=== PATIENT | female | born 1950 | race Caucasian/White ===

== ENCOUNTER → 2019-05-16 15:59 | Outpatient (CLI) | payer MEDICARE, OTHER, SELFPAY ==
[2019-05-16 14:50] VITALS: BMI 39.0
== END ==
PROVIDERS: Family Provider Family Medicine; PCP Family Medicine; Referring Provider Surgery; Visit Provider Surgery
DX: S81.802A Unspecified open wound, left lower leg, initial encounter (principal)
CPT/HCPCS: 87070; 87075; 87077; 87186; 87205

== ENCOUNTER → 2020-05-05 | Outpatient (CLI) | payer MEDICARE, OTHER, SELFPAY ==
[2020-04-22 14:02] VITALS: BMI 37.7
[2020-04-26 14:10] VITALS: BMI 37.7
--- NOTE | 2020-05-05 13:00 | CDU_ITS ---
Reason For Study: Carotid Artery Stenosis Rt. Velocities/BP Lt. Velocities/BP Prox CCA 134/16 cm/sec. Prox CCA 95/13 cm/sec. Mid CCA 102/23 cm/sec. Mid CCA 159/26 cm/sec. Dist CCA 97/17 cm/sec. Dist CCA 164/23 cm/sec. Prox ICA 125/27 cm/sec. Prox ICA 159/23 cm/sec. Mid ICA 142/21 cm/sec. Mid ICA 125/27 cm/sec. Dist ICA 68/19 cm/sec. Dist ICA 109/32 cm/sec. Rt. ICA/CCA = 1.4. Lt. ICA/CCA = 1.0. Prox ECA 328/22 cm/sec. Prox ECA 177/15 cm/sec. Rt. Vert. 75/16 cm/sec. Lt. Vert. 29/14 cm/sec. Right Extracranial There is heterogeneous, irregular atherosclerotic plaque noted in the right common carotid artery. There is heterogeneous, irregular atherosclerotic plaque noted in the right internal carotid artery. There is heterogeneous, irregular atherosclerotic plaque noted in the right external carotid artery. Antegrade flow is noted in the right vertebral artery. Left Extracranial There is heterogeneous, irregular atherosclerotic plaque noted in the left common carotid artery. There is heterogeneous, irregular atherosclerotic plaque noted in the left internal carotid artery. There is heterogeneous, irregular atherosclerotic plaque noted in the left external carotid artery. Antegrade flow is noted in the left vertebral artery. Interpretation Summary Internal carotid arteryIrregular calcific plaque with shadowing with 50 to 69% stenosis. Extensive plaque at the proximal right external carotid artery with greater than 50% stenosis. Irregular calcific plaque at the proximal left internal carotid artery with 50 to 69% stenosis. <50% stenosis left external carotid Patent and antegrade vertebrals bilaterally Ordering Physician: Laz Kaur Referring Physician: Himanshu Evans Performed By: Jessica Harvey, ANÍBAL, RVT
--- NOTE | 2020-05-05 13:00 | ECHOD_ITS ---
Reason For Study: Murmur Procedure This was a 2D Doppler, Color Flow transthoracic echocardiogram. The study was technically difficult. Exam performed in department. Left Ventricle Normal LV size. Left ventricular systolic function is normal. The estimated ejection fraction is 55 %. Diastolic function is indeterminate. No regional wall motion abnormalities noted. Right Ventricle Normal RV size. Normal systolic function. Atria Normal left atrium. Normal right atrium. No doppler evidence for ASD. Mitral Valve There is mild mitral annular calcification. Extension of the mitral annular calcification onto the base of the posterior mitral valve leaflet. Mild (1+) mitral valve insufficiency. Tricuspid Valve Normal tricuspid valve. Trivial tricuspid valve insufficiency. Unable to estimate RV systolic pressure/pulmonary artery pressure due to technically difficult study. Aortic Valve Trisinus/trileaflet aortic valve. Mild diffuse aortic valve thickening. Moderate diffuse aortic valve calcification. Moderate - Severe Aortic Valve Stenosis. Trivial aortic valve insufficiency. Pulmonic Valve The pulmonic valve is not well visualized. Great Vessels Normal sized aortic root. Pericardium/Pleural No pericardial effusion. MMode/2D Measurements & Calculations LVIDd: 5.2 cm IVSd: 1.1 cm LVOT diam: 1.9 cm LVIDs: 3.9 cm LVPWd: 0.95 cm LVOT area: 2.7 cm2 FS: 25.7 % Ao root diam: 3.1 cm LAV(MOD-bp): 44.5 ml LVAd ap4: 28.2 cm2 LA dimension: 3.9 cm LAV(MOD-bp) Indexed: 24.2 ml/m2 EDV(MOD-sp4): 88.1 ml LAV(MOD-sp2): 45.6 ml EDV(sp4-el): 88.0 ml LAV(MOD-sp4): 44.2 ml LVAs ap4: 17.2 cm2 ESV(MOD-sp4): 41.7 ml ESV(sp4-el): 39.8 ml EF(MOD-sp4): 52.7 % EF(sp4-el): 54.8 % SV(MOD-sp4): 46.4 ml SV(sp4-el): 48.3 ml LA A4 area: 16.9 cm2 RA A4 area: 10.0 cm2 Time Measurements MV dec time: 0.18 sec Doppler Measurements & Calculations MV E max carter: 83.4 cm/sec Lat Peak E' Carter: 7.9 cm/sec Med Peak E' Carter: 7.4 cm/sec MV A max carter: 117.4 cm/sec E/E' lat: 10.5 E/E' med: 11.2 MV E/A: 0.71 MV V2 max: 144.3 cm/sec MV P1/2t max carter: 105.5 cm/sec Ao V2 max: 365.4 cm/sec MV max P.3 mmHg MV P1/2t: 95.3 msec Ao max P.4 mmHg MV V2 mean: 82.4 cm/sec Ao V2 mean: 251.4 cm/sec MV mean P.1 mmHg MV dec slope: 324.1 cm/sec2 Ao mean P.7 mmHg MV V2 VTI: 35.8 cm MVA(P1/2t): 2.3 cm2 Ao V2 VTI: 93.4 cm MVA(VTI): 2.3 cm2 TORO(I,D): 0.87 cm2 TORO(V,D): 0.86 cm2 AI max carter: 365.4 cm/sec LV V1 max: 113.8 cm/sec MR max carter: 654.7 cm/sec AI max P.4 mmHg LV V1 max P.2 mmHg MR max P.5 mmHg LV V1 mean P.4 mmHg MR mean carter: 504.4 cm/sec AI dec slope: 236.9 cm/sec2 LV V1 mean: 69.5 cm/sec MR mean P.9 mmHg AI P1/2t: 451.8 msec LV V1 VTI: 29.4 cm MR VTI: 243.5 cm SV(LVOT): 80.9 ml PA V2 max: 79.0 cm/sec Interpretation Summary The study was technically difficult. Left ventricular systolic function is normal. The estimated ejection fraction is 55 %. There is mild mitral annular calcification. Extension of the mitral annular calcification onto the base of the posterior mitral valve leaflet. Mild (1+) mitral valve insufficiency. Trivial tricuspid valve insufficiency. Moderate - Severe Aortic Valve Stenosis. Trivial aortic valve insufficiency. Unable to estimate RV systolic pressure/pulmonary artery pressure due to technically difficult study. Diastolic function is indeterminate. Ordering Physician: Laz Kaur Referring Physician: Himanshu Evans Performed By: Bruno Harper RCS
--- NOTE | 2020-05-05 14:05 | RAD_ITS ---
STUDY: X-RAY CHEST REASON FOR EXAM: Female, 69 years old. SHORT OF BREATH, WHEEZING, BAD HEART VALVE PER PT. TECHNIQUE: 2 views COMPARISON: None. FINDINGS: The lungs are clear and expanded. There is no demonstrated pleural abnormality. Normal size heart. Normal mediastinum and louie. Normal visualized pulmonary arteries. There is atherosclerotic calcification of the aortic arch with tortuosity. Mild degenerative changes of the thoracic spine with demineralized osseous structures. Normal visualized ribs, clavicles, and shoulders. Surgical clips in the deep upper abdomen. RAD/Chest PA and Lateral IMPRESSION: No acute cardiopulmonary findings. Negative for consolidation, other infiltrates, pleural effusion or cardiomegaly. Atherosclerotic changes of the aorta. There does not appear to be a visible cardiac valve. There is no evidence of prior midline sternotomy or thoracotomy Electronically Signed: Татьяна Perez MD at 17:54 EDT , Service support ,
[2020-05-05 15:01] LABS: Absolute Lymphocyte Count 2.29 X10^3/uL (0.83-4.51); Basophil# 0.06 X10^3/uL; Basophil% 0.7 % (0-1); Eosinophil# 0.35 X10^3/uL; Eosinophils% 4.2 % (0-5); Hematocrit 39.6 % (37-47); Hemoglobin 12.5 g/dL (12.0-15.0); Lymphocyte # 2.29 X10^3/ul (4.0); Lymphocyte % 27.7 % (19-41); Mean Corp Hgb Conc 31.6 g/dL (32-36); Mean Corpuscular Hgb 29.5 pg (27.0-32.0); Mean Corpuscular Volume 93.4 fL (81-99); Mean Platelet Vol. 10.6 fl (6.2-12.0); Monocyte# 0.59 X10^3/uL; Monocyte% 7.1 % (0-10); NRBC Flagged by Analyzer 0 % (0-5); Neutrophil # 4.95 X10^3/uL (2.7-7.7); Neutrophil % 60.1 % (47-70); Platelet Count 244 K/mm3 (150-450); RBC Distribution Width CV 13.1 % (11.6-14.6); RBC Distribution Width SD 44.9 fl (35.1-43.9); Red Blood Count 4.24 M/mm3 (4.2-5.4); White Blood Count 8.3 K/mm3 (4.4-11.0)
[2020-05-05 15:16] LABS: Anion Gap 3 (5-15); BUN 30 mg/dL (7-18); BUN/Creat Ratio 39.5 RATIO (10-20); Calcium,Total 9.9 mg/dL (8.5-10.1); Chloride 104 mmol/L (98-107); Creatinine, Serum 0.76 mg/dL (0.55-1.02); EST Glomerular Filtration Rate 80 mL/min (>60); Est Glom Filt Rate - Afr Amer 97 mL/min (>60); Glucose 97 mg/dL (74-106); Potassium 3.9 mmol/L (3.5-5.1); Sodium Level 138 mmol/L (136-145)
[2020-05-05 15:25] LABS: International Normalized Ratio 1.1; Prothrombin Time (Protime)PT. 13.2 SECONDS (11.7-14.9)
[2020-05-05 15:26] LABS: Partial Thromboplast Time 35.2 Seconds (24.1-36.2)
== END | disposition home or self-care (01) ==
PROVIDERS: PCP Family Medicine; Referring Provider Internal Medicine Cardiovascular Disease; Visit Provider Internal Medicine Cardiovascular Disease
DX: R06.02 Shortness of breath (principal); I35.0 Nonrheumatic aortic (valve) stenosis; I65.23 Occlusion and stenosis of bilateral carotid arteries; E78.2 Mixed hyperlipidemia; I10 Essential (primary) hypertension; Z95.828 Presence of other vascular implants and grafts
CPT/HCPCS: 36415; 71046; 80048; 85025; 85610; 85730; 93306; 93880

== ENCOUNTER → 2020-05-10 09:19 | Outpatient (CLI) | payer MEDICARE, OTHER, SELFPAY ==
[2020-04-22 14:02] VITALS: BMI 37.7
[2020-04-26 14:10] VITALS: BMI 37.7
--- NOTE | 2020-05-11 10:37 | PFT ---
INTRODUCTION: The patient is a 69-year-old female that presents for pulmonary function studies secondary to a diagnosis of shortness of breath. Respiratory therapy reports good patient effort. Bronchodilators were used during testing. INTERPRETATION: Forced expiration spirometry demonstrates the presence of a severe large airways obstructive ventilatory defect. There was a partial, albeit technically nonsignificant, response to aerosolized bronchodilators. Spirograms are of good quality and do not plateau indicating slow emptying of the lungs. Body plethysmography was performed and reveals an elevated RV to 150% of predicted, indicative of underlying air trapping. Diffusing capacity by single breath CO is reduced at 57% of predicted. IMPRESSION: Irreversible severe large airways obstructive ventilatory defect with associated air trapping and symmetric reduction in diffusing capacity.
== END ==
PROVIDERS: PCP Family Medicine; Referring Provider Internal Medicine Cardiovascular Disease; Visit Provider Internal Medicine Cardiovascular Disease
DX: I35.0 Nonrheumatic aortic (valve) stenosis (principal); Z95.828 Presence of other vascular implants and grafts; I65.23 Occlusion and stenosis of bilateral carotid arteries; E78.2 Mixed hyperlipidemia; I10 Essential (primary) hypertension; R06.02 Shortness of breath
CPT/HCPCS: 94060; 94726; 94729

== ENCOUNTER 2020-05-11 08:01 | Day surgery (SDC) | payer MEDICARE, OTHER, SELFPAY ==
[2020-04-22 14:02] VITALS: BMI 37.7
[2020-04-26 14:10] VITALS: BMI 37.7
[2020-05-10 10:29] VITALS: BMI 37.7
--- NOTE | 2020-05-11 09:30 | HP_ITS ---
HPI HPI History of Present Illness Surgical H&P: Yes Details: This is a 69-year-old white female who presents for outpatient cardiovascular consultation based upon concerns of aortic valve stenosis and shortness of breath/dyspnea. She knows she has an element of aortic valve stenosis based upon a transthoracic echocardiogram performed through the [facility] system in December 2018 at which time it was reported as severe with an aortic valve area of 0.6 cm?. She states she did not follow-up at that time with the recommendations to seek cardiovascular consultation. She does not believe she has had any further cardiovascular diagnostic studies. She states her main concern has been her shortness of breath and dyspnea and her back discomfort. She admits to being a longtime cigarette smoker and continues to smoke cigarettes. She admits to audible wheezing which is been going on for at least a year. She has not had any radiologic studies or pulmonary function studies to the best of her recollection. She states she is in need for some form of back surgery in the future but there is hesitancy based upon her underlying cardiopulmonary disease process. She is not complaining of chest discomfort. Her main concerns include shortness of breath/dyspnea with exertion. She has not had classic orthopnea or PND or peripheral pitting edema suspicious for acute CHF or pulmonary edema. There is been no near syncope or syncope. She has a history of peripheral vascular disease. She has bilateral carotid artery stenosis. She is also had aorto iliac bypass surgery performed many years ago at [facility]. She had an ECG in the office today. She was noted to be in sinus rhythm with an inferior SC pattern of indeterminate age cannot be excluded. Intake Vital Signs 04/22/20 Height 5 ft 04/22/20 Weight: 193 lb 4 oz 04/22/20 BMI 37.7 04/22/20 BP 170/78 H 04/22/20 Blood Pressure Location Lt brachial 04/22/20 Position Sitting 04/22/20 Respiration 18 04/22/20 Pulse 80 04/22/20 Pulse Source Auscultation Intake Visit Reasons: AORTIC STENOSIS/ SELF REF. Mangle Tender Required: No Accompanied by: Self Allergies ROSALINO Inhibitors Adverse Reaction (Severe, Verified 04/22/20 14:16) cough Medications losartan 100 mg tablet 100 mg PO DAILY 05/16/19 [History Confirmed 04/22/20] acetaminophen 500 mg tablet 500 mg PO Q6H PRN 04/22/20 [History Confirmed 04/22/20] amlodipine 5 mg tablet 5 mg PO DAILY #1 tab 04/22/20 [Rx Confirmed 04/22/20] aspirin 81 mg tablet,delayed release 81 mg PO DAILY 04/22/20 [History Confirmed 04/22/20] gabapentin 300 mg capsule 300 mg PO TID 04/22/20 [History Confirmed 04/22/20] hydrochlorothiazide 50 mg tablet 50 mg PO DAILY 04/22/20 [History Confirmed 04/22/20] meloxicam 15 mg tablet 15 mg PO DAILY 04/22/20 [History Confirmed 04/22/20] [facility] Medical History (Updated 04/20/20 @ 10:49 by Phoebe Ackerman) Bilateral carotid artery stenosis (Chronic) Nonrheumatic aortic (valve) stenosis (Chronic) Mixed hyperlipidemia (Chronic) PVD (peripheral vascular disease) (Chronic) Essential hypertension (Chronic) Venous stasis ulcer (Acute) Neuropathy (Chronic) Surgical History (Updated 04/20/20 @ 10:41 by Phoebe Ackerman) History of kagsl-blfrg-hgllpdv bypass (Chronic ~1997) S/P carpal tunnel release (Resolved) Family History (Updated 04/22/20 @ 14:20 by Phoebe Ackerman) Brother Diabetes Heart disease Cancer Father Heart disease Hypertension CAD (coronary artery disease) Mother Hypertension History of mitral valve disorder Social History (Updated 04/22/20 @ 15:[address] Laz Kaur MD) Smoking Status: Current every day smoker alcohol intake: current details: occasional substance use type: does not use caffeine: Yes Type: carbonated beverages Number of servings: 1, coffee Number of servings: 2 ROS Const Const: Positive for fatigue; negative for weakness, frequent falls, excessive sweating, weight gain or weight loss Eyes Eyes: Negative for transient loss of vision, blurry vision or change in vision ENT ENT: Negative for dizziness or balance problems Cardio Chest Pain: No Palpitations: No Edema: None Muscle aches with walking: None Resp Respiratory: Positive for SOB with activity (increased with minimal activity), Cough (occasional productive) and wheezing; negative for SOB at rest GI GI: Negative vomiting or vomiting blood/hematemesis : Negative for hematuria Musc Musc: Positive for muscle aches/ myalgia (back pain) and joint pain (bilat hip pain); negative for muscle weakness or balance problems Skin Skin: Negative non-healing lesions or rash Neuro Neuro: Negative for dizziness, lightheadedness, orthostatic symptoms, frequent falls, weakness or blurry vision Abelino Hematologic/Lymphatic: Negative for easy bleeding Endo Endo: Positive for fatigue; negative for excessive sweating Psych Psych: Negative for anxiety or depression Allergy Allergy/Immunology: Negative for hives, Negative for rash Cardiology Exam Const Appearance: cooperative, healthy appearing, comfortable, no acute distress, well developed and well groomed Nutritional Appearance: obese Orientation: alert, awake and oriented x3 Head Head: normal to inspection, normocephalic and atraumatic Ears: hearing grossly normal bilaterally Nose: external nose normal Face and Sinus: face symmetric Eyes Eyelids: eyelids normal Conjunctivae: conjunctivae normal Pupils: PERRL EOM: EOM intact bilaterally Neck Neck: normal visual inspection and full ROM Carotids: bruit Bilateral Chest Chest inspection: normal inspection of the chest, symmetric chest movement and normal respiratory effort Auscultation: Bilateral: Expiratory Wheezes Cardio Palpation: normal PMI Rate: regular rate Rhythm: regular rhythm Heart sounds: S1 normal and S2 normal Murmur: Grade 3/6, harsh, mid systolic, LLSB, LVOT and sternal notch GI GI: normal to inspection, soft, bowel sounds present and obese Neuro General: alert, awake, oriented x3 and moves all extremities Skin Skin: no rashes or lesions noted Extremities Pulses: Normal: Right Radial Pulse, Left Radial Pulse, Diminished: Right Dorsalis Pedis Pulse, Left Dorsalis Pedis Pulse, Right Posterior Tibial Pulse, Left Posterior Tibial Pulse Lower Extremity Edema: None: Bilateral Psych Psychological: normal affect Assessment & Plan 1. Nonrheumatic aortic (valve) stenosis I35.0 Plan At the present time she does have a history of aortic valve stenosis. Certainly this can be contributing to her shortness of breath and dyspnea with exertion superimposed upon underlying pulmonary related issues. At the moment she will seek further evaluation. This will include an echocardiogram to reassess her aortic valve anatomy and physiology as well as her left ventricular size, wall motion, and systolic function. She has been recommended for further evaluation with diagnostic cardiac catheterization. This would be to assess her cardiovascular hemodynamics if possible and her coronary anatomy. This will be in preparation for a future TAVR procedure versus traditional surgical based aortic valve replacement procedure. Orders Orders: 12 Lead EKG performed by BMS Today Left & Right Heart Cath w Grafts Today Basic Metabolic Profile (BMP) Today Partial Thromboplast Time Today Prothrombin Time w/INR Today Echo Complete Today CBC W/Diff, Automated Today Pulmonary Function Test (Comp) Today Chest PA and Lateral Today Carotid Duplex Ultrasound Today 2. History of cytue-cuuow-dqwdmcc bypass Z95.828 Plan She does have PAD. She states she has followed with Dr. Pepe Colon who performed her original surgery many years ago. Orders Orders: Left & Right Heart Cath w Grafts Today Basic Metabolic Profile (BMP) Today Partial Thromboplast Time Today Prothrombin Time w/INR Today Echo Complete Today CBC W/Diff, Automated Today Pulmonary Function Test (Comp) Today Chest PA and Lateral Today Carotid Duplex Ultrasound Today 3. Bilateral carotid artery stenosis I65.23 Mild Plan She will be asked to have carotid artery duplex study to reassess her carotid artery status. This will be important noting that she is going to be needing upcoming aortic valve replacement. Orders Orders: 12 Lead EKG performed by BMS Today Left & Right Heart Cath w Grafts Today Basic Metabolic Profile (BMP) Today Partial Thromboplast Time Today Prothrombin Time w/INR Today Echo Complete Today CBC W/Diff, Automated Today Pulmonary Function Test (Comp) Today Chest PA and Lateral Today Carotid Duplex Ultrasound Today 4. Mixed hyperlipidemia E78.2 Plan A copy of her lipid labs will be appreciated for continuity of care. Orders Orders: Left & Right Heart Cath w Grafts Today Basic Metabolic Profile (BMP) Today Partial Thromboplast Time Today Prothrombin Time w/INR Today Echo Complete Today CBC W/Diff, Automated Today Pulmonary Function Test (Comp) Today Chest PA and Lateral Today Carotid Duplex Ultrasound Today 5. Essential hypertension I10 Plan She will increase her amlodipine therapy to 5 mg p.o. daily and monitor her blood pressure response. Orders Orders: 12 Lead EKG performed by BMS Today Left & Right Heart Cath w Grafts Today Basic Metabolic Profile (BMP) Today Partial Thromboplast Time Today Prothrombin Time w/INR Today Echo Complete Today CBC W/Diff, Automated Today Pulmonary Function Test (Comp) Today Chest PA and Lateral Today Carotid Duplex Ultrasound Today 6. Shortness of breath R06.02 Plan She will have further evaluation of her pulmonary status with chest x-ray and PFTs. The PFTs would also be important noting that she is going to be in need of upcoming aortic valve replacement procedures Orders Orders: Left & Right Heart Cath w Grafts Today Basic Metabolic Profile (BMP) Today Partial Thromboplast Time Today Prothrombin Time w/INR Today Echo Complete Today CBC W/Diff, Automated Today Pulmonary Function Test (Comp) Today Chest PA and Lateral Today Carotid Duplex Ultrasound Today Plan Detail Other Medications New: amlodipine 5 mg PO DAILY 1 tab 0RF aspirin (Adult Low Dose Aspirin) 81 mg PO DAILY Additional Comments The above was discussed with her and she was agreeable to this approach. Thank you for allowing me to participate in the care of your patient. Please don't hesitate to call if any issues arise. This note was generated using a voice recognition system and there may be incorrect words, spelling or punctuation that were not noted when reviewing the office note prior to saving. Follow Up 6 Weeks (with PFM) Coding Level of Care Code Off vis,new,level 5 Diagnoses Nonrheumatic aortic (valve) stenosis I35.0 History of hxink-zporc-vyodcjd bypass Z95.828 Bilateral carotid artery stenosis I65.23 Mixed hyperlipidemia E78.2 Essential hypertension I10 Shortness of breath R06.02 Coding Level of Care Code Off vis,new,level 5 Diagnoses Nonrheumatic aortic (valve) stenosis I35.0 History of nzolc-drdtr-zjihfnq bypass Z95.828 Bilateral carotid artery stenosis I65.23 Mixed hyperlipidemia E78.2 Essential hypertension I10 Shortness of breath R06.02 Supplemental Info Supplemental Information Diagnostics Electrocardiogram 04/22/20 I have examined the patient the following changes are noted: The patient has undergone additional evaluation with a transthoracic echocardiogram. The results are noted below. Interpretation Summary The study was technically difficult. Left ventricular systolic function is normal. The estimated ejection fraction is 55 %. There is mild mitral annular calcification. Extension of the mitral annular calcification onto the base of the posterior mitral valve leaflet. Mild (1+) mitral valve insufficiency. Trivial tricuspid valve insufficiency. Moderate - Severe Aortic Valve Stenosis. Trivial aortic valve insufficiency. Unable to estimate RV systolic pressure/pulmonary artery pressure due to technically difficult study. Diastolic function is indeterminate. The plan is to proceed with further evaluation with diagnostic cardiac catheterization. The procedure and risks have been discussed with the patient. She was agreeable to this approach. The surgeon/proceduralist and patient have discussed in detail the risk of exposure to and/or potential harm posed by the COVID-19 virus with having a surgery/procedure at this time versus the risk of delaying the surgery/procedure. It is not possible to know either the risk of delaying the surgery or procedure or chance of getting an infection with perfect accuracy, but a joint decision was made between the patient and the surgeon/proceduralist to proceed at this time with the scheduled surgery/procedure as indicated on the consent form. This note was generated using a voice recognition system and there may be incorrect words, spelling or punctuation that were not noted when reviewing the office note prior to saving.
[2020-05-11 10:16] LABS: Blood Gas Specimen Type VEN; VBG BASE EXCESS 1 mmol/L (-1.0-3.5); VBG Bicarbonate 27 mmol/L (22-26); VBG Oxygen Content 28 mmol/L (23-33); VBG PO2 40 mmHg (25-40); VBG SO2 71 % (50-70); VBG pCO2 48.3 mmHg (41-51); VBG pH 7.35 (7.32-7.42)
[2020-05-11 10:20] LABS: Blood Gas Specimen Type VEN; VBG BASE EXCESS 0 mmol/L (-1.0-3.5); VBG Bicarbonate 26 mmol/L (22-26); VBG Oxygen Content 27 mmol/L (23-33); VBG PO2 38 mmHg (25-40); VBG SO2 69 % (50-70); VBG pCO2 46.8 mmHg (41-51); VBG pH 7.35 (7.32-7.42)
[2020-05-11 10:26] LABS: Base Excess 1 mmol/L (-2 to +2); Bicarbonate 26.3 mmol/L (22-26); Blood Gas Specimen Type ART; PO2 67 mmHG (75-100); SO2 92 % (95-99); Total Carbon Dioxide 28 mmol/L; pCO2 46.5 mmHg (35-45); pH 7.36 (7.35-7.45)
--- NOTE | 2020-05-11 11:26 | CL.D_ITS ---
Patient Name: LEONIDES BAKER Study Date: 05/11/2020 Performing: Laz Kaur MD Ht: 59.84 inches 152 cm : 1950 Wt: 194.01 lbs 88 kg Age: 69 Gender: female BSA: 1.84 PROCEDURE(S) PERFORMED [id number]-ENO/LHC/COR CLINICAL PROFILE AND INDICATIONS Indications: Valvular Disease Heart Failure: None Stress/Imaging Stress/Image Study Performed: No Angina Classification Anginal Classification w/in 2 Weeks: Anginal Equivalent Dyspnea CAD Presentations: Other: dyspnea on exertion CONCLUSIONS Right heart pressures - moderately elevated The patient has pulmonary hypertension which is moderate. Intracardiac shunting: None [place] Multivessel CAD RECOMMENDATIONS Medical therapy Risk factor modification Surgery consult for valvular disease (TAVR vs. SAVR) and coronary artery revascularization therapy DESCRIPTION OF PROCEDURE The patient arrived to the procedure lab. The risks and benefits of the procedure as well as a full d escription of our services here and current unavailability of surgical backup were fully explained to the patient and/or their significant other prior to the catheterization. The Timeout was completed, verifying the correct patient and procedure. The patient's procedural site was prepped and draped in the usual fashion. Local anesthetic was given subcutaneously to right brachial region with Lidocaine 2%. Local anesthetic was given subcutaneously to right radial region with Lidocaine 2%. Using a modif ied Seldinger technique, arterial access was obtained via the right radial artery, a 6Fr sheath was i nserted. Venous access was obtained via the right brachiocephalic vein, with Micropuncture set A 7Fr thermal dilution catheter was inserted and right heart pressures were recorded, it was then advanced to PA position for cardiac outputs. O2 saturations were then obtained. Thermal dilution cardiac outputs were then recorded. Simultaneous pressures were then recorded. The Thermal dilution c atheter was then removed. Left Coronary Artery selective angiography was performed in multiple views using a 5 Fr. 4.0 [place] catheter. Right Coronary Artery selective angiography was then performed in m ultiple views using a 5 Fr. 4.0 [place] catheter.The arterial sheath was pulled and a TR Band was appli ed for hemostasis 15cc air. The venous sheath was then pulled and manual compression applied until he mostasis achieved CORONARY ANGIOGRAPHY DOMINANCE: Co- Dominant LEFT HEART ASSESSMENT Left Ventricular Ejection Fraction: Not assessed RIGHT HEART ASSESSMENT Thermal CO: 5.3 Thermal CI: 2.88 Rebecca CO: 6.85 Rebecca CI: 3.72 PW: 24 26 PA: 36/22 28 RV: 39/15 16 RA: 14/ 13 PVR: 30 SVR: 1268 Right Heart pressures - elevated Pulmonary Hypertension Moderate Intracardiac shunting: None LEFT MAIN: Mild calcification, proximal: 10 - 25 % Stenosis LEFT ANTERIOR DESCENDING ARTERY: Mild luminal irregularities PROX LAD: Mild calcification, hazy: eccentric: 25 % Stenosis CIRCUMFLEX ARTERY: PROX CIRC: Mild calcification, Mild luminal irregularities DISTAL CIRC: small caliber vessel: 85 % Stenosis RIGHT CORONARY ARTERY: Mild luminal irregularities DISTAL RCA: small caliber vessel: long: smooth: 50 % Stenosis COMPLICATIONS No Complications PROCEDURE MEDICATIONS Versed 1 mg IV Fentanyl 50 mcg IV Heparin diluted in 23cc Heparinized saline. Patient given 10cc IA of this solution. 05/11/2020 09:56: 49 Verapamil 2.5mg, Ntg 100mcgs, 2000 units of Heparin diluted in 23cc Heparinized saline. Patient give n 10cc IA of this solution. 05/11/2020 09:56:49 SUMMARY OF HEMODYNAMIC DATA Time AIR REST ECG 08:25:06 RA 14/13 (13) SV 10:10:49 RV 39/15, 16 10:11:10 PA 36/22 (28) PA 10:11:31 PW (26) PV 10:12:19 AO 143/45 (97) SA 10:21:26 PA 43/23 (34) 10:21:26 AO 132/48 (80) 10:32:46 Type SV CO (l/m) CI (l/m/ HR Time AIR REST Thermal 60.20 5.30 2.88 88 08:25:06 Rebecca 77.80 6.85 3.72 88 08:25:06 Label % O2 Pres/Loc Time AIR REST RA 71 SV 10:19:55 AO 92 PV 10:20:00 PA 69 PA 10:20:03 SVC 67 10:20:12 Signed By Laz Kaur MD On 05/11/2020 11:25:37 AM Laz Kaur MD
== END 2020-05-11 12:35 | disposition home or self-care (01) ==
LOC: CLSP 08:02
PROVIDERS: PCP Family Medicine; Referring Provider Internal Medicine Cardiovascular Disease; Visit Provider Internal Medicine Cardiovascular Disease
DX: I27.20 Pulmonary hypertension, unspecified (principal); I25.10 Atherosclerotic heart disease of native coronary artery without angina pectoris; R06.09 Other forms of dyspnea; I65.23 Occlusion and stenosis of bilateral carotid arteries; I35.0 Nonrheumatic aortic (valve) stenosis; E78.2 Mixed hyperlipidemia; I10 Essential (primary) hypertension; I73.9 Peripheral vascular disease, unspecified; F17.210 Nicotine dependence, cigarettes, uncomplicated; Z79.1 Long term (current) use of non-steroidal anti-inflammatories (NSAID); Z79.82 Long term (current) use of aspirin; Z95.2 Presence of prosthetic heart valve
CPT/HCPCS: 82803; 93456; 99152; 99153; J7040; Q9967; C1751; C1769; C1894

== ENCOUNTER 2020-06-24 15:08 | Emergency (ER) | payer MEDICARE, OTHER, SELFPAY ==
[2020-05-10 10:29] VITALS: BMI 37.7
[2020-06-24 15:09] VITALS: BP 161/80; PULSE 86; RESP 16; TEMP 36.3; O2SAT 98; O2SAT 99; BMI 38.0
--- NOTE | 2020-06-24 16:57 | ED.DCSUM_ITS ---
History of Present Illness Chief Complaint: Lower Extremity Injury Informant: Patient Onset: Days Timing: Continuous Quality: Wound anterior left leg Location: Anterior left leg Current Severity: Mild Maximum Severity: Mild Worsened by: Unknown possibly dressing Relieved by: Patient states her symptoms improved when she removes rosalino dressing Associated Symptoms: No constitutional symptoms. No paresthesia or anesthesia. No pallor to to Narrative: Patient is 69-year-old woman who had aortic valve replacement on 06/07/2020. She was seen by wound care nurse affiliated with the [facility]. She was sent in because there was concern for blood clot, infection and limb ischemia. Nurse states very acute. Patient states this started several days ago. She does not believe it looks bad. She thought the fact that it was red and there was bleeding from the wounds this meant blood supply was good. She denies fever, chills night sweats. She denies paresthesia, anesthesia or motor weakness. She does have a remote history of vascular surgery [address] Pepe Colon. She denies numbness in her toes, loss of use of her foot or toes and denies pallor to her foot or toes. She denies chest pain, shortness of breath, pleurisy. She denies pain posteriorly. She states she had difficulty sleeping and when she removes the dressing she is able to sleep because the pain is better. Prior similar symptoms: Yes Recent Illness/Hospitalization: Yes - Past Medical History (1) Venous stasis ulcer Status: Acute (2) Atherosclerotic heart disease of [place] coronary artery without angina pectoris Status: Chronic (3) Bilateral carotid artery stenosis Status: Chronic Comment: Mild (4) Essential hypertension Status: Chronic (5) History of uemtz-yhukg-oarukml bypass Status: Chronic (6) Mixed hyperlipidemia Status: Chronic (7) Nonrheumatic aortic (valve) stenosis Status: Chronic (8) PVD (peripheral vascular disease) Status: Chronic Past Medical History - Allergies and Home Meds Allergies/Adverse Reactions: Allergies ROSALINO Inhibitors Adverse Reaction (Severe, Verified 04/22/20 14:16) cough Primary Care Physician: Ronnie Evans MD [Primary Care Provider] - Prior records reviewed: Yes Surgical History: - - Recent surgery at [facility] Smoking Status: Current every day smoker Alcohol: None Drugs: None Review of Systems General: Denies: Chills, Fever, Malaise, Subjective, Weight loss Eyes: Denies: Visual changes - bilaterally, Blurred Vision - bilaterally ENT: Denies: Rhinorrhea, Sore throat Cardiovascular: Denies: Chest pain, Palpitations Respiratory: Denies: Dyspnea, Cough, Sputum, Dyspnea on exertion, Orthopnea, Paroxysmal nocturnal dyspnea Gastrointestinal: Denies: Abdominal pain, Nausea, Vomiting, Diarrhea, Melena, Hematochezia Genitourinary: Denies: Dysuria, Hematuria, Frequency Musculoskeletal: Reports: Extremity Pain. Denies: Myalgias, Arthralgias, Neck pain, Back pain, Swelling Skin: Reports: Rash, Wounds Neurological: Denies: Headache, Weakness, Parasthesia Endocrine: Denies: Polyuria, Polydipsia Hematologic: Denies: Easy bruising, Easy bleeding Physical Exam Vital Signs/Narrative: Vital Signs Temp Pulse Resp BP Pulse Ox 06/24/20 15:09 97.3 F L 86 16 161/80 H 98 Inital Vital Signs reviewed: Yes General: Well nourished, Well developed, Obese Head: Normocephalic, Atraumatic Eyes: Perrl, EOMI Neck: Supple, Nontender Cardiovascular: Regular rate, Regular rhythm, No murmurs, Normal S1, Normal S2 Respiratory: No distress, CTA bilaterally Extremities: Nontender - Tenderness anteriorly over the wound. There is no erythema, warmth, induration, lymphangitis or popliteal/inguinal lymph adenopathy. There is no lymphangitis., - - There is no asymmetry, swelling, discoloration, leg vein distention, palpable cords or tenderness along the distribution of the deep venous system. Cap refill is normal. Toes are warm. There is no pallor. Both Dopplers of the department are not functioning. Negative for: No edema, Calf Tenderness Skin: Normal color, Rash, -. Negative for: Cyanosis, Diaphoresis, Jaundice, Trauma Neurological: Alert, Oriented x3, Cranial nerves II-XII grossly intact, Normal Strength, Normal Sensation Psychological: Normal affect Diagnostic/Tx/Re-eval Laboratory Results 06/24/20 06/24/20 17:15 17:15 WBC 11.4 H RBC 3.86 L Hgb 11.9 L Hct 34.9 L MCV 90.4 MCH 30.8 MCHC 34.1 RDW Std Deviation 41.3 RDW Coeff of Karla 12.6 Plt Count 223 MPV 10.3 Immature Gran % (Auto) 0.400 Neut % (Auto) 61.2 Lymph % (Auto) 18.8 L Hopkins % (Auto) 6.9 Eos % (Auto) 12.0 H Baso % (Auto) 0.7 Absolute Neuts (auto) 7.0 Absolute Lymphs (auto) 2.13 Nucleated RBC % 0 Sodium 139 Potassium 3.7 Chloride 108 H Carbon Dioxide 29.0 Anion Gap 2 L BUN 26 H Creatinine 0.81 Estim Creat Clear Calc 45.76 Est GFR (MDRD) Af Amer 89 Est GFR (MDRD) Non-Af 74 BUN/Creatinine Ratio 32.1 H Glucose 102 Calcium 9.8 White count is slightly elevated with no shift. This is nondiagnostic and nonspecific. BUN to creatinine ratio is elevated. GFR is normal. In my professional opinion patient does not have an ischemic leg. Since her pain is located anteriorly and is associated with the dressing this is consistent with a DVT. There is skin breakdown with granulation tissue. There is no evidence of infection. Therefore arterial and venous duplex ultrasound was not ordered. Clinically patient does not have a infection was not treated with antibiotics. ED Disposition - Plan for ED Patient: Disposition: Home or Assisted Living Diagnosis: Ulcer of left lower extremity, limited to breakdown of skin, Pain of left lower leg Instructions: ED Ulcer Skin Simple, ED Acute Pain [facility] Referrals: Ronnie Evans MD [Primary Care Provider] - As Needed
[2020-06-24 17:27] LABS: Absolute Lymphocyte Count 2.13 X10^3/uL (0.83-4.51); Basophil# 0.08 X10^3/uL; Basophil% 0.7 % (0-1); Eosinophil# 1.36 X10^3/uL; Hematocrit 34.9 % (37-47); Hemoglobin 11.9 g/dL (12.0-15.0); Lymphocyte # 2.13 X10^3/ul (4.0); Lymphocyte % 18.8 % (19-41); Mean Corp Hgb Conc 34.1 g/dL (32-36); Mean Corpuscular Hgb 30.8 pg (27.0-32.0); Mean Corpuscular Volume 90.4 fL (81-99); Mean Platelet Vol. 10.3 fl (6.2-12.0); Monocyte# 0.78 X10^3/uL; Monocyte% 6.9 % (0-10); NRBC Flagged by Analyzer 0 % (0-5); Neutrophil # 6.95 X10^3/uL (2.7-7.7); Neutrophil % 61.2 % (47-70); Platelet Count 223 K/mm3 (150-450); RBC Distribution Width CV 12.6 % (11.6-14.6); RBC Distribution Width SD 41.3 fl (35.1-43.9); Red Blood Count 3.86 M/mm3 (4.2-5.4); White Blood Count 11.4 K/mm3 (4.4-11.0)
[2020-06-24 17:44] LABS: Anion Gap 2 (5-15); BUN 26 mg/dL (7-18); BUN/Creat Ratio 32.1 RATIO (10-20); Calcium,Total 9.8 mg/dL (8.5-10.1); Chloride 108 mmol/L (98-107); Creatinine, Serum 0.81 mg/dL (0.55-1.02); EST Glomerular Filtration Rate 74 mL/min (>60); Est Glom Filt Rate - Afr Amer 89 mL/min (>60); Estimated Creatinine Clearance 45.76 ml/min; Glucose 102 mg/dL (74-106); Potassium 3.7 mmol/L (3.5-5.1); Sodium Level 139 mmol/L (136-145)
[2020-06-24 19:48] VITALS: BP 137/81; PULSE 88; RESP 16; O2SAT 96
== END 2020-06-24 19:48 | disposition home or self-care (01) ==
PROVIDERS: Emergency Provider Emergency Medicine; PCP Family Medicine
DX: L97.921 Non-pressure chronic ulcer of unspecified part of left lower leg limited to breakdown of skin (principal); I25.10 Atherosclerotic heart disease of native coronary artery without angina pectoris; I10 Essential (primary) hypertension; E78.2 Mixed hyperlipidemia; I73.9 Peripheral vascular disease, unspecified; I65.23 Occlusion and stenosis of bilateral carotid arteries; F17.200 Nicotine dependence, unspecified, uncomplicated; Z95.2 Presence of prosthetic heart valve
CPT/HCPCS: 80048; 85025; 99284

== ENCOUNTER → 2020-07-05 09:58 | Outpatient (CLI) | payer MEDICARE, OTHER, SELFPAY ==
[2020-06-24 15:09] VITALS: BMI 38.0
--- NOTE | 2020-07-05 09:59 | ECHOD_ITS ---
Reason For Study: Valve Replacement Evaluation Procedure This was a 2D Doppler, Color Flow transthoracic echocardiogram. The study was technically difficult. Exam performed in department. Left Ventricle Normal LV size. Left ventricular systolic function is normal. The estimated ejection fraction is 55 %. Septal bounce. There is evidence of diastolic dysfunction. No regional wall motion abnormalities noted. Right Ventricle Normal RV size. Normal systolic function. Atria The left atrium is mildly enlarged. Normal right atrium. No doppler evidence for ASD. Mitral Valve There is mild to moderate mitral annular calcification. Extension of the mitral annular calcification onto the base of the posterior mitral valve leaflet. The mitral valve chordae are thickened and/or calcified. Mild (1+) mitral valve insufficiency. Tricuspid Valve Normal tricuspid valve. Trivial tricuspid valve insufficiency. Unable to estimate RV systolic pressure/pulmonary artery pressure due to technically difficult study. Aortic Valve Stable appearing bioprosthetic aortic valve apparatus. Pulmonic Valve The pulmonic valve is not well visualized. Great Vessels The aortic root is not well visualized. Pericardium/Pleural No pericardial effusion. MMode/2D Measurements & Calculations LVIDd: 4.6 cm IVSd: 1.1 cm LVOT diam: 2.0 cm LVIDs: 3.8 cm LVPWd: 1.3 cm LVOT area: 3.1 cm2 RVDd: 3.4 cm FS: 18.0 % LA dimension: 4.3 cm LAV(MOD-bp): 62.7 ml LA A4 area: 20.2 cm2 LAV(MOD-bp) Indexed: 34.3 ml/m2 LAV(MOD-sp2): 61.8 ml LAV(MOD-sp4): 62.3 ml RA A4 area: 12.5 cm2 Time Measurements MV dec time: 0.17 sec Doppler Measurements & Calculations MV E max carter: 118.9 cm/sec Lat Peak E' Carter: 8.3 cm/sec Med Peak E' Carter: 7.0 cm/sec MV A max carter: 129.8 cm/sec E/E' lat: 14.4 E/E' med: 16.9 MV E/A: 0.92 MV V2 max: 153.1 cm/sec MV P1/2t max carter: 126.2 cm/sec Ao V2 max: 253.3 cm/sec MV max P.4 mmHg MV P1/2t: 95.5 msec Ao max P.7 mmHg MV V2 mean: 87.4 cm/sec MV dec slope: 387.1 cm/sec2 Ao V2 mean: 170.3 cm/sec MV mean P.6 mmHg Ao mean P.1 mmHg MV V2 VTI: 38.8 cm MVA(P1/2t): 2.3 cm2 Ao V2 VTI: 59.7 cm MVA(VTI): 3.0 cm2 TORO(I,D): 2.0 cm2 TORO(V,D): 1.9 cm2 LV V1 max: 154.2 cm/sec MR max carter: 549.4 cm/sec SV(LVOT): 116.9 ml LV V1 max P.5 mmHg MR max P.7 mmHg LV V1 mean P.6 mmHg LV V1 mean: 98.1 cm/sec LV V1 VTI: 37.1 cm PA V2 max: 67.4 cm/sec Interpretation Summary The study was technically difficult. Left ventricular systolic function is normal. The estimated ejection fraction is 55 %. Septal bounce. The left atrium is mildly enlarged. There is mild to moderate mitral annular calcification. Extension of the mitral annular calcification onto the base of the posterior mitral valve leaflet. The mitral valve chordae are thickened and/or calcified. Mild (1+) mitral valve insufficiency. Trivial tricuspid valve insufficiency. Stable appearing bioprosthetic aortic valve apparatus. Unable to estimate RV systolic pressure/pulmonary artery pressure due to technically difficult study. There is evidence of diastolic dysfunction. Ordering Physician: Laz Kaur Referring Physician: Himanshu Evans Performed By: Bruno Harper RCS
== END ==
PROVIDERS: PCP Family Medicine; Referring Provider Internal Medicine Cardiovascular Disease; Visit Provider Internal Medicine Cardiovascular Disease
DX: I35.0 Nonrheumatic aortic (valve) stenosis (principal); I10 Essential (primary) hypertension; I25.10 Atherosclerotic heart disease of native coronary artery without angina pectoris; Z95.2 Presence of prosthetic heart valve
CPT/HCPCS: 93306

== ENCOUNTER 2020-08-06 12:22 | Emergency (ER) | payer MEDICARE, OTHER, SELFPAY ==
[2020-07-28 13:57] VITALS: BMI 37.3
[2020-08-06 12:23] VITALS: BP 113/56; PULSE 90; RESP 24; TEMP 37.3; O2SAT 97; BMI 37.8
--- NOTE | 2020-08-06 12:56 | EKG12_ITS ---
Test Reason : Blood Pressure : / mmHG Vent. Rate : 083 BPM Atrial Rate : 083 BPM P-R Int : 172 ms QRS Dur : 098 ms QT Int : 392 ms P-R-T Axes : 066 054 059 degrees QTc Int : 460 ms Normal sinus rhythm Inferior infarct , age undetermined Abnormal ECG Confirmed by DANTE VELIZ, SANIYA ([id number]), state editor KWABENA MELO ([id number]) on 08/09/2020 8:53:30 AM Referred By: BB Confirmed By:SANIYA HOWELL MD
--- NOTE | 2020-08-06 12:56 | RAD_ITS ---
STUDY: X-RAY CHEST REASON FOR EXAM: Female, 69 years old. Weakness TECHNIQUE: Single AP portable view of the chest. COMPARISON: 05/05/2020 FINDINGS: The lungs are clear and expanded. There is no demonstrated pleural abnormality. Normal size heart. There is aortic valve replacement. Normal mediastinum and louie. Normal visualized pulmonary arteries. There is atherosclerotic calcification of the aortic arch . Normal visualized thoracic spine. Normal visualized ribs, clavicles, and shoulders. There is no demonstrated abnormality of the visualized soft tissue structures of the upper abdomen. RAD/Chest 1 View (Portable) IMPRESSION: Normal x-ray examination of the chest. Electronically Signed: Sridhar Deras, at 14:00 EST Tel , Service support ,
--- NOTE | 2020-08-06 12:58 | ED.DCSUM_ITS ---
History of Present Illness Chief Complaint: Weakness Informant: Patient Onset: Weeks - 2-3 Context: Gradual Onset Timing: Continuous Quality: weak and fatigued Location: all over Current Severity: Severe Maximum Severity: Severe Worsened by: nothing in particular Relieved by: nothing in particular Associated Symptoms: see below Narrative: Patient states for the last 2 to 3 weeks she has felt very weak and tired all over. She recently had a TAVR at [facility] in [place] at the beginning of June. Afterwards, she had severe swelling that was dependent, she was put on Lasix, just recently she had her Lasix doubled, and now she has gotten rid a lot of that excess fluid, she states that has just been in the past week. She has a chronic ulcerative wound on the left lower leg that became worse when she was retaining fluid. She states in the last several days, it has been hurting less, although it does hurt to touch and to lay on that area since there is some of it on the posterior aspect of her calf. She thinks that the granulation tissue looks different colored within the ulcerations, but agrees that it does not appear to be infected, she does not have any redness around it, no symptoms and the appearance of it that have otherwise worsened. She sees wound care, she does dressing changes at home and has not changed it today. She has chronic urinary symptoms that she states have been present since last November and unchanged, consisting of the feeling of incomplete emptying, and then incontinence. Yesterday she noticed a small amount of bright red blood present in her diaper, and states she noticed this 1 other time as well. She does not know where it came from. She states she has vomited on occasion off and on for the past 3 weeks. She really has not been nauseated, except right before she ends up vomiting she gets nauseated with very little warning, and after vomiting seems to be okay for a while. She denies vomiting any blood, she denies having any diarrhea, bright red blood per rectum that she knows of, melena. She denies fevers, chills, lightheadedness, confusion/disorientation, headaches, myalgias, cough, shortness of breath, abdominal pain. She states she had some procedure done on her abdominal aorta, she thinks it was a bypass but has no idea of the details and denies being diagnosed with an aneurysm and has had no other surgeries in her abdomen. In looking at her past records, it appears to be an zsmojj-zizuq-pakgmqh bypass. Since her TAVR, she has been on baby aspirin and clopidogrel, she is supposed to be on the latter for 90 days. She takes no anticoagulants. - Past Medical History (1) Venous stasis ulcer Status: Chronic (2) Atherosclerotic heart disease of [place] coronary artery without angina pectoris Status: Chronic (3) Bilateral carotid artery stenosis Status: Chronic Comment: Mild (4) COPD (chronic obstructive pulmonary disease) Status: Chronic (5) Essential hypertension Status: Chronic (6) History of fapuh-lieql-foxkyfv bypass Status: Chronic (7) Mixed hyperlipidemia Status: Chronic (8) Nonrheumatic aortic (valve) stenosis Status: Chronic (9) PVD (peripheral vascular disease) Status: Chronic (10) S/p TAVR (transcatheter aortic valve replacement), bioprosthetic Status: Chronic Comment: #23 Eda S3 Valve Past Medical History - Allergies and Home Meds Allergies/Adverse Reactions: Allergies ROSALINO Inhibitors Adverse Reaction (Severe, Verified 07/28/20 13:57) cough Primary Care Physician: Ronnie Evans MD [Primary Care Provider] - Doctors: Dr. Kaur - cardiology Surgical History: - - TAVR at [facility] 06/2020. bzxcif-rqihs-uix bypass. Smoking Status: Current every day smoker Alcohol: Occasional - socially; none in past several months Drugs: None Review of Systems General: Reports: Malaise. Denies: Chills, Fever, Sweats Eyes: Denies: Visual changes - bilaterally, Diplopia ENT: Denies: Bilateral ear pain, Rhinorrhea, Sore throat Cardiovascular: Denies: Chest pain, Palpitations Respiratory: Denies: Dyspnea, Cough, Dyspnea on exertion, Orthopnea Gastrointestinal: Reports: Nausea, Vomiting. Denies: Abdominal pain, Diarrhea, Melena, Hematochezia Genitourinary: Reports: Hematuria - unsure if urinary -- see HPI, - - incomplete emptying, incontinence. Denies: Dysuria, Frequency Musculoskeletal: Reports: Swelling - better x 1 week, see HPI, Extremity Pain - LLE. Denies: Myalgias, Back pain Skin: Reports: Wounds - LLE chronic venous stasis ulcer, - - denies prurutis, - - no skin color changes noted. Denies: Rash, Abscess Neurological: Denies: Headache, Weakness - nothing focal, Numbness Endocrine: Denies: Polyuria, Polydipsia, Heat intolerance, Cold intolerance Hematologic: Reports: Easy bruising - since on clopidogrel, Easy bleeding - since on clopidogrel. Denies: Lymphadenopathy Allergy: Denies: Uticaria, Swelling of the mouth, Swelling of the tongue Physical Exam Vital Signs/Narrative: Vital Signs Temp Pulse Resp BP Pulse Ox 08/06/20 12:23 99.2 F H 90 24 H 113/56 L 97 Inital Vital Signs reviewed: Yes General: Well nourished, Well developed, Obese - abdominal, No Acute Distress Head: Normocephalic, Atraumatic Eyes: Perrl, EOMI, Scleral icterus ENT: Moist mucous membranes, No rhinorrhea Neck: Supple, Nontender, No lymphadenopathy, No JVD Cardiovascular: Regular rate, Regular rhythm, No murmurs. Negative for: T achycardia Respiratory: No distress, CTA bilaterally, Chest nontender Abdomen: Soft, Nontender, Nondistended, Normal bowel sounds, No masses - no palp able mass or organomegaly. mild abd obesity limits exam somewhat. Back: Nontender, Normal Inspection. Negative for: CVA tenderness Extremities: No edema, Tenderness - at ulcerated wounds left lower leg. Negative for: Calf Tenderness Skin: Jaundice - throughout body. No lymphangitis left lower extremity. No pal pable cords., - - Multifocal ulcerative wounds left lower leg, there are foci circumferentially, with healed scar tissue in between them where the patient indicates the wounds used to be and have healed; ulcers have neon yellow-colored granulation tissue within. No active bleeding. No erythema at any of the edges. Neurological: Alert, Oriented x3, Cranial nerves II-XII grossly intact, Normal Strength, Normal Sensation Psychological: Normal affect, Normal Mood Diagnostic/Tx/Re-eval Impressions Chest X-Ray 08/06/20 12:56 IMPRESSION: Normal x-ray examination of the chest. Electronically Signed: Sridhar Deras, at 14:00 EST Tel , Service support , Abdomen/Pelvis CT 08/06/20 13:40 IMPRESSION: The common hepatic and central intrahepatic biliary ducts are distended. MRCP and MR abdomen with IV contrast can be obtained for further evaluation. Remaining chronic findings are described above. Electronically Signed: Sridhar Deras, at 14:56 EST Tel , Service support , 08/06/20 12:56 Chest 1 View (Portable) [RAD] Stat 08/06/20 13:40 CT Abd [Abdomen/Pelvis without Cont] [CT] Stat 08/06/20 13:06 Mucosa - Nose SARS-CoV-2 Antigen (Rapid) - Final Laboratory Results 08/06/20 08/06/20 08/06/20 12:30 12:30 12:30 WBC 30.6 H* RBC 3.47 L Hgb 10.5 L Hct 30.2 L MCV 87.0 MCH 30.3 MCHC 34.8 RDW Std Deviation 43.7 RDW Coeff of Karla 14.0 Plt Count 252 MPV 11.8 Immature Gran % (Auto) 1.600 H Neut % (Auto) 88.4 H Lymph % (Auto) 2.[address] [place] % (Auto) 6.9 Eos % (Auto) 0.6 Baso % (Auto) 0.4 Absolute Neuts (auto) 27.1 H Absolute Lymphs (auto) 0.64 L Nucleated RBC % 0 Differential Comment SCANNED Diff Path Review December foll PT 16.5 H INR 1.4 APTT 30.4 Sodium 130 L Potassium 2.9 L Chloride 89 L Carbon Dioxide 26.0 Anion Gap 15 BUN 112 H* Creatinine 3.16 H Estim Creat Clear Calc 11.73 Est GFR (MDRD) Af Amer 19 L Est GFR (MDRD) Non-Af 15 L BUN/Creatinine Ratio 35.4 H Glucose 176 H Lactic Acid Calcium 9.3 Total Bilirubin 9.30 H Direct Bilirubin 8.04 H AST 130 H ALT 191 H Alkaline Phosphatase 754 H Troponin I < 0.015 Total Protein 7.2 Albumin 2.4 L Globulin 4.8 H Lipase 1254 H Urine Color Urine Clarity Urine pH Ur Specific [place] Urine Protein Urine Glucose (UA) Urine Ketones Urine Occult Blood Urine Nitrite Urine Bilirubin Urine Urobilinogen Ur Leukocyte Esterase Urine RBC Urine WBC Ur Squamous Epith Cells Amorphous Sediment Urine Bacteria Hyaline Casts Urine Mucus 08/06/20 08/06/20 12:30 13:15 WBC RBC Hgb Hct MCV MCH MCHC RDW Std Deviation RDW Coeff of Karla Plt Count MPV Immature Gran % (Auto) Neut % (Auto) Lymph % (Auto) [place] % (Auto) Eos % (Auto) Baso % (Auto) Absolute Neuts (auto) Absolute Lymphs (auto) Nucleated RBC % Differential Comment Diff Path Review PT INR APTT Sodium Potassium Chloride Carbon Dioxide Anion Gap BUN Creatinine Estim Creat Clear Calc Est GFR (MDRD) Af Amer Est GFR (MDRD) Non-Af BUN/Creatinine Ratio Glucose Lactic Acid 1.3 Calcium Total Bilirubin Direct Bilirubin AST ALT Alkaline Phosphatase Troponin I Total Protein Albumin Globulin Lipase Urine Color Yellow Urine Clarity Sl. Cloudy Urine pH 5.0 Ur Specific [place] 1.020 Urine Protein 15 H Urine Glucose (UA) Normal Urine Ketones 5 H Urine Occult Blood 10 H Urine Nitrite Negative Urine Bilirubin 3 H Urine Urobilinogen 1 H Ur Leukocyte Esterase 25 H Urine RBC 0 SEEN Urine WBC 0-5 SEEN Ur Squamous Epith Cells 0-5 SEEN Amorphous Sediment 2+ Urine Bacteria 1+ Hyaline Casts 0-5 SEEN Urine Mucus 0 SEEN - Rhythm Strip Rhythm Strip: Sinus Rhythm Rate: 83 Ectopy: None - EKG Initial EKG Interpretation: Sinus Rhythm, No Acute Injury Pattern, - - inferior Q waves Prior: Unchanged - 04/22/2020 - Medical Decision Making Screening labs initially obtained, showing significant abnormalities and dy sfunction. Acute renal failure with uremia, significant leukocytosis with leftward shift but no bands, hypokalemia and hyponatremia, and significant hyperbilirubinemia and elevated liver enzymes along with lipase. The concern would be for a pancreatic mass or other mass obstructing the biliary system. Given her renal failure, IV contrast cannot be safely given so CT was obtained without contrast given her abdominal obesity and thought that we would be able to visualize adequately without oral contrast. There is no mass seen, only dilated biliary plumbing. Cholangitis is in the differential diagnosis, for which she was covered with IV Zosyn empirically after sending blood cultures, given her leukocytosis and jaundice, however one would expect her to have pain and she has had none. She will need further work-up. Radiology is suggesting an MRI of the abdomen and/or MRCP. Also performed cardiac work-up which is unremarkable, and nursing performed a wet-to-dry dressing change of her left lower leg venous ulcerative wounds. Covid rapid antigen test returned negative. I discussed with hospitalist here, and given her valve and CHF, as well as her complexity, she recommends transfer due to lack of specialty anesthesia and gastroenterology. Since the patient had her TAVR performed at [facility] recently, she agreed that being transferred there would be likely in her best interest. Accepted to telemetry there by Dr. Camarillo. I did order also 10 mEq of KCl. Patient remained clinically and hemodynamically stable in the emergency department stable for transfer. ED Disposition - Plan for ED Patient: Disposition: [facility] Diagnosis: Elevated liver enzymes, Hyperbilirubinemia, Acute renal failure, Hypokalemia, Venous ulcer of left leg, Leukocytosis Referrals: Ronnie Evans MD [Primary Care Provider] -
[2020-08-06 13:00] VITALS: BP 110/50; PULSE 83; RESP 23; TEMP 37.3; O2SAT 95
[2020-08-06 13:05] LABS: Absolute Lymphocyte Count 0.64 X10^3/uL (0.83-4.51); Absolute Neutrophil Count 27.1 X10^3/uL (2.0-7.7); Basophil# 0.13 X10^3/uL; Basophil% 0.4 % (0-1); Eosinophil# 0.17 X10^3/uL; Eosinophils% 0.6 % (0-5); Hematocrit 30.2 % (37-47); Hemoglobin 10.5 g/dL (12.0-15.0); Lymphocyte # 0.64 X10^3/ul (4.0); Lymphocyte % 2.1 % (19-41); Mean Corp Hgb Conc 34.8 g/dL (32-36); Mean Corpuscular Hgb 30.3 pg (27.0-32.0); Mean Platelet Vol. 11.8 fl (6.2-12.0); Monocyte# 2.11 X10^3/uL; Monocyte% 6.9 % (0-10); NRBC Flagged by Analyzer 0 % (0-5); Neutrophil # 27.09 X10^3/uL (2.7-7.7); Neutrophil % 88.4 % (47-70); POSITIVE COUNT YES; POSITIVE DIFFERENTIAL YES; Platelet Count 252 K/mm3 (150-450); RBC Distribution Width SD 43.7 fl (35.1-43.9); Red Blood Count 3.47 M/mm3 (4.2-5.4)
[2020-08-06 13:06] LABS: Differential Indicated SCAN CRITERIA MET; White Blood Count 30.6 K/mm3 (4.4-11.0)
[2020-08-06 13:10] LABS: International Normalized Ratio 1.4; Prothrombin Time (Protime)PT. 16.5 SECONDS (11.7-14.9)
[2020-08-06 13:11] LABS: Partial Thromboplast Time 30.4 Seconds (24.1-36.2)
[2020-08-06 13:19] LABS: Lactic Acid 1.3 mmol/L (0.4-1.9)
[2020-08-06] MEDS: Ondansetron 4 MG/2 ML Vial IV (13:22)
[2020-08-06 13:24] LABS: AST(SGOT) 130 U/L (15-37); Alanine Aminotransfer ALT/SGPT 191 U/L (13-56); Albumin, Serum 2.4 g/dL (3.2-5.0); Alkaline Phosphatase 754 U/L (45-117); Anion Gap 15 (5-15); BUN 112 mg/dL (7-18); BUN/Creat Ratio 35.4 RATIO (10-20); Bilirubin, Direct 8.04 mg/dL (0.00-0.30); Calcium,Total 9.3 mg/dL (8.5-10.1); Chloride 89 mmol/L (98-107); Creatinine, Serum 3.16 mg/dL (0.55-1.02); EST Glomerular Filtration Rate 15 mL/min (>60); Est Glom Filt Rate - Afr Amer 19 mL/min (>60); Estimated Creatinine Clearance 11.73 ml/min; Globulin 4.8 g/dL (2.2-4.2); Glucose 176 mg/dL (74-106); Lipase 1254 U/L (73-393); Potassium 2.9 mmol/L (3.5-5.1); Protein, Total 7.2 g/dL (6.4-8.2); Sodium Level 130 mmol/L (136-145)
[2020-08-06 13:25] LABS: Mucous, Urine 0 SEEN /hpf (<or=2+); Red Blood Cells-Urine 0 SEEN /hpf (0-5)
[2020-08-06 13:26] LABS: Differential Comment SCANNED
[2020-08-06 13:32] LABS: Color, Urine Yellow (Yellow); Glucose, Dipstick Normal (Normal); Ketone-Dipstick 5 mg/dl (Negative); Leukocyte Esterase-Dipstick 25 /ul (Negative); Nitrite-Dipstick Negative (Negative); Occult Blood-Urine 10 /ul (Negative); Protein-Dipstick 15 mg/dl (Negative); Urine Clarity Sl. Cloudy (Clear); Urine Urobilinogen 1 mg/dl (Normal)
[2020-08-06 13:33] LABS: Urine Bilirubin Dipstick 3 mg/dL (Negative)
--- NOTE | 2020-08-06 13:40 | CT_ITS ---
STUDY: CT ABDOMEN AND PELVIS WITHOUT CONTRAST REASON FOR EXAM: Female, 69 years old. Painless jaundice, weakness RADIATION DOSAGE (If Supplied By Facility): CTDIvol = ( 14.39 ) mGy, DLP = ( 658.03 ) mGycm TECHNIQUE: Transaxial images were obtained from the dome of the diaphragm to the symphysis pubis without oral contrast, and without intravenous contrast. Sagittal and coronal images were reconstructed. Individualized dose optimization techniques were used for this CT. COMPARISON: None. FINDINGS: Lack of intravenous contrast limits evaluation of abdominal and pelvic organs. The visualized lung bases are unremarkable. The visualized portions of the heart are within normal limits. There is hepatomegaly with diffuse hepatic enlargement. The gallbladder is distended. The common hepatic and central intrahepatic biliary ducts are distended. The common hepatic duct measures approximately 14 mm. Normal spleen. Normal pancreas. Normal bilateral adrenal glands. Normal right kidney. Normal left kidney. Normal visualized stomach. Normal small intestine. There is sigmoid diverticulosis without evidence of acute diverticulitis. No bowel wall thickening or obstruction. The appendix is visualized and appears normal. There is aortobiiliac atherosclerotic disease and aortic graft. Normal inferior vena cava. Normal retroperitoneum. Normal urinary bladder. There is a normal alignment posterior uterine body fibroid. Normal abdominal wall. There is multilevel degenerative disc disease. CT/Abdomen/Pelvis without Cont IMPRESSION: The common hepatic and central intrahepatic biliary ducts are distended. MRCP and MR abdomen with IV contrast can be obtained for further evaluation. Remaining chronic findings are described above. Electronically Signed: Sridhar Augusta, at 14:56 EST Tel , Service support ,
[2020-08-06 13:44] LABS: Amorphous Sediment 2+; Bacteria 1+ /hpf (None Seen); Hyaline Cast 0-5 SEEN /lpf (0-5); Squamous Epithelial Cells - UA 0-5 SEEN /hpf (5-10); White Blood Cells 0-5 SEEN /hpf (0-5)
[2020-08-06 14:00] VITALS: BP 118/66; PULSE 83; RESP 21; TEMP 37.3; O2SAT 95
[2020-08-06] MEDS: Potassium Chloride 10mEq/100mL 10 MEQ/100 ML IV.SOLN. 100 MEQ IV BOLUS (14:27)
[2020-08-06 15:41] VITALS: BP 120/45; PULSE 83; RESP 16; TEMP 37.2; O2SAT 93
[2020-08-06 17:23] VITALS: BP 103/58; PULSE 80; RESP 18; O2SAT 94
[2020-08-06 18:13] VITALS: BP 120/50; PULSE 79; RESP 16; O2SAT 95; O2SAT 98
[2020-08-09 13:20] LABS: Pathologist Review Reviewed
== END 2020-08-06 18:27 | disposition short-term general hospital (02) ==
PROVIDERS: Emergency Provider Emergency Medicine; PCP Family Medicine
DX: D72.829 Elevated white blood cell count, unspecified (principal); E87.6 Hypokalemia; N17.9 Acute kidney failure, unspecified; R17 Unspecified jaundice; E66.9 Obesity, unspecified; I83.029 Varicose veins of left lower extremity with ulcer of unspecified site; L97.929 Non-pressure chronic ulcer of unspecified part of left lower leg with unspecified severity; E78.2 Mixed hyperlipidemia; I10 Essential (primary) hypertension; I25.10 Atherosclerotic heart disease of native coronary artery without angina pectoris; I65.23 Occlusion and stenosis of bilateral carotid arteries; I73.9 Peripheral vascular disease, unspecified; J44.9 Chronic obstructive pulmonary disease, unspecified; F17.200 Nicotine dependence, unspecified, uncomplicated; Z79.02 Long term (current) use of antithrombotics/antiplatelets; Z95.3 Presence of xenogenic heart valve
CPT/HCPCS: 71045; 74176; 80048; 80076; 81001; 83605; 83690; 84484; 85025; 85610; 85730; 87040; 87086; 87426; 93005; 96361; 96365; 96375; 99285; J7050; P9612; A4216; J2405

== ENCOUNTER → 2020-08-30 14:08 | Outpatient (CLI) | payer MEDICARE, OTHER, SELFPAY ==
[2020-08-26 14:10] VITALS: BMI 32.5
[2020-08-30 11:49] VITALS: BMI 32.5
--- NOTE | 2020-08-30 14:10 | CT_ITS ---
STUDY: CT CHEST WITH CONTRAST REASON FOR EXAM: Female, 69 years old. CHOLANGIOCARCINOMA STAGING, ABD BYPASS GRAFT, TAVR, HTN RADIATION DOSAGE (If Supplied By Facility): CTDIvol = ( 10.24 ) mGy, DLP = ( 374.99 ) mGycm TECHNIQUE: Transaxial imaging was performed following intravenous administration of IV 100mL Isovue-300. Multiplanar coronal and sagittal images were reformatted. Individualized dose optimization techniques were used for this CT. COMPARISON: None. FINDINGS: Mild degree of heterogeneity of the right lobe of the thyroid gland. The lungs are normal. There is no demonstrated pleural abnormality. Status post aortic valve replacement. Normal mediastinum. Normal hilar regions. Normal enhanced pulmonary arteries. There is atherosclerotic calcification of the aortic arch with tortuosity and elongation of the aortic arch and descending thoracic aorta. There are multi-level degenerative changes of the thoracic spine. Increased kyphosis. Dilated common bile duct. CT/Chest WITH Contrast IMPRESSION: No acute abnormality is seen. Electronically Signed: Gurjit Lucas MD at 14:57 EST , Service support ,
--- NOTE | 2020-08-31 20:16 | PCM.NTREPORT ---
Nutrition Therapy Report - History Nutrition Services has been consulted to:: Conduct nutrition counseling Current diet / nutrition support order:: ONC consult generated. Pancreatic CA, bile duct CA, obstruction of bile duct, anemia. Patient reports 30# weight loss over last 2-3 months on ONC H & P physician notes. - Anthropometric Measurements Height:: 5 ft 0.5 in Weight:: 76.929 kg Body Mass Index (BMI):: 32.5 - Nutrition Diagnosis Evidence of Malnutrition Exists:: Yes Severe PCM:: Chronic Illness - Food / Nutrient Delivery Interventions Summary of nutrition intervention:: Chart review. Rosario reported 30# weight loss in past 2-3 months - 15% body weight lost. On discussion with Rosario and sister, Martha, patient reports and sister corroborates that loss was from intensive rounds of antibiotics for infected chronic non healing wound causing N and decreased appetite. -Discussion and teaching including teach back on importance of nutrtion in Cancer Tx, fortifying foods, 90-100 gram protein goal/ day, food group balance, use of body weight scale to monitor weight, use of supplements. -provided Ensure samples and 15 day (30 packet BID) sample box of Arnoldo for assistance in wound healing. -registered Rosario for [email or web address] in Cancer Care class. Nutrition education provided?: Yes - met with Rosario and sister in ONC - MNT Monitoring Further MNT monitoring and evaluation required?: No - have provided Rosario and sister with [facility] contact info if need.
[2020-08-31 20:29] VITALS: BMI 32.5
== END ==
PROVIDERS: PCP Family Medicine; Referring Provider Internal Medicine Hematology & Oncology; Visit Provider Internal Medicine Hematology & Oncology
DX: C22.1 Intrahepatic bile duct carcinoma (principal)
CPT/HCPCS: 71260; 80048; 96360; 96361; J7030; J7040; Q9967; A4216

== ENCOUNTER → 2020-09-13 13:38 | Outpatient (CLI) | payer MEDICARE, OTHER, SELFPAY ==
[2020-09-13 13:38] VITALS: BMI 37.3
[2020-09-13 14:04] LABS: Hematocrit 33.7 % (37-47); Hemoglobin 10.7 g/dL (12.0-15.0); Mean Corp Hgb Conc 31.8 g/dL (32-36); Mean Corpuscular Hgb 28.7 pg (27.0-32.0); Mean Corpuscular Volume 90.3 fL (81-99); Mean Platelet Vol. 9.6 fl (6.2-12.0); Platelet Count 437 K/mm3 (150-450); RBC Distribution Width CV 13.2 % (11.6-14.6); RBC Distribution Width SD 43.4 fl (35.1-43.9); Red Blood Count 3.73 M/mm3 (4.2-5.4); White Blood Count 10.7 K/mm3 (4.4-11.0)
[2020-09-13 14:29] LABS: ALB/GLOB Ratio 0.6 RATIO (0.9-2.4); AST(SGOT) 16 U/L (15-37); Alanine Aminotransfer ALT/SGPT 34 U/L (13-56); Albumin, Serum 2.8 g/dL (3.2-5.0); Alkaline Phosphatase 154 U/L (45-117); Anion Gap 6 (5-15); BUN 17 mg/dL (7-18); BUN/Creat Ratio 13.8 RATIO (10-20); Calcium,Total 9.7 mg/dL (8.5-10.1); Chloride 95 mmol/L (98-107); Creatinine, Serum 1.23 mg/dL (0.55-1.02); EST Glomerular Filtration Rate 46 mL/min (>60); Est Glom Filt Rate - Afr Amer 55 mL/min (>60); Globulin 4.7 g/dL (2.2-4.2); Glucose 253 mg/dL (74-106); Magnesium 2.2 mg/dL (1.6-2.6); Phosphorus 3.4 mg/dL (2.5-4.9); Protein, Total 7.5 g/dL (6.4-8.2); Sodium Level 135 mmol/L (136-145)
== END ==
PROVIDERS: PCP Family Medicine; Referring Provider Internal Medicine; Visit Provider Internal Medicine
DX: T81.89XD Other complications of procedures, not elsewhere classified, subsequent encounter (principal)
CPT/HCPCS: 11042; 11045; 36415; 80053; 83735; 84100; 85027; 87070; 87075; 87077; 87184; 87186; 87205; 99213; G0463

== ENCOUNTER 2020-09-28 13:15 | Outpatient (RCR) | payer MEDICARE, OTHER, SELFPAY ==
[2020-08-31 20:29] VITALS: BMI 32.5
[2020-09-07 14:54] VITALS: BP 125/60; PULSE 78; RESP 18; TEMP 36.6; BMI 32.5
--- NOTE | 2020-09-07 16:26 | PCM.CONS.GEN ---
Problem List (1) Anemia Status: Chronic Qualifiers: Anemia type: other cause Other causes of anemia: chronic disease, neoplastic Qualified Code(s): D63.0 - Anemia in neoplastic disease (2) Obstructive jaundice Status: Resolved Comment: she had a biliary stent placed (3) Cholangiocarcinoma Status: Chronic Comment: diagnosed 08/11/20 from a bx taken at the time of placement of a temporary biliary stent (4) New onset atrial fibrillation Status: Acute (5) COPD (chronic obstructive pulmonary disease) Status: Chronic Comment: Irreversible severe large airways obstructive ventilatory defect with associated air trapping and symmetric reduction in diffusing capacity on PFTs done at [facility] 05/10/2020 (6) S/p TAVR (transcatheter aortic valve replacement), bioprosthetic Status: Chronic Comment: #23 Eda S3 Valve (7) Atherosclerotic heart disease of [place] coronary artery without angina pectoris Status: Chronic Qualifiers: [place] vs. transplanted heart: [place] heart (8) Bilateral carotid artery stenosis Status: Chronic Comment: Mild (9) Nonrheumatic aortic (valve) stenosis Status: Chronic Comment: She has had a TAVR (10) History of kobvg-txypd-bxoffcj bypass Status: Chronic Comment: by Dr. Colon in 1997 (11) Mixed hyperlipidemia Status: Chronic (12) PVD (peripheral vascular disease) Status: Chronic (13) Essential hypertension Status: Chronic (14) Venous stasis ulcer Status: Chronic Qualifiers: Venous stasis ulcer site: calf Laterality: left Non-pressure ulcer stage: with fat layer exposed Comment: I suspect this may be a ischemic ulcer and not a venous stasis ulcer (15) Tobacco dependence in remission Status: Acute Comment: quit in July 2020. Smoked for 43 years (16) Insomnia Status: Acute (17) Inanition Status: Acute (18) Severe malnutrition Status: Acute (19) Weight loss, non-intentional Status: Acute (20) Diastolic dysfunction Status: Chronic Reason for Consult Date of Consultation: 09/07/20 Reason for Consultation: Nonhealing wound of the left lower extremity History of Present Illness: Charlene Salas is a 69 year old F with a PMH of hypertension, coronary artery disease, nonrheumatic aortic stenosis (status post TAVR), atrial fibrillation, severe COPD, tobacco dependence in remission (quit in July 2020), coronary artery disease, bilateral carotid stenosis, peripheral vascular disease with history of aorta?iliac?femoral bypass by Dr. Pepe Colon in 1997, hyperlipidemia and recently diagnosed cholangiocarcinoma who was seen in the wound care center on 09/07/20 for a non-healing wound of the LLE. She is currently using Vaseline and gauze to dress the wound. She has not seen Dr. Colon in many years. She denies hx of DVT. She denies rest claudication. She has really not been ambulating due to fatigue and SUAREZ. Although she was diagnosed with severe COPD in May she has had no tx other than a Albuterol inhaler to use PRN. She has not seen a mobile plant operators. Rosario has been seeing Dr. Goyal for cholangiocarcinoma. she has now had a permanent biliary stent placed. she was referred to a surgeon in [place] who wants to do a Whipple procedure on her if she can walk for 30 minutes, get the wound healed and start gaining weight. She has no appetite and she thinks maybe she could walk 100 yards but she is not sure. When she was discharged from the hospital in [place] the wound on the LLE was 100% slough. She now has some islands of granulation and there is 60% slough and 40% granulating areas. No epithelialization. She denies fevers, chills, sweats. There is no purulent DC from the wound. She denies pain. Echocardiogram done on 07/05/2020 showed a mildly enlarged left atrium with a normal right atrium. Ejection fraction was 55% with no regional wall motion abnormalities noted. There was evidence of diastolic dysfunction. The right ventricle had normal systolic function. There was trivial tricuspid valve insufficiency. There was a stable appearing bioprosthetic aortic valve apparatus. She had a right and left cardiac catheterization in May 2020 and the right heart pressures were elevated and she was diagnosed with moderate pulmonary hypertension. The left main had 10 to 25% stenosis, the LAD had mild luminal irregularities with a 25% stenosis in the proximal LAD, the circumflex artery had mild calcification in the distal circumflex had an 85% stenosis. The RCA was a small caliber vessel with a smooth 50% stenosis. Carotid artery ultrasound in April 2020 showed 50 to 69% stenosis in the right internal carotid artery and extensive plaque at the proximal right external carotid artery with greater than 50% stenosis. There was irregular calcific plaque at the proximal left internal carotid artery with 50 to 69% stenosis and there was less than 50% stenosis of the left external carotid. An arterial study done in 2012 showed evidence of bilateral arterial occlusive disease in the lower extremities. On the right the arterial occlusive disease appeared to be multi segmental and mild to moderate in severity. On the left, the left aortoiliac segment appeared to be primarily effected with diminished pressure at the thigh level. The resting left ankle-brachial index was moderately diminished consistent with moderate arterial occlusive disease affecting the vasculature to the ankle level. The left digital-brachial index was moderately to severely diminished consistent with moderate to severe distal small vessel arterial occlusive disease. Past Medical History Past Medical History (Chronic Problems): Chronic Problems (Last Reviewed 09/07/20 @ 16:[address] Alba Zhang DO) Diastolic dysfunction (Chronic) Anemia (Chronic) Cholangiocarcinoma (Chronic) diagnosed 08/11/20 from a bx taken at the time of placement of a temporary biliary stent COPD (chronic obstructive pulmonary disease) (Chronic) Irreversible severe large airways obstructive ventilatory defect with associated air trapping and symmetric reduction in diffusing capacity on PFTs done at [facility] 05/10/2020 S/p TAVR (transcatheter aortic valve replacement), bioprosthetic (Chronic ~06/07/20) #23 Eda S3 Valve Atherosclerotic heart disease of [place] coronary artery without angina pectoris (Chronic) Bilateral carotid artery stenosis (Chronic) Mild Nonrheumatic aortic (valve) stenosis (Chronic) She has had a TAVR History of rosoa-qiodf-xqbzxxs bypass (Chronic ~1997) by Dr. Colon in 1997 Mixed hyperlipidemia (Chronic) PVD (peripheral vascular disease) (Chronic) Essential hypertension (Chronic) Venous stasis ulcer (Chronic) I suspect this may be a ischemic ulcer and not a venous stasis ulcer Medical History: Medical History (Last Reviewed 09/07/20 @ 16:[address] Alba Zhang DO) New onset atrial fibrillation (Acute) I48.91 COPD (chronic obstructive pulmonary disease) (Chronic) J44.9 Irreversible severe large airways obstructive ventilatory defect with associated air trapping and symmetric reduction in diffusing capacity on PFTs done at [facility] 05/10/2020 Atherosclerotic heart disease of [place] coronary artery without angina pectoris (Chronic) I25.10 Bilateral carotid artery stenosis (Chronic) I65.23 Mild Nonrheumatic aortic (valve) stenosis (Chronic) I35.0 She has had a TAVR Mixed hyperlipidemia (Chronic) E78.2 PVD (peripheral vascular disease) (Chronic) I73.9 Essential hypertension (Chronic) I10 Venous stasis ulcer (Chronic) I83.009, L97.909 I suspect this may be a ischemic ulcer and not a venous stasis ulcer Pancreatic lesion K86.9 cystic per upper EUS 08/10/2020 [facility] Chronic pancreatitis K86.1 per upper EUS 08/10/2020 [facility] Neuropathy G62.9 Allergies ROSALINO Inhibitors Adverse Reaction (Severe, Verified 09/07/20 15:17) cough Home Medications: Ambulatory Orders Medication Instructions Recorded aspirin 81 mg tablet,delayed 81 mg PO DAILY 04/22/20 release atorvastatin 20 mg tablet 20 mg PO QHS 07/28/20 amlodipine 10 mg tablet 10 mg PO DAILY 08/16/20 carvedilol 6.25 mg tablet 6.25 mg PO BID 08/16/20 ciprofloxacin HCl 500 mg tablet 500 mg PO BID 08/16/20 furosemide 40 mg tablet 40 mg PO DAILY #180 tab 08/16/20 metronidazole 500 mg tablet 500 mg PO TID 08/16/20 potassium chloride 20 mEq 20 meq PO DAILY 08/16/20 tablet,extended release Pantoprazole Sodium [Protonix] 40 mg PO DAILY 08/26/20 Dronabinol [Marinol] 2.5 mg PO QHS #30 capsule 09/07/20 Mirtazapine [Remeron] 15 mg PO QHS #30 tab 09/07/20 Surgical History: Surgical History (Last Reviewed 09/07/20 @ 16:[address] Alba Zhang DO) S/p TAVR (transcatheter aortic valve replacement), bioprosthetic (Chronic) Onset Date: ~06/07/20 Z95.3 #23 Eda S3 Valve History of aakad-cmbyt-riduqny bypass (Chronic) Onset Date: ~[address] Colon in 1997 History of biliary duct stent placement Z98.890 08/10/2020 S/P ERCP Z98.890 08/10/2020 History of left heart catheterization (LHC) Onset Date: ~05/11/20 Z98.890 LEFT MAIN: Mild calcification, proximal: 10 - 25 % Stenosis; LEFT ANTERIOR DESCENDING ARTERY: Mild luminal irregularities, PROX LAD: Mild calcification, hazy: eccentric: 25 % Stenosis,; CIRCUMFLEX ARTERY:PROX CIRC: Mild calcification, Mild luminal irregularities, DISTAL CIRC: small caliber vessel: 85 % Stenosis; RIGHT CORONARY ARTERY: Mild luminal irregularities, DISTAL RCA: small caliber vessel: long: smooth: 50 % Stenosis: RECOMMENDATIONS: Medical therapy, Risk factor modification; Surgery consult for valvular disease (TAVR vs. SAVR) and coronary artery revascularization therapy paer cath 05/11/20 S/P carpal tunnel release Z98.890 Surgical History: - - TAVR at [facility] 06/2020. ezmzot-ipyrc-rmm [place] [address] Colon. stent placed in the [place] for obstuction due to cholangiocacinoma. POLYMERIZATION SUPERVISOR History: No pertinent POLYMERIZATION SUPERVISOR history Lives: Alone Smoking Status: Former smoker - she quit smoking in July of 2020. Tobacco Use: Cigarettes Alcohol: Rare Drugs: None - *Family History Maternal Family History: Family History (Last Reviewed 09/07/20 @ 16:[address] Alba Zhang DO) Brother Diabetes Heart disease Pancreas cancer Father CAD (coronary artery disease) Heart disease Hypertension Mother History of mitral valve disorder Hypertension Review of Systems Constitutional: Reports: Anorexia, Weakness, Weight Change - has lost 30 lbs in the past 2-3 months. Denies: Chills, Fever Eyes: Denies: Vision Change HEENT: Denies: Difficulty Hearing, Difficulty Swallowing, Head Aches, Nasal Congestion, Sinus Congestion, Sinus Drainage, Sore Throat Cardiovascular: Denies: Chest Pain, Edema, Heaviness, Light Headedness, Palpitations, Syncope Respiratory: Reports: Shortness of Breath, Shortness of breath upon exertion, Wheezing. Denies: Cough, Shortness of breath at rest, Sputum production Gastrointestinal: Reports: Nausea - occasional. Denies: Abdominal Pain, Constipation, Diarrhea, Vomiting Genitourinary: Denies: Dysuria Musculoskeletal: Reports: Back Pain - chronic.....keeps her up at night. Denies radiation into the legs at this time but, has had sciatica in the past. she had an epidural a long time ago but it did help with the back pain. She has seen Dr. Vasquez for back pain and he recommended a laminectomy......this was prior to CA dx. Denies: Joint Pain, Joint Tenderness Skin: Reports: Jaundice - this has resolved with placement of the biliary stent, Wounds - she has a large non-healing, non-pressure wound of the RLE distal to the knee. Denies: Rash Neurological: Denies: Numbness, Tingling, Focal weakness Psychiatric: Reports: Anxiety, Depression. Denies: Homicidal Ideations, Suicidal Ideations Hematologic/ Lymphatic: Denies: Easy Bruising, Easy Bleeding, Hx of blood clot Patient Problems: Active and Suspected Problems (Last Reviewed 09/07/20 @ 16:[address] Alba Zhang, DO) Tobacco dependence in remission (Acute) quit in July 2020. Smoked for 43 years Insomnia (Acute) Inanition (Acute) Severe malnutrition (Acute) Weight loss, non-intentional (Acute) New onset atrial fibrillation (Acute) - Physical Exam Vitals/I&O's: Vital Signs Temp Pulse Resp BP 97.8 F 78 18 125/60 H 09/07/20 14:54 09/07/20 14:54 09/07/20 14:54 09/07/20 14:54 Body Mass Index (BMI) 32.5 General: Alert, Oriented x3, Cooperative, No apparent distress, Well developed, Well nourished HEENT: Atraumatic, PERRLA, EOMI, Normocephalic, - - I did not detect any scleral icterus Oral: Dry Mucosa Neck: Supple, No JVD, Negative Carotid Bruits, No Nodes, Trachea Midline, - - Brisk carotid upstroke with good pulse volume Lungs: Clear to auscultation, No rales, Diminished, - - no SOB at rest. Not tachypneic and no conversational dyspnea or accessory muscle use Cardiovascular: Regular rate, No murmurs Abdomen: Bowel Sounds Present, Soft, Non Tender, Non-Distended, - - no bruits heard Extremities: No clubbing, No cyanosis, No edema, Capillary Refill Less than 3 Seconds, Diminished Peripheral Pulses, - - diminished femoral, Popliteal and DP. The PT could not be dopplered. I did not hear a femoral bruit Skin: No rashes, No breakdown, Ulcer/ Wound - She has a large contiguous non-healing wound distal to the knee on the LLE anteriorly and a smaller non-healing wound on the medial mid calf area. Please see the [facility] progress note with the dimensions, etc. Musculoskeletal: No Tenderness to Palpation of Joints or Extremities Neurological: Cranial nerves II-XII grossly intact Psych/Mental Status: Normal Affect, Appropriate Assessment/Plan All Active Problems (Last Reviewed 09/07/20 @ 16:[address] Alba Zhang, DO) Tobacco dependence in remission (Acute) Insomnia (Acute) Inanition (Acute) Severe malnutrition (Acute) Weight loss, non-intentional (Acute) New onset atrial fibrillation (Acute) Obstructive jaundice (Resolved) Impressions 1. non-healing, non-pressure wounds of the LLE distal to the knee. Strongly suspect this is due to ischemia due to severe PVD. Must also consider DVT since she has a diagnosis of CA now. 2. severe malnutrition due to 30 lb non-intentional wt loss in the past 2-3 months due to decreased appetite/intake and to malignancy 3. insomnia - suspect anxiety/depression contribute as well as back pain 4. cholangiocarcinoma 5. severe COPD with SUAREZ 6. PVD with a hx of a jkrvr-ugskx-hfwbnwstx bypass by Dr. Colon in 1997. Moderate to severe recurrent disease on arterial studies of the LE's done in 2012 7. S/P TAVR in June 2020 for non-rheumatic 8. History of atrial fibrillation 9. Diastolic dysfunction 10. Mild left atrial enlargement 11. Moderate pulmonary hypertension on a right heart cath in 2019 12. Hypertension 13. Hyperlipidemia 14. Tobacco dependence in remission-quit in July 2020 15. Chronic anemia with normal iron studies, B12 and folate. More likely than not secondary to malignancy 16. Status post common bile duct stent 17. Stage III chronic renal failure Remeron 15 mg Q HS to help with sleep, depression and to stimulate appetite Marinol 2.5 mg at HS Arnoldo BID - she has already started this W to D dressings BID to the LLE wounds venous and arterial studies on the LE's. Follow up with pulmonary medicine. If the back pain continues to keep her up consider referral to Dr. Perla for an epidural Office Visits / Consults: [id number] L5 New
--- NOTE | 2020-09-07 17:21 | PN.PCM_ITS ---
(1) Anemia Status: Chronic Qualifiers: Anemia type: other cause Other causes of anemia: chronic disease, neoplastic Qualified Code(s): D63.0 - Anemia in neoplastic disease Code(s): D64.9 - Anemia, unspecified (2) Obstructive jaundice Status: Resolved Code(s): K83.1 - Obstruction of bile duct Comment: she had a biliary stent placed (3) Cholangiocarcinoma Status: Chronic Code(s): C22.1 - Intrahepatic bile duct carcinoma Comment: diagnosed 08/11/20 from a bx taken at the time of placement of a temporary biliary stent (4) New onset atrial fibrillation Status: Acute Code(s): I48.91 - Unspecified atrial fibrillation (5) COPD (chronic obstructive pulmonary disease) Status: Chronic Code(s): J44.9 - Chronic obstructive pulmonary disease, unspecified Comment: Irreversible severe large airways obstructive ventilatory defect with associated air trapping and symmetric reduction in diffusing capacity on PFTs done at [facility] 05/10/2020 (6) S/p TAVR (transcatheter aortic valve replacement), bioprosthetic Status: Chronic Code(s): Z95.3 - Presence of xenogenic heart valve Comment: #23 Eda S3 Valve (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 transplanted heart: [place] heart Code(s): I25.10 - Atherosclerotic heart disease of [place] coronary artery without angina pectoris (8) Bilateral carotid artery stenosis Status: Chronic Code(s): I65.23 - Occlusion and stenosis of bilateral carotid arteries Comment: Mild (9) Nonrheumatic aortic (valve) stenosis Status: Chronic Code(s): I35.0 - Nonrheumatic aortic (valve) stenosis Comment: She has had a TAVR (10) History of oysfq-nwqnp-eekdzfc bypass Status: Chronic Code(s): Z95.828 - Presence of other vascular implants and grafts Comment: by Dr. Colon in 1997 (11) Mixed hyperlipidemia Status: Chronic Code(s): E78.2 - Mixed hyperlipidemia (12) PVD (peripheral vascular disease) Status: Chronic Code(s): I73.9 - Peripheral vascular disease, unspecified (13) Essential hypertension Status: Chronic Code(s): I10 - Essential (primary) hypertension (14) Venous stasis ulcer Status: Chronic Qualifiers: Venous stasis ulcer site: calf Laterality: left Non-pressure ulcer stage: with fat layer exposed Code(s): I83.009 - Varicose veins of unspecified lower extremity with ulcer of unspecified site; L97.909 - Non-pressure chronic ulcer of unspecified part of unspecified lower leg with unspecified severity Comment: I suspect this may be a ischemic ulcer and not a venous stasis ulcer (15) Tobacco dependence in remission Status: Acute Code(s): F17.201 - Nicotine dependence, unspecified, in remission Comment: quit in July 2020. Smoked for 43 years (16) Insomnia Status: Acute Code(s): G47.00 - Insomnia, unspecified (17) Inanition Status: Acute Code(s): R64 - Cachexia (18) Severe malnutrition Status: Acute Code(s): E43 - Unspecified severe protein-calorie malnutrition (19) Weight loss, non-intentional Status: Acute Code(s): R63.4 - Abnormal weight loss (20) Diastolic dysfunction Status: Chronic Code(s): I51.89 - Other ill-defined heart diseases Type of Wound Date of Service: 09/07/20 Chief Complaint: non-healing wound of the LLE History of Wound: please see the consult dictated on this pt on 09/07/20 for hx - Physical Exam Vital Signs Temp Pulse Resp BP 97.8 F 78 18 125/60 H 09/07/20 14:54 09/07/20 14:54 09/07/20 14:54 09/07/20 14:54 Wound Measurements and Assessment WC - Nurse 1 - General Ulcer Measurement Start: 09/07/20 14:54 Freq: Status: Active Protocol: Activity Type Activity Date Activity User E-Sign Co-Sign Detail Recorded Client Recorded Date Recorded By Document 09/07/20 14:54 DL [id number] 09/07/20 15:11 DL 09/07/20 14:54 Wound Center Nurse 1 [Ulcer Assessment] #3 RLE Med -Current Size (cm) - Length 4.4 -Current Size (cm) - Width 5.5 -Current Size (cm) - Depth 0.1 -Total Square Cm 24.20 -Photo Taken Yes -Classification - Thickness Full Thickness without Exposed Support Structure -Exudate Amt Medium -Exudate Type Serosanguineous -Wound Margin Distinct, Outline Attached -Granulation Amt Medium (34-66%) -Necrosis Amt Medium (34-66%) -Necrotic Tissue Type Adherent Slough -Structure Exposed N/A -Texture (Maria E-wound Skin Appearance) Scarring -Moisture (Maria E-wound Skin Appearance No Abnormality ) -Color (Maria E-wound Skin Appearance) Hemosiderin Staining -Temperature (Maria E-wound Skin No Abnormality Appearance) (Pt Warm) -Tenderness on Palpation (Maria E-wound No Skin Appearance) -Ulcer Cleansing Wound Cleanser -Foul Odor after Cleansing No -Anesthetic Used 4% Lidocaine Solution #2 RLE [place] Cluster -Current Size (cm) - Length 21 -Current Size (cm) - Width 13.5 -Current Size (cm) - Depth 0.2 -Total Square Cm 283.5 -Photo Taken Yes -Classification - Thickness Full Thickness without Exposed Support Structure -Exudate Amt Large -Exudate Type Serosanguineous -Wound Margin Distinct, Outline Attached -Granulation Amt Medium (34-66%) -Granulation Quality Red -Necrosis Amt Medium (34-66%) -Necrotic Tissue Type Adherent Slough -Structure Exposed N/A -Texture (Maria E-wound Skin Appearance) Scarring -Moisture (Maria E-wound Skin Appearance No Abnormality ) -Color (Maria E-wound Skin Appearance) Hemosiderin Staining -Temperature (Maria E-wound Skin No Abnormality Appearance) (Pt Warm) -Tenderness on Palpation (Maria E-wound No Skin Appearance) -Ulcer Cleansing Wound Cleanser -Foul Odor after Cleansing No -Anesthetic Used 4% Lidocaine Solution [Edema Assessment] -Right Calf (cm) 36.5 -Right Ankle (cm) 26.5 -Left Calf (cm) 38 -Left Ankle (cm) 21.6 WC - Nurse 3 - General Ulcer D/C NN Start: 09/07/20 14:54 Freq: Status: Active Protocol: Activity Type Activity Date Activity User E-Sign Co-Sign Detail Recorded Client Recorded Date Recorded By Document 09/07/20 16:02 DL [id number] 09/07/20 16:08 DL 09/07/20 16:02 Wound Care Nurse 3 [Wound Dressing] #3 RLE Med -Ulcer Cleansing Rinsed/ Irrigated with Saline -Foul Odor after Cleansing No -Other Dressing wet to dry -Primary Dressing Covered/Secured Dry Gauze & with Roll Gauze, Secured with Tape #2 RLE [place] Cluster -Ulcer Cleansing Rinsed/ Irrigated with Saline -Foul Odor after Cleansing No -Other Dressing wet to dry -Primary Dressing Covered/Secured Dry Gauze & with Roll Gauze, Secured with Tape [Post Procedure Tolerated] -Treatment Response Procedure Tolerated Well Pain Scale: 0-10 Numeric [Pain] -Is Patient Pain Free? Yes WC - Visit Discharge [Visit Discharge Information] -Ambulatory Status Ambulatory -Transportation Private Auto -Accompanied by family [Facility Notification] -Facility Type Home Health -Orders Sent Yes See the above dimensions of the wounds. The wounds are both into the fat layer but there is no muscle or tendons or bone visible. There is no odor. There is some serosanguineous discharge present but no purulent discharge noted. There is no periwound erythema and no increased warmth to touch. The left lower extremity is cool in comparison to the right lower extremity. The wounds have approximately 60% slough and 40% islands of granulation tissue. No epithelialization is present. The left dorsalis pedis pulse could be found with the Doppler. The left posterior tibial could not be palpated or Doppled. Popliteal was barely palpable on the left and the femoral pulse was decreased at 1/3. I did not appreciate a left femoral bruit. There are no abdominal bruits. The toes chanelle on the left with elevation of the leg. Poor capillary refill. There is some hair growth on her toes and the dorsum of the foot. She denies rest claudication and cannot walk far enough to have claudication in the left lower extremity due to severe COPD, severe malnutrition and recently diagnosed cholangiocarcinoma. Debridement Note Post-Debridement Measurements/Treatment - Nurse 3 - General Ulcer D/C NN Start: 09/07/20 14:54 Freq: Status: Active Protocol: Activity Type Activity Date Activity User E-Sign Co-Sign Detail Recorded Client Recorded Date Recorded By Document 09/07/20 16:02 DL [id number] 09/07/20 16:08 DL 09/07/20 16:02 Wound Care Nurse 3 #3 RLE Med -Ulcer Cleansing Rinsed/ Irrigated with Saline -Foul Odor after Cleansing No -Other Dressing wet to dry -Primary Dressing Covered/Secured with Dry Gauze & Roll Gauze, Secured with Tape #2 RLE [place] -Ulcer Cleansing Rinsed/ Irrigated with Saline -Foul Odor after Cleansing No -Other Dressing wet to dry -Primary Dressing Covered/Secured with Dry Gauze & Roll Gauze, Secured with Tape Treatment Response Procedure Tolerated Well Pain Scale: 0-10 Numeric Is Patient Pain Free? Yes WC - Visit Discharge Ambulatory Status Ambulatory Transportation Private Auto Accompanied by family Facility Type Home Health Orders Sent Yes Laterality: Left Type of Debridement: Selective debridement Anesthesia Used: 4% Lidocaine Solution Depth: Down to and including healthy tissue Percentage of wound debrided: 60 Instrument Used: 3mm curette, #15 blade, Forceps Severity: Fat Layer Exposed Amount of bleeding with debridement: Mild Bleeding Controlled with: Pressure Patient tolerated procedure well Assessment/Plan Active Problems (Last Reviewed 09/07/20 @ 16:[address] Alba Zhang, DO) Tobacco dependence in remission (Acute) quit in July 2020. Smoked for 43 years Insomnia (Acute) Inanition (Acute) Severe malnutrition (Acute) Weight loss, non-intentional (Acute) Diastolic dysfunction (Chronic) Anemia (Chronic) Cholangiocarcinoma (Chronic) diagnosed 08/11/20 from a bx taken at the time of placement of a temporary biliary stent New onset atrial fibrillation (Acute) COPD (chronic obstructive pulmonary disease) (Chronic) Irreversible severe large airways obstructive ventilatory defect with associated air trapping and symmetric reduction in diffusing capacity on PFTs done at [facility] 05/10/2020 S/p TAVR (transcatheter aortic valve replacement), bioprosthetic (Chronic ~06/07/20) #23 Eda S3 Valve Atherosclerotic heart disease of [place] coronary artery without angina pectoris (Chronic) Bilateral carotid artery stenosis (Chronic) Mild Nonrheumatic aortic (valve) stenosis (Chronic) She has had a TAVR History of phthl-[id number] bypass (Chronic ~1997) by Dr. Colon in 1997 Mixed hyperlipidemia (Chronic) PVD (peripheral vascular disease) (Chronic) Essential hypertension (Chronic) Venous stasis ulcer (Chronic) I suspect this may be a ischemic ulcer and not a venous stasis ulcer Assessment: 1. Ischemic ulcer on the distal LLE with fat layer exposed. 2. venous insufficiency - need to consider DVT in this pt recently diagnosed with cholangiocarcinoma
--- NOTE | 2020-09-10 14:09 | WC ---
prescription for 0.25% acetic acid to be applied to wound twice daily was called into [facility] in [place]. Patient was notified and given directions on use, she verbalized understanding
--- NOTE | 2020-09-14 14:58 | PCM.PN.BLA ---
Progress Note Rosario did not show for her venous and arterial vascular studies and was a no show for her appt today. I called to check on her and she did not answer so I left a VM with my cell phone number and then I called her sister Martha. Rosario is [id number] by herself now and she called Martha today to say she was too weak to go to her appts. she is not eating and Martha tells me that her eyes and skin are yellow again. She can not even walk 10 feet without severe SOB and she is exhausted. She is making a noise when she breathes. I recommended that Martha have her go to the ED because she may have an occluded CBD stent and/or sepsis. She said Rosario does not want to go to an ER. Her son is flying in [facility]. I gave Martha my cell phone number and told her if I could talk to Rosario or be of any assistance she could call me anytime.
[2020-09-21 13:36] VITALS: BP 126/88; PULSE 79; RESP 18; TEMP 36.2; BMI 32.5
--- NOTE | 2020-09-21 15:02 | PN.PCM_ITS ---
(1) Anemia Status: Chronic Qualifiers: Anemia type: other cause Other causes of anemia: chronic disease, neoplastic Qualified Code(s): D63.0 - Anemia in neoplastic disease Code(s): D64.9 - Anemia, unspecified (2) Obstructive jaundice Status: Resolved Code(s): K83.1 - Obstruction of bile duct Comment: she had a biliary stent placed (3) Cholangiocarcinoma Status: Chronic Code(s): C22.1 - Intrahepatic bile duct carcinoma Comment: diagnosed 08/11/20 from a bx taken at the time of placement of a temporary biliary stent (4) New onset atrial fibrillation Status: Acute Code(s): I48.91 - Unspecified atrial fibrillation (5) COPD (chronic obstructive pulmonary disease) Status: Chronic Code(s): J44.9 - Chronic obstructive pulmonary disease, unspecified Comment: Irreversible severe large airways obstructive ventilatory defect with associated air trapping and symmetric reduction in diffusing capacity on PFTs done at [facility] 05/10/2020 (6) S/p TAVR (transcatheter aortic valve replacement), bioprosthetic Status: Chronic Code(s): Z95.3 - Presence of xenogenic heart valve Comment: #23 Eda S3 Valve (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 transplanted heart: [place] heart Code(s): I25.10 - Atherosclerotic heart disease of [place] coronary artery without angina pectoris (8) Bilateral carotid artery stenosis Status: Chronic Code(s): I65.23 - Occlusion and stenosis of bilateral carotid arteries Comment: Mild (9) Nonrheumatic aortic (valve) stenosis Status: Chronic Code(s): I35.0 - Nonrheumatic aortic (valve) stenosis Comment: She has had a TAVR (10) History of oqqlr-erzyj-oznqvns bypass Status: Chronic Code(s): Z95.828 - Presence of other vascular implants and grafts Comment: by Dr. Colon in 1997 (11) Mixed hyperlipidemia Status: Chronic Code(s): E78.2 - Mixed hyperlipidemia (12) PVD (peripheral vascular disease) Status: Chronic Code(s): I73.9 - Peripheral vascular disease, unspecified (13) Essential hypertension Status: Chronic Code(s): I10 - Essential (primary) hypertension (14) Venous stasis ulcer Status: Chronic Qualifiers: Venous stasis ulcer site: calf Laterality: left Non-pressure ulcer stage: with fat layer exposed Code(s): I83.009 - Varicose veins of unspecified lower extremity with ulcer of unspecified site; L97.909 - Non-pressure chronic ulcer of unspecified part of unspecified lower leg with unspecified severity Comment: I suspect this may be a ischemic ulcer and not a venous stasis ulcer (15) Tobacco dependence in remission Status: Acute Code(s): F17.201 - Nicotine dependence, unspecified, in remission Comment: quit in July 2020. Smoked for 43 years (16) Insomnia Status: Acute Code(s): G47.00 - Insomnia, unspecified (17) Inanition Status: Acute Code(s): R64 - Cachexia (18) Severe malnutrition Status: Acute Code(s): E43 - Unspecified severe protein-calorie malnutrition (19) Weight loss, non-intentional Status: Acute Code(s): R63.4 - Abnormal weight loss (20) Diastolic dysfunction Status: Chronic Code(s): I51.89 - Other ill-defined heart diseases Type of Wound Date of Service: 09/21/20 Chief Complaint: non-healing wound of the LLE History of Wound: please see the consult dictated on this pt on 09/07/20 for hx Progress of Wound: Rosario was seen in the wound care clinic today. The wound culture came back with Pseudomonas aeruginosa and we elected to treat with topical 1/4% acetic acid wet-to-dry dressings rather than systemic antibiotics. She denies any fevers/chills/sweats. She is feeling better. She had been jaundiced but this has improved and her appetite is better. - Physical Exam Vital Signs Temp Pulse Resp BP 97.2 F L 79 18 126/88 H 09/21/20 13:36 09/21/20 13:36 09/21/20 13:36 09/21/20 13:36 General: Alert, Oriented x3, Cooperative, No apparent distress HEENT: Atraumatic Cardiovascular: Regular rate, Regular Rhythm Abdomen: Soft, Non-Distended Wound Measurements and Assessment WC - Nurse 1 - General Ulcer Measurement Start: 09/07/20 14:54 Freq: Status: Active Protocol: Activity Type Activity Date Activity User E-Sign Co-Sign Detail Recorded Client Recorded Date Recorded By Document 09/21/20 13:36 PL [id number] 09/21/20 13:48 PL 09/21/20 13:36 Wound Center Nurse 1 [Ulcer Assessment] #3 RLE Med -Combined with other wound No -Current Size (cm) - Length 2 -Current Size (cm) - Width 4.5 -Current Size (cm) - Depth 0.1 -Total Square Cm 9.0 -Photo Taken No -Epithelialization None Present -Tunneling No -Undermining/Tunneling No -Circular Undermining No -Exudate Amt Large -Exudate Type Serosanguineous -Granulation Amt Large (67-100%) -Granulation Quality [place] -Slough/Fibrin No -Necrosis Amt Small (1-33%) -Necrotic Tissue Type Adherent Slough -Texture (Maria E-wound Skin Appearance) No Abnormality -Moisture (Maria E-wound Skin Appearance No Abnormality ) -Color (Maria E-wound Skin Appearance) No Abnormality, Ecchymosis -Ulcer Cleansing Rinsed/ Irrigated with Saline -Foul Odor after Cleansing No -Anesthetic Used 4% Lidocaine Solution #2 RLE [place] Cluster -Combined with other wound No -Current Size (cm) - Length 20 -Current Size (cm) - Width 11.5 -Current Size (cm) - Depth 0.1 -Total Square Cm 230.0 -Photo Taken No -Epithelialization None Present -Tunneling No -Undermining/Tunneling No -Circular Undermining No -Granulation Amt Large (67-100%) -Granulation Quality [place] -Slough/Fibrin Yes -Necrosis Amt Small (1-33%) -Necrotic Tissue Type Adherent Slough -Texture (Maria E-wound Skin Appearance) No Abnormality -Moisture (Maria E-wound Skin Appearance No Abnormality ) -Color (Maria E-wound Skin Appearance) No Abnormality -Temperature (Maria E-wound Skin No Abnormality Appearance) (Pt Warm) -Anesthetic Used 4% Lidocaine Solution The medial wound of the LLE is now 9 centimeters squared, down from 24.2 on her last visit to the wound care center. The cluster of wounds over the anterior and lateral left sherman is 230 cm? today, down from 283.5 cm? at her last visit. The wounds are even with the skin now. There is no odor and no purulent discharge. There is no periwound erythema. The base of the wounds is 90 to 95% granulation tissue now and there are areas that are contracted with increased epithelialization at the margins. I reviewed all the measurements from above. she has not been able to have the venous and arterial studies done yet. The cap refill of the toenails on the R foot is < 3 sec today. She has hair growth on the toes and there is no ankle edema. she has visible superficial varicosities on the L anterior sherman. since she has excellent granulation tissue present I feel she likely has adequate arterial supply to heal the wound. Her appetite and intake have improved this past week. Debridement Note Post-Debridement Measurements/Treatment WC - Nurse 2 - General Ulcer CM Notes Start: 09/07/20 14:54 Freq: Status: Active Protocol: Activity Type Activity Date Activity User E-Sign Co-Sign Detail Recorded Client Recorded Date Recorded By Document 09/07/20 17:11 PL [id number] 09/07/20 17:14 PL 09/07/20 17:11 Wound Center Nurse 2 #3 E Med -Time 15:00 -Correct Patient Yes -Correct Side, Site, Position Yes -Correct Procedure Yes -Procedure Performed Yes -Type of Procedure Debridement -Clinical Debridement Subcutaneous -Tissue Removed Subcutaneous -Post Debridement (cm) - Length 4.4 -Post Debridement (cm) - Width 5.5 -Post Debridement (cm) - Depth 0.1 -Total Square (Post) (cm) 24.20 -Area of Debridement (cm) - Length 4.4 -Area of Debridement (cm) - Width 5.5 -Total Square (Area) (cm) 24.20 -Tunneling No -Undermining/Tunneling No -Circular Undermining No -Wound/Ulcer Outcome Not Healed -Ulcer Cleansing Rinsed/ Irrigated with Saline -Foul Odor after Cleansing No -Bioengineered Tissue No -Debridement - Subq, 1st 20sq cm No -Debridement, SubQ, ea addt'l 20sq cm 1 or part thereof #2 RLE [place] Cluster -Time 15:00 -Correct Patient Yes -Correct Side, Site, Position Yes -Correct Procedure Yes -Procedure Performed Yes -Type of Procedure Debridement -Clinical Debridement Subcutaneous -Tissue Removed Subcutaneous -Post Debridement (cm) - Length 21 -Post Debridement (cm) - Width 13.5 -Post Debridement (cm) - Depth 0.1 -Total Square (Post) (cm) 283.5 -Area of Debridement (cm) - Length 21 -Area of Debridement (cm) - Width 13.5 -Total Square (Area) (cm) 283.5 -Tunneling No -Undermining/Tunneling No -Circular Undermining No -Wound/Ulcer Outcome Not Healed -Ulcer Cleansing Rinsed/ Irrigated with Saline -Foul Odor after Cleansing No -Bioengineered Tissue No -Debridement - Subq, 1st 20sq cm Yes -Debridement, SubQ, ea addt'l 20sq cm 11 or part thereof Pain Scale: 0-10 Numeric Is Patient Pain Free? Yes - Nurse 3 - General Ulcer D/C NN Start: 09/07/20 14:54 Freq: Status: Active Protocol: Activity Type Activity Date Activity User E-Sign Co-Sign Detail Recorded Client Recorded Date Recorded By Document 09/07/20 16:02 DL [id number] 09/07/20 16:08 DL 09/07/20 16:02 Wound Care Nurse 3 #3 RLE Med -Ulcer Cleansing Rinsed/ Irrigated with Saline -Foul Odor after Cleansing No -Other Dressing wet to dry -Primary Dressing Covered/Secured with Dry Gauze & Roll Gauze, Secured with Tape #2 RLE [place] Cluster -Ulcer Cleansing Rinsed/ Irrigated with Saline -Foul Odor after Cleansing No -Other Dressing wet to dry -Primary Dressing Covered/Secured with Dry Gauze & Roll Gauze, Secured with Tape Treatment Response Procedure Tolerated Well Pain Scale: 0-10 Numeric Is Patient Pain Free? Yes WC - Visit Discharge Ambulatory Status Ambulatory Transportation Private Auto Accompanied by family Facility Type Home Health Orders Sent Yes No debridement was completed today Assessment/Plan Active Problems (Last Reviewed 09/07/20 @ 16:[address] Alba Zhang, DO) Tobacco dependence in remission (Acute) quit in July 2020. Smoked for 43 years Insomnia (Acute) Inanition (Acute) Severe malnutrition (Acute) Weight loss, non-intentional (Acute) Diastolic dysfunction (Chronic) Anemia (Chronic) Cholangiocarcinoma (Chronic) diagnosed 08/11/20 from a bx taken at the time of placement of a temporary biliary stent New onset atrial fibrillation (Acute) COPD (chronic obstructive pulmonary disease) (Chronic) Irreversible severe large airways obstructive ventilatory defect with associated air trapping and symmetric reduction in diffusing capacity on PFTs done at [facility] 05/10/2020 S/p TAVR (transcatheter aortic valve replacement), bioprosthetic (Chronic ~06/07/20) #23 Eda S3 Valve Atherosclerotic heart disease of [place] coronary artery without angina pectoris (Chronic) Bilateral carotid artery stenosis (Chronic) Mild Nonrheumatic aortic (valve) stenosis (Chronic) She has had a TAVR History of selms-plfel-stcnrws bypass (Chronic ~1997) by Dr. Colon in 1997 Mixed hyperlipidemia (Chronic) PVD (peripheral vascular disease) (Chronic) Essential hypertension (Chronic) Venous stasis ulcer (Chronic) I suspect this may be a ischemic ulcer and not a venous stasis ulcer Assessment: 1. Ischemic ulcer on the distal LLE with fat layer exposed. 2. venous insufficiency - need to consider DVT in this pt recently diagnosed with cholangiocarcinoma. 3. hx of PVD and stents in the past. 4. 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 DC the acetic acid. 2. start Hydrogel BID and cover with non-stick dressing and wrap with gauze. If the wound becomes dry then increase the dressing changes to TID. 3. We spent time with Rosario discussing her options for tx of cholangiocarcinoma. I shared with her the surgical risk calculator I ran on her. I explained her risk is actually higher due to severe chronic lung disease, CAD, recent TaVR, PVD. We also discussed hospice and I told her if she chose not to do anything that hospice consult would be a good idea. I reinforced with her that you can be on hospice a few years as long as you have a qualifying diagnosis and if you did not need them they would be in the background but, If you had a problem anytime they would be there for you and that they were experts in symptom control and even provide counselling/SW support. she is going to make another appt with Dr. Goyal to discuss whether he thinks chemo or radiation would prolong her life more than 6 months. She had a [id number] with pancreatic CA who chose to get chemo and she was sick all the time until her and she would not want to do that. She is not going to have the surgery. She will come back top the [facility] in 1 week for a recheck. Office Visits / Consults: [id number] OV L2 Est
[2020-09-28 13:19] VITALS: BP 128/60; PULSE 81; RESP 18; TEMP 37; BMI 32.5
--- NOTE | 2020-09-28 16:13 | PCM.WC.PN ---
(1) Anemia Status: Chronic Qualifiers: Anemia type: other cause Other causes of anemia: chronic disease, neoplastic Qualified Code(s): D63.0 - Anemia in neoplastic disease Code(s): D64.9 - Anemia, unspecified (2) Obstructive jaundice Status: Resolved Code(s): K83.1 - Obstruction of bile duct Comment: she had a biliary stent placed (3) Cholangiocarcinoma Status: Chronic Code(s): C22.1 - Intrahepatic bile duct carcinoma Comment: diagnosed 08/11/20 from a bx taken at the time of placement of a temporary biliary stent (4) New onset atrial fibrillation Status: Acute Code(s): I48.91 - Unspecified atrial fibrillation (5) COPD (chronic obstructive pulmonary disease) Status: Chronic Code(s): J44.9 - Chronic obstructive pulmonary disease, unspecified (6) S/p TAVR (transcatheter aortic valve replacement), bioprosthetic Status: Chronic Code(s): Z95.3 - Presence of xenogenic heart valve Comment: #23 Eda S3 Valve (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 transplanted heart: [place] heart Code(s): I25.10 - Atherosclerotic heart disease of [place] coronary artery without angina pectoris (8) Bilateral carotid artery stenosis Status: Chronic Code(s): I65.23 - Occlusion and stenosis of bilateral carotid arteries Comment: Mild (9) Nonrheumatic aortic (valve) stenosis Status: Chronic Code(s): I35.0 - Nonrheumatic aortic (valve) stenosis Comment: She has had a TAVR (10) History of ioyew-gsrve-ntmaoax bypass Status: Chronic Code(s): Z95.828 - Presence of other vascular implants and grafts Comment: by Dr. Colon in 1997 (11) Mixed hyperlipidemia Status: Chronic Code(s): E78.2 - Mixed hyperlipidemia (12) PVD (peripheral vascular disease) Status: Chronic Code(s): I73.9 - Peripheral vascular disease, unspecified (13) Essential hypertension Status: Chronic Code(s): I10 - Essential (primary) hypertension (14) Venous stasis ulcer Status: Chronic Qualifiers: Venous stasis ulcer site: calf Laterality: left Non-pressure ulcer stage: with fat layer exposed Code(s): I83.009 - Varicose veins of unspecified lower extremity with ulcer of unspecified site; L97.909 - Non-pressure chronic ulcer of unspecified part of unspecified lower leg with unspecified severity Comment: I suspect this may be a ischemic ulcer and not a venous stasis ulcer (15) Tobacco dependence in remission Status: Acute Code(s): F17.201 - Nicotine dependence, unspecified, in remission Comment: quit in July 2020. Smoked for 43 years (16) Insomnia Status: Acute Code(s): G47.00 - Insomnia, unspecified (17) Inanition Status: Acute Code(s): R64 - Cachexia (18) Severe malnutrition Status: Acute Code(s): E43 - Unspecified severe protein-calorie malnutrition (19) Weight loss, non-intentional Status: Acute Code(s): R63.4 - Abnormal weight loss (20) Diastolic dysfunction Status: Chronic Code(s): I51.89 - Other ill-defined heart diseases Type of Wound Date of Service: 09/28/20 Chief Complaint: non-healing wound of the LLE History of Wound: please see the consult dictated on this pt on 09/07/20 for hx Progress of Wound: Rosario was seen in the wound care clinic today. The wound culture came back with Pseudomonas aeruginosa and we elected to treat with topical 1/4% acetic acid wet-to-dry dressings rather than systemic antibiotics. She denies any fevers/chills/sweats. She is feeling better. She had been jaundiced but this has improved and her appetite is better. - Physical Exam Vital Signs Temp Pulse Resp BP 98.6 F 81 18 128/60 H 09/28/20 13:19 09/28/20 13:19 09/28/20 13:19 09/28/20 13:19 Wound Measurements and Assessment WC - Nurse 1 - General Ulcer Measurement Start: 09/07/20 14:54 Freq: Status: Active Protocol: Activity Type Activity Date Activity User E-Sign Co-Sign Detail Recorded Client Recorded Date Recorded By Document 09/28/20 13:19 DL [id number] 09/28/20 13:30 DL 09/28/20 13:19 Wound Center Nurse 1 [Ulcer Assessment] #3 LLE Med -Current Size (cm) - Length 1 -Current Size (cm) - Width 4.5 -Current Size (cm) - Depth 0.1 -Total Square Cm 4.5 -Photo Taken No -Exudate Amt Small -Exudate Type Serosanguineous -Wound Margin Distinct, Outline Attached -Granulation Amt Large (67-100%) -Granulation Quality [place],Red -Necrosis Amt Small (1-33%) -Necrotic Tissue Type Adherent Slough -Structure Exposed N/A -Texture (Maria E-wound Skin Appearance) Scarring -Moisture (Maria E-wound Skin Appearance Dry/Scaly ) -Color (Maria E-wound Skin Appearance) Hemosiderin Staining -Temperature (Maria E-wound Skin No Abnormality Appearance) (Pt Warm) -Tenderness on Palpation (Maria E-wound No Skin Appearance) -Ulcer Cleansing Wound Cleanser -Foul Odor after Cleansing No -Anesthetic Used 4% Lidocaine Solution #2 LLE Vargas Cluster -Current Size (cm) - Length 18.5 -Current Size (cm) - Width 10.8 -Current Size (cm) - Depth 0.1 -Total Square Cm 199.80 -Photo Taken No -Exudate Amt Small -Exudate Type Serosanguineous -Wound Margin Distinct, Outline Attached -Granulation Amt Large (67-100%) -Granulation Quality [place],Red -Necrosis Amt Small (1-33%) -Necrotic Tissue Type Adherent Slough -Texture (Maria E-wound Skin Appearance) Scarring -Moisture (Maria E-wound Skin Appearance Dry/Scaly ) -Color (Maria E-wound Skin Appearance) Hemosiderin Staining -Temperature (Maria E-wound Skin No Abnormality Appearance) (Pt Warm) -Tenderness on Palpation (Maria E-wound No Skin Appearance) -Ulcer Cleansing Wound Cleanser -Foul Odor after Cleansing No -Anesthetic Used 4% Lidocaine Solution [Edema Assessment] -Left Calf (cm) 35 -Left Ankle (cm) 21.3 WC - Nurse 2 - General Ulcer CM Notes Start: 09/07/20 14:54 Freq: Status: Active Protocol: Activity Type Activity Date Activity User E-Sign Co-Sign Detail Recorded Client Recorded Date Recorded By Document 09/28/20 13:52 MW [id number] 09/28/20 14:04 MW 09/28/20 13:52 Wound Center Nurse 2 [Procedure/Treatment] #3 LLE Med -Time 13:53 -Correct Patient Yes -Correct Side, Site, Position Yes -Correct Procedure Yes -Procedure Performed No -Tunneling No -Undermining/Tunneling No -Circular Undermining No -Wound/Ulcer Outcome Not Healed -Ulcer Cleansing Rinsed/ Irrigated with Saline -Foul Odor after Cleansing No -Bioengineered Tissue No -Bleeding Controlled with NA -Treatment Response Procedure Tolerated Well #2 LLE Vargas Cluster -Time 13:54 -Correct Patient Yes -Correct Side, Site, Position Yes -Correct Procedure Yes -Procedure Performed Yes -Type of Procedure Debridement -Clinical Debridement Subcutaneous -Tissue Removed Subcutaneous -Post Debridement (cm) - Length 19.5 -Post Debridement (cm) - Width 10.5 -Post Debridement (cm) - Depth 0.1 -Total Square (Post) (cm) 204.75 -Area of Debridement (cm) - Length 19.5 -Area of Debridement (cm) - Width 10.5 -Total Square (Area) (cm) 204.75 -Tunneling No -Undermining/Tunneling No -Circular Undermining No -Wound/Ulcer Outcome Not Healed -Ulcer Cleansing Rinsed/ Irrigated with Saline -Foul Odor after Cleansing No -Bioengineered Tissue No -Bleeding Controlled with Pressure -Offloading No -Treatment Response Procedure Tolerated Well -Debridement - Subq, 1st 20sq cm Yes -Debridement, SubQ, ea addt'l 20sq cm 10 or part thereof [See Physician Procedure note for Specifics] Pain Scale: 0-10 Numeric [Pain] -Is Patient Pain Free? Yes WC - Nurse 3 - General Ulcer D/C NN Start: 09/07/20 14:54 Freq: Status: Active Protocol: Activity Type Activity Date Activity User E-Sign Co-Sign Detail Recorded Client Recorded Date Recorded By Document 09/28/20 14:21 [facility] [id number] 09/28/20 14:22 [facility] 09/28/20 14:21 Wound Care Nurse 3 [Wound Dressing] #3 LLE Med -Ulcer Cleansing Rinsed/ Irrigated with Saline -Foul Odor after Cleansing No -Primary Dressing Applied C Hydrogel ($) -Primary Dressing Covered/Secured Dry Gauze & with Roll Gauze, Secured with Tape,Other -Other Covering abd #2 LLE Vargas Cluster -Ulcer Cleansing Rinsed/ Irrigated with Saline -Foul Odor after Cleansing No -Primary Dressing Applied Other -Other Dressing hydrogel -Primary Dressing Covered/Secured Dry Gauze & with Roll Gauze, Secured with Tape [Compression Applied] Left -Tubular Bandage Double Layer -Size of Tubigrip Used Size E -Size E ($) 1 [Post Procedure Tolerated] -Treatment Response Procedure Tolerated Well Pain Scale: 0-10 Numeric [Pain] -Is Patient Pain Free? Yes WC - Visit Discharge [Visit Discharge Information] -Discharge Condition Stable -Ambulatory Status Ambulatory -Transportation Private Auto -Accompanied by sister The wound is even with the skin. There are small areas of yellow slough with fat exposed. The wound is 90% granulating. There is no maria e-wound erythema and no purulent DC. There is no odor. The medial wound is malik and there is new skin which has formed around the margins. There is also evidence of new skin at the margins of the vargas wound and within the wound. The area of the medial wound has decreased from 9 cm? to 4.5 cm? when compared to the most recent visit. The area of the vargas cluster has decreased from 230cm? to 199.8 cm?. Debridement Note Post-Debridement Measurements/Treatment WC - Nurse 2 - General Ulcer CM Notes Start: 09/07/20 14:54 Freq: Status: Active Protocol: Activity Type Activity Date Activity User E-Sign Co-Sign Detail Recorded Client Recorded Date Recorded By Document 09/07/20 17:11 PL [id number] 09/07/20 17:14 PL Document 09/28/20 13:52 MW [id number] 09/28/20 14:04 MW 09/07/20 09/28/20 17:11 13:52 Wound Center Nurse 2 #3 LLE Med -Time 15:00 13:53 -Correct Patient Yes Yes -Correct Side, Site, Position Yes Yes -Correct Procedure Yes Yes -Procedure Performed Yes No -Type of Procedure Debridement -Clinical Debridement Subcutaneous -Tissue Removed Subcutaneous -Post Debridement (cm) - Length 4.4 -Post Debridement (cm) - Width 5.5 -Post Debridement (cm) - Depth 0.1 -Total Square (Post) (cm) 24.20 -Area of Debridement (cm) - Length 4.4 -Area of Debridement (cm) - Width 5.5 -Total Square (Area) (cm) 24.20 -Tunneling No No -Undermining/Tunneling No No -Circular Undermining No No -Wound/Ulcer Outcome Not Healed Not Healed -Ulcer Cleansing Rinsed/ Rinsed/ Irrigated with Irrigated with Saline Saline -Foul Odor after Cleansing No No -Bioengineered Tissue No No -Bleeding Controlled with NA -Treatment Response Procedure Tolerated Well -Debridement - Subq, 1st 20sq cm No -Debridement, SubQ, ea addt'l 20sq cm 1 or part thereof #2 LLE Vargas Cluster -Time 15:00 13:54 -Correct Patient Yes Yes -Correct Side, Site, Position Yes Yes -Correct Procedure Yes Yes -Procedure Performed Yes Yes -Type of Procedure Debridement Debridement -Clinical Debridement Subcutaneous Subcutaneous -Tissue Removed Subcutaneous Subcutaneous -Post Debridement (cm) - Length 21 19.5 -Post Debridement (cm) - Width 13.5 10.5 -Post Debridement (cm) - Depth 0.1 0.1 -Total Square (Post) (cm) 283.5 204.75 -Area of Debridement (cm) - Length 21 19.5 -Area of Debridement (cm) - Width 13.5 10.5 -Total Square (Area) (cm) 283.5 204.75 -Tunneling No No -Undermining/Tunneling No No -Circular Undermining No No -Wound/Ulcer Outcome Not Healed Not Healed -Ulcer Cleansing Rinsed/ Rinsed/ Irrigated with Irrigated with Saline Saline -Foul Odor after Cleansing No No -Bioengineered Tissue No No -Bleeding Controlled with Pressure -Offloading No -Treatment Response Procedure Tolerated Well -Debridement - Subq, 1st 20sq cm Yes Yes -Debridement, SubQ, ea addt'l 20sq cm 11 10 or part thereof Pain Scale: 0-10 Numeric Is Patient Pain Free? Yes Yes WC - Nurse 3 - General Ulcer D/C NN Start: 09/07/20 14:54 Freq: Status: Active Protocol: Activity Type Activity Date Activity User E-Sign Co-Sign Detail Recorded Client Recorded Date Recorded By Document 09/07/20 16:02 DL [id number] 09/07/20 16:08 DL Document 09/21/20 14:00 PL [id number] 09/22/20 06:37 PL Document 09/28/20 14:21 BM [id number] 09/28/20 14:22 BMF 09/07/20 09/21/20 09/28/20 16:02 14:00 14:21 Wound Care Nurse 3 #3 LLE Med -Ulcer Cleansing Rinsed/ Rinsed/ Rinsed/ Irrigated with Irrigated with Irrigated with Saline Saline Saline -Foul Odor after Cleansing No No No -Primary Dressing Applied C Hydrogel ($) C Hydrogel ($) -Other Dressing wet to dry -Primary Dressing Covered/Secured with Dry Gauze & Dry Gauze & Dry Gauze & Roll Gauze, Roll Gauze, Roll Gauze, Secured with Secured with Secured with Tape Tape Tape,Other -Other Covering abd #2 LLE Vargas Cluster -Ulcer Cleansing Rinsed/ Rinsed/ Rinsed/ Irrigated with Irrigated with Irrigated with Saline Saline Saline -Foul Odor after Cleansing No No No -Primary Dressing Applied Other -Other Dressing wet to dry Hydrogel hydrogel -Primary Dressing Covered/Secured with Dry Gauze & Dry Gauze & Dry Gauze & Roll Gauze, Roll Gauze, Roll Gauze, Secured with Secured with Secured with Tape Tape Tape Left -Tubular Bandage Double Layer -Size of Tubigrip Used Size E -Size E ($) 1 Treatment Response Procedure Procedure Tolerated Well Tolerated Well Pain Scale: 0-10 Numeric Is Patient Pain Free? Yes Yes Yes WC - Visit Discharge Discharge Condition Stable Stable Ambulatory Status Ambulatory Ambulatory Ambulatory Transportation Private Auto Private Auto Accompanied by family sister Clinical Summary of Care Provided Yes Facility Type Home Health Orders Sent Yes Wound debrided: left vargas cluster Laterality: Left Type of Debridement: Excisional debridement Anesthesia Used: 4% Lidocaine Solution Depth: Down to and including healthy tissue Percentage of wound debrided: 30 Instrument Used: 5mm curette Severity: Fat Layer Exposed Amount of bleeding with debridement: Mild Bleeding Controlled with: Pressure Patient tolerated procedure well Operative Diagnosis: venous stasis ulcer Assessment/Plan Active Problems (Last Reviewed 09/27/20 @ 13:07 by Lin Smallwood) Tobacco dependence in remission (Acute) quit in July 2020. Smoked for 43 years Insomnia (Acute) Inanition (Acute) Severe malnutrition (Acute) Weight loss, non-intentional (Acute) Diastolic dysfunction (Chronic) Anemia (Chronic) Cholangiocarcinoma (Chronic) diagnosed 08/11/20 from a bx taken at the time of placement of a temporary biliary stent New onset atrial fibrillation (Acute) COPD (chronic obstructive pulmonary disease) (Chronic) S/p TAVR (transcatheter aortic valve replacement), bioprosthetic (Chronic ~06/07/20) #23 Eda S3 Valve Atherosclerotic heart disease of [place] coronary artery without angina pectoris (Chronic) Bilateral carotid artery stenosis (Chronic) Mild Nonrheumatic aortic (valve) stenosis (Chronic) She has had a TAVR History of cpegc-ptyin-gfbwldb bypass (Chronic ~1997) by Dr. Colon in 1997 Mixed hyperlipidemia (Chronic) PVD (peripheral vascular disease) (Chronic) Essential hypertension (Chronic) Venous stasis ulcer (Chronic) I suspect this may be a ischemic ulcer and not a venous stasis ulcer Assessment: 1. Venous stasis ulcer on the distal LLE with fat layer exposed. 2. hx of PVD and stents in the past. the wound is very beefy and granulating well and it is improving every week so I do not feel she has any severe PVD at this time. 3. 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 RTC in 1 week. 2. Continue Hydrogel BID and cover with non-stick dressing and wrap with gauze. If the wound becomes dry then increase the dressing changes to TID. 3. Increase protein/calorie intake. Suggestions were made to try ENsure bvlended with ice cream, fruit, whey protein powder 2-3 times a day. [id number]: [id number] Sheryl subq tissue 20 sq cm/<
== END 2020-10-03 23:59 ==
LOC: WC 13:15
PROVIDERS: PCP Family Medicine; Referring Provider Internal Medicine; Visit Provider Internal Medicine
DX: I83.028 Varicose veins of left lower extremity with ulcer other part of lower leg (principal); L97.822 Non-pressure chronic ulcer of other part of left lower leg with fat layer exposed; I73.9 Peripheral vascular disease, unspecified; C22.1 Intrahepatic bile duct carcinoma
CPT/HCPCS: 11042; 11045; 87070; 87075; 87077; 87184; 87186; 87205; 99213; G0463

== ENCOUNTER 2020-10-26 15:00 | Outpatient (RCR) | payer MEDICARE, OTHER, SELFPAY ==
[2020-09-28 16:31] VITALS: BMI 30.9
[2020-10-04 00:06] VITALS: BP 128/60; PULSE 81; RESP 18; TEMP 37
[2020-10-05 14:09] VITALS: BP 123/48; PULSE 80; RESP 16; TEMP 36; BMI 30.9
--- NOTE | 2020-10-08 12:34 | PCM.WC.PN ---
(1) Venous stasis ulcer Status: Chronic Qualifiers: Venous stasis ulcer site: calf Laterality: left Non-pressure ulcer stage: with fat layer exposed Code(s): I83.009 - Varicose veins of unspecified lower extremity with ulcer of unspecified site; L97.909 - Non-pressure chronic ulcer of unspecified part of unspecified lower leg with unspecified severity Comment: I suspect this may be a ischemic ulcer and not a venous stasis ulcer Type of Wound Date of Service: 10/09/20 Chief Complaint: non-healing wound of the LLE History of Wound: please see the consult dictated on this pt on 09/07/20 for hx Progress of Wound: Rosario was seen in the wound care clinic today. She denies any fevers, chills, night sweats. There has been no odor from the wound and there is no redness or warmth to touch around the wound. She denies pain at this time. She is still considering having the Whipples procedure at [facility] but, she has many questions that have not been answered. She does not even know what is incvolved with a Whipples, how long the surgery will be and how much time it will prolong her life IF she survives surgery. She understands that her surgical risk for complications is high. - Physical Exam Vital Signs Temp Pulse Resp BP 96.8 F L 80 16 123/48 H 10/05/20 14:09 10/05/20 14:09 10/05/20 14:09 10/05/20 14:09 General: Alert, Oriented x3, Cooperative, No apparent distress HEENT: - - No scleral icterus Neck: Supple Lungs: Clear to auscultation, Diminished Cardiovascular: Regular rate, Regular Rhythm Extremities: No edema, Diminished Peripheral Pulses Wound Measurements and Assessment WC - Nurse 1 - General Ulcer Measurement Start: 10/05/20 14:08 Freq: Status: Active Protocol: Activity Type Activity Date Activity User E-Sign Co-Sign Detail Recorded Client Recorded Date Recorded By Document 10/05/20 14:09 [facility] [id number] 10/05/20 14:20 [facility] 10/05/20 14:09 Wound Center Nurse 1 [Ulcer Assessment] #3 LLE Med -Combined with other wound No -Current Size (cm) - Length 1.8 -Current Size (cm) - Width 3.9 -Current Size (cm) - Depth 0.1 -Total Square Cm 7.02 -Photo Taken No -Epithelialization None Present -Tunneling No -Undermining/Tunneling No -Circular Undermining No -Exudate Amt Small -Exudate Type Serosanguineous -Wound Margin Distinct, Outline Attached -Granulation Amt Large (67-100%) -Granulation Quality Red -Slough/Fibrin Yes -Necrosis Amt Small (1-33%) -Necrotic Tissue Type Adherent Slough -Texture (Maria E-wound Skin Appearance) Assessed, Scarring -Moisture (Maria E-wound Skin Appearance Assessed ) -Color (Maria E-wound Skin Appearance) Assessed -Temperature (Mariae -wound Skin No Abnormality Appearance) (Pt Warm) -Tenderness on Palpation (Maria E-wound Yes Skin Appearance) -Ulcer Cleansing soapy w ater -Foul Odor after Cleansing No -Anesthetic Used 4% Lidocaine Solution #2 LLE Sherman Cluster -Combined with other wound No -Current Size (cm) - Length 19.4 -Current Size (cm) - Width 10.7 -Current Size (cm) - Depth 0.1 -Total Square Cm 207.58 -Photo Taken No -Epithelialization None Present -Tunneling No -Undermining/Tunneling No -Circular Undermining No -Exudate Amt Large -Exudate Type Serosanguineous -Wound Margin Distinct, Outline Attached -Granulation Amt Large (67-100%) -Granulation Quality Red -Slough/Fibrin Yes -Necrosis Amt Small (1-33%) -Necrotic Tissue Type Adherent Slough -Texture (Maria E-wound Skin Appearance) Assessed, Scarring -Moisture (Maria E-wound Skin Appearance Assessed ) -Color (Maria E-wound Skin Appearance) Assessed -Temperature (Maria E-wound Skin No Abnormality Appearance) (Pt Warm) -Tenderness on Palpation (Maria E-wound No Skin Appearance) -Ulcer Cleansing soapy water -Foul Odor after Cleansing No -Anesthetic Used 4% Lidocaine Solution [Edema Assessment] -Lower Limb Edema Present Yes -Left Calf (cm) 36.1 -Point of Measurement (cm from the 21.8 medial instep) WC - Nurse 2 - General Ulcer CM Notes Start: 10/05/20 14:08 Freq: Status: Active Protocol: Activity Type Activity Date Activity User E-Sign Co-Sign Detail Recorded Client Recorded Date Recorded By Document 10/05/20 15:06 MW [id number] 10/05/20 15:09 MW 10/05/20 15:06 Wound Center Nurse 2 [Procedure/Treatment] #3 LLE Med -Time 15:07 -Correct Patient Yes -Correct Side, Site, Position Yes -Correct Procedure Yes -Procedure Performed No -Post Debridement (cm) - Length 1.8 -Post Debridement (cm) - Width 3.9 -Post Debridement (cm) - Depth 0.1 -Total Square (Post) (cm) 7.02 -Tunneling No -Undermining/Tunneling No -Circular Undermining No -Wound/Ulcer Outcome Not Healed -Ulcer Cleansing Not Cleansed -Foul Odor after Cleansing No -Bioengineered Tissue No -Bleeding Controlled with NA -Offloading No #2 LLE Sherman Cluster -Time 15:07 -Correct Patient Yes -Correct Side, Site, Position Yes -Correct Procedure Yes -Procedure Performed No -Post Debridement (cm) - Length 19.4 -Post Debridement (cm) - Width 10.7 -Post Debridement (cm) - Depth 0.1 -Total Square (Post) (cm) 207.58 -Tunneling No -Undermining/Tunneling No -Circular Undermining No -Wound/Ulcer Outcome Not Healed -Ulcer Cleansing Not Cleansed -Foul Odor after Cleansing No -Bioengineered Tissue No -Bleeding Controlled with NA -Offloading No -Treatment Response Procedure Tolerated Well [See Physician Procedure note for Specifics] Pain Scale: 0-10 Numeric [Pain] -Is Patient Pain Free? Yes No debridement necessary today. There is evidence of new epithelialization and the wounds are malik however the wound is still quite large and she is considering a Whipples procedure in the near future. I would like to have the wound healed by the time of the Whipples to minimize infection risk. Due to the size of the wound it will take at least 2-3 more months to heal and that is if all goes well with no infections and no complications. Delaying the Whipples wound increase risk for metastasis in the interim. Currently she has localized disease. There is no maria e-wound erythema and there is no swelling. The wound base is > 95% beefy red granulation tissue with 2 very small punctate areas where the fat is still exposed. There is no odor and no purulent DC. Debridement Note Post-Debridement Measurements/Treatment WC - Nurse 2 - General Ulcer CM Notes Start: 10/05/20 14:08 Freq: Status: Active Protocol: Activity Type Activity Date Activity User E-Sign Co-Sign Detail Recorded Client Recorded Date Recorded By Document 10/05/20 15:06 MW [id number] 10/05/20 15:09 MW 10/05/20 15:06 Wound Center Nurse 2 #3 LLE Med -Time 15:07 -Correct Patient Yes -Correct Side, Site, Position Yes -Correct Procedure Yes -Procedure Performed No -Post Debridement (cm) - Length 1.8 -Post Debridement (cm) - Width 3.9 -Post Debridement (cm) - Depth 0.1 -Total Square (Post) (cm) 7.02 -Tunneling No -Undermining/Tunneling No -Circular Undermining No -Wound/Ulcer Outcome Not Healed -Ulcer Cleansing Not Cleansed -Foul Odor after Cleansing No -Bioengineered Tissue No -Bleeding Controlled with NA -Offloading No #2 LLE Sherman Cluster -Time 15:07 -Correct Patient Yes -Correct Side, Site, Position Yes -Correct Procedure Yes -Procedure Performed No -Post Debridement (cm) - Length 19.4 -Post Debridement (cm) - Width 10.7 -Post Debridement (cm) - Depth 0.1 -Total Square (Post) (cm) 207.58 -Tunneling No -Undermining/Tunneling No -Circular Undermining No -Wound/Ulcer Outcome Not Healed -Ulcer Cleansing Not Cleansed -Foul Odor after Cleansing No -Bioengineered Tissue No -Bleeding Controlled with NA -Offloading No -Treatment Response Procedure Tolerated Well Pain Scale: 0-10 Numeric Is Patient Pain Free? Yes No debridement was completed today Assessment/Plan Assessment: 1. Venous stasis ulcer on the distal LLE with fat layer exposed. 2. hx of PVD and stents in the past. The wound is very beefy and granulating well and it is improving every week so I do not feel she has any severe PVD at this time. 3. 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 RTC in 1 week. 2. Continue Hydrogel BID and cover with non-stick dressing and wrap with gauze. 3. Increase protein/calorie intake. Suggestions were made to try ENsure blended with ice cream, fruit, whey protein powder 2-3 times a day. 4. Apply for Epifix to get the wound covered to minimize risk for infection and increase healing in this pt with cholangiocarcinoma and severe malnutrition which greatly increases the risk for infection. 5. obtain the records from the surgeon at [facility] to see what is planned. We will brainstorm next week and generate a list of questions she will ask at the time of her next appt with surgery. I suggested if the surgeon will not allow Martha to be present in the office at the next appt that they utilize ZOOM or conference calling so that she may participate and ask questions. Rosario is in agreement. Office Visits / Consults: [id number] OV L3 Est
[2020-10-12 14:48] VITALS: BP 125/62; PULSE 77; RESP 16; TEMP 36.4; BMI 30.9
--- NOTE | 2020-10-13 11:58 | PN.PCM_ITS ---
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 She denies any fevers, chills, night sweats. There has been no odor from the wound and there is no redness or warmth to touch around the wound. She denies pain at this time. She is still considering having the Whipples procedure at [facility] but, she has many questions that have not been answered. She does not even know what is incvolved with a Whipples, how long the surgery will be and how much time it will prolong her life IF she survives surgery. She understands that her surgical risk for complications is high. 10/12/09 Rosario fevers/chills/night sweats. She denies any odor from the wound and also denies any redness around the wound or increased warmth to touch. She is dressing the wound with Hydrogel followed by a nonadherent contact layer and then dry gauze and a double layer tubogrip. We received the records from Dr. Mendez at [facility] and I do not believe he is aware of the severity of her COPD. 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 The DLCO is only 57% of predicted. she has not seen a preparation plant repairer. Her lung disease is so severe that a TAVR was recommended instead of surgical replacement of the valve. - Physical Exam Vital Signs Temp Pulse Resp BP 97.6 F L 77 16 125/62 H 10/12/20 14:48 10/12/20 14:48 10/12/20 14:48 10/12/20 14:48 Extremities: No edema Wound Measurements and Assessment WC - Nurse 1 - General Ulcer Measurement Start: 10/05/20 14:08 Freq: Status: Active Protocol: Activity Type Activity Date Activity User E-Sign Co-Sign Detail Recorded Client Recorded Date Recorded By Document 10/12/20 14:48 MS [id number] 10/12/20 14:58 MS 10/12/20 14:48 Wound Center Nurse 1 [Ulcer Assessment] #3 LLE Med -Combined with other wound No -Current Size (cm) - Length 0.5 -Current Size (cm) - Width 1.5 -Current Size (cm) - Depth 0.1 -Total Square Cm 0.75 -Photo Taken No -Epithelialization Small 1-33% -Tunneling No -Undermining/Tunneling No -Circular Undermining No -Exudate Amt Medium -Exudate Type Serosanguineous -Wound Margin Distinct, Outline Attached -Granulation Amt Large (67-100%) -Granulation Quality Red -Slough/Fibrin Yes -Necrosis Amt Small (1-33%) -Necrotic Tissue Type Adherent Slough -Texture (Maria E-wound Skin Appearance) Assessed, Scarring -Moisture (Maria E-wound Skin Appearance Assessed ) -Color (Maria E-wound Skin Appearance) Assessed, Hemosiderin Staining -Temperature (Maria E-wound Skin No Abnormality Appearance) (Pt Warm) -Tenderness on Palpation (Maria E-wound No Skin Appearance) -Ulcer Cleansing soapy water -Foul Odor after Cleansing No -Anesthetic Used 4% Lidocaine Solution #2 LLE Sherman Cluster -Combined with other wound No -Current Size (cm) - Length 19.4 -Current Size (cm) - Width 10.5 -Current Size (cm) - Depth 0.1 -Total Square Cm 203.70 -Photo Taken No -Epithelialization Small 1-33% -Tunneling No -Undermining/Tunneling No -Circular Undermining No -Exudate Amt Medium -Exudate Type Serosanguineous -Wound Margin Distinct, Outline Attached -Granulation Amt Large (67-100%) -Granulation Quality Red -Slough/Fibrin No -Necrosis Amt None Present (0 %) -Texture (Maria E-wound Skin Appearance) Assessed, Scarring -Moisture (Maria E-wound Skin Appearance Assessed ) -Color (Maria E-wound Skin Appearance) Hemosiderin Staining -Temperature (Maria E-wound Skin No Abnormality Appearance) (Pt Warm) -Tenderness on Palpation (Maria E-wound No Skin Appearance) -Ulcer Cleansing soapy water -Foul Odor after Cleansing No -Anesthetic Used 4% Lidocaine Solution [Edema Assessment] -Lower Limb Edema Present Yes -Left Calf (cm) 33 -Left Ankle (cm) 22 WC - Nurse 2 - General Ulcer CM Notes Start: 10/05/20 14:08 Freq: Status: Active Protocol: Activity Type Activity Date Activity User E-Sign Co-Sign Detail Recorded Client Recorded Date Recorded By Document 10/12/20 15:45 MW [id number] 10/12/20 15:50 MW 10/12/20 15:45 Wound Center Nurse 2 [Procedure/Treatment] #3 LLE Med -Time 15:45 -Correct Patient Yes -Correct Side, Site, Position Yes -Correct Procedure Yes -Procedure Performed No -Tunneling No -Undermining/Tunneling No -Circular Undermining No -Wound/Ulcer Outcome Not Healed -Ulcer Cleansing Rinsed/ Irrigated with Saline -Bleeding Controlled with NA #2 LLE Sherman Cluster -Time 15:49 -Correct Patient Yes -Correct Side, Site, Position Yes -Correct Procedure Yes -Procedure Performed No -Tunneling No -Undermining/Tunneling No -Circular Undermining No -Wound/Ulcer Outcome Not Healed -Ulcer Cleansing Rinsed/ Irrigated with Saline -Foul Odor after Cleansing No -Bioengineered Tissue No -Bleeding Controlled with NA [See Physician Procedure note for Specifics] Pain Scale: 0-10 Numeric [Pain] -Is Patient Pain Free? Yes - Nurse 3 - General Ulcer D/C NN Start: 10/05/20 14:08 Freq: Status: Active Protocol: Activity Type Activity Date Activity User E-Sign Co-Sign Detail Recorded Client Recorded Date Recorded By Document 10/12/20 15:50 MW [id number] 10/12/20 16:15 MW 10/12/20 15:50 Wound Care Nurse 3 [Wound Dressing] #3 LLE Med -Ulcer Cleansing Rinsed/ Irrigated with Saline -Foul Odor after Cleansing No -Negative Pressure Wound Therapy N/A -Primary Dressing Applied NonAdherent Contact Layer -Other Dressing hydrogel -Primary Dressing Covered/Secured Dry Gauze & with Roll Gauze, Secured with Tape #2 LLE Sherman Cluster -Ulcer Cleansing Rinsed/ Irrigated with Saline -Foul Odor after Cleansing No -Negative Pressure Wound Therapy N/A -Primary Dressing Applied NonAdherent Contact Layer -Other Dressing hydrogel -Primary Dressing Covered/Secured Dry Gauze & with Roll Gauze, Secured with Tape [Post Procedure Tolerated] -Treatment Response Procedure Tolerated Well Pain Scale: 0-10 Numeric [Pain] -Is Patient Pain Free? Yes Teaching: Wound Center [Wound Center Education] (Items with an * have Printed Materials Available- Please identify what is given to patient under the Teaching materials given to patient and caregiver Section. Dressing Your Wound -Person Taught Patient,Family -Teaching Method Discussion -Response to teaching Verbalize understanding WC - Visit Discharge [Visit Discharge Information] -Discharge Condition Stable -Ambulatory Status Ambulatory -Transportation Private Auto -Accompanied by sister -Medication Reconcilliation completed No & provided to patient/care provider -Clinical Summary of Care Provided Yes I reviewed the dimensions above and compared them to last week's dimensions. I think the dimensions of the large wound over the sherman are actually smaller because the upper pole of the wound is completely from the lower part by new epithelium. There is only a very small area (< 1 cm) in the upper pole that is not epithelialized. The medial leg wound is nearly healed and there is no slough on what is left. The large wound over the sherman has new epithelium at the margins and the base is even with the skin and is 100% granulating with no slough today. There is serosanguineous drainage on the bandages when she removes them. There is no periwound erythema, no increased warmth to touch and no purulent discharge. Debridement Note Post-Debridement Measurements/Treatment WC - Nurse 2 - General Ulcer CM Notes Start: 10/05/20 14:08 Freq: Status: Active Protocol: Activity Type Activity Date Activity User E-Sign Co-Sign Detail Recorded Client Recorded Date Recorded By Document 10/05/20 15:06 MW [id number] 10/05/20 15:09 MW Document 10/12/20 15:45 MW [id number] 10/12/20 15:50 MW 10/05/20 10/12/20 15:06 15:45 Wound Center Nurse 2 #3 DIPAK Med -Time 15:07 15:45 -Correct Patient Yes Yes -Correct Side, Site, Position Yes Yes -Correct Procedure Yes Yes -Procedure Performed No No -Post Debridement (cm) - Length 1.8 -Post Debridement (cm) - Width 3.9 -Post Debridement (cm) - Depth 0.1 -Total Square (Post) (cm) 7.02 -Tunneling No No -Undermining/Tunneling No No -Circular Undermining No No -Wound/Ulcer Outcome Not Healed Not Healed -Ulcer Cleansing Not Cleansed Rinsed/ Irrigated with Saline -Foul Odor after Cleansing No -Bioengineered Tissue No -Bleeding Controlled with NA NA -Offloading No #2 LLE Sherman Cluster -Time 15:07 15:49 -Correct Patient Yes Yes -Correct Side, Site, Position Yes Yes -Correct Procedure Yes Yes -Procedure Performed No No -Post Debridement (cm) - Length 19.4 -Post Debridement (cm) - Width 10.7 -Post Debridement (cm) - Depth 0.1 -Total Square (Post) (cm) 207.58 -Tunneling No No -Undermining/Tunneling No No -Circular Undermining No No -Wound/Ulcer Outcome Not Healed Not Healed -Ulcer Cleansing Not Cleansed Rinsed/ Irrigated with Saline -Foul Odor after Cleansing No No -Bioengineered Tissue No No -Bleeding Controlled with NA NA -Offloading No -Treatment Response Procedure Tolerated Well Pain Scale: 0-10 Numeric Is Patient Pain Free? Yes Yes WC - Nurse 3 - General Ulcer D/C NN Start: 10/05/20 14:08 Freq: Status: Active Protocol: Activity Type Activity Date Activity User E-Sign Co-Sign Detail Recorded Client Recorded Date Recorded By Document 10/12/20 15:50 MW [id number] 10/12/20 16:15 MW 10/12/20 15:50 Wound Care Nurse 3 #3 LLE Med -Ulcer Cleansing Rinsed/ Irrigated with Saline -Foul Odor after Cleansing No -Negative Pressure Wound Therapy N/A -Primary Dressing Applied NonAdherent Contact Layer -Other Dressing hydrogel -Primary Dressing Covered/Secured with Dry Gauze & Roll Gauze, Secured with Tape #2 LLE Sherman Cluster -Ulcer Cleansing Rinsed/ Irrigated with Saline -Foul Odor after Cleansing No -Negative Pressure Wound Therapy N/A -Primary Dressing Applied NonAdherent Contact Layer -Other Dressing hydrogel -Primary Dressing Covered/Secured with Dry Gauze & Roll Gauze, Secured with Tape Treatment Response Procedure Tolerated Well Pain Scale: 0-10 Numeric Is Patient Pain Free? Yes Teaching: Wound Center Dressing Your Wound -Person Taught Patient,Family -Teaching Method Discussion -Response to teaching Verbalize understanding WC - Visit Discharge Discharge Condition Stable Ambulatory Status Ambulatory Transportation Private Auto Accompanied by sister Medication Reconcilliation completed & No provided to patient/care provider Clinical Summary of Care Provided Yes No debridement was completed today - there is no slough to debride Assessment/Plan Active Problems (Last Reviewed 09/27/20 @ 13:07 by Lin Smallwood) Venous stasis ulcer (Chronic) I suspect this may be a ischemic ulcer and not a venous stasis ulcer Assessment: 1. Venous stasis ulcer on the distal LLE with fat layer exposed. 2. hx of PVD and stents in the past. The wound is very beefy and granulating well and it is improving every week so I do not feel she has any severe PVD at this time. 3. 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 I reviewed the results of her PFT's with Rosario and her sister Martha and brigida them pictures explaining what the large airway obstruction is due to. I also looked a the recent CT of the chest with them and pointed out the. s abnormalities. I do not think she would survive the surgery. She can not even walk up a few steps at home without SOB. Plan: 1. Continue Hydrogel BID and cover with non-stick dressing and wrap with gauze. 2. Increase protein/calorie intake. Suggestions were made to try ENsure blended with ice cream, fruit, whey protein powder 2-3 times a day. 3. consider applying for Epifix to get the wound covered to minimize risk for infection and increase healing in this pt with cholangiocarcinoma and severe malnutrition which greatly increases the risk for infection.....alejandra if she opts to have the surgery. 4. I am going to review the CT chest with a preparation plant repairer and also the results of the PFT's and get a second opninon on her ability to survive a Whipple's and be functional afterward. She may not be able to come off a ventilator. Will also talk with Dr. Kaur who is her prepress supervisor and then I will personally call Dr. Mendez and discuss with him. Office Visits / Consults: [phone] OV L3 Est
[2020-10-26 15:07] VITALS: BP 117/59; PULSE 81; RESP 18; TEMP 36.3; BMI 30.9
--- NOTE | 2020-10-26 17:00 | PCM.WC.PN ---
(1) Venous stasis ulcer Status: Chronic Qualifiers: Laterality: left Non-pressure ulcer stage: with fat layer exposed Code(s): I83.009 - Varicose veins of unspecified lower extremity with ulcer of unspecified site; L97.909 - Non-pressure chronic ulcer of unspecified part of unspecified lower leg with unspecified severity Comment: I suspect this may be a ischemic ulcer and not a venous stasis ulcer Type of Wound Date of Service: 11/23/20 Chief Complaint: non-healing wound of the LLE History of Wound: please see the consult dictated on this pt on 09/07/20 for hx Progress of Wound: Rosario denies fevers, chills or night sweats. Her only complaint today is back pain from bending over in her garden yesterday. She has a telephone appt this with Dr. Mendez at [facility] to discuss the planned surgery and get her questions answered. - Physical Exam Vital Signs Temp Pulse Resp BP 97.4 F L 81 18 117/59 L 10/26/20 15:07 10/26/20 15:07 10/26/20 15:07 10/26/20 15:07 Wound Measurements and Assessment WC - Nurse 1 - General Ulcer Measurement Start: 10/05/20 14:08 Freq: Status: Active Protocol: Activity Type Activity Date Activity User E-Sign Co-Sign Detail Recorded Client Recorded Date Recorded By Document 10/26/20 15:07 REJI [id number] 10/26/20 15:11 REJI 10/26/20 15:07 Wound Center Nurse 1 [Ulcer Assessment] #3 LLE Med -Current Size (cm) - Length 0.8 -Current Size (cm) - Width 1.8 -Current Size (cm) - Depth 0.1 -Total Square Cm 1.44 -Photo Taken No -Exudate Amt Small -Exudate Type Serosanguineous -Wound Margin Distinct, Outline Attached -Granulation Amt Medium (34-66%) -Granulation Quality Red -Necrosis Amt Medium (34-66%) -Necrotic Tissue Type Adherent Slough -Structure Exposed N/A -Texture (Maria E-wound Skin Appearance) Scarring -Moisture (Maria E-wound Skin Appearance Dry/Scaly ) -Color (Maria E-wound Skin Appearance) No Abnormality -Temperature (Maria E-wound Skin No Abnormality Appearance) (Pt Warm) -Tenderness on Palpation (Maria E-wound No Skin Appearance) -Ulcer Cleansing Wound Cleanser -Foul Odor after Cleansing No -Anesthetic Used 4% Lidocaine Solution #2 LLE Sherman Cluster -Current Size (cm) - Length 16 -Current Size (cm) - Width 9.3 -Current Size (cm) - Depth 0.1 -Total Square Cm 148.8 -Photo Taken No -Exudate Amt Medium -Exudate Type Serosanguineous -Wound Margin Distinct, Outline Attached -Granulation Amt Large (67-100%) -Granulation Quality Red -Necrosis Amt Small (1-33%) -Necrotic Tissue Type Adherent Slough -Structure Exposed N/A -Texture (Maria E-wound Skin Appearance) Scarring -Moisture (Maria E-wound Skin Appearance Dry/Scaly ) -Color (Maria E-wound Skin Appearance) No Abnormality -Temperature (Maria E-wound Skin No Abnormality Appearance) (Pt Warm) -Tenderness on Palpation (Maria E-wound No Skin Appearance) -Ulcer Cleansing Wound Cleanser -Foul Odor after Cleansing No -Anesthetic Used 4% Lidocaine Solution [Edema Assessment] -Left Calf (cm) 33.6 -Left Ankle (cm) 22.3 - Nurse 3 - General Ulcer D/C NN Start: 10/05/20 14:08 Freq: Status: Active Protocol: Activity Type Activity Date Activity User E-Sign Co-Sign Detail Recorded Client Recorded Date Recorded By Document 10/26/20 15:53 DL [id number] 10/26/20 15:54 DL 10/26/20 15:53 Wound Care Nurse 3 [Wound Dressing] #3 LLE Med -Ulcer Cleansing Rinsed/ Irrigated with Saline -Foul Odor after Cleansing No -Primary Dressing Applied NonAdherent Contact Layer -Other Dressing hydrogel -Primary Dressing Covered/Secured Dry Gauze & with Roll Gauze, Secured with Tape -Other Covering tubigrip #2 LLE Sherman Cluster -Ulcer Cleansing Rinsed/ Irrigated with Saline -Foul Odor after Cleansing No -Other Dressing hydrogel -Primary Dressing Covered/Secured Dry Gauze & with Roll Gauze, Secured with Tape [Post Procedure Tolerated] -Treatment Response Procedure Tolerated Well Pain Scale: 0-10 Numeric [Pain] -Is Patient Pain Free? Yes WC - Visit Discharge [Visit Discharge Information] -Discharge Condition Stable -Ambulatory Status Ambulatory -Transportation Private Auto The size of the anterior wound is 148.8 cm?, down from 207.58 cm? last week. The medial wound is nearly healed and measures only 1.44 cm 2 today. The base of the wounds is 100% granulating and there is no slough. No odor, no tunnelling and no undermining. there is no dry flakey skin today that needed debrided. there are visible superficial varicosities. Debridement Note Post-Debridement Measurements/Treatment WC - Nurse 2 - General Ulcer CM Notes Start: 10/05/20 14:08 Freq: Status: Active Protocol: Activity Type Activity Date Activity User E-Sign Co-Sign Detail Recorded Client Recorded Date Recorded By Document 10/05/20 15:06 MW [id number] 10/05/20 15:09 MW Document 10/12/20 15:45 MW [id number] 10/12/20 15:50 MW 10/05/20 10/12/20 15:06 15:45 Wound Center Nurse 2 #3 LLE Med -Time 15:07 15:45 -Correct Patient Yes Yes -Correct Side, Site, Position Yes Yes -Correct Procedure Yes Yes -Procedure Performed No No -Post Debridement (cm) - Length 1.8 -Post Debridement (cm) - Width 3.9 -Post Debridement (cm) - Depth 0.1 -Total Square (Post) (cm) 7.02 -Tunneling No No -Undermining/Tunneling No No -Circular Undermining No No -Wound/Ulcer Outcome Not Healed Not Healed -Ulcer Cleansing Not Cleansed Rinsed/ Irrigated with Saline -Foul Odor after Cleansing No -Bioengineered Tissue No -Bleeding Controlled with NA NA -Offloading No #2 LLE Sherman Cluster -Time 15:07 15:49 -Correct Patient Yes Yes -Correct Side, Site, Position Yes Yes -Correct Procedure Yes Yes -Procedure Performed No No -Post Debridement (cm) - Length 19.4 -Post Debridement (cm) - Width 10.7 -Post Debridement (cm) - Depth 0.1 -Total Square (Post) (cm) 207.58 -Tunneling No No -Undermining/Tunneling No No -Circular Undermining No No -Wound/Ulcer Outcome Not Healed Not Healed -Ulcer Cleansing Not Cleansed Rinsed/ Irrigated with Saline -Foul Odor after Cleansing No No -Bioengineered Tissue No No -Bleeding Controlled with NA NA -Offloading No -Treatment Response Procedure Tolerated Well Pain Scale: 0-10 Numeric Is Patient Pain Free? Yes Yes - Nurse 3 - General Ulcer D/C NN Start: 10/05/20 14:08 Freq: Status: Active Protocol: Activity Type Activity Date Activity User E-Sign Co-Sign Detail Recorded Client Recorded Date Recorded By Document 10/12/20 15:50 MW [id number] 10/12/20 16:15 MW Document 10/26/20 15:53 DL [id number] 10/26/20 15:54 DL 10/12/20 10/26/20 15:50 15:53 Wound Care Nurse 3 #3 LLE Med -Ulcer Cleansing Rinsed/ Rinsed/ Irrigated with Irrigated with Saline Saline -Foul Odor after Cleansing No No -Negative Pressure Wound Therapy N/A -Primary Dressing Applied NonAdherent NonAdherent Contact Layer Contact Layer -Other Dressing hydrogel hydrogel -Primary Dressing Covered/Secured with Dry Gauze & Dry Gauze & Roll Gauze, Roll Gauze, Secured with Secured with Tape Tape -Other Covering tubigrip #2 LLE Sherman Cluster -Ulcer Cleansing Rinsed/ Rinsed/ Irrigated with Irrigated with Saline Saline -Foul Odor after Cleansing No No -Negative Pressure Wound Therapy N/A -Primary Dressing Applied NonAdherent Contact Layer -Other Dressing hydrogel hydrogel -Primary Dressing Covered/Secured with Dry Gauze & Dry Gauze & Roll Gauze, Roll Gauze, Secured with Secured with Tape Tape Treatment Response Procedure Procedure Tolerated Well Tolerated Well Pain Scale: 0-10 Numeric Is Patient Pain Free? Yes Yes Teaching: Wound Center Dressing Your Wound -Person Taught Patient,Family -Teaching Method Discussion -Response to teaching Verbalize understanding WC - Visit Discharge Discharge Condition Stable Stable Ambulatory Status Ambulatory Ambulatory Transportation Private Auto Private Auto Accompanied by sister Medication Reconcilliation completed & No provided to patient/care provider Clinical Summary of Care Provided Yes No debridement was completed today Assessment/Plan Active Problems (Last Reviewed 11/22/20 @ 14:58 by Huyen Hatfield) Venous stasis ulcer (Chronic) I suspect this may be a ischemic ulcer and not a venous stasis ulcer Assessment: 1. Venous stasis ulcer on the distal LLE with fat layer exposed. 2. hx of PVD and stents in the past. The wound is very beefy and granulating well and it is improving every week so I do not feel she has any severe PVD at this time. 3. 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 I reviewed the results of her PFT's with Rosario and her sister Martha and brigida them pictures explaining what the large airway obstruction is due to. I also looked a the recent CT of the chest with them and pointed out the. s abnormalities. I do not think she would survive the surgery. She can not even walk up a few steps at home without SOB. Plan: 1. Continue Hydrogel BID and cover with non-stick dressing and wrap with gauze. 2. Increase protein/calorie intake. Suggestions were made to try ENsure blended with ice cream, fruit, whey protein powder 2-3 times a day. 3. consider applying for Epifix to get the wound covered to minimize risk for infection and increase healing in this pt with cholangiocarcinoma and severe malnutrition which greatly increases the risk for infection.....alejandra if she opts to have the surgery Office Visits / Consults: [id number] OV L2 Est
== END 2020-11-03 23:59 ==
LOC: WC 15:00
PROVIDERS: PCP Family Medicine; Referring Provider Internal Medicine; Visit Provider Internal Medicine
DX: I83.028 Varicose veins of left lower extremity with ulcer other part of lower leg (principal); L97.822 Non-pressure chronic ulcer of other part of left lower leg with fat layer exposed; C22.1 Intrahepatic bile duct carcinoma; I73.9 Peripheral vascular disease, unspecified; E43 Unspecified severe protein-calorie malnutrition
CPT/HCPCS: 99213; G0463

== ENCOUNTER 2020-11-29 09:43 | Day surgery (SDC) | payer MEDICARE, OTHER, SELFPAY ==
[2020-11-19 10:51] VITALS: BMI 28.9
[2020-11-23 15:43] VITALS: BMI 28.3
[2020-11-29] VITALS (9 sets, daily range): BP systolic 95–141; BP diastolic 50–76; PULSE 59–90; RESP 16; TEMP 36.8–37.2; O2SAT 92–97; BMI 28.4
--- NOTE | 2020-11-29 09:52 | EKG12_ITS ---
Test Reason : PRE OP Blood Pressure : / mmHG Vent. Rate : 089 BPM Atrial Rate : 089 BPM P-R Int : 174 ms QRS Dur : 088 ms QT Int : 410 ms P-R-T Axes : 007 040 073 degrees QTc Int : 498 ms Normal sinus rhythm Inferior infarct , age undetermined, cannot be excluded Abnormal ECG Confirmed by RED VELIZ, SYLVIE ([id number]), clinical editor KWABENA MELO ([id number]) on 12/02/2020 9:34:02 AM Referred By: Pepe Colon Confirmed By:SYLVIE MOON MD
[2020-11-29 10:15] LABS: Hematocrit 35.9 % (37-47); Hemoglobin 11.9 g/dL (12.0-15.0); Mean Corp Hgb Conc 33.1 g/dL (32-36); Mean Corpuscular Hgb 28.6 pg (27.0-32.0); Mean Corpuscular Volume 86.3 fL (81-99); Mean Platelet Vol. 10.5 fl (6.2-12.0); Platelet Count 323 K/mm3 (150-450); RBC Distribution Width CV 12.4 % (11.6-14.6); RBC Distribution Width SD 39.1 fl (35.1-43.9); Red Blood Count 4.16 M/mm3 (4.2-5.4); White Blood Count 9.7 K/mm3 (4.4-11.0)
--- NOTE | 2020-11-29 10:18 | HP.PCM_ITS ---
Problem List (1) Cholangiocarcinoma Status: Chronic Comment: diagnosed 08/11/20 from a bx taken at the time of placement of a temporary biliary stent History and Physical Date of Admission: 11/29/20 Intake Visit Reasons: port placement Chief Complaint: port placement Therapist'S Assistant Required: No Accompanied by: Unknown Is patient in pain?: No Allergies ROSALINO Inhibitors Adverse Reaction (Severe, Verified 11/19/20 09:03) cough Medications aspirin 81 mg tablet,delayed release 81 mg PO DAILY 04/22/20 [History Confirmed 11/19/20] amlodipine 10 mg tablet 10 mg PO DAILY 08/16/20 [History Confirmed 11/19/20] carvedilol 6.25 mg tablet 6.25 mg PO BID 08/16/20 [History Confirmed 11/19/20] furosemide 40 mg tablet 40 mg PO DAILY #180 tablet 08/16/20 [Rx Confirmed 11/19/20] potassium chloride 20 mEq tablet,extended release 20 meq PO DAILY 08/16/20 [History Confirmed 11/19/20] albuterol sulfate 90 mcg/actuation aerosol inhaler 2 puff INHALATION Q6H PRN #8.5 gm 09/27/20 [Rx Confirmed 11/19/20] budesonide-formoterol HFA 160 mcg-4.5 mcg/actuation aerosol inhaler 2 puff INHALATION Q12H #10.2 gm 09/27/20 [Rx Confirmed 11/19/20] mirtazapine 15 mg tablet 15 mg PO QHS #30 tablet 10/14/20 [Rx Confirmed 11/19/20] pantoprazole 40 mg tablet,delayed release 40 mg PO DAILY #90 tablet 10/14/20 [Rx Confirmed 11/19/20] Mirtazapine [Remeron] 30 mg PO QHS #30 tablet 10/26/20 [Rx Confirmed 11/19/20] Lipase/Protease/Amylase [Marline Pike 10,500 Unit Cap] 1 each PO TIDCM #60 capsule. 11/09/20 [Rx Confirmed 11/19/20] [facility] Medical History Tobacco dependence in remission (Acute) Insomnia (Acute) Inanition (Acute) Severe malnutrition (Acute) Weight loss, non-intentional (Acute) Diastolic dysfunction (Chronic) Exocrine pancreatic insufficiency (Suspected) Diabetes mellitus type 2 in nonobese (Acute) Anemia (Chronic) Cholangiocarcinoma (Chronic) New onset atrial fibrillation (Acute) COPD (chronic obstructive pulmonary disease) (Chronic) Atherosclerotic heart disease of [place] coronary artery without angina pectoris (Chronic) Bilateral carotid artery stenosis (Chronic) Nonrheumatic aortic (valve) stenosis (Chronic) Mixed hyperlipidemia (Chronic) PVD (peripheral vascular disease) (Chronic) Essential hypertension (Chronic) Venous stasis ulcer (Chronic) Pancreatic lesion (Acute) Chronic pancreatitis (Chronic) Neuropathy (Chronic) Surgical History S/p TAVR (transcatheter aortic valve replacement), bioprosthetic (Chronic ~06/07/20) History of cfnih-gsfkk-isvjsui bypass (Chronic ~1997) History of biliary duct stent placement (Acute) S/P ERCP (Acute) History of left heart catheterization (LHC) (Resolved ~05/11/20) S/P carpal tunnel release (Resolved) Family History Brother Diabetes Heart disease Pancreas cancer Father CAD (coronary artery disease) Heart disease Hypertension Mother History of mitral valve disorder Hypertension Social History (Updated 11/19/20 @ 09:[address] Pepe Colon MD) Smoking Status: Former smoker alcohol intake: current details: occasional substance use type: does not use caffeine: Yes Type: carbonated beverages Number of servings: 1, coffee Number of servings: 2 HPI HPI HPI: LEONIDES BAKER, is a 70 F who presents to the office today for surgical consultation regarding port placement for diagnosis of cholangiocarcinoma. The patient is referred by Dr. Sulema Goyal and a written copy my surgical consult will be returned to him. The patient recently has been diagnosed with cholangiocarcinoma. She has been seen in consultation locally as well as at [facility]. She has multiple medical comorbidities. She is felt to be a candidate for chemotherapy. She states that she has not had any had neck intervention. She does not recall pacemakers or PICC lines or central venous access device. I have assisted her most recently with lower extremity venous stasis ulceration. She claims that that is mostly healed on the left lower extremity. HPI HPI HPI: LEONIDES BAKER, is a 70 F who presents to the office today for ROS General General: Yes weight change and fatigue; no appetite, colon cancer, breast cancer or weakness HEENT HEENT: No difficulty swallowing, eye injury, eye surgery, swollen glands or hoarseness Endo Endocrine: No thyroid disease, diabetes mellitus, thyroid cancer, Hair loss, heat intolerance or cold intolerance Skin Skin: No rash or changing moles Breast Breast: No left breast lump, right breast lump, nipple discharge, breast pain, abnormal mammogram, abnormal US or breast enlargement Musc Musculoskeletal: Yes back problems; no arthritis, rheumatoid arthritis, gout or joint pain Cardio Cardiovascular: Yes heart disease and high blood pressure; no murmur, pacemaker, atrial fibrillation, heart attack, heart stent, palpitations, shortness of breat with exertion or chest pain Psych Psychiatric: No depression, anxiety or hearing voices Resp Respiratory: Yes shortness of breath, No sleep apnea, No cough, Yes COPD, No asthma, No emphysema, No wheezing Gastro Gastrointestinal: No abdominal pain, Yes nausea or vomiting, No diarrhea, No constipation, No blood in stool, No acid reflux, No hemorrhoids, No ulcers, No gallbladder problem, No black,tarry stools Additional Details: pancreatitis Abelino Hematologic: No blood thinners, No blood disorders, No bleeding, No anemia, No blood clots Neuro Neurologic: No system reviewed and no additional complaints, except as docu, No as per HPI, No abnormal walking, No abnormal hearing, No abnormal movements, No abnormal speech, No behavioral changes, No burning sensations, No confusion, No seizure-like activity, No unsteadiness, No dizziness, No localized weakness, No frequent falls, No headache(s), No lack of coordination, No loss of vision, No memory loss, No numbness, No other visual disturbances, No radiating pain, No restless legs, No sensory deficit, No fainting, No tingling, No tremor(s), No weakness, No other Exam Const General: cooperative, comfortable, frail appearing Orientation: alert, awake HENWA Head: normal to inspection Neck Neck: normal visual inspection Other: Supple, nontender, carotids are 2+ bilateral, no supraclavicular or cervical adenopathy Chest Breast Palpation: No nipple discharge Other: Increased anterior posterior diameter Resp Effort & Inspection: normal respiratory effort Auscultation: clear to auscultation bilaterally Cardio Rate: regular rate Rhythm: regular rhythm Heart Sounds: no murmurs GI Palpation: soft Neuro Cognition: normal cognition Extrem Other: Left lower extremity dressing in place proximal to the malleolus Psych Affect: normal affect Assessment & Plan Problems 1. Cholangiocarcinoma C22.1 Plan I propose for her right internal jugular port placement. I have discussed the technique, benefit, risk, alternatives. She has had an opportunity to ask and have questions answered. She is instructed that therapy would like to begin within the next couple weeks. Access to the operating room is somewhat limited this coming week. I will schedule her for soon as possible and place the port on November 29, 2020. I appreciate the opportunity of assisting with her surgical care Copy: Dr. Sulema Goyal and Dr. Richard Colon M.D., F.A.C.S. Coding Level of Care Code 09354 Diagnoses Cholangiocarcinoma C22.1 I have re-examined the patient. There are no clinical changes since date of exam. Procedure Criteria Procedure Type: Elective COVID Risk Discussion: The surgeon/proceduralist and patient have discussed in detail the risk of exposure to and/or potential harm posed by the COVID-19 virus with having a surgery/procedure at this time versus the risk of delaying the surgery/procedure. It is not possible to know either the risk of delaying the surgery or procedure or chance of getting an infection with perfect accuracy, but a joint decision was made between the patient and the surgeon/proceduralist to proceed at this time with the scheduled surgery/procedure as indicated on the consent form.
--- NOTE | 2020-11-29 10:19 | DCINST_ITS ---
Discharge Diet: No Restrictions - Pain medication may cause nausea. You should typically eat light foods as you take your pain medication. Discharge Activity: Return to Normal Activity, May Shower - Leave the bandage on for 2-3 days. When you remove the bandage, leave the steri-strips intact until they fall off. Additional Activity Instructions:: May not drive, work with heavy equipment, or sign legal documents for [address] if you are no longer taking narcotic pain medications. You may drive when you are no longer taking pain medications. Additional Dressing/Incision Instructions:: Leave the bandage on for 2-3 days. When you remove the bandage, leave the steri-strips intact until they fall off. Allergies/Adverse Reactions: Allergies ROSALINO Inhibitors Adverse Reaction (Severe, Verified 11/29/20 09:49) cough Medications to take at Discharge aspirin 81 mg tablet,delayed release 81 mg PO DAILY 04/22/20 amlodipine 10 mg tablet 10 mg PO DAILY 08/16/20 carvedilol 6.25 mg tablet 6.25 mg PO BID 08/16/20 furosemide 40 mg tablet 40 mg PO DAILY #180 tablet 08/16/20 potassium chloride 20 mEq tablet,extended release 20 meq PO DAILY 08/16/20 albuterol sulfate 90 mcg/actuation aerosol inhaler 2 puff INHALATION Q6H PRN #8.5 gm 09/27/20 pantoprazole 40 mg tablet,delayed release 40 mg PO DAILY #90 tablet 10/14/20 Lipase/Protease/Amylase [Marline Pike 10,500 Unit Cap] 1 each PO TIDCM #60 capsule. 11/09/20 ondansetron HCl 4 mg tablet 4 mg PO Q8H PRN #90 tablet 11/19/20 Lidocaine/Prilocaine [Lidocaine-Prilocaine Cream] 1 applic TP DAILY PRN PRN 30 Days #1 tube 11/22/20 Budesonide/Formoterol Fumarate [Budesonide-Formoterol 160-4.5] 2 puff INHALATION Q12H PRN 11/26/20 Mirtazapine [Remeron] 30 mg PO QHS PRN 11/26/20 Insulin Glargine,Hum.rec.anlog [Basaglar KwikPen U-100 Insulin] 20 unit SC QPM 11/29/20 Primary Care Physician: Richard Abernathy MD [Primary Care Provider] - Test Results: Test results from this visit will be discussed in further detail at your follow- up appointment, if applicable. Please Follow Up With: Pepe Colon MD - [phone] When: Please call the office with any concerns
[2020-11-29] MEDS: Lactated Ringers 1,000 ML 100 ML IV (10:22)
[2020-11-29 10:39] LABS: Anion Gap 7 (5-15); BUN 19 mg/dL (7-18); BUN/Creat Ratio 13.5 RATIO (10-20); Chloride 90 mmol/L (98-107); Creatinine, Serum 1.41 mg/dL (0.55-1.02); EST Glomerular Filtration Rate 39 mL/min (>60); Est Glom Filt Rate - Afr Amer 47 mL/min (>60); Estimated Creatinine Clearance 25.91 ml/min; Glucose 194 mg/dL (74-106); Magnesium 2.2 mg/dL (1.6-2.6); Potassium 3.5 mmol/L (3.5-5.1); Sodium Level 131 mmol/L (136-145)
[2020-11-29] MEDS: Cefazolin 2 GM in 0.9% Normal Saline 100 ML IV (10:59)
[2020-11-29] MEDS: Lidocaine 1% (30 ml sdv) 30 ML Vial (11:06)
[2020-11-29] MEDS: Bupivacaine Mpf 0.5% 30 ML VIAL (11:06)
--- NOTE | 2020-11-29 11:28 | OP.PCM_ITS ---
Problem List (1) Cholangiocarcinoma Status: Chronic Comment: diagnosed 08/11/20 from a bx taken at the time of placement of a temporary biliary stent Report of Operation Date of Procedure: 11/29/20 Pre-Operative Diagnosis: Cholangiocarcinoma Post-Operative Diagnosis: Same Surgery/Procedure Performed:: Right internal jugular 6 Setswana PowerPort placement. Reference [id number]. Lot number [id number]. Expiry date 12/03/2021 Description of Surgical Findings:: Timeout and informed consent was obtained. 70-year-old female was taken to the operating place upon the table underwent monitored anesthesia care. Ancef 2 g given intravenously preoperatively. The right neck and chest were sterilely prepped and draped. Under ultrasound guidance 1% lidocaine mixed 50-50 with 0.5% Marcaine was used as a local anesthetic. Throughout the procedure a total of 19 cc was used. Local was carefully instilled overlying the right internal jugular vein and a micropuncture technique used and wire advancement. Micropuncture sheath inserted [id number] was inserted. Local instilled down upon the right chest wall. A transverse incision was created electrocautery should be used to make a subcutaneous pocket. The tubing was tunneled from the neck to the chest site. Fluoroscopy demonstrated good positioning of the wire. Sheath dilator was placed over the wire the wire dilator removed the catheter advanced through the sheath the sheath was split the cath was positioned at the SVC atrial junction. The catheter was amputated at length connected the port and secured there with a port attachment device. The port was placed within the pocket and secured there with 2-0 silk. The port site was closed with interrupted 3-0 Vicryl subdermal stitches. The neck was closed with interrupted 5-0 Vicryl subdermal stitches. Steri-Strips Telfa OpSite dressings applied. The port was accessed and aspirated very easily was flushed with saline and then 2 cc heparinized saline. Sponge and instrument and needle counts were reported the surgeon be correct. Blood loss was minimal. She tolerated the procedure well was taken to the recovery area in satisfactory condition with operative complication Specimens none. Drains none. Blood loss minimal. Pepe Colon M.D., F.A.C.S. Type of Anesthesia:: Local MAC Anesthesiologist: Sunday Alfaro
[2020-11-29 11:35] LABS: Bedside Glucose 214 mg/dL (70-110)
--- NOTE | 2020-11-29 11:45 | RAD_ITS ---
STUDY: X-RAY CHEST REASON FOR EXAM: Female, 70 years old. Line TECHNIQUE: Single AP portable view of the chest. COMPARISON: Comparison is made with prior study dated 08/06/2020. FINDINGS: A right-sided Port-A-Cath has been placed. The tip is at the junction of the superior vena cava and right atrium. Hyperinflation. The lungs are clear. There is no demonstrated pleural abnormality. Normal size heart. Normal mediastinum and louie. Normal visualized pulmonary arteries. There is atherosclerotic calcification of the aortic arch with tortuosity. Normal visualized thoracic spine. Normal visualized ribs, clavicles, and shoulders. A biliary stent is visualized. RAD/CXR for Line Placement IMPRESSION: A right-sided Port-A-Cath has been placed with the tip at the junction of the superior vena cava and right atrium. Electronically Signed: Gurjit Lucas MD at 12:05 EDT , Service support ,
== END 2020-11-29 13:09 | disposition home or self-care (01) ==
LOC: SDC 09:43 → AC 09:45
PROVIDERS: Internal Medicine Cardiovascular Disease; PCP Internal Medicine; Referring Provider Surgery; Visit Provider Surgery
PROC: (CPT 36561; principal; 2020-11-29 11:50)
DX: Z45.2 Encounter for adjustment and management of vascular access device (principal); C22.1 Intrahepatic bile duct carcinoma; Z87.891 Personal history of nicotine dependence; J44.9 Chronic obstructive pulmonary disease, unspecified; I73.9 Peripheral vascular disease, unspecified; I10 Essential (primary) hypertension; E78.5 Hyperlipidemia, unspecified; E11.9 Type 2 diabetes mellitus without complications; D64.9 Anemia, unspecified; I25.10 Atherosclerotic heart disease of native coronary artery without angina pectoris; Z79.82 Long term (current) use of aspirin
CPT/HCPCS: 00532; 36561; 71045; 77001; 80048; 82962; 83735; 85027; 87426; 93005; J7120

== ENCOUNTER 2020-11-30 14:30 | Outpatient (RCR) | payer MEDICARE, OTHER, SELFPAY ==
[2020-11-04 00:20] VITALS: BP 117/59; PULSE 81; RESP 18; TEMP 36.3
[2020-11-09 14:39] VITALS: BP 127/48; PULSE 82; RESP 16; TEMP 37.1; BMI 30.9
--- NOTE | 2020-11-09 16:05 | PCM.WC.PN ---
(1) Cholangiocarcinoma Status: Chronic Code(s): C22.1 - Intrahepatic bile duct carcinoma Comment: diagnosed 08/11/20 from a bx taken at the time of placement of a temporary biliary stent (2) Venous stasis ulcer Status: Chronic Code(s): I83.009 - Varicose veins of unspecified lower extremity with ulcer of unspecified site; L97.909 - Non-pressure chronic ulcer of unspecified part of unspecified lower leg with unspecified severity Comment: I suspect this may be a ischemic ulcer and not a venous stasis ulcer Type of Wound Date of Service: 11/16/20 Chief Complaint: non-healing wound of the LLE History of Wound: please see the consult dictated on this pt on 09/07/20 for hx Progress of Wound: Rosario denies fevers, chills or night sweats. She had her telephone appt with the surgeon and had her questions answered. She is scheduled for CT scans this coming and then will meet with the surgeon later in the same day. She is also going to have lab work. She tells me that she is feeling bloated and nauseated at times and that she has pain in her epigastric area at night sometimes that prevents her from sleeping. She has taken Vicodin in the past for pain. I advised her against taking Motrin. Nothing tastes good to her. She continues to drink Boost or Ensure for the calories and protein. She is having a BM every other day and she does not have to strain. - Physical Exam Vital Signs Temp Pulse Resp BP 98.7 F 82 16 127/48 H 11/09/20 14:39 11/09/20 14:39 11/09/20 14:39 11/09/20 14:39 General: Alert, Oriented x3, Cooperative, No apparent distress, Well developed HEENT: - - no scleral icterus Oral: Dry Mucosa Neck: Supple Lungs: Diminished Abdomen: Bowel Sounds Present, Soft, Non Tender, Non-Distended, - - No pitting edema in the flanks. No pain with deep palpation today. Extremities: No Calf Tenderness, Edema - mild of the distal LE's Skin: - - no jaundice Wound Measurements and Assessment WC - Nurse 1 - General Ulcer Measurement Start: 11/09/20 14:39 Freq: Status: Active Protocol: Activity Type Activity Date Activity User E-Sign Co-Sign Detail Recorded Client Recorded Date Recorded By Document 11/09/20 14:39 [facility] [id number] 11/09/20 14:46 [facility] 11/09/20 14:39 Wound Center Nurse 1 [Ulcer Assessment] #3 LLE Med -Combined with other wound No -Current Size (cm) - Length 0.1 -Current Size (cm) - Width 0.1 -Current Size (cm) - Depth 0.1 -Total Square Cm 0.01 -Photo Taken No -Epithelialization Small 1-33% -Tunneling No -Undermining/Tunneling No -Circular Undermining No -Exudate Amt None Present -Wound Margin Flat & Intact -Granulation Quality N/A,Red -Slough/Fibrin No -Necrosis Amt None Present (0 %) -Texture (Maria E-wound Skin Appearance) Assessed, Scarring -Moisture (Maria E-wound Skin Appearance Assessed ) -Color (Maria E-wound Skin Appearance) Assessed -Temperature (Maria E-wound Skin No Abnormality Appearance) (Pt Warm) -Tenderness on Palpation (Maria E-wound No Skin Appearance) -Ulcer Cleansing Rinsed/ Irrigated with Saline -Foul Odor after Cleansing No #2 LLE Sherman Cluster -Combined with other wound No -Current Size (cm) - Length 2.7 -Current Size (cm) - Width 5.9 -Current Size (cm) - Depth 0.1 -Total Square Cm 15.93 -Epithelialization Large 67-100% -Tunneling No -Undermining/Tunneling No -Circular Undermining No -Exudate Amt Medium -Exudate Type Serosanguineous -Wound Margin Distinct, Outline Attached -Granulation Amt Large (67-100%) -Granulation Quality Pale -Slough/Fibrin No -Necrosis Amt None Present (0 %) -Texture (Maria E-wound Skin Appearance) Assessed, Localized Edema ,Scarring -Moisture (Maria E-wound Skin Appearance No Abnormality, ) Assessed -Color (Maria E-wound Skin Appearance) Assessed -Temperature (Maria E-wound Skin No Abnormality Appearance) (Pt Warm) -Tenderness on Palpation (Maria E-wound No Skin Appearance) -Ulcer Cleansing Rinsed/ Irrigated with Saline -Anesthetic Used 4% Lidocaine Solution [Edema Assessment] -Lower Limb Edema Present Yes -Left Calf (cm) 35.3 -Left Ankle (cm) 21 WC - Nurse 2 - General Ulcer CM Notes Start: 11/09/20 14:39 Freq: Status: Active Protocol: Activity Type Activity Date Activity User E-Sign Co-Sign Detail Recorded Client Recorded Date Recorded By Document 11/09/20 14:51 MW [id number] 11/09/20 14:57 MW 11/09/20 14:51 Wound Center Nurse 2 [Procedure/Treatment] #3 LLE Med -Time 14:51 -Correct Patient Yes -Correct Side, Site, Position Yes -Correct Procedure Yes -Procedure Performed No -Post Debridement (cm) - Length 0 -Post Debridement (cm) - Width 0 -Post Debridement (cm) - Depth 0 -Total Square (Post) (cm) 0 -Wound/Ulcer Outcome Healed- Epithelialized #2 LLE Sherman Cluster -Time 14:53 -Correct Patient Yes -Correct Side, Site, Position Yes -Correct Procedure Yes -Procedure Performed No -Post Debridement (cm) - Length 2.7 -Post Debridement (cm) - Width 5.9 -Post Debridement (cm) - Depth 0.1 -Total Square (Post) (cm) 15.93 -Tunneling No -Undermining/Tunneling No -Circular Undermining No -Wound/Ulcer Outcome Not Healed -Ulcer Cleansing Not Cleansed -Foul Odor after Cleansing No -Bioengineered Tissue No -Bleeding Controlled with NA -Offloading No [See Physician Procedure note for Specifics] Pain Scale: 0-10 Numeric [Pain] -Is Patient Pain Free? Yes WC - Nurse 3 - General Ulcer D/C NN Start: 11/09/20 14:39 Freq: Status: Active Protocol: Activity Type Activity Date Activity User E-Sign Co-Sign Detail Recorded Client Recorded Date Recorded By Document 11/09/20 15:00 MW [id number] 11/09/20 15:03 MW 11/09/20 15:00 Wound Care Nurse 3 [Wound Dressing] #2 LLE Sherman Cluster -Ulcer Cleansing Rinsed/ Irrigated with Saline -Foul Odor after Cleansing No -Negative Pressure Wound Therapy N/A -Primary Dressing Applied C Hydrogel ($), NonAdherent Contact Layer -Primary Dressing Covered/Secured Dry Gauze & with Roll Gauze, Secured with Tape [Compression Applied] Left -Lotion applied to leg before No compression wrap [Post Procedure Tolerated] -Treatment Response Procedure Tolerated Well Pain Scale: 0-10 Numeric [Pain] -Is Patient Pain Free? Yes Teaching: Wound Center [Wound Center Education] (Items with an * have Printed Materials Available- Please identify what is given to patient under the Teaching materials given to patient and caregiver Section. Dressing Your Wound -Person Taught Patient -Teaching Method Discussion, Demonstration -Response to teaching Verbalize understanding WC - Visit Discharge [Visit Discharge Information] -Discharge Condition Stable -Ambulatory Status Ambulatory -Transportation Private Auto -Accompanied by SELF -Medication Reconcilliation completed No & provided to patient/care provider -Clinical Summary of Care Provided Yes No debridement necessary today. The wound continues to shrink/contract and it is 100 % granulating with no tunnelling or undermining and there is no odor. Will continue the current dressing. above dimensions were reviewed. Psych/Mental Status: Normal Affect, Appropriate Debridement Note Post-Debridement Measurements/Treatment WC - Nurse 2 - General Ulcer CM Notes Start: 11/09/20 14:39 Freq: Status: Active Protocol: Activity Type Activity Date Activity User E-Sign Co-Sign Detail Recorded Client Recorded Date Recorded By Document 11/09/20 14:51 MW [id number] 11/09/20 14:57 MW 11/09/20 14:51 Wound Center Nurse 2 #3 LLE Med -Time 14:51 -Correct Patient Yes -Correct Side, Site, Position Yes -Correct Procedure Yes -Procedure Performed No -Post Debridement (cm) - Length 0 -Post Debridement (cm) - Width 0 -Post Debridement (cm) - Depth 0 -Total Square (Post) (cm) 0 -Wound/Ulcer Outcome Healed- Epithelialized #2 LLE Sherman Cluster -Time 14:53 -Correct Patient Yes -Correct Side, Site, Position Yes -Correct Procedure Yes -Procedure Performed No -Post Debridement (cm) - Length 2.7 -Post Debridement (cm) - Width 5.9 -Post Debridement (cm) - Depth 0.1 -Total Square (Post) (cm) 15.93 -Tunneling No -Undermining/Tunneling No -Circular Undermining No -Wound/Ulcer Outcome Not Healed -Ulcer Cleansing Not Cleansed -Foul Odor after Cleansing No -Bioengineered Tissue No -Bleeding Controlled with NA -Offloading No Pain Scale: 0-10 Numeric Is Patient Pain Free? Yes - Nurse 3 - General Ulcer D/C NN Start: 11/09/20 14:39 Freq: Status: Active Protocol: Activity Type Activity Date Activity User E-Sign Co-Sign Detail Recorded Client Recorded Date Recorded By Document 11/09/20 15:00 MW [id number] 11/09/20 15:03 MW 11/09/20 15:00 Wound Care Nurse 3 #2 LLE Sherman Cluster -Ulcer Cleansing Rinsed/ Irrigated with Saline -Foul Odor after Cleansing No -Negative Pressure Wound Therapy N/A -Primary Dressing Applied C Hydrogel ($), NonAdherent Contact Layer -Primary Dressing Covered/Secured with Dry Gauze & Roll Gauze, Secured with Tape Left -Lotion applied to leg before No compression wrap Treatment Response Procedure Tolerated Well Pain Scale: 0-10 Numeric Is Patient Pain Free? Yes Teaching: Wound Center Dressing Your Wound -Person Taught Patient -Teaching Method Discussion, Demonstration -Response to teaching Verbalize understanding WC - Visit Discharge Discharge Condition Stable Ambulatory Status Ambulatory Transportation Private Auto Accompanied by SELF Medication Reconcilliation completed & No provided to patient/care provider Clinical Summary of Care Provided Yes No debridement was completed today Assessment/Plan Active Problems (Last Reviewed 09/27/20 @ 13:07 by Lin Smallwood) Cholangiocarcinoma (Chronic) diagnosed 08/11/20 from a bx taken at the time of placement of a temporary biliary stent Venous stasis ulcer (Chronic) I suspect this may be a ischemic ulcer and not a venous stasis ulcer Assessment: 1. Venous stasis ulcer on the distal LLE with fat layer exposed. 2. hx of PVD and stents in the past. The wound is very beefy and granulating well and it is improving every week so I do not feel she has any severe PVD at this time. 3. 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 she is having a CT scan of the abdomen this week and then will talk with Dr. Alonso about the results and determine if she wants to have the surgery. 4. 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 Plan: 1. Continue Hydrogel BID and cover with non-stick dressing and wrap with gauze. 2. Increase protein/calorie intake. Suggestions were made to try ENsure blended with ice cream, fruit, whey protein powder 2-3 times a day. 3. start Pancrease with all meals and snacks to see if this helps to improve the nausea, bloating and chronic indigestion. 4. RTC in 1 week. 5. RX for Vicodin for pain control. Office Visits / Consults: [id number] OV L3 Est
[2020-11-16 14:31] VITALS: BP 131/59; PULSE 94; RESP 16; TEMP 36.9; BMI 30.9
--- NOTE | 2020-11-16 16:51 | PN.PCM_ITS ---
(1) Cholangiocarcinoma Status: Chronic Code(s): C22.1 - Intrahepatic bile duct carcinoma Comment: diagnosed 08/11/20 from a bx taken at the time of placement of a temporary biliary stent (2) Venous stasis ulcer Status: Chronic Qualifiers: Laterality: left Non-pressure ulcer stage: with fat layer exposed Code(s): I83.009 - Varicose veins of unspecified lower extremity with ulcer of unspecified site; L97.909 - Non-pressure chronic ulcer of unspecified part of unspecified lower leg with unspecified severity Comment: I suspect this may be a ischemic ulcer and not a venous stasis ulcer (3) Exocrine pancreatic insufficiency Status: Suspected Code(s): K86.81 - Exocrine pancreatic insufficiency (4) Diabetes mellitus type 2 in nonobese Status: Acute Code(s): E11.9 - Type 2 diabetes mellitus without complications Comment: new onset due to pancreatic tumor Type of Wound Date of Service: 11/16/20 Chief Complaint: non-healing wound of the LLE History of Wound: please see the consult dictated on this pt on 09/07/20 for hx Progress of Wound: Denies fevers, chills and sweats. She has not picked up the Vicodin or the pancrease. [facility] told her they were still processing the order for the pancrease. I called the pharmacy and they tell me that the pancrease is not covered by her insurance. We gave an order for Creon to replace the Pancrease. Rosario will pick the Creon and the Vicodin today. She found out last week that there is a mass in the head of the pancreas that is 4 cm in diameter. Her BS was greater than 400 and her K was low at 3.2......she admits to not always taking the potassium as it is instructed. LFT's were normal and the CT showed no spread to the liver. there is a soft tissue mass on the Left psoas that extends into the left renal pelvis and thickening of the Left adrenal gland. CT of the chest showed mild centrilobular emphysema but no metastatic lesions. Dr. Alonso wants Rosario to have chemotherapy to shrink the tumor so that she can have surgery in 6-8 weeks. Rosario is not sure she wants to have the surgery if it is not going to prolong her life significantly. She has an appt with Dr. Goyal this week to discuss chemo.......he has in the past told her he would not treat her with chemo or radiation because he did not think she could tolerate the treatment. She is tired but, she was able to mow some of her grass on the riding choker setter this week and she enjoyed that. She is now drinking Glucerna 2 times a day on average due to the high blood sugars. - Physical Exam Vital Signs Temp Pulse Resp BP 98.5 F 94 16 131/59 H 11/16/20 14:31 11/16/20 14:31 11/16/20 14:31 11/16/20 14:31 General: Alert, Oriented x3, Cooperative, No apparent distress Lungs: Diminished, - - She is not tachypneic and she has no conversational dyspnea. Cardiovascular: Regular rate, Regular Rhythm, No Gallop Extremities: No clubbing, No edema Wound Measurements and Assessment WC - Nurse 1 - General Ulcer Measurement Start: 11/09/20 14:39 Freq: Status: Active Protocol: Activity Type Activity Date Activity User E-Sign Co-Sign Detail Recorded Client Recorded Date Recorded By Document 11/16/20 14:31 [facility] [id number] 11/16/20 14:37 [facility] 11/16/20 14:31 Wound Center Nurse 1 [Ulcer Assessment] #2 LLE Sherman Cluster -Combined with other wound No -Current Size (cm) - Length 1.9 -Current Size (cm) - Width 4.5 -Current Size (cm) - Depth 0.1 -Total Square Cm 8.55 -Photo Taken No -Epithelialization Small 1-33% -Tunneling No -Undermining/Tunneling No -Circular Undermining No -Exudate Amt Small -Exudate Type Serosanguineous -Wound Margin Distinct, Outline Attached -Granulation Amt Large (67-100%) -Granulation Quality Red -Slough/Fibrin Yes -Necrosis Amt Small (1-33%) -Necrotic Tissue Type Adherent Slough -Texture (Maria E-wound Skin Appearance) Assessed, Scarring -Moisture (Maria E-wound Skin Appearance Assessed,Dry/ ) Scaly -Color (Maria E-wound Skin Appearance) Assessed, Erythema, Hemosiderin Staining -Temperature (Maria E-wound Skin No Abnormality Appearance) (Pt Warm) -Tenderness on Palpation (Maria E-wound No Skin Appearance) -Ulcer Cleansing Rinsed/ Irrigated with Saline -Foul Odor after Cleansing No -Anesthetic Used 4% Lidocaine Solution [Edema Assessment] -Lower Limb Edema Present Yes -Left Calf (cm) 34.6 -Left Ankle (cm) 20.6 WC - Nurse 2 - General Ulcer CM Notes Start: 11/09/20 14:39 Freq: Status: Active Protocol: Activity Type Activity Date Activity User E-Sign Co-Sign Detail Recorded Client Recorded Date Recorded By Document 11/16/20 14:45 MW [id number] 11/16/20 14:53 MW 11/16/20 14:45 Wound Center Nurse 2 [Procedure/Treatment] #3 LLE Med -Time 14:46 -Correct Patient Yes -Correct Side, Site, Position Yes -Correct Procedure Yes -Procedure Performed Yes -Type of Procedure Debridement -Clinical Debridement Subcutaneous -Tissue Removed Subcutaneous -Post Debridement (cm) - Length 1.5 -Post Debridement (cm) - Width 0.5 -Post Debridement (cm) - Depth 0.1 -Total Square (Post) (cm) 0.75 -Area of Debridement (cm) - Length 1.5 -Area of Debridement (cm) - Width 0.5 -Total Square (Area) (cm) 0.75 -Tunneling No -Undermining/Tunneling No -Circular Undermining No -Wound/Ulcer Outcome Not Healed -Ulcer Cleansing Rinsed/ Irrigated with Saline -Foul Odor after Cleansing No -Bioengineered Tissue No -Bleeding Controlled with Pressure -Offloading No -Treatment Response Procedure Tolerated Well -Debridement - Subq, 1st 20sq cm No #2 LLE Sherman Cluster -Time 14:46 -Correct Patient Yes -Correct Side, Site, Position Yes -Correct Procedure Yes -Procedure Performed Yes -Type of Procedure Debridement -Clinical Debridement Subcutaneous -Tissue Removed Subcutaneous -Post Debridement (cm) - Length 13.4 -Post Debridement (cm) - Width 5.5 -Post Debridement (cm) - Depth 0.1 -Total Square (Post) (cm) 73.70 -Area of Debridement (cm) - Length 13.4 -Area of Debridement (cm) - Width 5.5 -Total Square (Area) (cm) 73.70 -Tunneling No -Undermining/Tunneling No -Circular Undermining No -Wound/Ulcer Outcome Not Healed -Ulcer Cleansing Rinsed/ Irrigated with Saline -Foul Odor after Cleansing No -Bioengineered Tissue No -Bleeding Controlled with Pressure -Offloading No -Treatment Response Procedure Tolerated Well -Debridement - Subq, 1st 20sq cm Yes -Debridement, SubQ, ea addt'l 20sq cm 3 or part thereof [See Physician Procedure note for Specifics] Pain Scale: 0-10 Numeric [Pain] -Is Patient Pain Free? Yes WC - Nurse 3 - General Ulcer D/C NN Start: 11/09/20 14:39 Freq: Status: Active Protocol: Activity Type Activity Date Activity User E-Sign Co-Sign Detail Recorded Client Recorded Date Recorded By Document 11/16/20 15:03 MW [id number] 11/16/20 15:04 MW 11/16/20 15:03 Wound Care Nurse 3 [Wound Dressing] #3 LLE Med -Ulcer Cleansing Rinsed/ Irrigated with Saline -Foul Odor after Cleansing No -Negative Pressure Wound Therapy N/A -Primary Dressing Applied NonAdherent Contact Layer -Other Dressing C.HYDROGEL -Primary Dressing Covered/Secured Dry Gauze & with Roll Gauze, Secured with Tape -Other Covering ABD PAD #2 LLE Sherman Cluster -Ulcer Cleansing Rinsed/ Irrigated with Saline -Foul Odor after Cleansing No -Negative Pressure Wound Therapy N/A -Other Dressing C.HYDROGEL -Primary Dressing Covered/Secured Dry Gauze & with Roll Gauze, Secured with Tape -Other Covering ABD PAD [Compression Applied] Left -Lotion applied to leg before No compression wrap -Stockings Yes [Post Procedure Tolerated] -Treatment Response Procedure Tolerated Well Teaching: Wound Center [Wound Center Education] (Items with an * have Printed Materials Available- Please identify what is given to patient under the Teaching materials given to patient and caregiver Section. Dressing Your Wound -Person Taught Patient,Family -Teaching Method Discussion, Demonstration -Response to teaching Verbalize understanding - Visit Discharge [Visit Discharge Information] -Discharge Condition Stable -Ambulatory Status Ambulatory -Transportation Private Auto -Accompanied by SISTER -Medication Reconcilliation completed No & provided to patient/care provider -Clinical Summary of Care Provided Yes There is a large amount of dry skin on the LLE. the wound has deteriorated significantly since last week. The new epithelium is peeling off and the medial wound has opened up again. Varicose VV are more prominent. I doubt she has been changing the dressing every day and using the compression stocking. She is also losing weight and is unable to eat due to nausea, bloating and abdmoinal pain........yet she has not picked up the medications? There is no tunnelling and no undermining. the skin is like paper and peels off easily over the portions of the wound that had healed. The wounds are superficial. There is no fat exposed. Debridement Note Post-Debridement Measurements/Treatment WC - Nurse 2 - General Ulcer CM Notes Start: 11/09/20 14:39 Freq: Status: Active Protocol: Activity Type Activity Date Activity User E-Sign Co-Sign Detail Recorded Client Recorded Date Recorded By Document 11/09/20 14:51 MW [id number] 11/09/20 14:57 MW Document 11/16/20 14:45 MW [id number] 11/16/20 14:53 MW 11/09/20 11/16/20 14:51 14:45 Wound Center Nurse 2 #3 LLE Med -Time 14:51 14:46 -Correct Patient Yes Yes -Correct Side, Site, Position Yes Yes -Correct Procedure Yes Yes -Procedure Performed No Yes -Type of Procedure Debridement -Clinical Debridement Subcutaneous -Tissue Removed Subcutaneous -Post Debridement (cm) - Length 0 1.5 -Post Debridement (cm) - Width 0 0.5 -Post Debridement (cm) - Depth 0 0.1 -Total Square (Post) (cm) 0 0.75 -Area of Debridement (cm) - Length 1.5 -Area of Debridement (cm) - Width 0.5 -Total Square (Area) (cm) 0.75 -Tunneling No -Undermining/Tunneling No -Circular Undermining No -Wound/Ulcer Outcome Healed- Not Healed Epithelialized -Ulcer Cleansing Rinsed/ Irrigated with Saline -Foul Odor after Cleansing No -Bioengineered Tissue No -Bleeding Controlled with Pressure -Offloading No -Treatment Response Procedure Tolerated Well -Debridement - Subq, 1st 20sq cm No #2 LLE Sherman Cluster -Time 14:53 14:46 -Correct Patient Yes Yes -Correct Side, Site, Position Yes Yes -Correct Procedure Yes Yes -Procedure Performed No Yes -Type of Procedure Debridement -Clinical Debridement Subcutaneous -Tissue Removed Subcutaneous -Post Debridement (cm) - Length 2.7 13.4 -Post Debridement (cm) - Width 5.9 5.5 -Post Debridement (cm) - Depth 0.1 0.1 -Total Square (Post) (cm) 15.93 73.70 -Area of Debridement (cm) - Length 13.4 -Area of Debridement (cm) - Width 5.5 -Total Square (Area) (cm) 73.70 -Tunneling No No -Undermining/Tunneling No No -Circular Undermining No No -Wound/Ulcer Outcome Not Healed Not Healed -Ulcer Cleansing Not Cleansed Rinsed/ Irrigated with Saline -Foul Odor after Cleansing No No -Bioengineered Tissue No No -Bleeding Controlled with NA Pressure -Offloading No No -Treatment Response Procedure Tolerated Well -Debridement - Subq, 1st 20sq cm Yes -Debridement, SubQ, ea addt'l 20sq cm 3 or part thereof Pain Scale: 0-10 Numeric Is Patient Pain Free? Yes Yes WC - Nurse 3 - General Ulcer D/C NN Start: 11/09/20 14:39 Freq: Status: Active Protocol: Activity Type Activity Date Activity User E-Sign Co-Sign Detail Recorded Client Recorded Date Recorded By Document 11/09/20 15:00 MW [id number] 11/09/20 15:03 MW Document 11/16/20 15:03 MW [id number] 11/16/20 15:04 MW 11/09/20 11/16/20 15:00 15:03 Wound Care Nurse 3 #3 LLE Med -Ulcer Cleansing Rinsed/ Irrigated with Saline -Foul Odor after Cleansing No -Negative Pressure Wound Therapy N/A -Primary Dressing Applied NonAdherent Contact Layer -Other Dressing C.HYDROGEL -Primary Dressing Covered/Secured with Dry Gauze & Roll Gauze, Secured with Tape -Other Covering ABD PAD #2 LLE Sherman Cluster -Ulcer Cleansing Rinsed/ Rinsed/ Irrigated with Irrigated with Saline Saline -Foul Odor after Cleansing No No -Negative Pressure Wound Therapy N/A N/A -Primary Dressing Applied C Hydrogel ($), NonAdherent Contact Layer -Other Dressing C.HYDROGEL -Primary Dressing Covered/Secured with Dry Gauze & Dry Gauze & Roll Gauze, Roll Gauze, Secured with Secured with Tape Tape -Other Covering ABD PAD Left -Lotion applied to leg before No No compression wrap -Stockings Yes Treatment Response Procedure Procedure Tolerated Well Tolerated Well Pain Scale: 0-10 Numeric Is Patient Pain Free? Yes Teaching: Wound Center Dressing Your Wound -Person Taught Patient Patient,Family -Teaching Method Discussion, Discussion, Demonstration Demonstration -Response to teaching Verbalize Verbalize understanding understanding WC - Visit Discharge Discharge Condition Stable Stable Ambulatory Status Ambulatory Ambulatory Transportation Private Auto Private Auto Accompanied by SELF SISTER Medication Reconcilliation completed & No No provided to patient/care provider Clinical Summary of Care Provided Yes Yes Laterality: Left Wound Grade/Stage: limited to the superficial area over the sherman anteriorly Anesthesia Used: 4% Lidocaine Solution Depth: in the subcutaneous layer Percentage of wound debrided: 100 Instrument Used: Forceps Severity: Limited To Skin Breakdown Amount of bleeding with debridement: Mild Bleeding Controlled with: Pressure Patient tolerated procedure well - Additional Wound Laterality: Left - medially. this wound was completely healed last week. It is now open again and the breakdown is limited to the superficial skin and there is no fat layer exposed. Percentage of wound debrided: 30 Instrument Used: Forceps Severity: Limited To Skin Breakdown Amount of bleeding with debridement: Mild Bleeding Controlled with: Pressure Patient tolerated procedure: Patient tolerated procedure well Assessment/Plan Active Problems (Last Reviewed 09/27/20 @ 13:07 by Lin Smallwood) Cholangiocarcinoma (Chronic) diagnosed 08/11/20 from a bx taken at the time of placement of a temporary biliary stent Venous stasis ulcer (Chronic) I suspect this may be a ischemic ulcer and not a venous stasis ulcer Assessment: 1. Venous stasis ulcer on the distal LLE with fat layer exposed initially and now with no fat layer exposed but with increased skin breakdown today. There is a lot of dry skin and I suspect she is not changing the dressing daily and she is not applying compression to control edema/venous insufficiency. Add this to weight loss and malnutrition and this explains why there has been deterioration over the preceding week. 2. hx of PVD and stents in the past. The wound was very beefy and granulating well and there is hair growth on the toes so I think the arterial circulation is adequate to heal the wound. 3. 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 she still wants someone to tell her how lopng it would prolong her life and this is not possible. The tumor has grown and now it looks as though there may be involvement of the L psoas muscle and the Left renal pelvis and arenal gland. She is very malnourished and not able to eat currently due to suspected exocrine insufficiency. She is also diabetic and will need to be started on Insulin......which she really does not want to do because she does not want to give herself shots. In my opinion she will not tolerate chemo and I doubt Dr. Goyal will offer chemo. 4. 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 5. Her sister tells me that Rosario had a very low TSH the last time it was checked at [facility] Plan: 1. Continue Hydrogel BID and cover with non-stick dressing and wrap with gauze. 2. she was instructed that if she is unable to eat she should drink Glucerna 4 times a day and take a CREON with each bottle. 3. she will need to follow up with Dr. Abernathy to be started on Insulin to control the blood sugars........control will be difficult because her intake is erratic. 4. She will crop picker the new meds at [facility] today. 5. I reinforced with her that her K is low and she needs to start taking the potassium daily. 6. TSH, HGBA1C and T4 were ordered today. 7. I recommend she follow up with Dr. Arroyo eventually to manage the blood sugars. 8. RTC in 1 week. 9. Wear the compresion stocking anytime she is up and about and elevate the LLE anytime she is sitting. She may remove the compression stocking at night when she is in bed. 3. start Pancrease with all meals and snacks to see if this helps to improve the nausea, bloating and chronic indigestion. 4. RTC in 1 week. 5. RX for Vicodin for pain control. Office Visits / Consults: [id number] OV L3 Est
[2020-11-23 14:19] VITALS: BP 111/58; PULSE 83; RESP 20; TEMP 36.6; BMI 30.9
--- NOTE | 2020-11-23 15:28 | PN.PCM_ITS ---
(1) Cholangiocarcinoma Status: Chronic Code(s): C22.1 - Intrahepatic bile duct carcinoma Comment: diagnosed 08/11/20 from a bx taken at the time of placement of a temporary biliary stent (2) Venous stasis ulcer Status: Chronic Qualifiers: Laterality: left Non-pressure ulcer stage: with fat layer exposed Code(s): I83.009 - Varicose veins of unspecified lower extremity with ulcer of unspecified site; L97.909 - Non-pressure chronic ulcer of unspecified part of unspecified lower leg with unspecified severity Comment: I suspect this may be a ischemic ulcer and not a venous stasis ulcer (3) Exocrine pancreatic insufficiency Status: Suspected Code(s): K86.81 - Exocrine pancreatic insufficiency (4) Diabetes mellitus type 2 in nonobese Status: Acute Code(s): E11.9 - Type 2 diabetes mellitus without complications Comment: new onset due to pancreatic tumor Type of Wound Date of Service: 11/23/20 Chief Complaint: non-healing wound of the LLE History of Wound: please see the consult dictated on this pt on 09/07/20 for hx Progress of Wound: Denies fevers, chills and sweats. She is now c/o abd pain but, she has only taken 1 Vicodin and that was last night. she is trying to drink 2 Ensures a day. She saw Dr. 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 The pancreatic enzymes seem to make the drinking a little better and she can keep it down. Denies constipation. She saw Dr. Goyal and she is getting a port next week and then will start chemo every 2 weeks for 4 months and then be re-evaluated for possible whipples. The recent CA 19-9 is 1580, up from 245 on August 26, 2020. TSH is normal at 1.14 and the free T4 is mildly increased at 1.53. DILCIA globin A1c is 9.7%. Sodium was low at 126 and the potassium was low at 3.3. The creatinine is stable at 1.23. - Physical Exam Vital Signs Temp Pulse Resp BP 97.9 F 83 20 H 111/58 L 11/23/20 14:19 11/23/20 14:19 11/23/20 14:19 11/23/20 14:19 Wound Measurements and Assessment WC - Nurse 1 - General Ulcer Measurement Start: 11/09/20 14:39 Freq: Status: Active Protocol: Activity Type Activity Date Activity User E-Sign Co-Sign Detail Recorded Client Recorded Date Recorded By Document 11/23/20 14:19 DL [id number] 11/23/20 14:27 DL 11/23/20 14:19 Wound Center Nurse 1 [Ulcer Assessment] #3 LLE Med -Current Size (cm) - Length 0.1 -Current Size (cm) - Width 0.1 -Current Size (cm) - Depth 0.1 -Total Square Cm 0.01 -Photo Taken No -Exudate Amt None Present -Wound Margin Flat & Intact -Granulation Amt Large (67-100%) -Granulation Quality Lucky -Necrosis Amt Small (1-33%) -Necrotic Tissue Type Adherent Slough -Structure Exposed N/A -Texture (Maria E-wound Skin Appearance) Scarring -Moisture (Maria E-wound Skin Appearance No Abnormality ) -Color (Maria E-wound Skin Appearance) Hemosiderin Staining -Temperature (Maria E-wound Skin No Abnormality Appearance) (Pt Warm) -Tenderness on Palpation (Maria E-wound No Skin Appearance) -Ulcer Cleansing Wound Cleanser -Foul Odor after Cleansing No -Anesthetic Used 4% Lidocaine Solution #2 LLE Sherman Cluster -Current Size (cm) - Length 6.9 -Current Size (cm) - Width 4 -Current Size (cm) - Depth 0.1 -Total Square Cm 27.6 -Photo Taken No -Exudate Amt Small -Exudate Type Serosanguineous -Wound Margin Distinct, Outline Attached -Granulation Amt Medium (34-66%) -Granulation Quality Lucky,Red -Necrosis Amt Medium (34-66%) -Necrotic Tissue Type Adherent Slough -Structure Exposed N/A -Texture (Maria E-wound Skin Appearance) Scarring -Moisture (Maria E-wound Skin Appearance No Abnormality ) -Color (Maria E-wound Skin Appearance) Hemosiderin Staining -Temperature (Maria E-wound Skin No Abnormality Appearance) (Pt Warm) -Tenderness on Palpation (Maria E-wound No Skin Appearance) -Ulcer Cleansing Wound Cleanser -Anesthetic Used 4% Lidocaine Solution [Edema Assessment] -Left Calf (cm) 31 -Left Ankle (cm) 19.5 WC - Nurse 2 - General Ulcer CM Notes Start: 11/09/20 14:39 Freq: Status: Active Protocol: Activity Type Activity Date Activity User E-Sign Co-Sign Detail Recorded Client Recorded Date Recorded By Document 11/23/20 14:40 MW [id number] 11/23/20 14:46 MW 11/23/20 14:40 Wound Center Nurse 2 [Procedure/Treatment] #3 LLE Med -Time 14:41 -Correct Patient Yes -Correct Side, Site, Position Yes -Correct Procedure Yes -Procedure Performed No -Post Debridement (cm) - Length 0 -Post Debridement (cm) - Width 0 -Post Debridement (cm) - Depth 0 -Total Square (Post) (cm) 0 -Tunneling No -Undermining/Tunneling No -Circular Undermining No -Wound/Ulcer Outcome Healed- Epithelialized -Bleeding Controlled with NA #2 LLE Sherman Cluster -Time 14:42 -Correct Patient Yes -Correct Side, Site, Position Yes -Correct Procedure Yes -Procedure Performed Yes -Type of Procedure Debridement -Clinical Debridement Subcutaneous -Tissue Removed Subcutaneous -Post Debridement (cm) - Length 6.8 -Post Debridement (cm) - Width 3.9 -Post Debridement (cm) - Depth 0.1 -Total Square (Post) (cm) 26.52 -Area of Debridement (cm) - Length 6.8 -Area of Debridement (cm) - Width 3.9 -Total Square (Area) (cm) 26.52 -Tunneling No -Undermining/Tunneling No -Circular Undermining No -Wound/Ulcer Outcome Not Healed -Ulcer Cleansing Rinsed/ Irrigated with Saline -Foul Odor after Cleansing No -Bioengineered Tissue No -Bleeding Controlled with Pressure -Offloading No -Treatment Response Procedure Tolerated Well -Debridement - Subq, 1st 20sq cm Yes -Debridement, SubQ, ea addt'l 20sq cm 1 or part thereof [See Physician Procedure note for Specifics] Pain Scale: 0-10 Numeric [Pain] -Is Patient Pain Free? Yes WC - Nurse 3 - General Ulcer D/C NN Start: 11/09/20 14:39 Freq: Status: Active Protocol: Activity Type Activity Date Activity User E-Sign Co-Sign Detail Recorded Client Recorded Date Recorded By Document 11/23/20 15:04 DL [id number] 11/23/20 15:06 DL 11/23/20 15:04 Wound Care Nurse 3 [Wound Dressing] #2 LLE Sherman Cluster -Ulcer Cleansing Rinsed/ Irrigated with Saline -Foul Odor after Cleansing No -Primary Dressing Applied NonAdherent Contact Layer -Other Dressing hYDROGEL -Primary Dressing Covered/Secured Dry Gauze & with Roll Gauze, Secured with Tape [Post Procedure Tolerated] -Treatment Response Procedure Tolerated Well Pain Scale: 0-10 Numeric [Pain] -Is Patient Pain Free? Yes WC - Visit Discharge [Visit Discharge Information] -Discharge Condition Stable -Ambulatory Status Ambulatory -Transportation Private Auto The wound looks better this week than last week. The medial wound is once again healed. The skin is not as dry and there is really only 1 wound now and that is in the anterolateral portion of the distal LE proximal to the ankle. The wound is 100% granulating with no slough. There is no maria e-wound erythema and no increased warmth to touch. There is no purulent DC and the wound is limited to skin breakdown. The base is 100% granulating. There is no tunnelling and no undermining. Debridement Note Post-Debridement Measurements/Treatment WC - Nurse 2 - General Ulcer CM Notes Start: 11/09/20 14:39 Freq: Status: Active Protocol: Activity Type Activity Date Activity User E-Sign Co-Sign Detail Recorded Client Recorded Date Recorded By Document 11/09/20 14:51 MW [id number] 11/09/20 14:57 MW Document 11/16/20 14:45 MW [id number] 11/16/20 14:53 MW Document 11/23/20 14:40 MW [id number] 11/23/20 14:46 MW 11/09/20 11/16/20 11/23/20 14:51 14:45 14:40 Wound Center Nurse 2 #3 LLE Med -Time 14:51 14:46 14:41 -Correct Patient Yes Yes Yes -Correct Side, Site, Position Yes Yes Yes -Correct Procedure Yes Yes Yes -Procedure Performed No Yes No -Type of Procedure Debridement -Clinical Debridement Subcutaneous -Tissue Removed Subcutaneous -Post Debridement (cm) - Length 0 1.5 0 -Post Debridement (cm) - Width 0 0.5 0 -Post Debridement (cm) - Depth 0 0.1 0 -Total Square (Post) (cm) 0 0.75 0 -Area of Debridement (cm) - Length 1.5 -Area of Debridement (cm) - Width 0.5 -Total Square (Area) (cm) 0.75 -Tunneling No No -Undermining/Tunneling No No -Circular Undermining No No -Wound/Ulcer Outcome Healed- Not Healed Healed- Epithelialized Epithelialized -Ulcer Cleansing Rinsed/ Irrigated with Saline -Foul Odor after Cleansing No -Bioengineered Tissue No -Bleeding Controlled with Pressure NA -Offloading No -Treatment Response Procedure Tolerated Well -Debridement - Subq, 1st 20sq cm No #2 LLE Sherman Cluster -Time 14:53 14:46 14:42 -Correct Patient Yes Yes Yes -Correct Side, Site, Position Yes Yes Yes -Correct Procedure Yes Yes Yes -Procedure Performed No Yes Yes -Type of Procedure Debridement Debridement -Clinical Debridement Subcutaneous Subcutaneous -Tissue Removed Subcutaneous Subcutaneous -Post Debridement (cm) - Length 2.7 13.4 6.8 -Post Debridement (cm) - Width 5.9 5.5 3.9 -Post Debridement (cm) - Depth 0.1 0.1 0.1 -Total Square (Post) (cm) 15.93 73.70 26.52 -Area of Debridement (cm) - Length 13.4 6.8 -Area of Debridement (cm) - Width 5.5 3.9 -Total Square (Area) (cm) 73.70 26.52 -Tunneling No No No -Undermining/Tunneling No No No -Circular Undermining No No No -Wound/Ulcer Outcome Not Healed Not Healed Not Healed -Ulcer Cleansing Not Cleansed Rinsed/ Rinsed/ Irrigated with Irrigated with Saline Saline -Foul Odor after Cleansing No No No -Bioengineered Tissue No No No -Bleeding Controlled with NA Pressure Pressure -Offloading No No No -Treatment Response Procedure Procedure Tolerated Well Tolerated Well -Debridement - Subq, 1st 20sq cm Yes Yes -Debridement, SubQ, ea addt'l 20sq cm 3 1 or part thereof Pain Scale: 0-10 Numeric Is Patient Pain Free? Yes Yes Yes WC - Nurse 3 - General Ulcer D/C NN Start: 11/09/20 14:39 Freq: Status: Active Protocol: Activity Type Activity Date Activity User E-Sign Co-Sign Detail Recorded Client Recorded Date Recorded By Document 11/09/20 15:00 MW [id number] 11/09/20 15:03 MW Document 11/16/20 15:03 MW [id number] 11/16/20 15:04 MW Document 11/23/20 15:04 DL [id number] 11/23/20 15:06 DL 11/09/20 11/16/20 11/23/20 15:00 15:03 15:04 Wound Care Nurse 3 #3 LLE Med -Ulcer Cleansing Rinsed/ Irrigated with Saline -Foul Odor after Cleansing No -Negative Pressure Wound Therapy N/A -Primary Dressing Applied NonAdherent Contact Layer -Other Dressing C.HYDROGEL -Primary Dressing Covered/Secured with Dry Gauze & Roll Gauze, Secured with Tape -Other Covering ABD PAD #2 LLE Sherman Cluster -Ulcer Cleansing Rinsed/ Rinsed/ Rinsed/ Irrigated with Irrigated with Irrigated with Saline Saline Saline -Foul Odor after Cleansing No No No -Negative Pressure Wound Therapy N/A N/A -Primary Dressing Applied C Hydrogel ($), NonAdherent NonAdherent Contact Layer Contact Layer -Other Dressing C.HYDROGEL hYDROGEL -Primary Dressing Covered/Secured with Dry Gauze & Dry Gauze & Dry Gauze & Roll Gauze, Roll Gauze, Roll Gauze, Secured with Secured with Secured with Tape Tape Tape -Other Covering ABD PAD Left -Lotion applied to leg before No No compression wrap -Stockings Yes Treatment Response Procedure Procedure Procedure Tolerated Well Tolerated Well Tolerated Well Pain Scale: 0-10 Numeric Is Patient Pain Free? Yes Yes Teaching: Wound Center Dressing Your Wound -Person Taught Patient Patient,Family -Teaching Method Discussion, Discussion, Demonstration Demonstration -Response to teaching Verbalize Verbalize understanding understanding WC - Visit Discharge Discharge Condition Stable Stable Stable Ambulatory Status Ambulatory Ambulatory Ambulatory Transportation Private Auto Private Auto Private Auto Accompanied by SELF SISTER Medication Reconcilliation completed & No No provided to patient/care provider Clinical Summary of Care Provided Yes Yes Wound debrided: Left LE venous stasis ulcer Laterality: Left Type of Debridement: Excisional debridement Anesthesia Used: 4% Lidocaine Solution Depth: Down to and including healthy tissue Percentage of wound debrided: 100 Instrument Used: 3mm curette, Forceps Severity: Limited To Skin Breakdown Amount of bleeding with debridement: Mild Bleeding Controlled with: Pressure Patient tolerated procedure well Assessment/Plan Active Problems (Last Reviewed 11/22/20 @ 14:58 by Huyen Hatfield) Diabetes mellitus type 2 in nonobese (Acute) new onset due to pancreatic tumor Cholangiocarcinoma (Chronic) diagnosed 08/11/20 from a bx taken at the time of placement of a temporary biliary stent Venous stasis ulcer (Chronic) I suspect this may be a ischemic ulcer and not a venous stasis ulcer Assessment: 1. Venous stasis ulcer on the distal LLE with fat layer exposed initially and now with no fat layer exposed. There is 100% granulation and no slough today. I suspect she was not changing the dressing daily and she was not applying compression to control edema/venous insufficiency. 2. hx of PVD and stents in the past. The wound is very beefy and granulating well and there is hair growth on the toes so I think the arterial circulation is adequate to heal the wound. 3. cholangiocarcinoma with stent to the CBD and now with mass in the head of the pancreas. She has now decided to pursue chemo and will start next week following insertion of a port by Dr. Colon. 4. New onset DM II due to tumor replacing the pancreatic tissue - started on Insulin by Dr. Abernathy. 5. TSH and T4 are WNL. 6. Hypokalemia and hyponatremia - being addressed by Dr. Abernathy. Plan: 1. continue Hydrogel and moisturizer. We should have approval for Puraply by her next visit. 2. RTC in 1 week Office Visits / Consults: [id number] OV L2 Est
[2020-11-30 14:50] VITALS: BP 99/53; PULSE 91; RESP 16; TEMP 37.5; BMI 30.9
--- NOTE | 2020-11-30 16:46 | PCM.WC.PN ---
History of Present Illness Date of Service: 12/06/20 Chief Complaint: non-healing wound of the LLE History of Wound: please see the consult dictated on this pt on 09/07/20 for hx Subjective Subjective: Rosario denies fevers, chills, sweats. She had her port inserted and she received her first chemotherapy treatment today. She has still not been able to eat much. She tells me Dr. Abernathy is getting her sugars under good control. She is having epigastric pain but denies vomiting. 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 (2) Venous stasis ulcer: Status: Chronic Code(s): I83.009 - Varicose veins of unspecified lower extremity with ulcer of unspecified site; L97.909 - Non-pressure chronic ulcer of unspecified part of unspecified lower leg with unspecified severity Qualifiers: Laterality: left Non-pressure ulcer stage: with fat layer exposed Plan: The first application of Puraply was applied to the wound today. She will follow up in the wound care center in 1 week. She was instructed not to get the dressing wet. She will call me or Dr. Goyal or Dr. Abernathy if she develops fevers. Charges/Coding Office Visits / Consults: 30824 OV L2 Est
== END 2020-12-03 23:59 ==
LOC: WC 14:30
PROVIDERS: PCP Family Medicine; Referring Provider Internal Medicine; Visit Provider Internal Medicine
DX: E11.621 Type 2 diabetes mellitus with foot ulcer (principal); E11.51 Type 2 diabetes mellitus with diabetic peripheral angiopathy without gangrene; I83.028 Varicose veins of left lower extremity with ulcer other part of lower leg; L97.822 Non-pressure chronic ulcer of other part of left lower leg with fat layer exposed; C22.1 Intrahepatic bile duct carcinoma; E43 Unspecified severe protein-calorie malnutrition; Z79.4 Long term (current) use of insulin; K86.89 Other specified diseases of pancreas; E87.6 Hypokalemia; E87.1 Hypo-osmolality and hyponatremia
CPT/HCPCS: 11042; 11045; 15271; 99213; Q4196; G0463

== ENCOUNTER 2020-12-28 15:15 | Outpatient (RCR) | payer MEDICARE, OTHER, SELFPAY ==
[2020-11-30 17:05] VITALS: BMI 28.0
[2020-12-04 00:21] VITALS: BP 99/53; PULSE 91; RESP 16; TEMP 37.5
[2020-12-09 10:46] VITALS: BP 135/67; PULSE 92; TEMP 36; BMI 28.0
--- NOTE | 2020-12-09 12:16 | PCM.WC.PN ---
History of Present Illness Date of Service: 12/09/20 Chief Complaint: non-healing wound of the LLE History of Wound: please see the consult dictated on this pt on 09/07/20 for hx Subjective Subjective: No new concerns at this time. Has had 1 application of pure apply. Objective Data Objective Data Vital Signs: Vital Signs Temp Pulse Resp BP 96.8 F L 92 16 135/67 H 12/09/20 10:46 12/09/20 10:46 12/04/20 00:21 12/09/20 10:46 Body Mass Index (BMI) 28.0 Assessment & Plan Assessment/Plan (1) Venous stasis ulcer: QUALIFIERS: Laterality: left Non-pressure ulcer stage: with fat layer exposed (2) PVD (peripheral vascular disease): PLAN: Debridement done as documented above, procedure was well-tolerated. Appears to be improving really well. First application of Nushield done today using 100% moistened with saline and wound veil over top. Secured with Steri-Strips. Leave in place for 1 week. Optimal diabetes control and increased protein intake also recommended. Her questions were answered and she was advised to call with any questions or concerns. Follow-up with Dr. Zhang in 1 week. This note was generated with [employer] dictation software. It may contain incorrect words, spelling, and punctuation that were not noted in checking the note before signing. Charges/Coding Procedures Integumentary 150xxx-152xx: 94351 Skin sub graft trnk/arm/leg Physical Exam Const alert, oriented x3 and no apparent distress General Appearance: cooperative and comfortable HEENT normocephalic Head and Scalp: normal to inspection, normocephalic and atraumatic Eyes EOMs intact bilaterally Neck full ROM and supple General: normal visual inspection Resp normal respiratory effort Effort and Inspection: able to speak in complete sentences Skin Wounds: wounds noted Neuro oriented x3, CN's II-XII intact bilaterally and moves all extremities Sensorium / Orientation: awake, alert and oriented to person Psych Appearance: grossly normal Attitude: calm Activity / Motor Behavior: appropriate eye contact Debridement Note Debridement Note Post-Debridement Measurements and Additional Note: Post-Debridement Measurements/Treatment JOHANNA - Nurse 1 - General Ulcer Assessment Start: 12/09/20 10:46 Freq: Status: Active Protocol: ASHTYN Activity Type Activity Date Activity User E-Sign Co-Sign Detail Recorded Client Recorded Date Recorded By Document 12/09/20 10:46 DAKOTA [id number] 12/09/20 10:53 DAKOTA 12/09/20 10:46 WC - Today's Visit Information Type of service Follow-up Visit (Physician/COMPUTER ENGINEERING TECHNICIAN ) Arrival Mode Ambulatory Patient Identification Verified (Name & Yes ) Height and Weight Body Mass Index (BMI) 28.0 BMI Classification Overweight Vital Signs Temperature (97.8 F-99.1 F) 96.8 F L Temperature Source Temporal Pulse Rate (60-100) 92 Pulse Location Monitor Blood Pressure (90/60-120/80) 135/67 H Blood Pressure Mean (mm Hg) 89 Source Monitor Position Semi-Fowlers Blood Pressure Location Left Arm History Since Last Visit- (Skip if this is Patient's initial visit) Have you changed medications since your No last visit? Any new allergies or adverse reactions No Had a fall/change in ADL's that may No increase risk of falls Signs or symptoms of abuse and/or No neglect since last visit Have you been in the hospital since your No last visit? Has dressing in place as prescribed Yes Has compression in place as prescribed Yes Has offloadiing in place as prescribed N/A Experienced any changes in pain level or No management Left Footwear Regular Shoe Right Footwear Regular Shoe Pain Scale: 0-10 Numeric Is Patient Pain Free? Yes - Nurse 1 - General Ulcer Measurement Start: 12/09/20 10:46 Freq: Status: Active Protocol: Activity Type Activity Date Activity User E-Sign Co-Sign Detail Recorded Client Recorded Date Recorded By Document 12/09/20 10:46 DAKOTA [id number] 12/09/20 10:53 DAKOTA 12/09/20 10:46 Wound Center Nurse 1 #2 LLE Vargas Cluster -Current Size (cm) - Length 7 -Current Size (cm) - Width 3.6 -Current Size (cm) - Depth 0.1 -Total Square Cm 25.2 -Exudate Amt Large -Exudate Type Serosanguineous -Wound Margin Distinct, Outline Attached -Granulation Amt Medium (34-66%) -Granulation Quality Red -Necrosis Amt Medium (34-66%) -Necrotic Tissue Type Adherent Slough -Texture (Maria E-wound Skin Appearance) Assessed, Scarring -Moisture (Maria E-wound Skin Appearance) Assessed, Weeping -Color (Maria E-wound Skin Appearance) No Abnormality, Assessed -Temperature (Maria E-wound Skin No Abnormality Appearance) (Pt Warm) -Tenderness on Palpation (Maria E-wound No Skin Appearance) -Ulcer Cleansing Rinsed/ Irrigated with Saline -Foul Odor after Cleansing No -Anesthetic Used 4% Lidocaine Solution WC - Nurse 2 - General Ulcer CM Notes Start: 12/09/20 10:46 Freq: Status: Active Protocol: Activity Type Activity Date Activity User E-Sign Co-Sign Detail Recorded Client Recorded Date Recorded By Document 12/09/20 11:28 MW [id number] 12/09/20 11:34 MW 12/09/20 11:28 Wound Center Nurse 2 #3 LLE Med -Time 11:30 -Correct Patient Yes -Correct Side, Site, Position Yes -Correct Procedure Yes -Procedure Performed No -Post Debridement (cm) - Length 0 -Post Debridement (cm) - Width 0 -Post Debridement (cm) - Depth 0 -Total Square (Post) (cm) 0 -Wound/Ulcer Outcome Healed- Epithelialized #2 LLE Vargas Cluster -Time 11:31 -Correct Patient Yes -Correct Side, Site, Position Yes -Correct Procedure Yes -Procedure Performed Yes -Type of Procedure Debridement -Clinical Debridement Subcutaneous -Tissue Removed Subcutaneous -Post Debridement (cm) - Length 5.0 -Post Debridement (cm) - Width 1.0 -Post Debridement (cm) - Depth 0.1 -Total Square (Post) (cm) 5.00 -Area of Debridement (cm) - Length 5.0 -Area of Debridement (cm) - Width 1.0 -Total Square (Area) (cm) 5.00 -Tunneling No -Undermining/Tunneling No -Circular Undermining No -Wound/Ulcer Outcome Not Healed -Ulcer Cleansing Rinsed/ Irrigated with Saline -Foul Odor after Cleansing No -Bioengineered Tissue Yes -Type of Bioengineered Tissue NuShield -Expiration Date 07/31/24 -Product Lot Number [id number] -Percent Used 100 -Lot number of Saline Used [id number] -Bleeding Controlled with Pressure -Offloading No -Treatment Response Procedure Tolerated Well -Debridement - Subq, 1st 20sq cm No -Apply Skin Sub - 1st 25 sq cm - Legs 1 -NuShield (per sq cm) 12 #1 L ant LE -Time 11:33 -Correct Patient Yes -Correct Side, Site, Position Yes -Correct Procedure Yes -Procedure Performed No -Post Debridement (cm) - Length 0 -Post Debridement (cm) - Width 0 -Post Debridement (cm) - Depth 0 -Total Square (Post) (cm) 0 -Wound/Ulcer Outcome Healed- Epithelialized Pain Scale: 0-10 Numeric Is Patient Pain Free? Yes - Nurse 3 - General Ulcer D/C NN Start: 12/09/20 10:46 Freq: Status: Active Protocol: Activity Type Activity Date Activity User E-Sign Co-Sign Detail Recorded Client Recorded Date Recorded By Document 12/09/20 11:52 DAKOTA [id number] 12/09/20 11:52 DAKOTA 12/09/20 11:52 Wound Care Nurse 3 #2 LLE Vargas Cluster -Other Dressing ABD pad -Primary Dressing Covered/Secured with Secured with Tape Pain Scale: 0-10 Numeric Is Patient Pain Free? Yes WC - Visit Discharge Discharge Condition Stable Ambulatory Status Ambulatory Transportation Private Auto Accompanied by sister Wound debrided: Left lower extremity vargas cluster Type of Debridement: Excisional debridement Anesthesia Used: 4% Lidocaine Solution Depth: Down to and including healthy tissue and in the subcutaneous layer Percentage of wound debrided: 100 Instrument Used: 7mm curette Tissue Removed: Slough and devitalized tissue Severity: Fat Layer Exposed Amount of bleeding with debridement: Mild Bleeding Controlled with: Pressure Patient tolerated procedure: Patient tolerated procedure well
[2020-12-14 15:39] VITALS: BP 107/47; PULSE 81; RESP 16; TEMP 36.6; BMI 28.0
[2020-12-21 15:32] VITALS: BP 118/46; PULSE 94; RESP 16; TEMP 36.4; BMI 28.0
--- NOTE | 2020-12-21 17:55 | PCM.WC.PN ---
History of Present Illness Date of Service: 12/27/20 Chief Complaint: non-healing wound of the LLE History of Wound: please see the consult dictated on this pt on 09/07/20 for hx Subjective Subjective Rosario returns to the wound care clinic today to reexamine her wounds. We have been using EpiFix with good results. She denies F/C/S. She denies any trauma to her legs over the past week but, she has a new cluster of wounds on the anterior Left leg just beneath the tibial plateau. She is not able to eat because nothing tastes good to her and when she tries to eat she gets nauseated and vomits. she continues to lose weight. She denies pain in the L leg. She denies swelling of the Left ankle and also denies calf pain. She continues to lose weight. Objective Data Objective Data Vital Signs: Vital Signs Temp Pulse Resp BP 97.5 F L 94 16 118/46 L 12/21/20 15:32 12/21/20 15:32 12/21/20 15:32 12/21/20 15:32 Oxygen Delivery Method Room Air Body Mass Index (BMI) 28.0 Charges/Coding Visit Charges Office Visits / Consults: 05163 OV L2 Est Physical Exam Const alert, oriented x3 and no apparent distress Constitutional Narrative: Getting thinner General Appearance: cooperative Skin Wound Narrative: Rosario has extensive superficial varicosities of the anterior left vargas. The skin is very thin and the veins are clearly visible beneath the skin. They are mushy when palpated. The skin is very easily torn. There is no odor, no purulent DC and no significant erythema. There is no increased warmth to touch. The wounds are superficial and healing is difficult with poor nutrition. There is no tunnelling and no undermining of the wounds. Debridement Note Debridement Note Post-Debridement Measurements and Additional Note: Post-Debridement Measurements/Treatment - Nurse 1 - General Ulcer Assessment Start: 12/09/20 10:46 Freq: Status: Active Protocol: ELISEEXT Activity Type Activity Date Activity User E-Sign Co-Sign Detail Recorded Client Recorded Date Recorded By Document 12/09/20 10:46 KR [id number] 12/09/20 10:53 KR Document 12/14/20 15:39 BMF [id number] 12/14/20 15:49 BMF Document 12/21/20 15:32 BM [id number] 12/21/20 15:39 [facility] 12/09/20 12/14/20 12/21/20 10:46 15:39 15:32 - Today's Visit Information Type of service Follow-up Visit Follow-up Visit Follow-up Visit (Physician/SWIM INSTRUCTOR (Physician/SWIM INSTRUCTOR (Physician/SWIM INSTRUCTOR ) ) ) Arrival Mode Ambulatory Ambulatory Ambulatory Transfer Assistance None None Accompanied by sister sister Patient Identification Verified (Name & Yes Yes Yes ) Patient Requires Transmission-Based No No Precautions Height and Weight Body Mass Index (BMI) 28.0 28.0 28.0 BMI Classification Overweight Overweight Overweight Vital Signs Temperature (97.8 F-99.1 F) 96.8 F L 97.9 F 97.5 F L Temperature Source Temporal Temporal Temporal Pulse Rate (60-100) 92 81 94 Pulse Location Monitor Monitor Monitor Respiratory Rate (12-18) 16 16 Respiratory rate source Observation Observation Oxygen Delivery Method Room Air Room Air Blood Pressure (90/60-120/80) 135/67 H 107/47 L 118/46 L Blood Pressure Mean (mm Hg) 89 67 70 Source Monitor Monitor Monitor Position Semi-Fowlers Sitting Sitting Blood Pressure Location Left Arm Left Arm Right Arm History Since Last Visit- (Skip if this is Patient's initial visit) Have you changed medications since your No Yes No last visit? Any new allergies or adverse reactions No No No Had a fall/change in ADL's that may No No No increase risk of falls Signs or symptoms of abuse and/or No No No neglect since last visit Have you been in the hospital since your No No No last visit? Has dressing in place as prescribed Yes Yes Yes Has compression in place as prescribed Yes No Yes Has offloadiing in place as prescribed N/A N/A N/A Experienced any changes in pain level or No No No management Left Footwear Regular Shoe Regular Shoe Regular Shoe Right Footwear Regular Shoe Regular Shoe Regular Shoe Pain Scale: 0-10 Numeric Is Patient Pain Free? Yes Yes Yes - Nurse 1 - General Ulcer Measurement Start: 12/09/20 10:46 Freq: Status: Active Protocol: Activity Type Activity Date Activity User E-Sign Co-Sign Detail Recorded Client Recorded Date Recorded By Document 12/09/20 10:46 DAKOTA [id number] 12/09/20 10:53 KR Document 12/14/20 15:39 [facility] [id number] 12/14/20 15:49 BMF Document 12/21/20 15:32 BM [id number] 12/21/20 15:39 BMF 12/09/20 12/14/20 12/21/20 10:46 15:39 15:32 Wound Center Nurse 1 #2 LLE Vargas Cluster -Combined with other wound No -Current Size (cm) - Length 7 5.2 0.1 -Current Size (cm) - Width 3.6 1 0.1 -Current Size (cm) - Depth 0.1 0.1 0.1 -Total Square Cm 25.2 5.2 0.01 -Photo Taken No -Epithelialization None Present -Tunneling No -Undermining/Tunneling No -Circular Undermining No -Exudate Amt Large Medium -Exudate Type Serosanguineous Serosanguineous -Wound Margin Distinct, Flat & Intact Outline Attached -Granulation Amt Medium (34-66%) None Present (0 %) -Granulation Quality Red -Slough/Fibrin Yes -Necrosis Amt Medium (34-66%) Large (67-100%) -Necrotic Tissue Type Adherent Slough Adherent Slough -Texture (Maria E-wound Skin Appearance) Assessed, Assessed, Scarring Scarring -Moisture (Maria E-wound Skin Appearance) Assessed, Assessed,Dry/ Weeping Scaly -Color (Maria E-wound Skin Appearance) No Abnormality, Assessed, Assessed Hemosiderin Staining -Temperature (Maria E-wound Skin No Abnormality No Abnormality Appearance) (Pt Warm) (Pt Warm) -Tenderness on Palpation (Maria E-wound No No Skin Appearance) -Ulcer Cleansing Rinsed/ soapy water Irrigated with Saline -Foul Odor after Cleansing No No -Anesthetic Used 4% Lidocaine 4% Lidocaine Solution Solution Lower Limb Edema Present Yes Left Calf (cm) 33.2 Left Ankle (cm) 20.1 WC - Nurse 2 - General Ulcer CM Notes Start: 12/09/20 10:46 Freq: Status: Active Protocol: Activity Type Activity Date Activity User E-Sign Co-Sign Detail Recorded Client Recorded Date Recorded By Document 12/09/20 11:28 MW [id number] 12/09/20 11:34 MW Document 12/14/20 15:55 MW [id number] 12/14/20 16:08 MW Document 12/21/20 15:41 MW [id number] 12/21/20 15:55 MW 12/09/20 12/14/20 12/21/20 11:28 15:55 15:41 Wound Center Nurse 2 #4 left anterior vargas cluster -Time 15:42 -Correct Patient Yes -Correct Side, Site, Position Yes -Correct Procedure Yes -Procedure Performed No -Post Debridement (cm) - Length 2.5 -Post Debridement (cm) - Width 3.5 -Post Debridement (cm) - Depth 0.1 -Total Square (Post) (cm) 8.75 -Tunneling No -Undermining/Tunneling No -Circular Undermining No -Wound/Ulcer Outcome Not Healed -Ulcer Cleansing Not Cleansed -Foul Odor after Cleansing No -Bioengineered Tissue No -Bleeding Controlled with NA -Offloading No -Treatment Response Procedure Tolerated Well #3 LLE Med -Time 11:30 -Correct Patient Yes -Correct Side, Site, Position Yes -Correct Procedure Yes -Procedure Performed No -Post Debridement (cm) - Length 0 -Post Debridement (cm) - Width 0 -Post Debridement (cm) - Depth 0 -Total Square (Post) (cm) 0 -Wound/Ulcer Outcome Healed- Epithelialized #2 LLE Vargas Cluster -Time 11:31 15:59 15:41 -Correct Patient Yes Yes Yes -Correct Side, Site, Position Yes Yes Yes -Correct Procedure Yes Yes Yes -Procedure Performed Yes Yes Yes -Type of Procedure Debridement Debridement Debridement -Clinical Debridement Subcutaneous Subcutaneous Subcutaneous -Tissue Removed Subcutaneous Subcutaneous Subcutaneous -Post Debridement (cm) - Length 5.0 3.4 3.2 -Post Debridement (cm) - Width 1.0 0.5 0.4 -Post Debridement (cm) - Depth 0.1 0.1 0.1 -Total Square (Post) (cm) 5.00 1.70 1.28 -Area of Debridement (cm) - Length 5.0 3.4 3.2 -Area of Debridement (cm) - Width 1.0 0.5 0.4 -Total Square (Area) (cm) 5.00 1.70 1.28 -Tunneling No No No -Undermining/Tunneling No No No -Circular Undermining No No No -Wound/Ulcer Outcome Not Healed Not Healed Not Healed -Ulcer Cleansing Rinsed/ Rinsed/ Irrigated with Irrigated with Saline Saline -Foul Odor after Cleansing No No No -Bioengineered Tissue Yes Yes Yes -Type of Bioengineered Tissue [facility] -Expiration Date 07/31/24 04/13/24 04/01/24 -Product Lot Number [id number] -Percent Used 100 100 100 -Lot number of Saline Used [id number] -Bleeding Controlled with Pressure Pressure Pressure -Offloading No No No -Treatment Response Procedure Procedure Procedure Tolerated Well Tolerated Well Tolerated Well -Debridement - Subq, 1st 20sq cm No No No -Apply Skin Sub - 1st 25 sq cm - Legs 1 1 1 -NuShield (per sq cm) 12 8 6 #1 L ant LE -Time 11:33 -Correct Patient Yes -Correct Side, Site, Position Yes -Correct Procedure Yes -Procedure Performed No -Post Debridement (cm) - Length 0 -Post Debridement (cm) - Width 0 -Post Debridement (cm) - Depth 0 -Total Square (Post) (cm) 0 -Wound/Ulcer Outcome Healed- Epithelialized Pain Scale: 0-10 Numeric Is Patient Pain Free? Yes Yes Yes WC - Nurse 3 - General Ulcer D/C NN Start: 12/09/20 10:46 Freq: Status: Active Protocol: Activity Type Activity Date Activity User E-Sign Co-Sign Detail Recorded Client Recorded Date Recorded By Document 12/09/20 11:52 DAKOTA [id number] 12/09/20 11:52 KR Document 12/21/20 15:58 MW [id number] 12/21/20 15:59 MW 12/09/20 12/21/20 11:52 15:58 Wound Care Nurse 3 #4 left anterior vargas cluster -Ulcer Cleansing Rinsed/ Irrigated with Saline -Foul Odor after Cleansing No -Negative Pressure Wound Therapy N/A -Other Dressing unna #2 LLE Vargas Cluster -Ulcer Cleansing Not Cleansed -Foul Odor after Cleansing No -Negative Pressure Wound Therapy N/A -Other Dressing ABD pad unna -Primary Dressing Covered/Secured with Secured with Tape Left -Lotion applied to leg before Yes compression wrap -Compression Wrap Unna Boot ($) ( single) Treatment Response Procedure Tolerated Well Pain Scale: 0-10 Numeric Is Patient Pain Free? Yes Yes Teaching: Wound Center Dressing Your Wound -Person Taught Patient,Family -Teaching Method Discussion, Demonstration -Response to teaching Verbalize understanding WC - Visit Discharge Discharge Condition Stable Stable Ambulatory Status Ambulatory Ambulatory Transportation Private Auto Private Auto Accompanied by sister sister Medication Reconcilliation completed & No provided to patient/care provider Clinical Summary of Care Provided Yes No debridement was completed: No debridement was completed today
--- NOTE | 2020-12-28 11:23 | PN.PCM_ITS ---
History of Present Illness Date of Service: 12/21/20 Chief Complaint: non-healing wound of the LLE History of Wound: please see the consult dictated on this pt on 09/07/20 for hx Objective Data Objective Data Vital Signs: Vital Signs Temp Pulse Resp BP 97.5 F L 94 16 118/46 L 12/21/20 15:32 12/21/20 15:32 12/21/20 15:32 12/21/20 15:32 Oxygen Delivery Method Room Air Body Mass Index (BMI) 28.0 Debridement Note Debridement Note Post-Debridement Measurements and Additional Note: Post-Debridement Measurements/Treatment WC - Nurse 1 - General Ulcer Assessment Start: 12/09/20 10:46 Freq: Status: Active Protocol: ASHTYN Activity Type Activity Date Activity User E-Sign Co-Sign Detail Recorded Client Recorded Date Recorded By Document 12/09/20 10:46 KR [id number] 12/09/20 10:53 KR Document 12/14/20 15:39 BM [id number] 12/14/20 15:49 BM Document 12/21/20 15:32 [facility] [id number] 12/21/20 15:39 BMF 12/09/20 12/14/20 12/21/20 10:46 15:39 15:32 - Today's Visit Information Type of service Follow-up Visit Follow-up Visit Follow-up Visit (Physician/PRESCHOOL SPECIAL EDUCATION TEACHER (Physician/PRESCHOOL SPECIAL EDUCATION TEACHER (Physician/PRESCHOOL SPECIAL EDUCATION TEACHER ) ) ) Arrival Mode Ambulatory Ambulatory Ambulatory Transfer Assistance None None Accompanied by sister sister Patient Identification Verified (Name & Yes Yes Yes ) Patient Requires Transmission-Based No No Precautions Height and Weight Body Mass Index (BMI) 28.0 28.0 28.0 BMI Classification Overweight Overweight Overweight Vital Signs Temperature (97.8 F-99.1 F) 96.8 F L 97.9 F 97.5 F L Temperature Source Temporal Temporal Temporal Pulse Rate (60-100) 92 81 94 Pulse Location Monitor Monitor Monitor Respiratory Rate (12-18) 16 16 Respiratory rate source Observation Observation Oxygen Delivery Method Room Air Room Air Blood Pressure (90/60-120/80) 135/67 H 107/47 L 118/46 L Blood Pressure Mean (mm Hg) 89 67 70 Source Monitor Monitor Monitor Position Semi-Fowlers Sitting Sitting Blood Pressure Location Left Arm Left Arm Right Arm History Since Last Visit- (Skip if this is Patient's initial visit) Have you changed medications since your No Yes No last visit? Any new allergies or adverse reactions No No No Had a fall/change in ADL's that may No No No increase risk of falls Signs or symptoms of abuse and/or No No No neglect since last visit Have you been in the hospital since your No No No last visit? Has dressing in place as prescribed Yes Yes Yes Has compression in place as prescribed Yes No Yes Has offloadiing in place as prescribed N/A N/A N/A Experienced any changes in pain level or No No No management Left Footwear Regular Shoe Regular Shoe Regular Shoe Right Footwear Regular Shoe Regular Shoe Regular Shoe Pain Scale: 0-10 Numeric Is Patient Pain Free? Yes Yes Yes WC - Nurse 1 - General Ulcer Measurement Start: 12/09/20 10:46 Freq: Status: Active Protocol: Activity Type Activity Date Activity User E-Sign Co-Sign Detail Recorded Client Recorded Date Recorded By Document 12/09/20 10:46 [id number] 12/09/20 10:53 KR Document 12/14/20 15:39 [facility] [id number] 12/14/20 15:49 [facility] Document 12/21/20 15:32 [facility] [id number] 12/21/20 15:39 [facility] 12/09/20 12/14/20 12/21/20 10:46 15:39 15:32 Wound Center Nurse 1 #2 LLE Vargas Cluster -Combined with other wound No -Current Size (cm) - Length 7 5.2 0.1 -Current Size (cm) - Width 3.6 1 0.1 -Current Size (cm) - Depth 0.1 0.1 0.1 -Total Square Cm 25.2 5.2 0.01 -Photo Taken No -Epithelialization None Present -Tunneling No -Undermining/Tunneling No -Circular Undermining No -Exudate Amt Large Medium -Exudate Type Serosanguineous Serosanguineous -Wound Margin Distinct, Flat & Intact Outline Attached -Granulation Amt Medium (34-66%) None Present (0 %) -Granulation Quality Red -Slough/Fibrin Yes -Necrosis Amt Medium (34-66%) Large (67-100%) -Necrotic Tissue Type Adherent Slough Adherent Slough -Texture (Maria E-wound Skin Appearance) Assessed, Assessed, Scarring Scarring -Moisture (Maria E-wound Skin Appearance) Assessed, Assessed,Dry/ Weeping Scaly -Color (Maria E-wound Skin Appearance) No Abnormality, Assessed, Assessed Hemosiderin Staining -Temperature (Maria E-wound Skin No Abnormality No Abnormality Appearance) (Pt Warm) (Pt Warm) -Tenderness on Palpation (Maria E-wound No No Skin Appearance) -Ulcer Cleansing Rinsed/ soapy water Irrigated with Saline -Foul Odor after Cleansing No No -Anesthetic Used 4% Lidocaine 4% Lidocaine Solution Solution Lower Limb Edema Present Yes Left Calf (cm) 33.2 Left Ankle (cm) 20.1 WC - Nurse 2 - General Ulcer CM Notes Start: 12/09/20 10:46 Freq: Status: Active Protocol: Activity Type Activity Date Activity User E-Sign Co-Sign Detail Recorded Client Recorded Date Recorded By Document 12/09/20 11:28 MW [id number] 12/09/20 11:34 MW Document 12/14/20 15:55 MW [id number] 12/14/20 16:08 MW Document 12/21/20 15:41 MW [id number] 12/21/20 15:55 MW 12/09/20 12/14/20 12/21/20 11:28 15:55 15:41 Wound Center Nurse 2 #4 left anterior vargas cluster -Time 15:42 -Correct Patient Yes -Correct Side, Site, Position Yes -Correct Procedure Yes -Procedure Performed No -Post Debridement (cm) - Length 2.5 -Post Debridement (cm) - Width 3.5 -Post Debridement (cm) - Depth 0.1 -Total Square (Post) (cm) 8.75 -Tunneling No -Undermining/Tunneling No -Circular Undermining No -Wound/Ulcer Outcome Not Healed -Ulcer Cleansing Not Cleansed -Foul Odor after Cleansing No -Bioengineered Tissue No -Bleeding Controlled with NA -Offloading No -Treatment Response Procedure Tolerated Well #3 LLE Med -Time 11:30 -Correct Patient Yes -Correct Side, Site, Position Yes -Correct Procedure Yes -Procedure Performed No -Post Debridement (cm) - Length 0 -Post Debridement (cm) - Width 0 -Post Debridement (cm) - Depth 0 -Total Square (Post) (cm) 0 -Wound/Ulcer Outcome Healed- Epithelialized #2 LLE Vargas Cluster -Time 11:31 15:59 15:41 -Correct Patient Yes Yes Yes -Correct Side, Site, Position Yes Yes Yes -Correct Procedure Yes Yes Yes -Procedure Performed Yes Yes Yes -Type of Procedure Debridement Debridement Debridement -Clinical Debridement Subcutaneous Subcutaneous Subcutaneous -Tissue Removed Subcutaneous Subcutaneous Subcutaneous -Post Debridement (cm) - Length 5.0 3.4 3.2 -Post Debridement (cm) - Width 1.0 0.5 0.4 -Post Debridement (cm) - Depth 0.1 0.1 0.1 -Total Square (Post) (cm) 5.00 1.70 1.28 -Area of Debridement (cm) - Length 5.0 3.4 3.2 -Area of Debridement (cm) - Width 1.0 0.5 0.4 -Total Square (Area) (cm) 5.00 1.70 1.28 -Tunneling No No No -Undermining/Tunneling No No No -Circular Undermining No No No -Wound/Ulcer Outcome Not Healed Not Healed Not Healed -Ulcer Cleansing Rinsed/ Rinsed/ Irrigated with Irrigated with Saline Saline -Foul Odor after Cleansing No No No -Bioengineered Tissue Yes Yes Yes -Type of Bioengineered Tissue [facility] -Expiration Date 07/31/24 04/13/24 04/01/24 -Product Lot Number [id number] -Percent Used 100 100 100 -Lot number of Saline Used [id number] -Bleeding Controlled with Pressure Pressure Pressure -Offloading No No No -Treatment Response Procedure Procedure Procedure Tolerated Well Tolerated Well Tolerated Well -Debridement - Subq, 1st 20sq cm No No No -Apply Skin Sub - 1st 25 sq cm - Legs 1 1 1 -NuShield (per sq cm) 12 8 6 #1 L ant LE -Time 11:33 -Correct Patient Yes -Correct Side, Site, Position Yes -Correct Procedure Yes -Procedure Performed No -Post Debridement (cm) - Length 0 -Post Debridement (cm) - Width 0 -Post Debridement (cm) - Depth 0 -Total Square (Post) (cm) 0 -Wound/Ulcer Outcome Healed- Epithelialized Pain Scale: 0-10 Numeric Is Patient Pain Free? Yes Yes Yes WC - Nurse 3 - General Ulcer D/C NN Start: 12/09/20 10:46 Freq: Status: Active Protocol: Activity Type Activity Date Activity User E-Sign Co-Sign Detail Recorded Client Recorded Date Recorded By Document 12/09/20 11:52 KR [id number] 12/09/20 11:52 KR Document 12/21/20 15:58 MW [id number] 12/21/20 15:59 MW 12/09/20 12/21/20 11:52 15:58 Wound Care Nurse 3 #4 left anterior vargas cluster -Ulcer Cleansing Rinsed/ Irrigated with Saline -Foul Odor after Cleansing No -Negative Pressure Wound Therapy N/A -Other Dressing unna #2 LLE Vargas Cluster -Ulcer Cleansing Not Cleansed -Foul Odor after Cleansing No -Negative Pressure Wound Therapy N/A -Other Dressing ABD pad unna -Primary Dressing Covered/Secured with Secured with Tape Left -Lotion applied to leg before Yes compression wrap -Compression Wrap Unna Boot ($) ( single) Treatment Response Procedure Tolerated Well Pain Scale: 0-10 Numeric Is Patient Pain Free? Yes Yes Teaching: Wound Center Dressing Your Wound -Person Taught Patient,Family -Teaching Method Discussion, Demonstration -Response to teaching Verbalize understanding WC - Visit Discharge Discharge Condition Stable Stable Ambulatory Status Ambulatory Ambulatory Transportation Private Auto Private Auto Accompanied by sister sister Medication Reconcilliation completed & No provided to patient/care provider Clinical Summary of Care Provided Yes
[2020-12-28 15:16] VITALS: BP 87/52; PULSE 82; RESP 16; TEMP 37.1; BMI 28.0
== END 2021-01-03 23:59 ==
LOC: WC 15:15
PROVIDERS: PCP Family Medicine; Referring Provider Internal Medicine; Visit Provider Internal Medicine
DX: Z51.11 Encounter for antineoplastic chemotherapy (principal); C24.0 Malignant neoplasm of extrahepatic bile duct; I83.028 Varicose veins of left lower extremity with ulcer other part of lower leg; L97.822 Non-pressure chronic ulcer of other part of left lower leg with fat layer exposed; D64.9 Anemia, unspecified
CPT/HCPCS: 11042; 15271; 29580; 36591; 80053; 85025; 86301; 96367; 96368; 96372; 96413; 96417; 97802; J7050; Q4160; A4216; J2405; J2505; J3490; J9201; J9264

== ENCOUNTER 2021-02-01 14:30 | Outpatient (RCR) | payer MEDICARE, OTHER, SELFPAY ==
[2021-01-04 00:12] VITALS: BP 87/52; PULSE 82; RESP 16; TEMP 37.1; BMI 26.5
[2021-01-04 15:34] VITALS: BP 108/50; PULSE 85; RESP 16; TEMP 36.8; BMI 26.5
--- NOTE | 2021-01-04 20:13 | PN.PCM_ITS ---
History of Present Illness Date of Service: 01/04/21 Chief Complaint: non-healing wound of the LLE History of Wound: please see the consult dictated on this pt on 09/07/20 for hx Subjective Subjective Rosario returns to the wound care center today for a recheck on venous stasis ulcers of the left lower extremity. An Unna boot was applied last week and when it was removed there was a lot of wet DC soaking the bandages. She denies pain. She denies fever/chills/sweats. She liked the convenience of not having to change bandages at home. She continues to tolerate her chemo well. She is trying to increase her oral intake. Her weight in chemo has not changed in the past 2 weeks. Objective Data Objective Data Vital Signs: Vital Signs Temp Pulse Resp BP 98.3 F 85 16 108/50 L 01/04/21 15:34 01/04/21 15:34 01/04/21 15:34 01/04/21 15:34 Body Mass Index (BMI) 26.5 Charges/Coding Visit Charges Office Visits / Consults: 16096 OV L2 Est Physical Exam Skin Wounds: wounds noted Wound Narrative: There are new areas of skin breakdown on the anterior Left vargas. The area we used the Puraply on at the last visit is healed but the new skin is almost translucent. The skin over the left anterior vargas is very fragile and peels off with the slightest bump. Edema is much better with the unna boot. There is no purulent discharge. No odor and no increased warmth to touch. There is serosanguineous drainage and this is what causes the sogginess when the unna boot was removed today. There are small areas of maceration. Psych affect normal Appearance: grossly normal and well kempt Mood & Affect: Negative for anxious Thought Content: No suicidality and No homicidality Debridement Note Debridement Note Post-Debridement Measurements and Additional Note: Post-Debridement Measurements/Treatment JOHANNA - Nurse 1 - General Ulcer Assessment Start: 01/04/21 15:33 Freq: Status: Active Protocol: ELISEEXMarina Activity Type Activity Date Activity User E-Sign Co-Sign Detail Recorded Client Recorded Date Recorded By Document 01/04/21 15:34 REJI [id number] 01/04/21 15:41 REJI 01/04/21 15:34 WC - Today's Visit Information Type of service Follow-up Visit (Physician/DRY KILN LOADER ) Arrival Mode Ambulatory Patient Identification Verified (Name & Yes ) Patient Requires Transmission-Based No Precautions Height and Weight Body Mass Index (BMI) 26.5 BMI Classification Overweight Vital Signs Temperature (97.8 F-99.1 F) 98.3 F Temperature Source Temporal Pulse Rate (60-100) 85 Pulse Location Monitor Respiratory Rate (12-18) 16 Respiratory rate source Observation Blood Pressure (90/60-120/80) 108/50 L Blood Pressure Mean (mm Hg) 69 Source Monitor Position Sitting Blood Pressure Location Left Arm History Since Last Visit- (Skip if this is Patient's initial visit) Have you changed medications since your No last visit? Any new allergies or adverse reactions No Had a fall/change in ADL's that may No increase risk of falls Signs or symptoms of abuse and/or No neglect since last visit Have you been in the hospital since your No last visit? Has dressing in place as prescribed Yes Has compression in place as prescribed N/A Has offloadiing in place as prescribed N/A Experienced any changes in pain level or No management Left Footwear Regular Shoe Right Footwear Regular Shoe - Nurse 1 - General Ulcer Measurement Start: 01/04/21 15:33 Freq: Status: Active Protocol: Activity Type Activity Date Activity User E-Sign Co-Sign Detail Recorded Client Recorded Date Recorded By Document 01/04/21 15:34 REJI [id number] 01/04/21 15:41 Edit Result 01/04/21 15:34 JF (1) [id number] 01/04/21 15:42 JF (1) #4 left anterior vargas cluster - Ulcer Cleansing => Wound Cleanser - Foul Odor after Cleansing => No - Anesthetic Used => 4% Lidocaine => Solution #2 LLE Vargas Cluster - Ulcer Cleansing => Wound Cleanser - Foul Odor after Cleansing => No - Anesthetic Used => 4% Lidocaine => Solution 01/04/21 15:34 Wound Center Nurse 1 #4 left anterior vargas cluster -Ulcer Cleansing Wound Cleanser -Foul Odor after Cleansing No -Anesthetic Used 4% Lidocaine Solution #2 LLE Vargas Cluster -Ulcer Cleansing Wound Cleanser -Foul Odor after Cleansing No -Anesthetic Used 4% Lidocaine Solution Left Calf (cm) 30.8 Left Ankle (cm) 19.3 WC - Nurse 2 - General Ulcer CM Notes Start: 01/04/21 15:33 Freq: Status: Active Protocol: Activity Type Activity Date Activity User E-Sign Co-Sign Detail Recorded Client Recorded Date Recorded By Document 01/04/21 15:46 MW [id number] 01/04/21 16:00 MW 01/04/21 15:46 Wound Center Nurse 2 #6 Left medial LE Inferior -Time 15:54 -Correct Patient Yes -Correct Side, Site, Position Yes -Correct Procedure Yes -Procedure Performed No -Post Debridement (cm) - Length 0.6 -Post Debridement (cm) - Width 3.0 -Post Debridement (cm) - Depth 0.1 -Total Square (Post) (cm) 1.80 -Tunneling No -Undermining/Tunneling No -Circular Undermining No -Wound/Ulcer Outcome Not Healed -Ulcer Cleansing Rinsed/ Irrigated with Saline -Foul Odor after Cleansing No -Bioengineered Tissue No -Bleeding Controlled with NA -Offloading No -Treatment Response Procedure Tolerated Well #5 Left Medial LE superior -Time 15:54 -Correct Patient Yes -Correct Side, Site, Position Yes -Correct Procedure Yes -Procedure Performed No -Post Debridement (cm) - Length 3.4 -Post Debridement (cm) - Width 0.5 -Post Debridement (cm) - Depth 0.1 -Total Square (Post) (cm) 1.70 -Tunneling No -Undermining/Tunneling No -Circular Undermining No -Wound/Ulcer Outcome Not Healed -Ulcer Cleansing Rinsed/ Irrigated with Saline -Foul Odor after Cleansing No -Bioengineered Tissue No -Bleeding Controlled with NA -Offloading No -Treatment Response Procedure Tolerated Well #4 left anterior vargas cluster -Time 15:54 -Correct Patient Yes -Correct Side, Site, Position Yes -Correct Procedure Yes -Procedure Performed No -Post Debridement (cm) - Length 3.0 -Post Debridement (cm) - Width 5.5 -Post Debridement (cm) - Depth 0.1 -Total Square (Post) (cm) 16.50 -Tunneling No -Undermining/Tunneling No -Circular Undermining No -Wound/Ulcer Outcome Not Healed -Ulcer Cleansing Rinsed/ Irrigated with Saline -Foul Odor after Cleansing No -Bioengineered Tissue No -Bleeding Controlled with NA -Offloading No -Treatment Response Procedure Tolerated Well #2 LLE Vargas Cluster -Time 15:53 -Correct Patient Yes -Correct Side, Site, Position Yes -Correct Procedure Yes -Procedure Performed No -Post Debridement (cm) - Length 0 -Post Debridement (cm) - Width 0 -Post Debridement (cm) - Depth 0 -Total Square (Post) (cm) 0 -Wound/Ulcer Outcome Healed- Epithelialized Pain Scale: 0-10 Numeric Is Patient Pain Free? Yes WC - Nurse 3 - General Ulcer D/C NN Start: 01/04/21 15:33 Freq: Status: Active Protocol: Activity Type Activity Date Activity User E-Sign Co-Sign Detail Recorded Client Recorded Date Recorded By Document 01/04/21 16:04 MW [id number] 01/04/21 16:06 MW 01/04/21 16:04 Wound Care Nurse 3 #6 Left medial LE Inferior -Ulcer Cleansing Rinsed/ Irrigated with Saline -Foul Odor after Cleansing No -Negative Pressure Wound Therapy N/A -Primary Dressing Applied Aquacel AG 4x4, NonAdherent Contact Layer -Other Covering abd -Aquacel AG 4x4 1 #5 Left Medial LE superior -Ulcer Cleansing Rinsed/ Irrigated with Saline -Foul Odor after Cleansing No -Negative Pressure Wound Therapy N/A -Other Dressing aquacel ag -Other Covering abd pad #4 left anterior vargas cluster -Ulcer Cleansing Rinsed/ Irrigated with Saline -Foul Odor after Cleansing No -Negative Pressure Wound Therapy N/A -Other Dressing aquacel ag -Other Covering abd pad Left -Lotion applied to leg before No compression wrap -Multi-Layered Wrap Application Multi-Layer Comp - Left ($) Treatment Response Procedure Tolerated Well Pain Scale: 0-10 Numeric Is Patient Pain Free? Yes Teaching: Wound Center Dressing Your Wound -Person Taught Patient,Family -Teaching Method Discussion, Demonstration -Response to teaching Verbalize understanding WC - Visit Discharge Discharge Condition Stable Ambulatory Status Ambulatory Transportation Private Auto Accompanied by sister Medication Reconcilliation completed & No provided to patient/care provider Clinical Summary of Care Provided Yes No debridement was completed: No debridement was completed today Assessment/Plan Assessment/Plan (1) Venous stasis ulcer: CODE(S): I83.009 - Varicose veins of unspecified lower extremity with ulcer of unspecified site; L97.909 - Non-pressure chronic ulcer of unspecified part of unspecified lower leg with unspecified severity QUALIFIERS: Laterality: left Non-pressure ulcer stage: with fat layer exposed Varicose vein presence: with varicose veins Venous stasis ulcer site: calf Qualified Code(s): I83.022 - Varicose veins of left lower extremity with ulcer of calf; L97.222 - Non-pressure chronic ulcer of left calf with fat layer exposed (2) Severe malnutrition: CODE(S): E43 - Unspecified severe protein-calorie malnutrition (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 She will RTC on Sunday for a nurse visit and dressing change to prevent the dressing from being soaked with DC for prolonged period of time to prevent maceration and further skin breakdown. She will try and increase the protein and calorie intake to help heal the wound. We made several suggestions for increasing calories/protein including Muscle Milk, CIB, ice cream, pudding mixed with protein powder. RTC in 1 week to see me. The malnutrition is a big factor in not being able to keep this wound healed. Consider adding zinc, vitamin C and vitamin A at the next visit to the [facility]. I do not think she would drink Arnoldo but, will discuss at the next visit and see if she is willing to try. Discussed with her the fact that if she can not heal the venous stasis ulcers due to severe malnutrition then she will likely not be able to heal a surgical wound. Encouraged her to sip on a nutritional supplement throughout the day. I wonder if she wound consider a feeding tube? Would she be a candidate for IV TPN prior to planned surgery?
[2021-01-07 13:00] VITALS: BP 99/41; PULSE 80; RESP 16; TEMP 36.5; BMI 26.5
[2021-01-11 15:29] VITALS: BP 115/46; PULSE 72; RESP 16; TEMP 37; BMI 26.5
--- NOTE | 2021-01-11 16:05 | PCM.WC.PN ---
History of Present Illness Date of Service: 01/11/21 Chief Complaint: non-healing wound of the LLE History of Wound: please see the consult dictated on this pt on 09/07/20 for hx Subjective Subjective Rosario returns to the wound care center again today for a recheck on progress in healing of the venous stasis ulcers of the left lower extremity. The wound is currently being dressed with Aquacel Ag adaptic and a 3 M wrap. Rosario denies fevers, chills, night sweats. She states the pain she was having in her left lower extremity has resolved. She feels the compression is helping and is not so tight that it hurts. Objective Data Objective Data Vital Signs: Vital Signs Temp Pulse Resp BP 98.6 F 72 16 115/46 L 01/11/21 15:29 01/11/21 15:29 01/11/21 15:29 01/11/21 15:29 Oxygen Delivery Method Room Air Body Mass Index (BMI) 26.5 Physical Exam Skin Wounds: wounds noted Wound Narrative: There is no pitting edema of the LLE today. There has been healing of a few small superficial wounds limited to skin breakdown. There is no erythema, increased warmth to touch, tunnelling, undermining or purulent DC. No debridement was done today. The wounds on the superior anterior distal left LE just inferior to the tibial plateau are not healed after a few weeks of tx. The skin is very fragile. she is malnourished and this has hampered efforts to get the wounds healed. We are doing better now with a 3 M wrap than with the unna boot. The skin over the left distal leg is generally looking better since we are moisturizing every time the dressing is changed. There was no dried DC on the dressing today when it was removed. Debridement Note Debridement Note Post-Debridement Measurements and Additional Note: Post-Debridement Measurements/Treatment WC - Nurse 1 - General Ulcer Assessment Start: 01/04/21 15:33 Freq: Status: Active Protocol: ASHTYN Activity Type Activity Date Activity User E-Sign Co-Sign Detail Recorded Client Recorded Date Recorded By Document 01/04/21 15:34 JF [id number] 01/04/21 15:41 JF Document 01/07/21 13:00 MW [id number] 01/07/21 13:48 MW Document 01/11/21 15:29 BMF [id number] 01/11/21 15:40 [facility] 01/04/21 01/07/21 01/11/21 15:34 13:00 15:29 - Today's Visit Information Type of service Follow-up Visit Nurse-only Follow-up Visit (Physician/LEHR ATTENDANT Visit (Physician/LEHR ATTENDANT ) ) Arrival Mode Ambulatory Ambulatory Ambulatory Transfer Assistance None None Accompanied by self SISTER Patient Identification Verified (Name & Yes Yes Yes ) Patient Requires Transmission-Based No No No Precautions Safety Precautions NA Height and Weight Body Mass Index (BMI) 26.5 26.5 26.5 BMI Classification Overweight Overweight Overweight Vital Signs Temperature (97.8 F-99.1 F) 98.3 F 97.7 F L 98.6 F Temperature Source Temporal Temporal Temporal Pulse Rate (60-100) 85 80 72 Pulse Location Monitor Monitor Monitor Respiratory Rate (12-18) 16 16 16 Respiratory rate source Observation Observation Observation Oxygen Delivery Method Room Air Room Air Blood Pressure (90/60-120/80) 108/50 L 99/41 L 115/46 L Blood Pressure Mean (mm Hg) 69 60 69 Source Monitor Monitor Monitor Position Sitting Sitting Sitting Blood Pressure Location Left Arm Left Arm Left Forearm History Since Last Visit- (Skip if this is Patient's initial visit) Have you changed medications since your No No No last visit? Any new allergies or adverse reactions No No No Had a fall/change in ADL's that may No No No increase risk of falls Signs or symptoms of abuse and/or No No No neglect since last visit Have you been in the hospital since your No No No last visit? Has dressing in place as prescribed Yes Yes Yes Has compression in place as prescribed N/A Yes Yes Has offloadiing in place as prescribed N/A N/A N/A Experienced any changes in pain level or No No No management Left Footwear Regular Shoe Regular Shoe Regular Shoe Right Footwear Regular Shoe Regular Shoe Regular Shoe Pain Scale: 0-10 Numeric Is Patient Pain Free? Yes Yes - Nurse 1 - General Ulcer Measurement Start: 01/04/21 15:33 Freq: Status: Active Protocol: Activity Type Activity Date Activity User E-Sign Co-Sign Detail Recorded Client Recorded Date Recorded By Document 01/04/21 15:34 REJI [id number] 01/04/21 15:41 REJI Edit Result 01/04/21 15:34 JF (1) [id number] 01/04/21 15:42 JF Document 01/07/21 13:00 MW [id number] 01/07/21 13:48 MW Document 01/11/21 15:29 BMF [id number] 01/11/21 15:40 BMF (1) #4 left anterior vargas cluster - Ulcer Cleansing => Wound Cleanser - Foul Odor after Cleansing => No - Anesthetic Used => 4% Lidocaine => Solution #2 LLE Vargas Cluster - Ulcer Cleansing => Wound Cleanser - Foul Odor after Cleansing => No - Anesthetic Used => 4% Lidocaine => Solution 01/04/21 01/07/21 01/11/21 15:34 13:00 15:29 Wound Center Nurse 1 #6 Left medial LE Inferior -Current Size (cm) - Length 1.2 -Current Size (cm) - Width 1 -Current Size (cm) - Depth 0.1 -Total Square Cm 1.2 -Photo Taken No -Exudate Amt Small -Exudate Type Serosanguineous -Wound Margin Distinct, Outline Attached -Granulation Amt Medium (34-66%) -Granulation Quality [place] -Necrosis Amt Medium (34-66%) -Necrotic Tissue Type Adherent Slough -Structure Exposed N/A -Texture (Maria E-wound Skin Appearance) Assessed, Scarring Scarring -Moisture (Maria E-wound Skin Appearance) Assessed,Dry/ Scaly -Color (Maria E-wound Skin Appearance) Assessed, Rubor Hemosiderin Staining -Temperature (Maria E-wound Skin No Abnormality No Abnormality Appearance) (Pt Warm) (Pt Warm) -Tenderness on Palpation (Maria E-wound No No Skin Appearance) -Ulcer Cleansing soap and water Wound Cleanser -Foul Odor after Cleansing No No -Anesthetic Used 4% Lidocaine Solution #5 Left Medial LE superior -Current Size (cm) - Length 1.5 -Current Size (cm) - Width 0.8 -Current Size (cm) - Depth 0.1 -Total Square Cm 1.20 -Photo Taken No -Exudate Amt Small -Wound Margin Distinct, Outline Attached -Granulation Amt Medium (34-66%) -Necrosis Amt Medium (34-66%) -Necrotic Tissue Type Adherent Slough -Structure Exposed N/A -Texture (Maria E-wound Skin Appearance) Assessed, Scarring Scarring -Moisture (Maria E-wound Skin Appearance) Assessed,Dry/ No Abnormality Scaly -Color (Maria E-wound Skin Appearance) Assessed, Rubor Hemosiderin Staining -Temperature (Maria E-wound Skin No Abnormality No Abnormality Appearance) (Pt Warm) (Pt Warm) -Tenderness on Palpation (Maria E-wound No No Skin Appearance) -Ulcer Cleansing soap and water Wound Cleanser -Foul Odor after Cleansing No Yes, Due to Product Use -Anesthetic Used 4% Lidocaine Solution #4 left anterior vargas cluster -Ulcer Cleansing Wound Cleanser -Foul Odor after Cleansing No -Anesthetic Used 4% Lidocaine Solution #2 LLE Vargas Cluster -Ulcer Cleansing Wound Cleanser -Foul Odor after Cleansing No -Anesthetic Used 4% Lidocaine Solution Left Calf (cm) 30.8 31 Left Ankle (cm) 19.3 21 WC - Nurse 2 - General Ulcer CM Notes Start: 01/04/21 15:33 Freq: Status: Active Protocol: Activity Type Activity Date Activity User E-Sign Co-Sign Detail Recorded Client Recorded Date Recorded By Document 01/04/21 15:46 MW [id number] 01/04/21 16:00 MW Document 01/11/21 15:43 MW [id number] 01/11/21 16:00 MW 01/04/21 01/11/21 15:46 15:43 Wound Center Nurse 2 #7 LEFT LATERAL LE CLUSTER -Time 15:52 -Correct Patient Yes -Correct Side, Site, Position Yes -Correct Procedure Yes -Procedure Performed Yes -Type of Procedure Debridement -Clinical Debridement Subcutaneous -Tissue Removed Subcutaneous -Post Debridement (cm) - Length 4.7 -Post Debridement (cm) - Width 1.0 -Post Debridement (cm) - Depth 0.1 -Total Square (Post) (cm) 4.70 -Area of Debridement (cm) - Length 4.7 -Area of Debridement (cm) - Width 1.0 -Total Square (Area) (cm) 4.70 -Tunneling No -Undermining/Tunneling No -Circular Undermining No -Wound/Ulcer Outcome Not Healed -Ulcer Cleansing Rinsed/ Irrigated with Saline -Foul Odor after Cleansing No -Bioengineered Tissue No -Bleeding Controlled with Pressure -Offloading No -Treatment Response Procedure Tolerated Well -Debridement - Subq, 1st 20sq cm No #6 Left medial LE Inferior -Time 15:54 15:44 -Correct Patient Yes Yes -Correct Side, Site, Position Yes Yes -Correct Procedure Yes Yes -Procedure Performed No Yes -Type of Procedure Debridement -Clinical Debridement Subcutaneous -Tissue Removed Subcutaneous -Post Debridement (cm) - Length 0.6 1.0 -Post Debridement (cm) - Width 3.0 0.5 -Post Debridement (cm) - Depth 0.1 0.1 -Total Square (Post) (cm) 1.80 0.50 -Area of Debridement (cm) - Length 1.0 -Area of Debridement (cm) - Width 0.5 -Total Square (Area) (cm) 0.50 -Tunneling No No -Undermining/Tunneling No No -Circular Undermining No No -Wound/Ulcer Outcome Not Healed Not Healed -Ulcer Cleansing Rinsed/ Rinsed/ Irrigated with Irrigated with Saline Saline -Foul Odor after Cleansing No No -Bioengineered Tissue No No -Bleeding Controlled with NA Pressure -Offloading No No -Treatment Response Procedure Procedure Tolerated Well Tolerated Well -Debridement - Subq, 1st 20sq cm Yes #5 Left Medial LE superior -Time 15: 15:44 -Correct Patient Yes Yes -Correct Side, Site, Position Yes Yes -Correct Procedure Yes Yes -Procedure Performed No Yes -Type of Procedure Debridement -Clinical Debridement Subcutaneous -Tissue Removed Subcutaneous -Post Debridement (cm) - Length 3.4 1.2 -Post Debridement (cm) - Width 0.5 1.1 -Post Debridement (cm) - Depth 0.1 0.1 -Total Square (Post) (cm) 1.70 1.32 -Area of Debridement (cm) - Length 1.2 -Area of Debridement (cm) - Width 1.1 -Total Square (Area) (cm) 1.32 -Tunneling No No -Undermining/Tunneling No No -Circular Undermining No No -Wound/Ulcer Outcome Not Healed Not Healed -Ulcer Cleansing Rinsed/ Not Cleansed Irrigated with Saline -Foul Odor after Cleansing No No -Bioengineered Tissue No No -Bleeding Controlled with NA Pressure -Offloading No No -Treatment Response Procedure Procedure Tolerated Well Tolerated Well -Debridement - Subq, 1st 20sq cm No #4 left anterior vargas cluster -Time 15: 15:59 -Correct Patient Yes Yes -Correct Side, Site, Position Yes Yes -Correct Procedure Yes Yes -Procedure Performed No Yes -Type of Procedure Debridement -Clinical Debridement Subcutaneous -Tissue Removed Subcutaneous -Post Debridement (cm) - Length 3.0 0.5 -Post Debridement (cm) - Width 5.5 5.0 -Post Debridement (cm) - Depth 0.1 0.1 -Total Square (Post) (cm) 16.50 2.50 -Area of Debridement (cm) - Length 0.5 -Area of Debridement (cm) - Width 5.0 -Total Square (Area) (cm) 2.50 -Tunneling No No -Undermining/Tunneling No No -Circular Undermining No No -Wound/Ulcer Outcome Not Healed Not Healed -Ulcer Cleansing Rinsed/ Rinsed/ Irrigated with Irrigated with Saline Saline -Foul Odor after Cleansing No No -Bioengineered Tissue No No -Bleeding Controlled with NA Pressure -Offloading No No -Treatment Response Procedure Procedure Tolerated Well Tolerated Well -Debridement - Subq, 1st 20sq cm No #2 LLE Vargas Cluster -Time 15:53 -Correct Patient Yes -Correct Side, Site, Position Yes -Correct Procedure Yes -Procedure Performed No -Post Debridement (cm) - Length 0 -Post Debridement (cm) - Width 0 -Post Debridement (cm) - Depth 0 -Total Square (Post) (cm) 0 -Wound/Ulcer Outcome Healed- Epithelialized Pain Scale: 0-10 Numeric Is Patient Pain Free? Yes Yes WC - Nurse 3 - General Ulcer D/C NN Start: 01/04/21 15:33 Freq: Status: Active Protocol: Activity Type Activity Date Activity User E-Sign Co-Sign Detail Recorded Client Recorded Date Recorded By Document 01/04/21 16:04 MW [id number] 01/04/21 16:06 MW Document 01/07/21 13:00 MW [id number] 01/07/21 13:48 MW 01/04/21 01/07/21 16:04 13:00 Wound Care Nurse 3 #6 Left medial LE Inferior -Ulcer Cleansing Rinsed/ soap and water Irrigated with Saline -Foul Odor after Cleansing No No -Negative Pressure Wound Therapy N/A -Primary Dressing Applied Aquacel AG 4x4, Aquacel AG 2x2, NonAdherent NonAdherent Contact Layer Contact Layer -Other Covering abd abd -Aquacel AG 4x4 1 -Aquacel AG 2x2 1 #5 Left Medial LE superior -Ulcer Cleansing Rinsed/ soap and water Irrigated with Saline -Foul Odor after Cleansing No No -Negative Pressure Wound Therapy N/A N/A -Other Dressing aquacel ag aquacel ag -Other Covering abd pad abd #4 left anterior vargas cluster -Ulcer Cleansing Rinsed/ Irrigated with Saline -Foul Odor after Cleansing No -Negative Pressure Wound Therapy N/A -Other Dressing aquacel ag -Other Covering abd pad Left -Lotion applied to leg before No Yes compression wrap -Multi-Layered Wrap Application Multi-Layer Multi-Layer Comp - Left ($) Comp - Left ($) Treatment Response Procedure Procedure Tolerated Well Tolerated Well Vital Signs Temperature (97.8 F-99.1 F) 97.7 F L Temperature Source Temporal Pulse Rate (60-100) 80 Pulse Location Monitor Respiratory Rate (12-18) 16 Respiratory rate source Observation Oxygen Delivery Method Room Air Blood Pressure (90/60-120/80) 99/41 L Blood Pressure Mean (mm Hg) 60 Source Monitor Position Sitting Blood Pressure Location Left Arm Pain Scale: 0-10 Numeric Is Patient Pain Free? Yes Yes Teaching: Wound Center Dressing Your Wound -Person Taught Patient,Family -Teaching Method Discussion, Demonstration -Response to teaching Verbalize understanding WC - Visit Discharge Discharge Condition Stable Stable Ambulatory Status Ambulatory Ambulatory Transportation Private Auto Private Auto Accompanied by sister self Medication Reconcilliation completed & No No provided to patient/care provider Clinical Summary of Care Provided Yes Yes No debridement was completed: No debridement was completed today Assessment/Plan Assessment/Plan (1) Venous stasis ulcer: CODE(S): I83.009 - Varicose veins of unspecified lower extremity with ulcer of unspecified site; L97.909 - Non-pressure chronic ulcer of unspecified part of unspecified lower leg with unspecified severity QUALIFIERS: Venous stasis ulcer site: calf Varicose vein presence: with varicose veins Laterality: left Non-pressure ulcer stage: with fat layer exposed Qualified Code(s): I83.022 - Varicose veins of left lower extremity with ulcer of calf; L97.222 - Non-pressure chronic ulcer of left calf with fat layer exposed (2) Venous insufficiency of both lower extremities: CODE(S): I87.2 - Venous insufficiency (chronic) (peripheral) (3) Severe malnutrition: CODE(S): E43 - Unspecified severe protein-calorie malnutrition PLAN: 1. DC the silver alginate. Cover the wounds with adaptic and apply a 3M wrap. Apply for Nu-shield to use on the ulcers of the upper anterior left leg. RTC in 1 week for recheck. Call me if any pain, fevers/sweats or chills. 2. Drink as much Ensure as she can tolerate.
[2021-01-18 14:30] VITALS: BP 106/53; PULSE 88; RESP 18; TEMP 36.6; BMI 26.5
--- NOTE | 2021-01-18 16:52 | PCM.WC.PN ---
History of Present Illness Date of Service: 01/18/21 Chief Complaint: non-healing wound of the LLE History of Wound: please see the consult dictated on this pt on 09/07/20 for hx Subjective Subjective Rosario presents to the wound care center today for a follow-up visit. She denies fever, chills, sweats. Denies pain in the LLE. Objective Data Objective Data Vital Signs: Vital Signs Temp Pulse Resp BP 97.8 F 88 18 106/53 L 01/18/21 14:30 01/18/21 14:30 01/18/21 14:30 01/18/21 14:30 Oxygen Delivery Method Room Air Body Mass Index (BMI) 26.5 Charges/Coding Procedures Integumentary [id number]: [id number] Sheryl subq tissue 20 sq cm/< Physical Exam Skin Wounds: wounds noted Wound Narrative: The wounds distally are nearly healed. The wounds on the upper lateral calf are more superficial. The wounds on the medial upper calf care malik. In general the skin over the anterior vargas area looks healthier. There is no edema today. No erythema and no purulent DC or odor. Debridement Note Debridement Note Post-Debridement Measurements and Additional Note: Post-Debridement Measurements/Treatment - Nurse 1 - General Ulcer Assessment Start: 01/04/21 15:33 Freq: Status: Active Protocol: ASHTYN Activity Type Activity Date Activity User E-Sign Co-Sign Detail Recorded Client Recorded Date Recorded By Document 01/04/21 15:34 [id number] 01/04/21 15:41 Document 01/07/21 13:00 MW [id number] 01/07/21 13:48 MW Document 01/11/21 15:29 [facility] [id number] 01/11/21 15:40 [facility] Document 01/18/21 14:30 [facility] [id number] 01/18/21 14:42 [facility] 01/04/21 01/07/21 01/11/21 15:34 13:00 15:29 - Today's Visit Information Type of service Follow-up Visit Nurse-only Follow-up Visit (Physician/VASCULAR NEUROLOGIST Visit (Physician/VASCULAR NEUROLOGIST ) ) Arrival Mode Ambulatory Ambulatory Ambulatory Transfer Assistance None None Accompanied by self SISTER Patient Identification Verified (Name & Yes Yes Yes ) Patient Requires Transmission-Based No No No Precautions Safety Precautions NA Height and Weight Body Mass Index (BMI) 26.5 26.5 26.5 BMI Classification Overweight Overweight Overweight Vital Signs Temperature (97.8 F-99.1 F) 98.3 F 97.7 F L 98.6 F Temperature Source Temporal Temporal Temporal Pulse Rate (60-100) 85 80 72 Pulse Location Monitor Monitor Monitor Respiratory Rate (12-18) 16 16 16 Respiratory rate source Observation Observation Observation Oxygen Delivery Method Room Air Room Air Blood Pressure (90/60-120/80) 108/50 L 99/41 L 115/46 L Blood Pressure Mean (mm Hg) 69 60 69 Source Monitor Monitor Monitor Position Sitting Sitting Sitting Blood Pressure Location Left Arm Left Arm Left Forearm History Since Last Visit- (Skip if this is Patient's initial visit) Have you changed medications since your No No No last visit? Any new allergies or adverse reactions No No No Had a fall/change in ADL's that may No No No increase risk of falls Signs or symptoms of abuse and/or No No No neglect since last visit Have you been in the hospital since your No No No last visit? Has dressing in place as prescribed Yes Yes Yes Has compression in place as prescribed N/A Yes Yes Has offloadiing in place as prescribed N/A N/A N/A Experienced any changes in pain level or No No No management Left Footwear Regular Shoe Regular Shoe Regular Shoe Right Footwear Regular Shoe Regular Shoe Regular Shoe Pain Scale: 0-10 Numeric Is Patient Pain Free? Yes Yes 01/18/21 14:30 WC - Today's Visit Information Type of service Follow-up Visit (Physician/VASCULAR NEUROLOGIST ) Arrival Mode Ambulatory Transfer Assistance None Accompanied by SISTER Patient Identification Verified (Name & Yes ) Patient Requires Transmission-Based No Precautions Safety Precautions Height and Weight Body Mass Index (BMI) 26.5 BMI Classification Overweight Vital Signs Temperature (97.8 F-99.1 F) 97.8 F Temperature Source Temporal Pulse Rate (60-100) 88 Pulse Location Monitor Respiratory Rate (12-18) 18 Respiratory rate source Observation Oxygen Delivery Method Room Air Blood Pressure (90/60-120/80) 106/53 L Blood Pressure Mean (mm Hg) 70 Source Monitor Position Sitting Blood Pressure Location Left Arm History Since Last Visit- (Skip if this is Patient's initial visit) Have you changed medications since your last visit? Any new allergies or adverse reactions Had a fall/change in ADL's that may increase risk of falls Signs or symptoms of abuse and/or neglect since last visit Have you been in the hospital since your last visit? Has dressing in place as prescribed Has compression in place as prescribed Has offloadiing in place as prescribed Experienced any changes in pain level or management Left Footwear Regular Shoe Right Footwear Regular Shoe Pain Scale: 0-10 Numeric Is Patient Pain Free? Yes WC - Nurse 1 - General Ulcer Measurement Start: 01/04/21 15:33 Freq: Status: Active Protocol: Activity Type Activity Date Activity User E-Sign Co-Sign Detail Recorded Client Recorded Date Recorded By Document 01/04/21 15:34 JF [id number] 01/04/21 15:41 JF Edit Result 01/04/21 15:34 JF (1) [id number] 01/04/21 15:42 JF Document 01/07/21 13:00 MW [id number] 01/07/21 13:48 MW Document 01/11/21 15:29 BMF [id number] 01/11/21 15:40 BMF Document 01/18/21 14:30 BMF [id number] 01/18/21 14:42 BMF (1) #4 left anterior vargas cluster - Ulcer Cleansing => Wound Cleanser - Foul Odor after Cleansing => No - Anesthetic Used => 4% Lidocaine => Solution #2 LLE Vargas Cluster - Ulcer Cleansing => Wound Cleanser - Foul Odor after Cleansing => No - Anesthetic Used => 4% Lidocaine => Solution 01/04/21 01/07/21 01/11/21 15:34 13:00 15:29 Wound Center Nurse 1 #7 LEFT LATERAL LE CLUSTER -Combined with other wound -Current Size (cm) - Length -Current Size (cm) - Width -Current Size (cm) - Depth -Total Square Cm -Photo Taken -Epithelialization -Tunneling -Undermining/Tunneling -Circular Undermining -Exudate Amt -Exudate Type -Wound Margin -Granulation Amt -Granulation Quality -Slough/Fibrin -Necrosis Amt -Necrotic Tissue Type -Texture (Maria E-wound Skin Appearance) -Moisture (Maria E-wound Skin Appearance) -Color (Maria E-wound Skin Appearance) -Temperature (Maria E-wound Skin Appearance) -Tenderness on Palpation (Maria E-wound Skin Appearance) -Ulcer Cleansing -Foul Odor after Cleansing -Anesthetic Used #6 Left medial LE Inferior -Combined with other wound -Current Size (cm) - Length 1.2 -Current Size (cm) - Width 1 -Current Size (cm) - Depth 0.1 -Total Square Cm 1.2 -Photo Taken No -Epithelialization -Tunneling -Undermining/Tunneling -Circular Undermining -Exudate Amt Small -Exudate Type Serosanguineous -Wound Margin Distinct, Outline Attached -Granulation Amt Medium (34-66%) -Granulation Quality [place] -Slough/Fibrin -Necrosis Amt Medium (34-66%) -Necrotic Tissue Type Adherent Slough -Structure Exposed N/A -Texture (Maria E-wound Skin Appearance) Assessed, Scarring Scarring -Moisture (Maria E-wound Skin Appearance) Assessed,Dry/ Scaly -Color (Maria E-wound Skin Appearance) Assessed, Rubor Hemosiderin Staining -Temperature (Maria E-wound Skin No Abnormality No Abnormality Appearance) (Pt Warm) (Pt Warm) -Tenderness on Palpation (Maria E-wound No No Skin Appearance) -Ulcer Cleansing soap and water Wound Cleanser -Foul Odor after Cleansing No No -Anesthetic Used 4% Lidocaine Solution #5 Left Medial LE superior -Combined with other wound -Current Size (cm) - Length 1.5 -Current Size (cm) - Width 0.8 -Current Size (cm) - Depth 0.1 -Total Square Cm 1.20 -Photo Taken No -Epithelialization -Tunneling -Undermining/Tunneling -Circular Undermining -Exudate Amt Small -Exudate Type -Wound Margin Distinct, Outline Attached -Granulation Amt Medium (34-66%) -Granulation Quality -Slough/Fibrin -Necrosis Amt Medium (34-66%) -Necrotic Tissue Type Adherent Slough -Structure Exposed N/A -Texture (Maria E-wound Skin Appearance) Assessed, Scarring Scarring -Moisture (Maria E-wound Skin Appearance) Assessed,Dry/ No Abnormality Scaly -Color (Maria E-wound Skin Appearance) Assessed, Rubor Hemosiderin Staining -Temperature (Maria E-wound Skin No Abnormality No Abnormality Appearance) (Pt Warm) (Pt Warm) -Tenderness on Palpation (Maria E-wound No No Skin Appearance) -Ulcer Cleansing soap and water Wound Cleanser -Foul Odor after Cleansing No Yes, Due to Product Use -Anesthetic Used 4% Lidocaine Solution #4 left anterior vargas cluster -Combined with other wound -Current Size (cm) - Length -Current Size (cm) - Width -Current Size (cm) - Depth -Total Square Cm -Photo Taken -Epithelialization -Tunneling -Undermining/Tunneling -Circular Undermining -Exudate Amt -Exudate Type -Wound Margin -Granulation Amt -Granulation Quality -Slough/Fibrin -Necrosis Amt -Necrotic Tissue Type -Texture (Maria E-wound Skin Appearance) -Moisture (Maria E-wound Skin Appearance) -Color (Maria E-wound Skin Appearance) -Temperature (Maria E-wound Skin Appearance) -Tenderness on Palpation (Maria E-wound Skin Appearance) -Ulcer Cleansing Wound Cleanser -Foul Odor after Cleansing No -Anesthetic Used 4% Lidocaine Solution #2 LLE Vargas Cluster -Ulcer Cleansing Wound Cleanser -Foul Odor after Cleansing No -Anesthetic Used 4% Lidocaine Solution Lower Limb Edema Present Left Calf (cm) 30.8 31 Left Ankle (cm) 19.3 21 01/18/21 14:30 Wound Center Nurse 1 #7 LEFT LATERAL LE CLUSTER -Combined with other wound No -Current Size (cm) - Length 2.7 -Current Size (cm) - Width 1.7 -Current Size (cm) - Depth 0.1 -Total Square Cm 4.59 -Photo Taken No -Epithelialization Small 1-33% -Tunneling No -Undermining/Tunneling No -Circular Undermining No -Exudate Amt Medium -Exudate Type Serosanguineous -Wound Margin Distinct, Outline Attached -Granulation Amt Large (67-100%) -Granulation Quality Red -Slough/Fibrin Yes -Necrosis Amt Small (1-33%) -Necrotic Tissue Type Adherent Slough -Texture (Maria E-wound Skin Appearance) Assessed, Scarring -Moisture (Maria E-wound Skin Appearance) Assessed -Color (Maria E-wound Skin Appearance) Assessed -Temperature (Maria E-wound Skin No Abnormality Appearance) (Pt Warm) -Tenderness on Palpation (Maria E-wound No Skin Appearance) -Ulcer Cleansing SOAPY WATER -Foul Odor after Cleansing No -Anesthetic Used 4% Lidocaine Solution #6 Left medial LE Inferior -Combined with other wound No -Current Size (cm) - Length 1.1 -Current Size (cm) - Width 0.5 -Current Size (cm) - Depth 0.1 -Total Square Cm 0.55 -Photo Taken No -Epithelialization Small 1-33% -Tunneling No -Undermining/Tunneling No -Circular Undermining No -Exudate Amt Small -Exudate Type Serosanguineous -Wound Margin Distinct, Outline Attached -Granulation Amt Medium (34-66%) -Granulation Quality Red -Slough/Fibrin Yes -Necrosis Amt Medium (34-66%) -Necrotic Tissue Type Adherent Slough -Structure Exposed -Texture (Maria E-wound Skin Appearance) Assessed, Scarring -Moisture (Maria E-wound Skin Appearance) Assessed -Color (Maria E-wound Skin Appearance) Assessed -Temperature (Maria E-wound Skin No Abnormality Appearance) (Pt Warm) -Tenderness on Palpation (Maria E-wound No Skin Appearance) -Ulcer Cleansing SOAPY WATER -Foul Odor after Cleansing No -Anesthetic Used 4% Lidocaine Solution #5 Left Medial LE superior -Combined with other wound No -Current Size (cm) - Length 0.7 -Current Size (cm) - Width 0.5 -Current Size (cm) - Depth 0.1 -Total Square Cm 0.35 -Photo Taken No -Epithelialization Small 1-33% -Tunneling No -Undermining/Tunneling No -Circular Undermining No -Exudate Amt Small -Exudate Type Serosanguineous -Wound Margin Distinct, Outline Attached -Granulation Amt Medium (34-66%) -Granulation Quality Red -Slough/Fibrin Yes -Necrosis Amt Medium (34-66%) -Necrotic Tissue Type Adherent Slough -Structure Exposed -Texture (Maria E-wound Skin Appearance) Assessed, Scarring -Moisture (Maria E-wound Skin Appearance) Assessed,Dry/ Scaly -Color (Maria E-wound Skin Appearance) Assessed -Temperature (Maria E-wound Skin No Abnormality Appearance) (Pt Warm) -Tenderness on Palpation (Maria E-wound No Skin Appearance) -Ulcer Cleansing SOAPY WTER -Foul Odor after Cleansing No -Anesthetic Used 4% Lidocaine Solution #4 left anterior vargas cluster -Combined with other wound No -Current Size (cm) - Length 1.2 -Current Size (cm) - Width 5 -Current Size (cm) - Depth 0.1 -Total Square Cm 6.0 -Photo Taken No -Epithelialization Small 1-33% -Tunneling No -Undermining/Tunneling No -Circular Undermining No -Exudate Amt Small -Exudate Type Serosanguineous -Wound Margin Distinct, Outline Attached -Granulation Amt Medium (34-66%) -Granulation Quality Red -Slough/Fibrin Yes -Necrosis Amt Medium (34-66%) -Necrotic Tissue Type Adherent Slough -Texture (Maria E-wound Skin Appearance) Assessed, Scarring -Moisture (Maria E-wound Skin Appearance) Assessed -Color (Maria E-wound Skin Appearance) Assessed -Temperature (Maria E-wound Skin No Abnormality Appearance) (Pt Warm) -Tenderness on Palpation (Maria E-wound No Skin Appearance) -Ulcer Cleansing SOAPY WATER -Foul Odor after Cleansing No -Anesthetic Used 4% Lidocaine Solution #2 LLE Vargas Cluster -Ulcer Cleansing -Foul Odor after Cleansing -Anesthetic Used Lower Limb Edema Present Yes Left Calf (cm) 31 Left Ankle (cm) 19.8 WC - Nurse 2 - General Ulcer CM Notes Start: 01/04/21 15:33 Freq: Status: Active Protocol: Activity Type Activity Date Activity User E-Sign Co-Sign Detail Recorded Client Recorded Date Recorded By Document 01/04/21 15:46 MW [id number] 01/04/21 16:00 MW Document 01/11/21 15:43 MW [id number] 01/11/21 16:00 MW Document 01/18/21 14:48 MW [id number] 01/18/21 15:09 MW 01/04/21 01/11/21 01/18/21 15:46 15:43 14:48 Wound Center Nurse 2 #7 LEFT LATERAL LE CLUSTER -Time 15:52 14:55 -Correct Patient Yes Yes -Correct Side, Site, Position Yes Yes -Correct Procedure Yes Yes -Procedure Performed Yes Yes -Type of Procedure Debridement Debridement -Clinical Debridement Subcutaneous Subcutaneous -Tissue Removed Subcutaneous Subcutaneous -Post Debridement (cm) - Length 4.7 2.4 -Post Debridement (cm) - Width 1.0 2.0 -Post Debridement (cm) - Depth 0.1 0.1 -Total Square (Post) (cm) 4.70 4.80 -Area of Debridement (cm) - Length 4.7 2.4 -Area of Debridement (cm) - Width 1.0 2.0 -Total Square (Area) (cm) 4.70 4.80 -Tunneling No No -Undermining/Tunneling No No -Circular Undermining No No -Wound/Ulcer Outcome Not Healed Not Healed -Ulcer Cleansing Rinsed/ Rinsed/ Irrigated with Irrigated with Saline Saline -Foul Odor after Cleansing No No -Bioengineered Tissue No No -Bleeding Controlled with Pressure Pressure -Offloading No No -Treatment Response Procedure Procedure Tolerated Well Tolerated Well -Debridement - Subq, 1st 20sq cm No Yes #6 Left medial LE Inferior -Time 15: 15:44 14:55 -Correct Patient Yes Yes Yes -Correct Side, Site, Position Yes Yes Yes -Correct Procedure Yes Yes Yes -Procedure Performed No Yes Yes -Type of Procedure Debridement Debridement -Clinical Debridement Subcutaneous Subcutaneous -Tissue Removed Subcutaneous Subcutaneous -Post Debridement (cm) - Length 0.6 1.0 1.4 -Post Debridement (cm) - Width 3.0 0.5 0.5 -Post Debridement (cm) - Depth 0.1 0.1 0.1 -Total Square (Post) (cm) 1.80 0.50 0.70 -Area of Debridement (cm) - Length 1.0 1.4 -Area of Debridement (cm) - Width 0.5 0.5 -Total Square (Area) (cm) 0.50 0.70 -Tunneling No No No -Undermining/Tunneling No No No -Circular Undermining No No No -Wound/Ulcer Outcome Not Healed Not Healed Not Healed -Ulcer Cleansing Rinsed/ Rinsed/ Rinsed/ Irrigated with Irrigated with Irrigated with Saline Saline Saline -Foul Odor after Cleansing No No No -Bioengineered Tissue No No No -Bleeding Controlled with NA Pressure Pressure -Offloading No No No -Treatment Response Procedure Procedure Tolerated Well Tolerated Well -Debridement - Subq, 1st 20sq cm Yes No #5 Left Medial LE superior -Time 15: 15:44 14:55 -Correct Patient Yes Yes Yes -Correct Side, Site, Position Yes Yes Yes -Correct Procedure Yes Yes Yes -Procedure Performed No Yes Yes -Type of Procedure Debridement Debridement -Clinical Debridement Subcutaneous Subcutaneous -Tissue Removed Subcutaneous Subcutaneous -Post Debridement (cm) - Length 3.4 1.2 1.5 -Post Debridement (cm) - Width 0.5 1.1 2.0 -Post Debridement (cm) - Depth 0.1 0.1 0.1 -Total Square (Post) (cm) 1.70 1.32 3.00 -Area of Debridement (cm) - Length 1.2 1.5 -Area of Debridement (cm) - Width 1.1 2.0 -Total Square (Area) (cm) 1.32 3.00 -Tunneling No No No -Undermining/Tunneling No No No -Circular Undermining No No No -Wound/Ulcer Outcome Not Healed Not Healed Not Healed -Ulcer Cleansing Rinsed/ Not Cleansed Rinsed/ Irrigated with Irrigated with Saline Saline -Foul Odor after Cleansing No No No -Bioengineered Tissue No No Yes -Type of Bioengineered Tissue PuraPly AM -Expiration Date 06/01/22 -Product Lot Number [id number] -Percent Used 100 -Lot number of Saline Used [id number] -Bleeding Controlled with NA Pressure Pressure -Offloading No No No -Treatment Response Procedure Procedure Procedure Tolerated Well Tolerated Well Tolerated Well -Debridement - Subq, 1st 20sq cm No No -Apply Skin Sub - 1st 25 sq cm - Legs 1 -PuraPly AM (per sq cm) 8 #4 left anterior vargas cluster -Time 15:54 15:59 14:57 -Correct Patient Yes Yes Yes -Correct Side, Site, Position Yes Yes Yes -Correct Procedure Yes Yes Yes -Procedure Performed No Yes Yes -Type of Procedure Debridement Debridement -Clinical Debridement Subcutaneous Subcutaneous -Tissue Removed Subcutaneous Subcutaneous -Post Debridement (cm) - Length 3.0 0.5 0.1 -Post Debridement (cm) - Width 5.5 5.0 0.1 -Post Debridement (cm) - Depth 0.1 0.1 0.1 -Total Square (Post) (cm) 16.50 2.50 0 -Area of Debridement (cm) - Length 0.5 0.1 -Area of Debridement (cm) - Width 5.0 0.1 -Total Square (Area) (cm) 2.50 0.01 -Tunneling No No No -Undermining/Tunneling No No No -Circular Undermining No No No -Wound/Ulcer Outcome Not Healed Not Healed Not Healed -Ulcer Cleansing Rinsed/ Rinsed/ Rinsed/ Irrigated with Irrigated with Irrigated with Saline Saline Saline -Foul Odor after Cleansing No No No -Bioengineered Tissue No No No -Bleeding Controlled with NA Pressure Pressure -Offloading No No No -Treatment Response Procedure Procedure Procedure Tolerated Well Tolerated Well Tolerated Well -Debridement - Subq, 1st 20sq cm No No #2 LLE Vargas Cluster -Time 15:53 -Correct Patient Yes -Correct Side, Site, Position Yes -Correct Procedure Yes -Procedure Performed No -Post Debridement (cm) - Length 0 -Post Debridement (cm) - Width 0 -Post Debridement (cm) - Depth 0 -Total Square (Post) (cm) 0 -Wound/Ulcer Outcome Healed- Epithelialized Pain Scale: 0-10 Numeric Is Patient Pain Free? Yes Yes Yes WC - Nurse 3 - General Ulcer D/C NN Start: 01/04/21 15:33 Freq: Status: Active Protocol: Activity Type Activity Date Activity User E-Sign Co-Sign Detail Recorded Client Recorded Date Recorded By Document 01/04/21 16:04 MW [id number] 01/04/21 16:06 MW Document 01/07/21 13:00 MW [id number] 01/07/21 13:48 MW Document 01/11/21 16:05 MW [id number] 01/11/21 16:07 MW Edit Result 01/11/21 16:05 MW (1) [id number] 01/12/21 16:44 PL Document 01/18/21 15:16 MW [id number] 01/18/21 15:17 MW (1) Left - Multi-Layered Wrap Application => Multi-Layer Comp - => Left ($) 01/04/21 01/07/21 01/11/21 16:04 13:00 16:05 Wound Care Nurse 3 #7 LEFT LATERAL LE CLUSTER -Ulcer Cleansing Rinsed/ Irrigated with Saline -Foul Odor after Cleansing No -Negative Pressure Wound Therapy N/A -Primary Dressing Applied NonAdherent Contact Layer -Primary Dressing Covered/Secured with -Other Covering ABD #6 Left medial LE Inferior -Ulcer Cleansing Rinsed/ soap and water Rinsed/ Irrigated with Irrigated with Saline Saline -Foul Odor after Cleansing No No No -Negative Pressure Wound Therapy N/A N/A -Primary Dressing Applied Aquacel AG 4x4, Aquacel AG 2x2, NonAdherent NonAdherent NonAdherent Contact Layer Contact Layer Contact Layer -Primary Dressing Covered/Secured with -Other Covering abd abd ABD -Aquacel AG 4x4 1 -Aquacel AG 2x2 1 #5 Left Medial LE superior -Ulcer Cleansing Rinsed/ soap and water Rinsed/ Irrigated with Irrigated with Saline Saline -Foul Odor after Cleansing No No No -Negative Pressure Wound Therapy N/A N/A N/A -Primary Dressing Applied NonAdherent Contact Layer -Other Dressing aquacel ag aquacel ag -Primary Dressing Covered/Secured with -Other Covering abd pad abd ABD #4 left anterior vargas cluster -Ulcer Cleansing Rinsed/ Rinsed/ Irrigated with Irrigated with Saline Saline -Foul Odor after Cleansing No No -Negative Pressure Wound Therapy N/A N/A -Primary Dressing Applied NonAdherent Contact Layer -Other Dressing aquacel ag -Primary Dressing Covered/Secured with -Other Covering abd pad ABD Left -Lotion applied to leg before No Yes compression wrap -Multi-Layered Wrap Application Multi-Layer Multi-Layer Multi-Layer Comp - Left ($) Comp - Left ($) Comp - Left ($) Treatment Response Procedure Procedure Procedure Tolerated Well Tolerated Well Tolerated Well Vital Signs Temperature (97.8 F-99.1 F) 97.7 F L Temperature Source Temporal Pulse Rate (60-100) 80 Pulse Location Monitor Respiratory Rate (12-18) 16 Respiratory rate source Observation Oxygen Delivery Method Room Air Blood Pressure (90/60-120/80) 99/41 L Blood Pressure Mean (mm Hg) 60 Source Monitor Position Sitting Blood Pressure Location Left Arm Pain Scale: 0-10 Numeric Is Patient Pain Free? Yes Yes Yes Teaching: Wound Center Dressing Your Wound -Person Taught Patient,Family Patient,Family -Teaching Method Discussion, Discussion, Demonstration Demonstration -Response to teaching Verbalize Verbalize understanding understanding WC - Visit Discharge Discharge Condition Stable Stable Stable Ambulatory Status Ambulatory Ambulatory Ambulatory Transportation Private Auto Private Auto Private Auto Accompanied by sister self SISTER Medication Reconcilliation completed & No No No provided to patient/care provider Clinical Summary of Care Provided Yes Yes Yes 01/18/21 15:16 Wound Care Nurse 3 #7 LEFT LATERAL LE CLUSTER -Ulcer Cleansing Not Cleansed -Foul Odor after Cleansing No -Negative Pressure Wound Therapy N/A -Primary Dressing Applied -Primary Dressing Covered/Secured with Dry Gauze, Secured with Tape -Other Covering #6 Left medial LE Inferior -Ulcer Cleansing Not Cleansed -Foul Odor after Cleansing No -Negative Pressure Wound Therapy N/A -Primary Dressing Applied -Primary Dressing Covered/Secured with Dry Gauze, Secured with Tape -Other Covering -Aquacel AG 4x4 -Aquacel AG 2x2 #5 Left Medial LE superior -Ulcer Cleansing Not Cleansed -Foul Odor after Cleansing No -Negative Pressure Wound Therapy N/A -Primary Dressing Applied -Other Dressing -Primary Dressing Covered/Secured with Dry Gauze, Secured with Tape -Other Covering #4 left anterior vargas cluster -Ulcer Cleansing Not Cleansed -Foul Odor after Cleansing No -Negative Pressure Wound Therapy N/A -Primary Dressing Applied -Other Dressing -Primary Dressing Covered/Secured with Dry Gauze, Secured with Tape -Other Covering Left -Lotion applied to leg before Yes compression wrap -Multi-Layered Wrap Application Multi-Layer Comp - Left ($) Treatment Response Procedure Tolerated Well Vital Signs Temperature (97.8 F-99.1 F) Temperature Source Pulse Rate (60-100) Pulse Location Respiratory Rate (12-18) Respiratory rate source Oxygen Delivery Method Blood Pressure (90/60-120/80) Blood Pressure Mean (mm Hg) Source Position Blood Pressure Location Pain Scale: 0-10 Numeric Is Patient Pain Free? Yes Teaching: Wound Center Dressing Your Wound -Person Taught Patient,Family -Teaching Method Discussion, Demonstration -Response to teaching Verbalize understanding WC - Visit Discharge Discharge Condition Stable Ambulatory Status Ambulatory Transportation Private Auto Accompanied by SISTER Medication Reconcilliation completed & No provided to patient/care provider Clinical Summary of Care Provided Yes Wound debrided: multiple wounds on the LLE Laterality: Left Type of Debridement: Excisional debridement Anesthesia Used: 4% Lidocaine Solution Depth: Down to and including healthy tissue Percentage of wound debrided: 70 Instrument Used: Forceps Severity: Limited To Skin Breakdown Amount of bleeding with debridement: None Patient tolerated procedure: Patient tolerated procedure well Assessment/Plan Assessment/Plan (1) Venous stasis ulcer: CODE(S): I83.009 - Varicose veins of unspecified lower extremity with ulcer of unspecified site; L97.909 - Non-pressure chronic ulcer of unspecified part of unspecified lower leg with unspecified severity QUALIFIERS: Venous stasis ulcer site: calf Varicose vein presence: with varicose veins Laterality: left Non-pressure ulcer stage: with fat layer exposed Qualified Code(s): 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 If it becomes too tight she will elevate her leg and if it is still tight and painful she will com in and have the dressing removed RTC in 1 week for a recheck.
[2021-01-25 15:11] VITALS: BP 107/34; PULSE 80; RESP 18; TEMP 37.1; BMI 26.5
--- NOTE | 2021-01-25 17:17 | PCM.WC.PN ---
History of Present Illness Date of Service: 01/25/21 Chief Complaint: non-healing wound of the LLE History of Wound: please see the consult dictated on this pt on 09/07/20 for hx Subjective Subjective Rosario returns to the wound care clinic today for a follow up visit to recheck the venous stasis ulcers of the LLE currently being treated with Puraply. She denies fevers, chills and sweats. She has no pain other than when the tape is removed from her skin. she denies CP, SOB. She is drinking 1 Ensure a day, 2 large (12oz) glasses of whole milk and 4-8 ounces of OJ. Weight has been stable in chemo. She denies abd pain. she gets nauseated at time. She feels hungry and food looks good to her but, when the food comes she just looks at it and does not want to eat. Eating does not cause abd pain. She occasionally gets nauseated but is not vomiting. Objective Data Objective Data Vital Signs: Vital Signs Temp Pulse Resp BP 98.8 F 80 18 107/34 L 01/25/21 15:11 01/25/21 15:11 01/25/21 15:11 01/25/21 15:11 Oxygen Delivery Method Room Air Body Mass Index (BMI) 26.5 Charges/Coding Procedures Integumentary [id number]: [id number] Sheryl subq tissue 20 sq cm/< Physical Exam Const Constitutional Narrative: She is pale and her face and body are much thinner than in the recent past. Still not eating. Skin Wound Narrative: There are several small openings in the skin over the Left anterior vargas. The skin is paper thin and very fragile and she has severe protein calorie malnutrition. There is no purulent DC and no odor. She denies fevers, chills, sweats. She denies pain in the left lower extremity. It does get itchy at times. Debridement Note Debridement Note Post-Debridement Measurements and Additional Note: Post-Debridement Measurements/Treatment JOHANNA - Nurse 1 - General Ulcer Assessment Start: 01/04/21 15:33 Freq: Status: Active Protocol: ASHTYN Activity Type Activity Date Activity User E-Sign Co-Sign Detail Recorded Client Recorded Date Recorded By Document 01/04/21 15:34 REJI [id number] 01/04/21 15:41 REJI Document 01/07/21 13:00 MW [id number] 01/07/21 13:48 MW Document 01/11/21 15:29 BMF [id number] 01/11/21 15:40 BMF Document 01/18/21 14:30 BMF [id number] 01/18/21 14:42 BMF Document 01/25/21 15:11 DL [id number] 01/25/21 15:25 DL 01/04/21 01/07/21 01/11/21 15:34 13:00 15:29 WC - Today's Visit Information Type of service Follow-up Visit Nurse-only Follow-up Visit (Physician/SENIOR MARKET INTELLIGENCE CONSULTANT Visit (Physician/SENIOR MARKET INTELLIGENCE CONSULTANT ) ) Arrival Mode Ambulatory Ambulatory Ambulatory Transfer Assistance None None Accompanied by self SISTER Patient Identification Verified (Name & Yes Yes Yes ) Patient Requires Transmission-Based No No No Precautions Safety Precautions NA Height and Weight Body Mass Index (BMI) 26.5 26.5 26.5 BMI Classification Overweight Overweight Overweight Vital Signs Temperature (97.8 F-99.1 F) 98.3 F 97.7 F L 98.6 F Temperature Source Temporal Temporal Temporal Pulse Rate (60-100) 85 80 72 Pulse Location Monitor Monitor Monitor Respiratory Rate (12-18) 16 16 16 Respiratory rate source Observation Observation Observation Oxygen Delivery Method Room Air Room Air Blood Pressure (90/60-120/80) 108/50 L 99/41 L 115/46 L Blood Pressure Mean (mm Hg) 69 60 69 Source Monitor Monitor Monitor Position Sitting Sitting Sitting Blood Pressure Location Left Arm Left Arm Left Forearm History Since Last Visit- (Skip if this is Patient's initial visit) Have you changed medications since your No No No last visit? Any new allergies or adverse reactions No No No Had a fall/change in ADL's that may No No No increase risk of falls Signs or symptoms of abuse and/or No No No neglect since last visit Have you been in the hospital since your No No No last visit? Has dressing in place as prescribed Yes Yes Yes Has compression in place as prescribed N/A Yes Yes Has offloadiing in place as prescribed N/A N/A N/A Experienced any changes in pain level or No No No management Left Footwear Regular Shoe Regular Shoe Regular Shoe Right Footwear Regular Shoe Regular Shoe Regular Shoe Pain Scale: 0-10 Numeric Is Patient Pain Free? Yes Yes 01/18/21 01/25/21 14:30 15:11 WC - Today's Visit Information Type of service Follow-up Visit Follow-up Visit (Physician/SENIOR MARKET INTELLIGENCE CONSULTANT (Physician/SENIOR MARKET INTELLIGENCE CONSULTANT ) ) Arrival Mode Ambulatory Ambulatory,Cane Transfer Assistance None None Accompanied by SISTER Patient Identification Verified (Name & Yes Yes ) Patient Requires Transmission-Based No No Precautions Safety Precautions Height and Weight Body Mass Index (BMI) 26.5 26.5 BMI Classification Overweight Overweight Vital Signs Temperature (97.8 F-99.1 F) 97.8 F 98.8 F Temperature Source Temporal Temporal Pulse Rate (60-100) 88 80 Pulse Location Monitor Monitor Respiratory Rate (12-18) 18 18 Respiratory rate source Observation Observation Oxygen Delivery Method Room Air Blood Pressure (90/60-120/80) 106/53 L 107/34 L Blood Pressure Mean (mm Hg) 70 58 Source Monitor Monitor Position Sitting Blood Pressure Location Left Arm History Since Last Visit- (Skip if this is Patient's initial visit) Have you changed medications since your No last visit? Any new allergies or adverse reactions No Had a fall/change in ADL's that may No increase risk of falls Signs or symptoms of abuse and/or No neglect since last visit Have you been in the hospital since your No last visit? Has dressing in place as prescribed Yes Has compression in place as prescribed Yes Has offloadiing in place as prescribed N/A Experienced any changes in pain level or Yes management Left Footwear Regular Shoe Right Footwear Regular Shoe Pain Scale: 0-10 Numeric Is Patient Pain Free? Yes Yes WC - Nurse 1 - General Ulcer Measurement Start: 01/04/21 15:33 Freq: Status: Active Protocol: Activity Type Activity Date Activity User E-Sign Co-Sign Detail Recorded Client Recorded Date Recorded By Document 01/04/21 15:34 JF [id number] 01/04/21 15:41 JF Edit Result 01/04/21 15:34 JF (1) [id number] 01/04/21 15:42 JF Document 01/07/21 13:00 MW [id number] 01/07/21 13:48 MW Document 01/11/21 15:29 BMF [id number] 01/11/21 15:40 BMF Document 01/18/21 14:30 BMF [id number] 01/18/21 14:42 BMF Document 01/25/21 15:11 DL [id number] 01/25/21 15:25 DL (1) #4 left anterior vargas cluster - Ulcer Cleansing => Wound Cleanser - Foul Odor after Cleansing => No - Anesthetic Used => 4% Lidocaine => Solution #2 LLE Vargas Cluster - Ulcer Cleansing => Wound Cleanser - Foul Odor after Cleansing => No - Anesthetic Used => 4% Lidocaine => Solution 01/04/21 01/07/21 01/11/21 15:34 13:00 15:29 Wound Center Nurse 1 #7 LEFT LATERAL LE CLUSTER -Combined with other wound -Current Size (cm) - Length -Current Size (cm) - Width -Current Size (cm) - Depth -Total Square Cm -Photo Taken -Epithelialization -Tunneling -Undermining/Tunneling -Circular Undermining -Exudate Amt -Exudate Type -Wound Margin -Granulation Amt -Granulation Quality -Slough/Fibrin -Necrosis Amt -Necrotic Tissue Type -Structure Exposed -Texture (Maria E-wound Skin Appearance) -Moisture (Maria E-wound Skin Appearance) -Color (Maria E-wound Skin Appearance) -Temperature (Maria E-wound Skin Appearance) -Tenderness on Palpation (Maria E-wound Skin Appearance) -Ulcer Cleansing -Foul Odor after Cleansing -Anesthetic Used #6 Left medial LE Inferior -Combined with other wound -Current Size (cm) - Length 1.2 -Current Size (cm) - Width 1 -Current Size (cm) - Depth 0.1 -Total Square Cm 1.2 -Photo Taken No -Epithelialization -Tunneling -Undermining/Tunneling -Circular Undermining -Exudate Amt Small -Exudate Type Serosanguineous -Wound Margin Distinct, Outline Attached -Granulation Amt Medium (34-66%) -Granulation Quality [place] -Slough/Fibrin -Necrosis Amt Medium (34-66%) -Necrotic Tissue Type Adherent Slough -Structure Exposed N/A -Texture (Maria E-wound Skin Appearance) Assessed, Scarring Scarring -Moisture (Maria E-wound Skin Appearance) Assessed,Dry/ Scaly -Color (Maria E-wound Skin Appearance) Assessed, Rubor Hemosiderin Staining -Temperature (Maria E-wound Skin No Abnormality No Abnormality Appearance) (Pt Warm) (Pt Warm) -Tenderness on Palpation (Maria E-wound No No Skin Appearance) -Ulcer Cleansing soap and water Wound Cleanser -Foul Odor after Cleansing No No -Anesthetic Used 4% Lidocaine Solution #5 Left Medial LE superior -Combined with other wound -Current Size (cm) - Length 1.5 -Current Size (cm) - Width 0.8 -Current Size (cm) - Depth 0.1 -Total Square Cm 1.20 -Photo Taken No -Epithelialization -Tunneling -Undermining/Tunneling -Circular Undermining -Exudate Amt Small -Exudate Type -Wound Margin Distinct, Outline Attached -Granulation Amt Medium (34-66%) -Granulation Quality -Slough/Fibrin -Necrosis Amt Medium (34-66%) -Necrotic Tissue Type Adherent Slough -Structure Exposed N/A -Texture (Maria E-wound Skin Appearance) Assessed, Scarring Scarring -Moisture (Maria E-wound Skin Appearance) Assessed,Dry/ No Abnormality Scaly -Color (Maria E-wound Skin Appearance) Assessed, Rubor Hemosiderin Staining -Temperature (Maria E-wound Skin No Abnormality No Abnormality Appearance) (Pt Warm) (Pt Warm) -Tenderness on Palpation (Maria E-wound No No Skin Appearance) -Ulcer Cleansing soap and water Wound Cleanser -Foul Odor after Cleansing No Yes, Due to Product Use -Anesthetic Used 4% Lidocaine Solution #4 left anterior vargas cluster -Combined with other wound -Current Size (cm) - Length -Current Size (cm) - Width -Current Size (cm) - Depth -Total Square Cm -Photo Taken -Epithelialization -Tunneling -Undermining/Tunneling -Circular Undermining -Exudate Amt -Exudate Type -Wound Margin -Granulation Amt -Granulation Quality -Slough/Fibrin -Necrosis Amt -Necrotic Tissue Type -Structure Exposed -Texture (Maria E-wound Skin Appearance) -Moisture (Maria E-wound Skin Appearance) -Color (Maria E-wound Skin Appearance) -Temperature (Maria E-wound Skin Appearance) -Tenderness on Palpation (Maria E-wound Skin Appearance) -Ulcer Cleansing Wound Cleanser -Foul Odor after Cleansing No -Anesthetic Used 4% Lidocaine Solution #2 LLE Vargas Cluster -Ulcer Cleansing Wound Cleanser -Foul Odor after Cleansing No -Anesthetic Used 4% Lidocaine Solution Lower Limb Edema Present Left Calf (cm) 30.8 31 Left Ankle (cm) 19.3 21 01/18/21 01/25/21 14:30 15:11 Wound Center Nurse 1 #7 LEFT LATERAL LE CLUSTER -Combined with other wound No -Current Size (cm) - Length 2.7 2.5 -Current Size (cm) - Width 1.7 1.5 -Current Size (cm) - Depth 0.1 0.1 -Total Square Cm 4.59 3.75 -Photo Taken No No -Epithelialization Small 1-33% -Tunneling No -Undermining/Tunneling No -Circular Undermining No -Exudate Amt Medium Medium -Exudate Type Serosanguineous Serosanguineous -Wound Margin Distinct, Thickened Outline Attached -Granulation Amt Large (67-100%) None Present (0 %) -Granulation Quality Red -Slough/Fibrin Yes -Necrosis Amt Small (1-33%) Large (67-100%) -Necrotic Tissue Type Adherent Slough Eschar -Structure Exposed None/Limited to Skin Breakdown -Texture (Maria E-wound Skin Appearance) Assessed, Friable, Scarring Scarring -Moisture (Maria E-wound Skin Appearance) Assessed -Color (Maria E-wound Skin Appearance) Assessed Hemosiderin Staining -Temperature (Maria E-wound Skin No Abnormality No Abnormality Appearance) (Pt Warm) (Pt Warm) -Tenderness on Palpation (Mariae -wound No No Skin Appearance) -Ulcer Cleansing SOAPY WATER Wound Cleanser -Foul Odor after Cleansing No No -Anesthetic Used 4% Lidocaine 4% Lidocaine Solution Solution #6 Left medial LE Inferior -Combined with other wound No -Current Size (cm) - Length 1.1 0.8 -Current Size (cm) - Width 0.5 1 -Current Size (cm) - Depth 0.1 0.1 -Total Square Cm 0.55 0.8 -Photo Taken No No -Epithelialization Small 1-33% -Tunneling No -Undermining/Tunneling No -Circular Undermining No -Exudate Amt Small Small -Exudate Type Serosanguineous Serosanguineous -Wound Margin Distinct, Thickened Outline Attached -Granulation Amt Medium (34-66%) None Present (0 %) -Granulation Quality Red -Slough/Fibrin Yes -Necrosis Amt Medium (34-66%) Small (1-33%) -Necrotic Tissue Type Adherent Slough Adherent Slough -Structure Exposed N/A -Texture (Maria E-wound Skin Appearance) Assessed, Friable, Scarring Scarring -Moisture (Maria E-wound Skin Appearance) Assessed No Abnormality -Color (Maria E-wound Skin Appearance) Assessed No Abnormality -Temperature (Maria E-wound Skin No Abnormality No Abnormality Appearance) (Pt Warm) (Pt Warm) -Tenderness on Palpation (Maria E-wound No No Skin Appearance) -Ulcer Cleansing SOAPY WATER Wound Cleanser -Foul Odor after Cleansing No No -Anesthetic Used 4% Lidocaine 4% Lidocaine Solution Solution #5 Left Medial LE superior -Combined with other wound No -Current Size (cm) - Length 0.7 1 -Current Size (cm) - Width 0.5 0.9 -Current Size (cm) - Depth 0.1 0.1 -Total Square Cm 0.35 0.9 -Photo Taken No No -Epithelialization Small 1-33% -Tunneling No -Undermining/Tunneling No -Circular Undermining No -Exudate Amt Small Small -Exudate Type Serosanguineous Serosanguineous -Wound Margin Distinct, Distinct, Outline Outline Attached Attached -Granulation Amt Medium (34-66%) Large (67-100%) -Granulation Quality Red [place] -Slough/Fibrin Yes -Necrosis Amt Medium (34-66%) Small (1-33%) -Necrotic Tissue Type Adherent Slough Eschar -Structure Exposed N/A -Texture (Maria E-wound Skin Appearance) Assessed, Friable, Scarring Scarring -Moisture (Maria E-wound Skin Appearance) Assessed,Dry/ Scaly -Color (Maria E-wound Skin Appearance) Assessed No Abnormality -Temperature (Maria E-wound Skin No Abnormality No Abnormality Appearance) (Pt Warm) (Pt Warm) -Tenderness on Palpation (Maria E-wound No No Skin Appearance) -Ulcer Cleansing SOAPY WTER Wound Cleanser -Foul Odor after Cleansing No No -Anesthetic Used 4% Lidocaine 4% Lidocaine Solution Solution #4 left anterior vargas cluster -Combined with other wound No -Current Size (cm) - Length 1.2 0.1 -Current Size (cm) - Width 5 0.1 -Current Size (cm) - Depth 0.1 0.1 -Total Square Cm 6.0 0.01 -Photo Taken No No -Epithelialization Small 1-33% -Tunneling No -Undermining/Tunneling No -Circular Undermining No -Exudate Amt Small None Present -Exudate Type Serosanguineous -Wound Margin Distinct, Flat & Intact Outline Attached -Granulation Amt Medium (34-66%) Large (67-100%) -Granulation Quality Red [place] -Slough/Fibrin Yes -Necrosis Amt Medium (34-66%) Small (1-33%) -Necrotic Tissue Type Adherent Slough Adherent Slough -Structure Exposed N/A -Texture (Maria E-wound Skin Appearance) Assessed, Scarring Scarring -Moisture (Maria E-wound Skin Appearance) Assessed Dry/Scaly -Color (Maria E-wound Skin Appearance) Assessed No Abnormality -Temperature (Maria E-wound Skin No Abnormality No Abnormality Appearance) (Pt Warm) (Pt Warm) -Tenderness on Palpation (Maria E-wound No No Skin Appearance) -Ulcer Cleansing SOAPY WATER Wound Cleanser -Foul Odor after Cleansing No No -Anesthetic Used 4% Lidocaine 4% Lidocaine Solution Solution #2 LLE Vargas Cluster -Ulcer Cleansing -Foul Odor after Cleansing -Anesthetic Used Lower Limb Edema Present Yes Left Calf (cm) 31 29 Left Ankle (cm) 19.8 18.5 WC - Nurse 2 - General Ulcer CM Notes Start: 01/04/21 15:33 Freq: Status: Active Protocol: Activity Type Activity Date Activity User E-Sign Co-Sign Detail Recorded Client Recorded Date Recorded By Document 01/04/21 15:46 MW [id number] 01/04/21 16:00 MW Document 01/11/21 15:43 MW [id number] 01/11/21 16:00 MW Document 01/18/21 14:48 MW [id number] 01/18/21 15:09 MW Document 01/25/21 15:30 MW [id number] 01/25/21 15:54 MW 01/04/21 01/11/21 01/18/21 15:46 15:43 14:48 Wound Center Nurse 2 #7 LEFT LATERAL LE CLUSTER -Time 15:52 14:55 -Correct Patient Yes Yes -Correct Side, Site, Position Yes Yes -Correct Procedure Yes Yes -Procedure Performed Yes Yes -Type of Procedure Debridement Debridement -Clinical Debridement Subcutaneous Subcutaneous -Tissue Removed Subcutaneous Subcutaneous -Post Debridement (cm) - Length 4.7 2.4 -Post Debridement (cm) - Width 1.0 2.0 -Post Debridement (cm) - Depth 0.1 0.1 -Total Square (Post) (cm) 4.70 4.80 -Area of Debridement (cm) - Length 4.7 2.4 -Area of Debridement (cm) - Width 1.0 2.0 -Total Square (Area) (cm) 4.70 4.80 -Tunneling No No -Undermining/Tunneling No No -Circular Undermining No No -Wound/Ulcer Outcome Not Healed Not Healed -Ulcer Cleansing Rinsed/ Rinsed/ Irrigated with Irrigated with Saline Saline -Foul Odor after Cleansing No No -Bioengineered Tissue No No -Bleeding Controlled with Pressure Pressure -Offloading No No -Treatment Response Procedure Procedure Tolerated Well Tolerated Well -Debridement - Subq, 1st 20sq cm No Yes #6 Left medial LE Inferior -Time 15: 15:44 14:55 -Correct Patient Yes Yes Yes -Correct Side, Site, Position Yes Yes Yes -Correct Procedure Yes Yes Yes -Procedure Performed No Yes Yes -Type of Procedure Debridement Debridement -Clinical Debridement Subcutaneous Subcutaneous -Tissue Removed Subcutaneous Subcutaneous -Post Debridement (cm) - Length 0.6 1.0 1.4 -Post Debridement (cm) - Width 3.0 0.5 0.5 -Post Debridement (cm) - Depth 0.1 0.1 0.1 -Total Square (Post) (cm) 1.80 0.50 0.70 -Area of Debridement (cm) - Length 1.0 1.4 -Area of Debridement (cm) - Width 0.5 0.5 -Total Square (Area) (cm) 0.50 0.70 -Tunneling No No No -Undermining/Tunneling No No No -Circular Undermining No No No -Wound/Ulcer Outcome Not Healed Not Healed Not Healed -Ulcer Cleansing Rinsed/ Rinsed/ Rinsed/ Irrigated with Irrigated with Irrigated with Saline Saline Saline -Foul Odor after Cleansing No No No -Bioengineered Tissue No No No -Bleeding Controlled with NA Pressure Pressure -Offloading No No No -Treatment Response Procedure Procedure Tolerated Well Tolerated Well -Debridement - Subq, 1st 20sq cm Yes No #5 Left Medial LE superior -Time : 15:44 14:55 -Correct Patient Yes Yes Yes -Correct Side, Site, Position Yes Yes Yes -Correct Procedure Yes Yes Yes -Procedure Performed No Yes Yes -Type of Procedure Debridement Debridement -Clinical Debridement Subcutaneous Subcutaneous -Tissue Removed Subcutaneous Subcutaneous -Post Debridement (cm) - Length 3.4 1.2 1.5 -Post Debridement (cm) - Width 0.5 1.1 2.0 -Post Debridement (cm) - Depth 0.1 0.1 0.1 -Total Square (Post) (cm) 1.70 1.32 3.00 -Area of Debridement (cm) - Length 1.2 1.5 -Area of Debridement (cm) - Width 1.1 2.0 -Total Square (Area) (cm) 1.32 3.00 -Tunneling No No No -Undermining/Tunneling No No No -Circular Undermining No No No -Wound/Ulcer Outcome Not Healed Not Healed Not Healed -Ulcer Cleansing Rinsed/ Not Cleansed Rinsed/ Irrigated with Irrigated with Saline Saline -Foul Odor after Cleansing No No No -Bioengineered Tissue No No Yes -Type of Bioengineered Tissue PuraPly AM -Expiration Date 06/01/22 -Product Lot Number [id number] -Percent Used 100 -Lot number of Saline Used [id number] -Bleeding Controlled with NA Pressure Pressure -Offloading No No No -Treatment Response Procedure Procedure Procedure Tolerated Well Tolerated Well Tolerated Well -Debridement - Subq, 1st 20sq cm No No -Apply Skin Sub - 1st 25 sq cm - Legs 1 -PuraPly AM (per sq cm) 8 #4 left anterior vargas cluster -Time 15:54 15:59 14:57 -Correct Patient Yes Yes Yes -Correct Side, Site, Position Yes Yes Yes -Correct Procedure Yes Yes Yes -Procedure Performed No Yes Yes -Type of Procedure Debridement Debridement -Clinical Debridement Subcutaneous Subcutaneous -Tissue Removed Subcutaneous Subcutaneous -Post Debridement (cm) - Length 3.0 0.5 0.1 -Post Debridement (cm) - Width 5.5 5.0 0.1 -Post Debridement (cm) - Depth 0.1 0.1 0.1 -Total Square (Post) (cm) 16.50 2.50 0 -Area of Debridement (cm) - Length 0.5 0.1 -Area of Debridement (cm) - Width 5.0 0.1 -Total Square (Area) (cm) 2.50 0.01 -Tunneling No No No -Undermining/Tunneling No No No -Circular Undermining No No No -Wound/Ulcer Outcome Not Healed Not Healed Not Healed -Ulcer Cleansing Rinsed/ Rinsed/ Rinsed/ Irrigated with Irrigated with Irrigated with Saline Saline Saline -Foul Odor after Cleansing No No No -Bioengineered Tissue No No No -Bleeding Controlled with NA Pressure Pressure -Offloading No No No -Treatment Response Procedure Procedure Procedure Tolerated Well Tolerated Well Tolerated Well -Debridement - Subq, 1st 20sq cm No No #2 LLE Vagras Cluster -Time 15:53 -Correct Patient Yes -Correct Side, Site, Position Yes -Correct Procedure Yes -Procedure Performed No -Post Debridement (cm) - Length 0 -Post Debridement (cm) - Width 0 -Post Debridement (cm) - Depth 0 -Total Square (Post) (cm) 0 -Wound/Ulcer Outcome Healed- Epithelialized Pain Scale: 0-10 Numeric Is Patient Pain Free? Yes Yes Yes 01/25/21 15:30 Wound Center Nurse 2 #7 LEFT LATERAL LE CLUSTER -Time 15:30 -Correct Patient Yes -Correct Side, Site, Position Yes -Correct Procedure Yes -Procedure Performed Yes -Type of Procedure Debridement -Clinical Debridement Subcutaneous -Tissue Removed Subcutaneous -Post Debridement (cm) - Length 1.5 -Post Debridement (cm) - Width 1.2 -Post Debridement (cm) - Depth 0.1 -Total Square (Post) (cm) 1.80 -Area of Debridement (cm) - Length 1.5 -Area of Debridement (cm) - Width 1.2 -Total Square (Area) (cm) 1.80 -Tunneling No -Undermining/Tunneling No -Circular Undermining No -Wound/Ulcer Outcome Not Healed -Ulcer Cleansing Rinsed/ Irrigated with Saline -Foul Odor after Cleansing No -Bioengineered Tissue No -Bleeding Controlled with Pressure -Offloading No -Treatment Response Procedure Tolerated Well -Debridement - Subq, 1st 20sq cm Yes #6 Left medial LE Inferior -Time 15:31 -Correct Patient Yes -Correct Side, Site, Position Yes -Correct Procedure Yes -Procedure Performed No -Type of Procedure Debridement -Clinical Debridement Subcutaneous -Tissue Removed Subcutaneous -Post Debridement (cm) - Length 0.5 -Post Debridement (cm) - Width 0.8 -Post Debridement (cm) - Depth 0.1 -Total Square (Post) (cm) 0.40 -Area of Debridement (cm) - Length 0.5 -Area of Debridement (cm) - Width 0.8 -Total Square (Area) (cm) 0.40 -Tunneling No -Undermining/Tunneling No -Circular Undermining No -Wound/Ulcer Outcome Not Healed -Ulcer Cleansing Rinsed/ Irrigated with Saline -Foul Odor after Cleansing No -Bioengineered Tissue No -Bleeding Controlled with Pressure -Offloading No -Treatment Response Procedure Tolerated Well -Debridement - Subq, 1st 20sq cm No #5 Left Medial LE superior -Time 15:31 -Correct Patient Yes -Correct Side, Site, Position Yes -Correct Procedure Yes -Procedure Performed No -Type of Procedure Debridement -Clinical Debridement Subcutaneous -Tissue Removed Subcutaneous -Post Debridement (cm) - Length 1.5 -Post Debridement (cm) - Width 2.4 -Post Debridement (cm) - Depth 0.1 -Total Square (Post) (cm) 3.60 -Area of Debridement (cm) - Length 1.5 -Area of Debridement (cm) - Width 2.4 -Total Square (Area) (cm) 3.60 -Tunneling No -Undermining/Tunneling No -Circular Undermining No -Wound/Ulcer Outcome Not Healed -Ulcer Cleansing Rinsed/ Irrigated with Saline -Foul Odor after Cleansing No -Bioengineered Tissue Yes -Type of Bioengineered Tissue PuraPly AM -Expiration Date 10/03/21 -Product Lot Number [id number] -Percent Used 100 -Lot number of Saline Used [id number] -Bleeding Controlled with Pressure -Offloading No -Treatment Response Procedure Tolerated Well -Debridement - Subq, 1st 20sq cm No -Apply Skin Sub - 1st 25 sq cm - Legs 1 -PuraPly AM (per sq cm) 8 #4 left anterior vargas cluster -Time 15:31 -Correct Patient Yes -Correct Side, Site, Position Yes -Correct Procedure Yes -Procedure Performed No -Type of Procedure -Clinical Debridement -Tissue Removed -Post Debridement (cm) - Length 0 -Post Debridement (cm) - Width 0 -Post Debridement (cm) - Depth 0 -Total Square (Post) (cm) 0 -Area of Debridement (cm) - Length -Area of Debridement (cm) - Width -Total Square (Area) (cm) -Tunneling No -Undermining/Tunneling No -Circular Undermining No -Wound/Ulcer Outcome Healed- Epithelialized -Ulcer Cleansing Rinsed/ Irrigated with Saline -Foul Odor after Cleansing No -Bioengineered Tissue No -Bleeding Controlled with -Offloading No -Treatment Response -Debridement - Subq, 1st 20sq cm #2 LLE Vargas Cluster -Time -Correct Patient -Correct Side, Site, Position -Correct Procedure -Procedure Performed -Post Debridement (cm) - Length -Post Debridement (cm) - Width -Post Debridement (cm) - Depth -Total Square (Post) (cm) -Wound/Ulcer Outcome Pain Scale: 0-10 Numeric Is Patient Pain Free? Yes WC - Nurse 3 - General Ulcer D/C NN Start: 01/04/21 15:33 Freq: Status: Active Protocol: Activity Type Activity Date Activity User E-Sign Co-Sign Detail Recorded Client Recorded Date Recorded By Document 01/04/21 16:04 MW [id number] 01/04/21 16:06 MW Document 01/07/21 13:00 MW [id number] 01/07/21 13:48 MW Document 01/11/21 16:05 MW [id number] 01/11/21 16:07 MW Edit Result 01/11/21 16:05 MW (1) [id number] 01/12/21 16:44 PL Document 01/18/21 15:16 MW [id number] 01/18/21 15:17 MW Document 01/25/21 16:06 DL [id number] 01/25/21 16:08 DL (1) Left - Multi-Layered Wrap Application => Multi-Layer Comp - => Left ($) 01/04/21 01/07/21 01/11/21 16:04 13:00 16:05 Wound Care Nurse 3 #7 LEFT LATERAL LE CLUSTER -Ulcer Cleansing Rinsed/ Irrigated with Saline -Foul Odor after Cleansing No -Negative Pressure Wound Therapy N/A -Primary Dressing Applied NonAdherent Contact Layer -Other Dressing -Primary Dressing Covered/Secured with -Other Covering ABD #6 Left medial LE Inferior -Ulcer Cleansing Rinsed/ soap and water Rinsed/ Irrigated with Irrigated with Saline Saline -Foul Odor after Cleansing No No No -Negative Pressure Wound Therapy N/A N/A -Primary Dressing Applied Aquacel AG 4x4, Aquacel AG 2x2, NonAdherent NonAdherent NonAdherent Contact Layer Contact Layer Contact Layer -Other Dressing -Primary Dressing Covered/Secured with -Other Covering abd abd ABD -Aquacel AG 4x4 1 -Aquacel AG 2x2 1 #5 Left Medial LE superior -Ulcer Cleansing Rinsed/ soap and water Rinsed/ Irrigated with Irrigated with Saline Saline -Foul Odor after Cleansing No No No -Negative Pressure Wound Therapy N/A N/A N/A -Primary Dressing Applied NonAdherent Contact Layer -Other Dressing aquacel ag aquacel ag -Primary Dressing Covered/Secured with -Other Covering abd pad abd ABD #4 left anterior vargas cluster -Ulcer Cleansing Rinsed/ Rinsed/ Irrigated with Irrigated with Saline Saline -Foul Odor after Cleansing No No -Negative Pressure Wound Therapy N/A N/A -Primary Dressing Applied NonAdherent Contact Layer -Other Dressing aquacel ag -Primary Dressing Covered/Secured with -Other Covering abd pad ABD Left -Lotion applied to leg before No Yes compression wrap -Multi-Layered Wrap Application Multi-Layer Multi-Layer Multi-Layer Comp - Left ($) Comp - Left ($) Comp - Left ($) Treatment Response Procedure Procedure Procedure Tolerated Well Tolerated Well Tolerated Well Vital Signs Temperature (97.8 F-99.1 F) 97.7 F L Temperature Source Temporal Pulse Rate (60-100) 80 Pulse Location Monitor Respiratory Rate (12-18) 16 Respiratory rate source Observation Oxygen Delivery Method Room Air Blood Pressure (90/60-120/80) 99/41 L Blood Pressure Mean (mm Hg) 60 Source Monitor Position Sitting Blood Pressure Location Left Arm Pain Scale: 0-10 Numeric Is Patient Pain Free? Yes Yes Yes Teaching: Wound Center Dressing Your Wound -Person Taught Patient,Family Patient,Family -Teaching Method Discussion, Discussion, Demonstration Demonstration -Response to teaching Verbalize Verbalize understanding understanding WC - Visit Discharge Discharge Condition Stable Stable Stable Ambulatory Status Ambulatory Ambulatory Ambulatory Transportation Private Auto Private Auto Private Auto Accompanied by sister self SISTER Medication Reconcilliation completed & No No No provided to patient/care provider Clinical Summary of Care Provided Yes Yes Yes 01/18/21 01/25/21 15:16 16:06 Wound Care Nurse 3 #7 LEFT LATERAL LE CLUSTER -Ulcer Cleansing Not Cleansed -Foul Odor after Cleansing No No -Negative Pressure Wound Therapy N/A -Primary Dressing Applied -Other Dressing PuraPly -Primary Dressing Covered/Secured with Dry Gauze, Dry Gauze & Secured with Roll Gauze Tape -Other Covering #6 Left medial LE Inferior -Ulcer Cleansing Not Cleansed -Foul Odor after Cleansing No No -Negative Pressure Wound Therapy N/A -Primary Dressing Applied -Other Dressing Puraply -Primary Dressing Covered/Secured with Dry Gauze, Dry Gauze & Secured with Roll Gauze, Tape Secured with Tape -Other Covering -Aquacel AG 4x4 -Aquacel AG 2x2 #5 Left Medial LE superior -Ulcer Cleansing Not Cleansed -Foul Odor after Cleansing No No -Negative Pressure Wound Therapy N/A -Primary Dressing Applied -Other Dressing -Primary Dressing Covered/Secured with Dry Gauze, Secured with Tape -Other Covering Puraply #4 left anterior vargas cluster -Ulcer Cleansing Not Cleansed -Foul Odor after Cleansing No -Negative Pressure Wound Therapy N/A -Primary Dressing Applied -Other Dressing -Primary Dressing Covered/Secured with Dry Gauze, Secured with Tape -Other Covering Left -Lotion applied to leg before Yes compression wrap -Multi-Layered Wrap Application Multi-Layer Multi-Layer Comp - Left ($) Comp - Left ($) Treatment Response Procedure Procedure Tolerated Well Tolerated Well Vital Signs Temperature (97.8 F-99.1 F) Temperature Source Pulse Rate (60-100) Pulse Location Respiratory Rate (12-18) Respiratory rate source Oxygen Delivery Method Blood Pressure (90/60-120/80) Blood Pressure Mean (mm Hg) Source Position Blood Pressure Location Pain Scale: 0-10 Numeric Is Patient Pain Free? Yes No Teaching: Wound Center Dressing Your Wound -Person Taught Patient,Family -Teaching Method Discussion, Demonstration -Response to teaching Verbalize understanding WC - Visit Discharge Discharge Condition Stable Stable Ambulatory Status Ambulatory Ambulatory Transportation Private Auto Private Auto Accompanied by SISTER Medication Reconcilliation completed & No provided to patient/care provider Clinical Summary of Care Provided Yes Wound debrided: multiple small openings in the skin over the left ant vargas Laterality: Left Wound Grade/Stage: N/A Type of Debridement: Selective debridement Anesthesia Used: 4% Lidocaine Solution Depth: Down to and including healthy tissue and in the subcutaneous layer Percentage of wound debrided: 90 Instrument Used: Forceps Tissue Removed: the old Puraply and the biofilm and slough Severity: Limited To Skin Breakdown Amount of bleeding with debridement: Mild Bleeding Controlled with: Pressure Debridement Free Text: I reapplied Puraply to many of the small open areas and covered that with a wound veil secured with steri-strips. Assessment/Plan Assessment/Plan (1) Venous stasis ulcer: CODE(S): I83.009 - Varicose veins of unspecified lower extremity with ulcer of unspecified site; L97.909 - Non-pressure chronic ulcer of unspecified part of unspecified lower leg with unspecified severity QUALIFIERS: Venous stasis ulcer site: calf Varicose vein presence: with varicose veins Laterality: left Non-pressure ulcer stage: with fat layer exposed Qualified Code(s): I83.022 - Varicose veins of left lower extremity with ulcer of calf; L97.222 - Non-pressure chronic ulcer of left calf with fat layer exposed (2) Venous insufficiency of both lower extremities: CODE(S): I87.2 - Venous insufficiency (chronic) (peripheral) (3) Severe malnutrition: CODE(S): E43 - Unspecified severe protein-calorie malnutrition (4) Weight loss, non-intentional: CODE(S): R63.4 - Abnormal weight loss (5) PVD (peripheral vascular disease): CODE(S): I73.9 - Peripheral vascular disease, unspecified PLAN: 1. Puraply was reapplied today and she will return to the [facility] in 1 week. 2. She will try and increase the Ensure to at least 3 bottles a day. 3. She will call me if she develops any fevers, sweats or chills. Her skin is so thin and fragile and she is severely malnourished......we may not be able to get this wound healed. We discussed starting Arnoldo but, she tells me that she could not get this down when she tried it in the past.
[2021-02-01 14:35] VITALS: BP 106/45; PULSE 91; RESP 18; TEMP 36.7; BMI 26.5
--- NOTE | 2021-02-01 17:40 | PCM.WC.PN ---
History of Present Illness Date of Service: 03/03/21 Chief Complaint: non-healing wound of the LLE History of Wound: please see the consult dictated on this pt on 09/07/20 for hx Subjective Subjective Rosario returns to the [facility] today for a recheck on the venous stasis ulcers over the anterior LLE. We have been using Puraply to dress the wound and then a double tubogrip for compression. The dressing did not hurt until today and there is a little irritation where the dressing ends at the joint between the ankle and the foot and over the dorsum of the foot. It is not as bad as it was last week. Rosario denies fevers, chills and night sweats. Still not eating. Thinks she is hungry and has cravings but after the first bite she is not able to take another because she becomes nauseated. She has lost 60 lbs since last fall. Objective Data Objective Data Vital Signs: Vital Signs Temp Pulse Resp BP 98.1 F 91 18 106/45 L 02/01/21 14:35 02/01/21 14:35 02/01/21 14:35 02/01/21 14:35 Oxygen Delivery Method Room Air Body Mass Index (BMI) 26.5 Charges/Coding Procedures Integumentary [id number]: [id number] Sheryl subq tissue 20 sq cm/< Physical Exam Skin Wounds: wounds noted Wound Narrative: Many small ulcerations on the anterior L leg over the vargas. Some have a fragile covering of epithelium over them and with others the subcutaneous fat is visible. There is no peripheral edema. There is a red line between the anterior leg and the foot which is more likely than not due to a pressure injury from the boot being too tight at the ankle/foot flexure. There is a very small open area over the dorsum of the foot due to the end of the dressing rubbing. There is no erythema, purulent DC or increased warmth to touch on the anterior distal L leg. There is no undermining and no tunneling. The wounds are all superficial. Debridement Note Debridement Note Post-Debridement Measurements and Additional Note: Post-Debridement Measurements/Treatment - Nurse 1 - General Ulcer Assessment Start: 01/04/21 15:33 Freq: Status: Active Protocol: ELISEEXT Activity Type Activity Date Activity User E-Sign Co-Sign Detail Recorded Client Recorded Date Recorded By Document 01/04/21 15:34 JF [id number] 01/04/21 15:41 JF Document 01/07/21 13:00 MW [id number] 01/07/21 13:48 MW Document 01/11/21 15:29 BMF [id number] 01/11/21 15:40 BMF Document 01/18/21 14:30 BMF [id number] 01/18/21 14:42 BMF Document 01/25/21 15:11 DL [id number] 01/25/21 15:25 DL Document 02/01/21 14:35 DL [id number] 02/01/21 14:49 DL 01/04/21 01/07/21 01/11/21 15:34 13:00 15:29 WC - Today's Visit Information Type of service Follow-up Visit Nurse-only Follow-up Visit (Physician/PORCELAIN SLUSHER Visit (Physician/PORCELAIN SLUSHER ) ) Arrival Mode Ambulatory Ambulatory Ambulatory Transfer Assistance None None Accompanied by self SISTER Patient Identification Verified (Name & Yes Yes Yes ) Patient Requires Transmission-Based No No No Precautions Safety Precautions NA Height and Weight Body Mass Index (BMI) 26.5 26.5 26.5 BMI Classification Overweight Overweight Overweight Vital Signs Temperature (97.8 F-99.1 F) 98.3 F 97.7 F L 98.6 F Temperature Source Temporal Temporal Temporal Pulse Rate (60-100) 85 80 72 Pulse Location Monitor Monitor Monitor Respiratory Rate (12-18) 16 16 16 Respiratory rate source Observation Observation Observation Oxygen Delivery Method Room Air Room Air Blood Pressure (90/60-120/80) 108/50 L 99/41 L 115/46 L Blood Pressure Mean (mm Hg) 69 60 69 Source Monitor Monitor Monitor Position Sitting Sitting Sitting Blood Pressure Location Left Arm Left Arm Left Forearm History Since Last Visit- (Skip if this is Patient's initial visit) Have you changed medications since your No No No last visit? Any new allergies or adverse reactions No No No Had a fall/change in ADL's that may No No No increase risk of falls Signs or symptoms of abuse and/or No No No neglect since last visit Have you been in the hospital since your No No No last visit? Has dressing in place as prescribed Yes Yes Yes Has compression in place as prescribed N/A Yes Yes Has offloadiing in place as prescribed N/A N/A N/A Experienced any changes in pain level or No No No management Left Footwear Regular Shoe Regular Shoe Regular Shoe Right Footwear Regular Shoe Regular Shoe Regular Shoe Pain Scale: 0-10 Numeric Is Patient Pain Free? Yes Yes 01/18/21 01/25/21 02/01/21 14:30 15:11 14:35 - Today's Visit Information Type of service Follow-up Visit Follow-up Visit Follow-up Visit (Physician/PORCELAIN SLUSHER (Physician/PORCELAIN SLUSHER (Physician/PORCELAIN SLUSHER ) ) ) Arrival Mode Ambulatory Ambulatory,Cane Ambulatory Transfer Assistance None None None Accompanied by SISTER Patient Identification Verified (Name & Yes Yes ) Patient Requires Transmission-Based No No No Precautions Safety Precautions Height and Weight Body Mass Index (BMI) 26.5 26.5 26.5 BMI Classification Overweight Overweight Overweight Vital Signs Temperature (97.8 F-99.1 F) 97.8 F 98.8 F 98.1 F Temperature Source Temporal Temporal Temporal Pulse Rate (60-100) 88 80 91 Pulse Location Monitor Monitor Monitor Respiratory Rate (12-18) 18 18 18 Respiratory rate source Observation Observation Observation Oxygen Delivery Method Room Air Blood Pressure (90/60-120/80) 106/53 L 107/34 L 106/45 L Blood Pressure Mean (mm Hg) 70 58 65 Source Monitor Monitor Monitor Position Sitting Blood Pressure Location Left Arm History Since Last Visit- (Skip if this is Patient's initial visit) Have you changed medications since your No No last visit? Any new allergies or adverse reactions No No Had a fall/change in ADL's that may No No increase risk of falls Signs or symptoms of abuse and/or No No neglect since last visit Have you been in the hospital since your No No last visit? Has dressing in place as prescribed Yes Yes Has compression in place as prescribed Yes Yes Has offloadiing in place as prescribed N/A N/A Experienced any changes in pain level or Yes No management Left Footwear Regular Shoe Right Footwear Regular Shoe Pain Scale: 0-10 Numeric Is Patient Pain Free? Yes Yes Yes - Nurse 1 - General Ulcer Measurement Start: 01/04/21 15:33 Freq: Status: Active Protocol: Activity Type Activity Date Activity User E-Sign Co-Sign Detail Recorded Client Recorded Date Recorded By Document 01/04/21 15:34 REJI [id number] 01/04/21 15:41 JF Edit Result 01/04/21 15:34 JF (1) [id number] 01/04/21 15:42 JF Document 01/07/21 13:00 MW [id number] 01/07/21 13:48 MW Document 01/11/21 15:29 BMF [id number] 01/11/21 15:40 BMF Document 01/18/21 14:30 BMF [id number] 01/18/21 14:42 BMF Document 01/25/21 15:11 DL [id number] 01/25/21 15:25 DL Document 02/01/21 14:35 DL [id number] 02/01/21 14:49 DL (1) #4 left anterior vargas cluster - Ulcer Cleansing => Wound Cleanser - Foul Odor after Cleansing => No - Anesthetic Used => 4% Lidocaine => Solution #2 LLE Vargas Cluster - Ulcer Cleansing => Wound Cleanser - Foul Odor after Cleansing => No - Anesthetic Used => 4% Lidocaine => Solution 01/04/21 01/07/21 01/11/21 15:34 13:00 15:29 Wound Center Nurse 1 #7 LEFT LATERAL LE CLUSTER -Combined with other wound -Current Size (cm) - Length -Current Size (cm) - Width -Current Size (cm) - Depth -Total Square Cm -Photo Taken -Epithelialization -Tunneling -Undermining/Tunneling -Circular Undermining -Exudate Amt -Exudate Type -Wound Margin -Granulation Amt -Granulation Quality -Slough/Fibrin -Necrosis Amt -Necrotic Tissue Type -Structure Exposed -Texture (Maria E-wound Skin Appearance) -Moisture (Maria E-wound Skin Appearance) -Color (Maria E-wound Skin Appearance) -Temperature (Maria E-wound Skin Appearance) -Tenderness on Palpation (Maria E-wound Skin Appearance) -Ulcer Cleansing -Foul Odor after Cleansing -Anesthetic Used #6 Left medial LE Inferior -Combined with other wound -Current Size (cm) - Length 1.2 -Current Size (cm) - Width 1 -Current Size (cm) - Depth 0.1 -Total Square Cm 1.2 -Photo Taken No -Epithelialization -Tunneling -Undermining/Tunneling -Circular Undermining -Exudate Amt Small -Exudate Type Serosanguineous -Wound Margin Distinct, Outline Attached -Granulation Amt Medium (34-66%) -Granulation Quality [place] -Slough/Fibrin -Necrosis Amt Medium (34-66%) -Necrotic Tissue Type Adherent Slough -Structure Exposed N/A -Texture (Maria E-wound Skin Appearance) Assessed, Scarring Scarring -Moisture (Maria E-wound Skin Appearance) Assessed,Dry/ Scaly -Color (Maria E-wound Skin Appearance) Assessed, Rubor Hemosiderin Staining -Temperature (Maria E-wound Skin No Abnormality No Abnormality Appearance) (Pt Warm) (Pt Warm) -Tenderness on Palpation (Maria E-wound No No Skin Appearance) -Ulcer Cleansing soap and water Wound Cleanser -Foul Odor after Cleansing No No -Anesthetic Used 4% Lidocaine Solution #5 Left Medial LE superior -Combined with other wound -Current Size (cm) - Length 1.5 -Current Size (cm) - Width 0.8 -Current Size (cm) - Depth 0.1 -Total Square Cm 1.20 -Photo Taken No -Epithelialization -Tunneling -Undermining/Tunneling -Circular Undermining -Exudate Amt Small -Exudate Type -Wound Margin Distinct, Outline Attached -Granulation Amt Medium (34-66%) -Granulation Quality -Slough/Fibrin -Necrosis Amt Medium (34-66%) -Necrotic Tissue Type Adherent Slough -Structure Exposed N/A -Texture (Maria E-wound Skin Appearance) Assessed, Scarring Scarring -Moisture (Maria E-wound Skin Appearance) Assessed,Dry/ No Abnormality Scaly -Color (Maria E-wound Skin Appearance) Assessed, Rubor Hemosiderin Staining -Temperature (Maria E-wound Skin No Abnormality No Abnormality Appearance) (Pt Warm) (Pt Warm) -Tenderness on Palpation (Maria E-wound No No Skin Appearance) -Ulcer Cleansing soap and water Wound Cleanser -Foul Odor after Cleansing No Yes, Due to Product Use -Anesthetic Used 4% Lidocaine Solution #4 left anterior vargas cluster -Combined with other wound -Current Size (cm) - Length -Current Size (cm) - Width -Current Size (cm) - Depth -Total Square Cm -Photo Taken -Epithelialization -Tunneling -Undermining/Tunneling -Circular Undermining -Exudate Amt -Exudate Type -Wound Margin -Granulation Amt -Granulation Quality -Slough/Fibrin -Necrosis Amt -Necrotic Tissue Type -Structure Exposed -Texture (Maria E-wound Skin Appearance) -Moisture (Maria E-wound Skin Appearance) -Color (Maria E-wound Skin Appearance) -Temperature (Maria E-wound Skin Appearance) -Tenderness on Palpation (Maria E-wound Skin Appearance) -Ulcer Cleansing Wound Cleanser -Foul Odor after Cleansing No -Anesthetic Used 4% Lidocaine Solution #2 LLE Vargas Cluster -Ulcer Cleansing Wound Cleanser -Foul Odor after Cleansing No -Anesthetic Used 4% Lidocaine Solution Lower Limb Edema Present Right Calf (cm) Right Ankle (cm) Left Calf (cm) 30.8 31 Left Ankle (cm) 19.3 21 01/18/21 01/25/21 02/01/21 14:30 15:11 14:35 Wound Center Nurse 1 #7 LEFT LATERAL LE CLUSTER -Combined with other wound No -Current Size (cm) - Length 2.7 2.5 2.6 -Current Size (cm) - Width 1.7 1.5 2.6 -Current Size (cm) - Depth 0.1 0.1 0.1 -Total Square Cm 4.59 3.75 6.76 -Photo Taken No No No -Epithelialization Small 1-33% -Tunneling No -Undermining/Tunneling No -Circular Undermining No -Exudate Amt Medium Medium Small -Exudate Type Serosanguineous Serosanguineous Serosanguineous -Wound Margin Distinct, Thickened Indistinct, Non Outline -Visible Attached -Granulation Amt Large (67-100%) None Present (0 Medium (34-66%) %) -Granulation Quality [place] -Slough/Fibrin Yes -Necrosis Amt Small (1-33%) Large (67-100%) Medium (34-66%) -Necrotic Tissue Type Adherent Slough Eschar Eschar -Structure Exposed None/Limited to None/Limited to Skin Breakdown Skin Breakdown -Texture (Maria E-wound Skin Appearance) Assessed, Friable, Excoriation, Scarring Scarring Scarring -Moisture (Maria E-wound Skin Appearance) Assessed No Abnormality -Color (Maria E-wound Skin Appearance) Assessed Hemosiderin Erythema Staining -Temperature (Maria E-wound Skin No Abnormality No Abnormality No Abnormality Appearance) (Pt Warm) (Pt Warm) (Pt Warm) -Tenderness on Palpation (Maria E-wound No No Yes Skin Appearance) -Ulcer Cleansing SOAPY WATER Wound Cleanser Wound Cleanser -Foul Odor after Cleansing No No No -Anesthetic Used 4% Lidocaine 4% Lidocaine 4% Lidocaine Solution Solution Solution #6 Left medial LE Inferior -Combined with other wound No -Current Size (cm) - Length 1.1 0.8 0.8 -Current Size (cm) - Width 0.5 1 0.6 -Current Size (cm) - Depth 0.1 0.1 0.1 -Total Square Cm 0.55 0.8 0.48 -Photo Taken No No No -Epithelialization Small 1-33% -Tunneling No -Undermining/Tunneling No -Circular Undermining No -Exudate Amt Small Small Medium -Exudate Type Serosanguineous Serosanguineous Yellow/Green -Wound Margin Distinct, Thickened Indistinct, Non Outline -Visible Attached -Granulation Amt Medium (34-66%) None Present (0 Small (1-33%) %) -Granulation Quality [place] -Slough/Fibrin Yes -Necrosis Amt Medium (34-66%) Small (1-33%) Large (67-100%) -Necrotic Tissue Type Adherent Slough Adherent Slough Adherent Slough -Structure Exposed N/A None/Limited to Skin Breakdown -Texture (Maria E-wound Skin Appearance) Assessed, Friable, Scarring Scarring Scarring -Moisture (Maria E-wound Skin Appearance) Assessed No Abnormality No Abnormality -Color (Maria E-wound Skin Appearance) Assessed No Abnormality Erythema -Temperature (Maria E-wound Skin No Abnormality No Abnormality No Abnormality Appearance) (Pt Warm) (Pt Warm) (Pt Warm) -Tenderness on Palpation (Maria E-wound No No Yes Skin Appearance) -Ulcer Cleansing SOAPY WATER Wound Cleanser -Foul Odor after Cleansing No No No -Anesthetic Used 4% Lidocaine 4% Lidocaine 4% Lidocaine Solution Solution Solution #5 Left Medial LE superior -Combined with other wound No -Current Size (cm) - Length 0.7 1 1.1 -Current Size (cm) - Width 0.5 0.9 1.2 -Current Size (cm) - Depth 0.1 0.1 0.1 -Total Square Cm 0.35 0.9 1.32 -Photo Taken No No No -Epithelialization Small 1-33% -Tunneling No -Undermining/Tunneling No -Circular Undermining No -Exudate Amt Small Small Small -Exudate Type Serosanguineous Serosanguineous Yellow/Green -Wound Margin Distinct, Distinct, Indistinct, Non Outline Outline -Visible Attached Attached -Granulation Amt Medium (34-66%) Large (67-100%) Small (1-33%) -Granulation Quality [place] -Slough/Fibrin Yes -Necrosis Amt Medium (34-66%) Small (1-33%) Large (67-100%) -Necrotic Tissue Type Adherent Slough Eschar Adherent Slough -Structure Exposed N/A N/A -Texture (Maria E-wound Skin Appearance) Assessed, Friable, Scarring Scarring Scarring -Moisture (Maria E-wound Skin Appearance) Assessed,Dry/ No Abnormality Scaly -Color (Maria E-wound Skin Appearance) Assessed No Abnormality Erythema -Temperature (Maria E-wound Skin No Abnormality No Abnormality No Abnormality Appearance) (Pt Warm) (Pt Warm) (Pt Warm) -Tenderness on Palpation (Maria E-wound No No Yes Skin Appearance) -Ulcer Cleansing SOAPY WTER Wound Cleanser Wound Cleanser -Foul Odor after Cleansing No No No -Anesthetic Used 4% Lidocaine 4% Lidocaine 4% Lidocaine Solution Solution Solution #4 left anterior vargas cluster -Combined with other wound No -Current Size (cm) - Length 1.2 0.1 -Current Size (cm) - Width 5 0.1 -Current Size (cm) - Depth 0.1 0.1 -Total Square Cm 6.0 0.01 -Photo Taken No No -Epithelialization Small 1-33% -Tunneling No -Undermining/Tunneling No -Circular Undermining No -Exudate Amt Small None Present -Exudate Type Serosanguineous -Wound Margin Distinct, Flat & Intact Outline Attached -Granulation Amt Medium (34-66%) Large (67-100%) -Granulation Quality [place] -Slough/Fibrin Yes -Necrosis Amt Medium (34-66%) Small (1-33%) -Necrotic Tissue Type Adherent Slough Adherent Slough -Structure Exposed N/A -Texture (Maria E-wound Skin Appearance) Assessed, Scarring Scarring -Moisture (Maria E-wound Skin Appearance) Assessed Dry/Scaly -Color (Maria E-wound Skin Appearance) Assessed No Abnormality -Temperature (Maria E-wound Skin No Abnormality No Abnormality Appearance) (Pt Warm) (Pt Warm) -Tenderness on Palpation (Maria E-wound No No Skin Appearance) -Ulcer Cleansing SOAPY WATER Wound Cleanser -Foul Odor after Cleansing No No -Anesthetic Used 4% Lidocaine 4% Lidocaine Solution Solution #2 LLE Vargas Cluster -Ulcer Cleansing -Foul Odor after Cleansing -Anesthetic Used Lower Limb Edema Present Yes Right Calf (cm) 29.5 Right Ankle (cm) 19.4 Left Calf (cm) 31 29 Left Ankle (cm) 19.8 18.5 WC - Nurse 2 - General Ulcer CM Notes Start: 01/04/21 15:33 Freq: Status: Active Protocol: Activity Type Activity Date Activity User E-Sign Co-Sign Detail Recorded Client Recorded Date Recorded By Document 01/04/21 15:46 MW [id number] 01/04/21 16:00 MW Document 01/11/21 15:43 MW [id number] 01/11/21 16:00 MW Document 01/18/21 14:48 MW [id number] 01/18/21 15:09 MW Document 01/25/21 15:30 MW [id number] 01/25/21 15:54 MW Document 02/01/21 15:21 JF [id number] 02/01/21 15:25 JF 01/04/21 01/11/21 01/18/21 15:46 15:43 14:48 Wound Center Nurse 2 #7 LEFT LATERAL LE CLUSTER -Time 15:52 14:55 -Correct Patient Yes Yes -Correct Side, Site, Position Yes Yes -Correct Procedure Yes Yes -Procedure Performed Yes Yes -Type of Procedure Debridement Debridement -Clinical Debridement Subcutaneous Subcutaneous -Tissue Removed Subcutaneous Subcutaneous -Post Debridement (cm) - Length 4.7 2.4 -Post Debridement (cm) - Width 1.0 2.0 -Post Debridement (cm) - Depth 0.1 0.1 -Total Square (Post) (cm) 4.70 4.80 -Area of Debridement (cm) - Length 4.7 2.4 -Area of Debridement (cm) - Width 1.0 2.0 -Total Square (Area) (cm) 4.70 4.80 -Tunneling No No -Undermining/Tunneling No No -Circular Undermining No No -Wound/Ulcer Outcome Not Healed Not Healed -Ulcer Cleansing Rinsed/ Rinsed/ Irrigated with Irrigated with Saline Saline -Foul Odor after Cleansing No No -Bioengineered Tissue No No -Bleeding Controlled with Pressure Pressure -Offloading No No -Treatment Response Procedure Procedure Tolerated Well Tolerated Well -Debridement - Subq, 1st 20sq cm No Yes #6 Left medial LE Inferior -Time 15:54 15:44 14:55 -Correct Patient Yes Yes Yes -Correct Side, Site, Position Yes Yes Yes -Correct Procedure Yes Yes Yes -Procedure Performed No Yes Yes -Type of Procedure Debridement Debridement -Clinical Debridement Subcutaneous Subcutaneous -Tissue Removed Subcutaneous Subcutaneous -Post Debridement (cm) - Length 0.6 1.0 1.4 -Post Debridement (cm) - Width 3.0 0.5 0.5 -Post Debridement (cm) - Depth 0.1 0.1 0.1 -Total Square (Post) (cm) 1.80 0.50 0.70 -Area of Debridement (cm) - Length 1.0 1.4 -Area of Debridement (cm) - Width 0.5 0.5 -Total Square (Area) (cm) 0.50 0.70 -Tunneling No No No -Undermining/Tunneling No No No -Circular Undermining No No No -Wound/Ulcer Outcome Not Healed Not Healed Not Healed -Ulcer Cleansing Rinsed/ Rinsed/ Rinsed/ Irrigated with Irrigated with Irrigated with Saline Saline Saline -Foul Odor after Cleansing No No No -Bioengineered Tissue No No No -Bleeding Controlled with NA Pressure Pressure -Offloading No No No -Treatment Response Procedure Procedure Tolerated Well Tolerated Well -Debridement - Subq, 1st 20sq cm Yes No #5 Left Medial LE superior -Time 15:54 15:44 14:55 -Correct Patient Yes Yes Yes -Correct Side, Site, Position Yes Yes Yes -Correct Procedure Yes Yes Yes -Procedure Performed No Yes Yes -Type of Procedure Debridement Debridement -Clinical Debridement Subcutaneous Subcutaneous -Tissue Removed Subcutaneous Subcutaneous -Post Debridement (cm) - Length 3.4 1.2 1.5 -Post Debridement (cm) - Width 0.5 1.1 2.0 -Post Debridement (cm) - Depth 0.1 0.1 0.1 -Total Square (Post) (cm) 1.70 1.32 3.00 -Area of Debridement (cm) - Length 1.2 1.5 -Area of Debridement (cm) - Width 1.1 2.0 -Total Square (Area) (cm) 1.32 3.00 -Tunneling No No No -Undermining/Tunneling No No No -Circular Undermining No No No -Wound/Ulcer Outcome Not Healed Not Healed Not Healed -Ulcer Cleansing Rinsed/ Not Cleansed Rinsed/ Irrigated with Irrigated with Saline Saline -Foul Odor after Cleansing No No No -Bioengineered Tissue No No Yes -Type of Bioengineered Tissue PuraPly AM -Expiration Date 06/01/22 -Product Lot Number [id number] -Percent Used 100 -Lot number of Saline Used [id number] -Bleeding Controlled with NA Pressure Pressure -Offloading No No No -Treatment Response Procedure Procedure Procedure Tolerated Well Tolerated Well Tolerated Well -Debridement - Subq, 1st 20sq cm No No -Apply Skin Sub - 1st 25 sq cm - Legs 1 -PuraPly AM (per sq cm) 8 #4 left anterior vargas cluster -Time 15:54 15:59 14:57 -Correct Patient Yes Yes Yes -Correct Side, Site, Position Yes Yes Yes -Correct Procedure Yes Yes Yes -Procedure Performed No Yes Yes -Type of Procedure Debridement Debridement -Clinical Debridement Subcutaneous Subcutaneous -Tissue Removed Subcutaneous Subcutaneous -Post Debridement (cm) - Length 3.0 0.5 0.1 -Post Debridement (cm) - Width 5.5 5.0 0.1 -Post Debridement (cm) - Depth 0.1 0.1 0.1 -Total Square (Post) (cm) 16.50 2.50 0 -Area of Debridement (cm) - Length 0.5 0.1 -Area of Debridement (cm) - Width 5.0 0.1 -Total Square (Area) (cm) 2.50 0.01 -Tunneling No No No -Undermining/Tunneling No No No -Circular Undermining No No No -Wound/Ulcer Outcome Not Healed Not Healed Not Healed -Ulcer Cleansing Rinsed/ Rinsed/ Rinsed/ Irrigated with Irrigated with Irrigated with Saline Saline Saline -Foul Odor after Cleansing No No No -Bioengineered Tissue No No No -Bleeding Controlled with NA Pressure Pressure -Offloading No No No -Treatment Response Procedure Procedure Procedure Tolerated Well Tolerated Well Tolerated Well -Debridement - Subq, 1st 20sq cm No No #2 LLE Vargas Cluster -Time 15:53 -Correct Patient Yes -Correct Side, Site, Position Yes -Correct Procedure Yes -Procedure Performed No -Post Debridement (cm) - Length 0 -Post Debridement (cm) - Width 0 -Post Debridement (cm) - Depth 0 -Total Square (Post) (cm) 0 -Wound/Ulcer Outcome Healed- Epithelialized Pain Scale: 0-10 Numeric Is Patient Pain Free? Yes Yes Yes 01/25/21 02/01/21 15:30 15:21 Wound Center Nurse 2 #7 LEFT LATERAL LE CLUSTER -Time 15: 15:21 -Correct Patient Yes Yes -Correct Side, Site, Position Yes Yes -Correct Procedure Yes Yes -Procedure Performed Yes Yes -Type of Procedure Debridement Debridement -Clinical Debridement Subcutaneous Subcutaneous -Tissue Removed Subcutaneous Subcutaneous -Post Debridement (cm) - Length 1.5 2.6 -Post Debridement (cm) - Width 1.2 0.6 -Post Debridement (cm) - Depth 0.1 0.1 -Total Square (Post) (cm) 1.80 1.56 -Area of Debridement (cm) - Length 1.5 2.6 -Area of Debridement (cm) - Width 1.2 2.6 -Total Square (Area) (cm) 1.80 6.76 -Tunneling No No -Undermining/Tunneling No No -Circular Undermining No No -Wound/Ulcer Outcome Not Healed Not Healed -Ulcer Cleansing Rinsed/ Rinsed/ Irrigated with Irrigated with Saline Saline -Foul Odor after Cleansing No No -Bioengineered Tissue No No -Bleeding Controlled with Pressure Pressure -Offloading No No -Treatment Response Procedure Procedure Tolerated Well Tolerated Well -Debridement - Subq, 1st 20sq cm Yes Yes #6 Left medial LE Inferior -Time 15: 15:22 -Correct Patient Yes Yes -Correct Side, Site, Position Yes Yes -Correct Procedure Yes Yes -Procedure Performed No Yes -Type of Procedure Debridement Debridement -Clinical Debridement Subcutaneous Subcutaneous -Tissue Removed Subcutaneous Subcutaneous -Post Debridement (cm) - Length 0.5 0.8 -Post Debridement (cm) - Width 0.8 0.7 -Post Debridement (cm) - Depth 0.1 0.1 -Total Square (Post) (cm) 0.40 0.56 -Area of Debridement (cm) - Length 0.5 0.8 -Area of Debridement (cm) - Width 0.8 0.7 -Total Square (Area) (cm) 0.40 0.56 -Tunneling No No -Undermining/Tunneling No No -Circular Undermining No No -Wound/Ulcer Outcome Not Healed Not Healed -Ulcer Cleansing Rinsed/ Rinsed/ Irrigated with Irrigated with Saline Saline -Foul Odor after Cleansing No No -Bioengineered Tissue No No -Bleeding Controlled with Pressure Pressure -Offloading No No -Treatment Response Procedure Procedure Tolerated Well Tolerated Well -Debridement - Subq, 1st 20sq cm No No #5 Left Medial LE superior -Time 15: 15:23 -Correct Patient Yes Yes -Correct Side, Site, Position Yes Yes -Correct Procedure Yes Yes -Procedure Performed No Yes -Type of Procedure Debridement Debridement -Clinical Debridement Subcutaneous Subcutaneous -Tissue Removed Subcutaneous Subcutaneous -Post Debridement (cm) - Length 1.5 1.2 -Post Debridement (cm) - Width 2.4 1.2 -Post Debridement (cm) - Depth 0.1 0.1 -Total Square (Post) (cm) 3.60 1.44 -Area of Debridement (cm) - Length 1.5 1.2 -Area of Debridement (cm) - Width 2.4 1.2 -Total Square (Area) (cm) 3.60 1.44 -Tunneling No No -Undermining/Tunneling No No -Circular Undermining No No -Wound/Ulcer Outcome Not Healed Not Healed -Ulcer Cleansing Rinsed/ Rinsed/ Irrigated with Irrigated with Saline Saline -Foul Odor after Cleansing No No -Bioengineered Tissue Yes Yes -Type of Bioengineered Tissue PuraPly AM PuraPly AM -Expiration Date 10/03/21 12/26/22 -Product Lot Number [id number] -Percent Used 100 100 -Lot number of Saline Used [id number] -Bleeding Controlled with Pressure Pressure -Offloading No No -Treatment Response Procedure Procedure Tolerated Well Tolerated Well -Debridement - Subq, 1st 20sq cm No No -Apply Skin Sub - 1st 25 sq cm - Legs 1 1 -PuraPly AM (per sq cm) 8 16 #4 left anterior vargas cluster -Time 15:31 -Correct Patient Yes -Correct Side, Site, Position Yes -Correct Procedure Yes -Procedure Performed No -Type of Procedure -Clinical Debridement -Tissue Removed -Post Debridement (cm) - Length 0 -Post Debridement (cm) - Width 0 -Post Debridement (cm) - Depth 0 -Total Square (Post) (cm) 0 -Area of Debridement (cm) - Length -Area of Debridement (cm) - Width -Total Square (Area) (cm) -Tunneling No -Undermining/Tunneling No -Circular Undermining No -Wound/Ulcer Outcome Healed- Epithelialized -Ulcer Cleansing Rinsed/ Irrigated with Saline -Foul Odor after Cleansing No -Bioengineered Tissue No -Bleeding Controlled with -Offloading No -Treatment Response -Debridement - Subq, 1st 20sq cm #2 LLE Vargas Cluster -Time -Correct Patient -Correct Side, Site, Position -Correct Procedure -Procedure Performed -Post Debridement (cm) - Length -Post Debridement (cm) - Width -Post Debridement (cm) - Depth -Total Square (Post) (cm) -Wound/Ulcer Outcome Pain Scale: 0-10 Numeric Is Patient Pain Free? Yes Yes WC - Nurse 3 - General Ulcer D/C NN Start: 01/04/21 15:33 Freq: Status: Active Protocol: Activity Type Activity Date Activity User E-Sign Co-Sign Detail Recorded Client Recorded Date Recorded By Document 01/04/21 16:04 MW [id number] 01/04/21 16:06 MW Document 01/07/21 13:00 MW [id number] 01/07/21 13:48 MW Document 01/11/21 16:05 MW [id number] 01/11/21 16:07 MW Edit Result 01/11/21 16:05 MW (1) [id number] 01/12/21 16:44 PL Document 01/18/21 15:16 MW [id number] 01/18/21 15:17 MW Document 01/25/21 16:06 DL [id number] 01/25/21 16:08 DL (1) Left - Multi-Layered Wrap Application => Multi-Layer Comp - => Left ($) 01/04/21 01/07/21 01/11/21 16:04 13:00 16:05 Wound Care Nurse 3 #7 LEFT LATERAL LE CLUSTER -Ulcer Cleansing Rinsed/ Irrigated with Saline -Foul Odor after Cleansing No -Negative Pressure Wound Therapy N/A -Primary Dressing Applied NonAdherent Contact Layer -Other Dressing -Primary Dressing Covered/Secured with -Other Covering ABD #6 Left medial LE Inferior -Ulcer Cleansing Rinsed/ soap and water Rinsed/ Irrigated with Irrigated with Saline Saline -Foul Odor after Cleansing No No No -Negative Pressure Wound Therapy N/A N/A -Primary Dressing Applied Aquacel AG 4x4, Aquacel AG 2x2, NonAdherent NonAdherent NonAdherent Contact Layer Contact Layer Contact Layer -Other Dressing -Primary Dressing Covered/Secured with -Other Covering abd abd ABD -Aquacel AG 4x4 1 -Aquacel AG 2x2 1 #5 Left Medial LE superior -Ulcer Cleansing Rinsed/ soap and water Rinsed/ Irrigated with Irrigated with Saline Saline -Foul Odor after Cleansing No No No -Negative Pressure Wound Therapy N/A N/A N/A -Primary Dressing Applied NonAdherent Contact Layer -Other Dressing aquacel ag aquacel ag -Primary Dressing Covered/Secured with -Other Covering abd pad abd ABD #4 left anterior vargas cluster -Ulcer Cleansing Rinsed/ Rinsed/ Irrigated with Irrigated with Saline Saline -Foul Odor after Cleansing No No -Negative Pressure Wound Therapy N/A N/A -Primary Dressing Applied NonAdherent Contact Layer -Other Dressing aquacel ag -Primary Dressing Covered/Secured with -Other Covering abd pad ABD Left -Lotion applied to leg before No Yes compression wrap -Multi-Layered Wrap Application Multi-Layer Multi-Layer Multi-Layer Comp - Left ($) Comp - Left ($) Comp - Left ($) Treatment Response Procedure Procedure Procedure Tolerated Well Tolerated Well Tolerated Well Vital Signs Temperature (97.8 F-99.1 F) 97.7 F L Temperature Source Temporal Pulse Rate (60-100) 80 Pulse Location Monitor Respiratory Rate (12-18) 16 Respiratory rate source Observation Oxygen Delivery Method Room Air Blood Pressure (90/60-120/80) 99/41 L Blood Pressure Mean (mm Hg) 60 Source Monitor Position Sitting Blood Pressure Location Left Arm Pain Scale: 0-10 Numeric Is Patient Pain Free? Yes Yes Yes Teaching: Wound Center Dressing Your Wound -Person Taught Patient,Family Patient,Family -Teaching Method Discussion, Discussion, Demonstration Demonstration -Response to teaching Verbalize Verbalize understanding understanding WC - Visit Discharge Discharge Condition Stable Stable Stable Ambulatory Status Ambulatory Ambulatory Ambulatory Transportation Private Auto Private Auto Private Auto Accompanied by sister self SISTER Medication Reconcilliation completed & No No No provided to patient/care provider Clinical Summary of Care Provided Yes Yes Yes 01/18/21 01/25/21 15:16 16:06 Wound Care Nurse 3 #7 LEFT LATERAL LE CLUSTER -Ulcer Cleansing Not Cleansed -Foul Odor after Cleansing No No -Negative Pressure Wound Therapy N/A -Primary Dressing Applied -Other Dressing PuraPly -Primary Dressing Covered/Secured with Dry Gauze, Dry Gauze & Secured with Roll Gauze Tape -Other Covering #6 Left medial LE Inferior -Ulcer Cleansing Not Cleansed -Foul Odor after Cleansing No No -Negative Pressure Wound Therapy N/A -Primary Dressing Applied -Other Dressing Puraply -Primary Dressing Covered/Secured with Dry Gauze, Dry Gauze & Secured with Roll Gauze, Tape Secured with Tape -Other Covering -Aquacel AG 4x4 -Aquacel AG 2x2 #5 Left Medial LE superior -Ulcer Cleansing Not Cleansed -Foul Odor after Cleansing No No -Negative Pressure Wound Therapy N/A -Primary Dressing Applied -Other Dressing -Primary Dressing Covered/Secured with Dry Gauze, Secured with Tape -Other Covering Puraply #4 left anterior vargas cluster -Ulcer Cleansing Not Cleansed -Foul Odor after Cleansing No -Negative Pressure Wound Therapy N/A -Primary Dressing Applied -Other Dressing -Primary Dressing Covered/Secured with Dry Gauze, Secured with Tape -Other Covering Left -Lotion applied to leg before Yes compression wrap -Multi-Layered Wrap Application Multi-Layer Multi-Layer Comp - Left ($) Comp - Left ($) Treatment Response Procedure Procedure Tolerated Well Tolerated Well Vital Signs Temperature (97.8 F-99.1 F) Temperature Source Pulse Rate (60-100) Pulse Location Respiratory Rate (12-18) Respiratory rate source Oxygen Delivery Method Blood Pressure (90/60-120/80) Blood Pressure Mean (mm Hg) Source Position Blood Pressure Location Pain Scale: 0-10 Numeric Is Patient Pain Free? Yes No Teaching: Wound Center Dressing Your Wound -Person Taught Patient,Family -Teaching Method Discussion, Demonstration -Response to teaching Verbalize understanding WC - Visit Discharge Discharge Condition Stable Stable Ambulatory Status Ambulatory Ambulatory Transportation Private Auto Private Auto Accompanied by SISTER Medication Reconcilliation completed & No provided to patient/care provider Clinical Summary of Care Provided Yes Additional Wound Wound debrided: I debrided several of the wounds on the Left leg Laterality: Left Wound Grade/Stage: N/A - these are venous stasis ulcers Type of Debridement: Excisional debridement Anesthesia Used: 4% Lidocaine Solution Depth: Down to and including healthy tissue and in the subcutaneous layer Percentage of wound debrided: 70 Instrument Used: Forceps Tissue Removed: old Puraply, biofilm, slough and dried skin Amount of bleeding with debridement: Mild Bleeding Controlled with: Pressure Patient tolerated procedure: Patient tolerated procedure well Operative Diagnosis: venous stasis ulcers of the left LE Assessment/Plan Assessment/Plan (1) Venous stasis ulcer: CODE(S): I83.009 - Varicose veins of unspecified lower extremity with ulcer of unspecified site; L97.909 - Non-pressure chronic ulcer of unspecified part of unspecified lower leg with unspecified severity QUALIFIERS: Venous stasis ulcer site: calf Varicose vein presence: with varicose veins Laterality: left Non-pressure ulcer stage: with fat layer exposed Qualified Code(s): I83.022 - Varicose veins of left lower extremity with ulcer of calf; L97.222 - Non-pressure chronic ulcer of left calf with fat layer exposed (2) Venous insufficiency of both lower extremities: CODE(S): I87.2 - Venous insufficiency (chronic) (peripheral) (3) Severe malnutrition: CODE(S): E43 - Unspecified severe protein-calorie malnutrition PLAN: 1. Certainly the malnutrition plays a big part in not getting these wounds healed. They have improved in the past and at one point were almost gone but the skin is very fragile and breaks open with minimal trauma....like bumping the chair with her leg. They definitely get worse when the compression is discontinued. Will continue Puraply and compression 2. We have discussed a corpak in the past with Rosario so that she can get some nutrition but, she has refused. I told her that if we can not heal the vebous stasis ulcers I am fearful she would not be able to heal a surgical wound if she is able to have a Whipples. She continues to refuse. 3. RTC in 2 weeks to follow up with me.
== END 2021-02-02 23:59 ==
LOC: WC 14:30
PROVIDERS: PCP Family Medicine; Referring Provider Internal Medicine; Visit Provider Internal Medicine
DX: I83.022 Varicose veins of left lower extremity with ulcer of calf (principal); L97.222 Non-pressure chronic ulcer of left calf with fat layer exposed; E43 Unspecified severe protein-calorie malnutrition; C22.1 Intrahepatic bile duct carcinoma; I87.2 Venous insufficiency (chronic) (peripheral)
CPT/HCPCS: 11042; 15271; 29581; 99213; Q4196; G0463

== ENCOUNTER 2021-03-01 15:30 | Outpatient (RCR) | payer MEDICARE, OTHER, SELFPAY ==
[2021-02-03 00:13] VITALS: BP 106/45; PULSE 91; RESP 18; TEMP 36.7; BMI 26.2
[2021-02-08 11:01] VITALS: BMI 25.6
[2021-02-08 15:31] VITALS: BP 132/70; PULSE 74; RESP 16; TEMP 36.5; BMI 25.6
--- NOTE | 2021-02-08 18:57 | PCM.WC.PN ---
History of Present Illness Date of Service: 02/08/21 Chief Complaint: non-healing wound of the LLE History of Wound: please see the consult dictated on this pt on 09/07/20 for hx Subjective Subjective Rosario returns today for a follow-up visit. She was seen last week and Puraply was placed on the nonhealing venous stasis ulcers of the left lower extremity. She denies fevers, chills, night sweats. Still not able to eat hardly anything. Objective Data Objective Data Vital Signs: Vital Signs Temp Pulse Resp BP 97.7 F L 74 16 132/70 H 02/08/21 15:31 02/08/21 15:31 02/08/21 15:31 02/08/21 15:31 Body Mass Index (BMI) 25.6 Charges/Coding Procedures Integumentary [id number]: [id number] Sheryl subq tissue 20 sq cm/< Physical Exam Skin Wounds: wounds noted Wound Narrative: There has been some improvement. The wounds have contracted somewhat. There is no purulent DC and no increased warmth to touch. There is no swelling. The area on the dorsum of the foot and the flexure at the junction of the ankle and the foot has resolved. there is dried adherent Puraply that I debrided off the wounds and so old dry skin on the older healed wounds that I also debrided. there is no undermining and no tunnelling. No purulent DC. No odor, no increased warmth to touch. Debridement Note Debridement Note Post-Debridement Measurements and Additional Note: Post-Debridement Measurements/Treatment - Nurse 1 - General Ulcer Assessment Start: 02/08/21 15:31 Freq: Status: Active Protocol: ASHTYN Activity Type Activity Date Activity User E-Sign Co-Sign Detail Recorded Client Recorded Date Recorded By Document 02/08/21 15:31 ML [id number] 02/08/21 15:38 ML 02/08/21 15:31 - Today's Visit Information Type of service Follow-up Visit (Physician/RESTORATIVE CARE TECHNICIAN ) Arrival Mode Ambulatory Transfer Assistance None Patient Identification Verified (Name & No ) Patient Requires Transmission-Based No Precautions Safety Precautions NA Finger Stick Blood Sugar(mg/dl) (if 114 indicated): Blood Sugar Stated by Patient Height and Weight Body Mass Index (BMI) 25.6 BMI Classification Overweight Vital Signs Temperature (97.8 F-99.1 F) 97.7 F L Temperature Source Temporal Pulse Rate (60-100) 74 Pulse Location Monitor Respiratory Rate (12-18) 16 Respiratory rate source Observation Blood Pressure (90/60-120/80) 132/70 H Blood Pressure Mean (mm Hg) 90 Source Monitor Position Sitting Blood Pressure Location Left Arm History Since Last Visit- (Skip if this is Patient's initial visit) Have you changed medications since your No last visit? Any new allergies or adverse reactions No Had a fall/change in ADL's that may No increase risk of falls Signs or symptoms of abuse and/or No neglect since last visit Have you been in the hospital since your No last visit? Has dressing in place as prescribed Yes Has compression in place as prescribed N/A Has offloadiing in place as prescribed N/A Experienced any changes in pain level or No management Left Footwear Regular Shoe Right Footwear Regular Shoe WC - Nurse 1 - General Ulcer Measurement Start: 02/08/21 15:31 Freq: Status: Active Protocol: Activity Type Activity Date Activity User E-Sign Co-Sign Detail Recorded Client Recorded Date Recorded By Document 02/08/21 15:31 ML [id number] 02/08/21 15:38 ML 02/08/21 15:31 Wound Center Nurse 1 #7 LEFT LATERAL LE CLUSTER -Current Size (cm) - Length 1 -Current Size (cm) - Width 3 -Current Size (cm) - Depth 0.1 -Total Square Cm 3 -Exudate Amt Large -Exudate Type Serosanguineous -Wound Margin Distinct, Outline Attached -Granulation Amt Medium (34-66%) -Slough/Fibrin Yes -Necrosis Amt Medium (34-66%) -Necrotic Tissue Type Adherent Slough -Texture (Maria E-wound Skin Appearance) Assessed -Moisture (Maria E-wound Skin Appearance) Assessed -Color (Maria E-wound Skin Appearance) Assessed -Temperature (Maria E-wound Skin No Abnormality Appearance) (Pt Warm) -Tenderness on Palpation (Maria E-wound Yes Skin Appearance) -Ulcer Cleansing Wound Cleanser -Foul Odor after Cleansing No -Anesthetic Used 4% Lidocaine Solution #6 Left medial LE Inferior -Current Size (cm) - Length 0.8 -Current Size (cm) - Width 0.3 -Current Size (cm) - Depth 0.1 -Total Square Cm 0.24 -Exudate Amt Large -Exudate Type Serosanguineous -Wound Margin Distinct, Outline Attached -Slough/Fibrin Yes -Necrosis Amt Medium (34-66%) -Necrotic Tissue Type Adherent Slough -Texture (Maria E-wound Skin Appearance) Assessed -Moisture (Maria E-wound Skin Appearance) Assessed -Color (Maria E-wound Skin Appearance) Assessed -Temperature (Maria E-wound Skin No Abnormality Appearance) (Pt Warm) -Ulcer Cleansing Wound Cleanser -Foul Odor after Cleansing No -Anesthetic Used 4% Lidocaine Solution #5 Left Medial LE superior -Current Size (cm) - Length 1.3 -Current Size (cm) - Width 1.0 -Current Size (cm) - Depth 0.1 -Total Square Cm 1.30 -Exudate Amt Medium -Exudate Type Serosanguineous -Wound Margin Distinct, Outline Attached -Granulation Amt Medium (34-66%) -Slough/Fibrin Yes -Necrosis Amt Medium (34-66%) -Necrotic Tissue Type Adherent Slough -Texture (Maria E-wound Skin Appearance) Assessed -Moisture (Maria E-wound Skin Appearance) Assessed -Color (Maria E-wound Skin Appearance) Assessed -Temperature (Maria E-wound Skin No Abnormality Appearance) (Pt Warm) -Tenderness on Palpation (Maria E-wound Yes Skin Appearance) -Ulcer Cleansing Wound Cleanser -Foul Odor after Cleansing No -Anesthetic Used 4% Lidocaine Solution Left Calf (cm) 25 Left Ankle (cm) 20 WC - Nurse 2 - General Ulcer CM Notes Start: 02/08/21 15:31 Freq: Status: Active Protocol: Activity Type Activity Date Activity User E-Sign Co-Sign Detail Recorded Client Recorded Date Recorded By Document 02/08/21 16:11 MW [id number] 02/08/21 16:22 MW 02/08/21 16:11 Wound Center Nurse 2 #7 LEFT LATERAL LE CLUSTER -Time 16:11 -Correct Patient Yes -Correct Side, Site, Position Yes -Correct Procedure Yes -Procedure Performed Yes -Type of Procedure Debridement -Clinical Debridement Subcutaneous -Tissue Removed Subcutaneous -Post Debridement (cm) - Length 2.0 -Post Debridement (cm) - Width 2.0 -Post Debridement (cm) - Depth 0.1 -Total Square (Post) (cm) 4.00 -Area of Debridement (cm) - Length 2.0 -Area of Debridement (cm) - Width 2.0 -Total Square (Area) (cm) 4.00 -Tunneling No -Undermining/Tunneling No -Circular Undermining No -Wound/Ulcer Outcome Not Healed -Ulcer Cleansing Rinsed/ Irrigated with Saline -Foul Odor after Cleansing No -Bioengineered Tissue No -Bleeding Controlled with Pressure -Offloading No -Treatment Response Procedure Tolerated Well -Debridement - Subq, 1st 20sq cm Yes #6 Left medial LE Inferior -Time 16:12 -Correct Patient Yes -Correct Side, Site, Position Yes -Correct Procedure Yes -Procedure Performed Yes -Type of Procedure Debridement -Clinical Debridement Subcutaneous -Tissue Removed Subcutaneous -Post Debridement (cm) - Length 1.5 -Post Debridement (cm) - Width 0.5 -Post Debridement (cm) - Depth 0.1 -Total Square (Post) (cm) 0.75 -Area of Debridement (cm) - Length 1.5 -Area of Debridement (cm) - Width 0.5 -Total Square (Area) (cm) 0.75 -Tunneling No -Undermining/Tunneling No -Circular Undermining No -Wound/Ulcer Outcome Not Healed -Ulcer Cleansing Rinsed/ Irrigated with Saline -Foul Odor after Cleansing No -Bioengineered Tissue No -Bleeding Controlled with Pressure -Offloading No -Treatment Response Procedure Tolerated Well -Debridement - Subq, 1st 20sq cm No #5 Left Medial LE superior -Time 16:12 -Correct Patient Yes -Correct Side, Site, Position Yes -Correct Procedure Yes -Procedure Performed Yes -Type of Procedure Debridement -Clinical Debridement Subcutaneous -Tissue Removed Subcutaneous -Post Debridement (cm) - Length 2.5 -Post Debridement (cm) - Width 3.0 -Post Debridement (cm) - Depth 0.1 -Total Square (Post) (cm) 7.50 -Area of Debridement (cm) - Length 2.5 -Area of Debridement (cm) - Width 3.0 -Total Square (Area) (cm) 7.50 -Tunneling No -Undermining/Tunneling No -Circular Undermining No -Wound/Ulcer Outcome Not Healed -Ulcer Cleansing Rinsed/ Irrigated with Saline -Foul Odor after Cleansing No -Bioengineered Tissue Yes -Type of Bioengineered Tissue PuraPly AM -Expiration Date 06/01/22 -Product Lot Number [id number] -Percent Used 100 -Lot number of Saline Used [id number] -Bleeding Controlled with Pressure -Offloading No -Treatment Response Procedure Tolerated Well -Debridement - Subq, 1st 20sq cm No -Apply Skin Sub - 1st 25 sq cm - Legs 1 -PuraPly AM (per sq cm) 8 Pain Scale: 0-10 Numeric Is Patient Pain Free? Yes WC - Nurse 3 - General Ulcer D/C NN Start: 02/08/21 15:31 Freq: Status: Active Protocol: Activity Type Activity Date Activity User E-Sign Co-Sign Detail Recorded Client Recorded Date Recorded By Document 02/08/21 16:38 ML [id number] 02/08/21 16:40 ML 02/08/21 16:38 Wound Care Nurse 3 #7 LEFT LATERAL LE CLUSTER -Other Dressing PURAPLY,ABD #6 Left medial LE Inferior -Other Dressing PURAPLY,ABD #5 Left Medial LE superior -Other Dressing PURIPLY,ABD Left -Multi-Layered Wrap Application Multi-Layer Comp - Left ($) WC - Visit Discharge Discharge Condition Stable Ambulatory Status Ambulatory Medication Reconcilliation completed & No provided to patient/care provider Clinical Summary of Care Provided Yes Additional Wound Wound debrided: several wound on the anterior distal left leg Laterality: Left Type of Debridement: Selective debridement Anesthesia Used: 4% Lidocaine Solution Depth: Down to and including healthy tissue and in the subcutaneous layer Percentage of wound debrided: 100 Instrument Used: Forceps Tissue Removed: biofilm, old Puraply and some slough Severity: Limited To Skin Breakdown Amount of bleeding with debridement: Mild Bleeding Controlled with: Pressure Patient tolerated procedure: Patient tolerated procedure well Operative Diagnosis: non-healing venous stasis ulcers Assessment/Plan Assessment/Plan (1) Venous stasis ulcer: CODE(S): I83.009 - Varicose veins of unspecified lower extremity with ulcer of unspecified site; L97.909 - Non-pressure chronic ulcer of unspecified part of unspecified lower leg with unspecified severity QUALIFIERS: Venous stasis ulcer site: calf Varicose vein presence: with varicose veins Laterality: left Non-pressure ulcer stage: with fat layer exposed Qualified Code(s): I83.022 - Varicose veins of left lower extremity with ulcer of calf; L97.222 - Non-pressure chronic ulcer of left calf with fat layer exposed (2) Venous insufficiency of both lower extremities: CODE(S): I87.2 - Venous insufficiency (chronic) (peripheral) (3) Severe malnutrition: CODE(S): E43 - Unspecified severe protein-calorie malnutrition PLAN: 1. PuraPly was reapplied and covered with a wound veil. Rosario will RTC in 1 week for a nurse visit to replace the wound veil and check the wound and she will follow up with me in 2 weeks for a recheck. I continue to urge her to increase her intake but she is not able. Refuses a corapk. Refuses Arnoldo. Add a MV, ascorbic acid and zinc at the next visit.
[2021-02-16 15:53] VITALS: BP 108/44; PULSE 90; RESP 16; TEMP 37.1; BMI 25.6
[2021-02-22 15:46] VITALS: BP 106/71; PULSE 82; TEMP 36.8; BMI 25.6
--- NOTE | 2021-02-24 19:45 | PCM.WC.PN ---
History of Present Illness Date of Service: 02/22/21 Chief Complaint: non-healing wound of the LLE History of Wound: please see the consult dictated on this pt on 09/07/20 for hx Subjective Subjective Rosario returns to the [facility] for follow up on non-healing venous stasis ulcers of the RLE. She denies fevers/shaking chills and sweats. Still not able to eat and now she really has no appetite either.....in the past she has wanted to eat but, when she puts a bite in her mouth she loses her appetite. She is chronically tired and sleeps a lot. We are using Puraply on the wounds and providing light compression to control edema. Objective Data Objective Data Vital Signs: Vital Signs Temp Pulse Resp BP 98.3 F 82 16 106/71 02/22/21 15:46 02/22/21 15:46 02/16/21 15:53 02/22/21 15:46 Oxygen Delivery Method Room Air Body Mass Index (BMI) 25.6 Charges/Coding Procedures Integumentary 111xxx-113xx: [id number] Sheryl subq tissue 20 sq cm/< Physical Exam Skin Wounds: wounds noted Wound Narrative: She has many small venous stasis ulcers over the anterior vargas on the left. There is no odor. The openings have no purulent DC. There is no erythema and no increased warmth to touch. the ulcerations are limited to the skin. I debrided off the old Puraply and also some old skin. The skin is very fragile and a lot of care was taken not to remove any new skin while debriding. Debridement Note Debridement Note Post-Debridement Measurements and Additional Note: Post-Debridement Measurements/Treatment - Nurse 1 - General Ulcer Assessment Start: 02/08/21 15:31 Freq: Status: Active Protocol: .LOWEXT Activity Type Activity Date Activity User E-Sign Co-Sign Detail Recorded Client Recorded Date Recorded By Document 02/08/21 15:31 ML [id number] 02/08/21 15:38 ML Document 02/16/21 15:53 BMF Desktop 02/16/21 15:55 BMF Document 02/22/21 15:46 BMF [id number] 02/22/21 15:53 BMF 02/08/21 02/16/21 02/22/21 15:31 15:53 15:46 - Today's Visit Information Type of service Follow-up Visit Nurse-only Follow-up Visit (Physician/WEIGHT AND TEST BAR CLERK Visit (Physician/WEIGHT AND TEST BAR CLERK ) ) Arrival Mode Ambulatory Ambulatory Ambulatory Transfer Assistance None None None Accompanied by sister Patient Identification Verified (Name & No Yes Yes ) Patient Requires Transmission-Based No No No Precautions Safety Precautions NA Finger Stick Blood Sugar(mg/dl) (if 114 indicated): Blood Sugar Stated by Patient Height and Weight Body Mass Index (BMI) 25.6 25.6 25.6 BMI Classification Overweight Overweight Overweight Vital Signs Temperature (97.8 F-99.1 F) 97.7 F L 98.7 F 98.3 F Temperature Source Temporal Temporal Temporal Pulse Rate (60-100) 74 90 82 Pulse Location Monitor Monitor Monitor Respiratory Rate (12-18) 16 16 Respiratory rate source Observation Observation Oxygen Delivery Method Room Air Blood Pressure (90/60-120/80) 132/70 H 108/44 L 106/71 Blood Pressure Mean (mm Hg) 90 65 82 Source Monitor Monitor Monitor Position Sitting Sitting Sitting Blood Pressure Location Left Arm Left Arm Left Arm History Since Last Visit- (Skip if this is Patient's initial visit) Have you changed medications since your No No No last visit? Any new allergies or adverse reactions No No No Had a fall/change in ADL's that may No No No increase risk of falls Signs or symptoms of abuse and/or No No No neglect since last visit Have you been in the hospital since your No No No last visit? Has dressing in place as prescribed Yes Yes Yes Has compression in place as prescribed N/A Yes Yes Has offloadiing in place as prescribed N/A N/A N/A Experienced any changes in pain level or No No No management Left Footwear Regular Shoe Regular Shoe Regular Shoe Right Footwear Regular Shoe Regular Shoe Regular Shoe Pain Scale: 0-10 Numeric Is Patient Pain Free? Yes Yes - Nurse 1 - General Ulcer Measurement Start: 02/08/21 15:31 Freq: Status: Active Protocol: Activity Type Activity Date Activity User E-Sign Co-Sign Detail Recorded Client Recorded Date Recorded By Document 02/08/21 15:31 ML [id number] 02/08/21 15:38 ML Document 02/16/21 15:53 BMF Desktop 02/16/21 15:55 BMF Document 02/22/21 15:46 [facility] [id number] 02/22/21 15:53 [facility] 02/08/21 02/16/21 02/22/21 15:31 15:53 15:46 Wound Center Nurse 1 #7 LEFT LATERAL LE CLUSTER -Combined with other wound No -Current Size (cm) - Length 1 0.1 -Current Size (cm) - Width 3 0.1 -Current Size (cm) - Depth 0.1 0.1 -Total Square Cm 3 0.01 -Epithelialization Large 67-100% -Exudate Amt Large -Exudate Type Serosanguineous -Wound Margin Distinct, Outline Attached -Granulation Amt Medium (34-66%) -Slough/Fibrin Yes -Necrosis Amt Medium (34-66%) -Necrotic Tissue Type Adherent Slough -Texture (Maria E-wound Skin Appearance) Assessed Assessed -Moisture (Maria E-wound Skin Appearance) Assessed Assessed -Color (Maria E-wound Skin Appearance) Assessed Assessed -Temperature (Maria E-wound Skin No Abnormality No Abnormality Appearance) (Pt Warm) (Pt Warm) -Tenderness on Palpation (Maria E-wound Yes No Skin Appearance) -Ulcer Cleansing Wound Cleanser soapy water -Foul Odor after Cleansing No No -Anesthetic Used 4% Lidocaine 4% Lidocaine Solution Solution #6 Left medial LE Inferior -Combined with other wound No -Current Size (cm) - Length 0.8 0.1 -Current Size (cm) - Width 0.3 0.1 -Current Size (cm) - Depth 0.1 0.1 -Total Square Cm 0.24 0.01 -Epithelialization Large 67-100% -Tunneling No -Undermining/Tunneling No -Circular Undermining No -Exudate Amt Large -Exudate Type Serosanguineous -Wound Margin Distinct, Outline Attached -Slough/Fibrin Yes -Necrosis Amt Medium (34-66%) -Necrotic Tissue Type Adherent Slough -Texture (Maria E-wound Skin Appearance) Assessed Assessed -Moisture (Maria E-wound Skin Appearance) Assessed Assessed -Color (Maria E-wound Skin Appearance) Assessed Assessed -Temperature (Maria E-wound Skin No Abnormality No Abnormality Appearance) (Pt Warm) (Pt Warm) -Tenderness on Palpation (Maria E-wound No Skin Appearance) -Ulcer Cleansing Wound Cleanser soapy water -Foul Odor after Cleansing No No -Anesthetic Used 4% Lidocaine 4% Lidocaine Solution Solution #5 Left Medial LE superior -Combined with other wound No -Current Size (cm) - Length 1.3 0.1 -Current Size (cm) - Width 1.0 0.1 -Current Size (cm) - Depth 0.1 0.1 -Total Square Cm 1.30 0.01 -Epithelialization Large 67-100% -Exudate Amt Medium -Exudate Type Serosanguineous -Wound Margin Distinct, Outline Attached -Granulation Amt Medium (34-66%) -Slough/Fibrin Yes -Necrosis Amt Medium (34-66%) -Necrotic Tissue Type Adherent Slough -Texture (Maria E-wound Skin Appearance) Assessed Assessed -Moisture (Maria E-wound Skin Appearance) Assessed Assessed -Color (Maria E-wound Skin Appearance) Assessed Assessed -Temperature (Maria E-wound Skin No Abnormality No Abnormality Appearance) (Pt Warm) (Pt Warm) -Tenderness on Palpation (Maria E-wound Yes Skin Appearance) -Ulcer Cleansing Wound Cleanser soapy water -Foul Odor after Cleansing No No -Anesthetic Used 4% Lidocaine 4% Lidocaine Solution Solution Lower Limb Edema Present Yes Yes Left Calf (cm) 25 31.6 28.9 Left Ankle (cm) 20 19.3 19.6 WC - Nurse 2 - General Ulcer CM Notes Start: 02/08/21 15:31 Freq: Status: Active Protocol: Activity Type Activity Date Activity User E-Sign Co-Sign Detail Recorded Client Recorded Date Recorded By Document 02/08/21 16:11 MW [id number] 02/08/21 16:22 MW Document 02/22/21 16:03 MW [id number] 02/22/21 16:28 MW 02/08/21 02/22/21 16:11 16:03 Wound Center Nurse 2 #7 LEFT LATERAL LE CLUSTER -Time 16:11 16:03 -Correct Patient Yes Yes -Correct Side, Site, Position Yes Yes -Correct Procedure Yes Yes -Procedure Performed Yes Yes -Type of Procedure Debridement Debridement -Clinical Debridement Subcutaneous Subcutaneous -Tissue Removed Subcutaneous Subcutaneous -Post Debridement (cm) - Length 2.0 0.1 -Post Debridement (cm) - Width 2.0 0.1 -Post Debridement (cm) - Depth 0.1 0.1 -Total Square (Post) (cm) 4.00 0.01 -Area of Debridement (cm) - Length 2.0 0.1 -Area of Debridement (cm) - Width 2.0 0.1 -Total Square (Area) (cm) 4.00 0.01 -Tunneling No No -Undermining/Tunneling No -Circular Undermining No No -Wound/Ulcer Outcome Not Healed Not Healed -Ulcer Cleansing Rinsed/ Rinsed/ Irrigated with Irrigated with Saline Saline -Foul Odor after Cleansing No No -Bioengineered Tissue No No -Bleeding Controlled with Pressure Pressure -Offloading No No -Treatment Response Procedure Procedure Tolerated Well Tolerated Well -Debridement - Subq, 1st 20sq cm Yes Yes #6 Left medial LE Inferior -Time 16:12 16:12 -Correct Patient Yes Yes -Correct Side, Site, Position Yes Yes -Correct Procedure Yes Yes -Procedure Performed Yes Yes -Type of Procedure Debridement Debridement -Clinical Debridement Subcutaneous Subcutaneous -Tissue Removed Subcutaneous Subcutaneous -Post Debridement (cm) - Length 1.5 3.8 -Post Debridement (cm) - Width 0.5 4.0 -Post Debridement (cm) - Depth 0.1 0.1 -Total Square (Post) (cm) 0.75 15.20 -Area of Debridement (cm) - Length 1.5 3.8 -Area of Debridement (cm) - Width 0.5 4.0 -Total Square (Area) (cm) 0.75 15.20 -Tunneling No No -Undermining/Tunneling No No -Circular Undermining No No -Wound/Ulcer Outcome Not Healed Not Healed -Ulcer Cleansing Rinsed/ Rinsed/ Irrigated with Irrigated with Saline Saline -Foul Odor after Cleansing No No -Bioengineered Tissue No No -Bleeding Controlled with Pressure Pressure -Offloading No No -Treatment Response Procedure Procedure Tolerated Well Tolerated Well -Debridement - Subq, 1st 20sq cm No No #5 Left Medial LE superior -Time 16:12 16:13 -Correct Patient Yes Yes -Correct Side, Site, Position Yes Yes -Correct Procedure Yes Yes -Procedure Performed Yes Yes -Type of Procedure Debridement Debridement -Clinical Debridement Subcutaneous Subcutaneous -Tissue Removed Subcutaneous Subcutaneous -Post Debridement (cm) - Length 2.5 3.0 -Post Debridement (cm) - Width 3.0 2.0 -Post Debridement (cm) - Depth 0.1 0.1 -Total Square (Post) (cm) 7.50 6.00 -Area of Debridement (cm) - Length 2.5 3.0 -Area of Debridement (cm) - Width 3.0 2.0 -Total Square (Area) (cm) 7.50 6.00 -Tunneling No No -Undermining/Tunneling No No -Circular Undermining No No -Wound/Ulcer Outcome Not Healed Not Healed -Ulcer Cleansing Rinsed/ Rinsed/ Irrigated with Irrigated with Saline Saline -Foul Odor after Cleansing No No -Bioengineered Tissue Yes Yes -Type of Bioengineered Tissue PuraPly AM PuraPly AM -Expiration Date 06/01/22 10/03/21 -Product Lot Number [id number] -Percent Used 100 100 -Lot number of Saline Used [id number] -Bleeding Controlled with Pressure Pressure -Offloading No No -Treatment Response Procedure Procedure Tolerated Well Tolerated Well -Debridement - Subq, 1st 20sq cm No No -Apply Skin Sub - 1st 25 sq cm - Legs 1 1 -PuraPly AM (per sq cm) 8 8 Pain Scale: 0-10 Numeric Is Patient Pain Free? Yes Yes WC - Nurse 3 - General Ulcer D/C NN Start: 02/08/21 15:31 Freq: Status: Active Protocol: Activity Type Activity Date Activity User E-Sign Co-Sign Detail Recorded Client Recorded Date Recorded By Document 02/08/21 16:38 ML [id number] 02/08/21 16:40 ML Document 02/16/21 15:53 BM Desktop 02/16/21 15:55 [facility] Document 02/22/21 16:35 [facility] [id number] 02/22/21 16:39 [facility] 02/08/21 02/16/21 02/22/21 16:38 15:53 16:35 Wound Care Nurse 3 #7 LEFT LATERAL LE CLUSTER -Other Dressing PURAPLY,ABD PURAPLY LEFT IN PURAPLY PLACE -Primary Dressing Covered/Secured with Other Other -Other Covering ABD ABD #6 Left medial LE Inferior -Other Dressing PURAPLY,ABD PURAPLY LEFT IN PURAPLY PLACE -Primary Dressing Covered/Secured with Other Other -Other Covering ABD ABD #5 Left Medial LE superior -Other Dressing PURIPLY,ABD PURAPLY LEFT IN PURAPLY PLACE -Primary Dressing Covered/Secured with Other Other -Other Covering ABD ABD Left -Multi-Layered Wrap Application Multi-Layer Multi-Layer Multi-Layer Comp - Left ($) Comp - Left ($) Comp - Left ($) Treatment Response Procedure Tolerated Well Vital Signs Temperature (97.8 F-99.1 F) 98.7 F Temperature Source Temporal Pulse Rate (60-100) 90 Pulse Location Monitor Respiratory Rate (12-18) 16 Respiratory rate source Observation Oxygen Delivery Method Room Air Blood Pressure (90/60-120/80) 108/44 L Blood Pressure Mean (mm Hg) 65 Source Monitor Position Sitting Blood Pressure Location Left Arm Pain Scale: 0-10 Numeric Is Patient Pain Free? Yes WC - Visit Discharge Discharge Condition Stable Stable Stable Ambulatory Status Ambulatory Ambulatory Ambulatory Transportation Private Auto Private Auto Accompanied by SISTER Medication Reconcilliation completed & No provided to patient/care provider Clinical Summary of Care Provided Yes Additional Wound Wound debrided: multiple small venous stasis ulcers of the LLE distasl to the knee. Laterality: Left Type of Debridement: Excisional debridement Anesthesia Used: 4% Lidocaine Solution Depth: Down to and including healthy tissue and in the subcutaneous layer Percentage of wound debrided: 100 Instrument Used: Forceps Severity: Limited To Skin Breakdown Amount of bleeding with debridement: Mild Bleeding Controlled with: Pressure Patient tolerated procedure: Patient tolerated procedure well Operative Diagnosis: non-healing venous stasis ulcers of the left leg Assessment/Plan Assessment/Plan (1) Venous stasis ulcer: CODE(S): I83.009 - Varicose veins of unspecified lower extremity with ulcer of unspecified site; L97.909 - Non-pressure chronic ulcer of unspecified part of unspecified lower leg with unspecified severity QUALIFIERS: Venous stasis ulcer site: calf Varicose vein presence: with varicose veins Laterality: left Non-pressure ulcer stage: with fat layer exposed Qualified Code(s): I83.022 - Varicose veins of left lower extremity with ulcer of calf; L97.222 - Non-pressure chronic ulcer of left calf with fat layer exposed (2) Venous insufficiency of both lower extremities: CODE(S): I87.2 - Venous insufficiency (chronic) (peripheral) (3) Severe malnutrition: CODE(S): E43 - Unspecified severe protein-calorie malnutrition PLAN: Puraply was reapplied. We did not have a veil so an adaptic touch was used to help secure the Puraply along with steri strips. She then had a multilayer light compression bandage applied. She will return to the clinic in 1 week for follow up
[2021-03-01 15:31] VITALS: BP 124/50; PULSE 91; RESP 18; TEMP 36.8; BMI 25.6
--- NOTE | 2021-03-08 11:50 | PCM.WC.PN ---
History of Present Illness Date of Service: 03/01/21 Chief Complaint: non-healing wound of the LLE History of Wound: please see the consult dictated on this pt on 09/07/20 for hx Subjective Subjective Rosario returns to the wound care center today for a follow-up visit. Venous stasis ulcers of the anterior left lower extremity below the knee are currently being treated with pure apply and light compression. She denies fevers/chills/sweats. The leg is not painful until the dressing is removed and the ulcerations are exposed to air. She will have her final chemo treatment next week and then be scheduled for scans. Objective Data Objective Data Vital Signs: Vital Signs Temp Pulse Resp BP 98.3 F 91 18 124/50 H 03/01/21 15:31 03/01/21 15:31 03/01/21 15:31 03/01/21 15:31 Oxygen Delivery Method Room Air Body Mass Index (BMI) 25.6 Charges/Coding Procedures Integumentary 111xxx-113xx: [id number] Sheryl subq tissue 20 sq cm/< Physical Exam Const alert, oriented x3 and no apparent distress Constitutional Narrative: No distress but she is looking very tired and her color is not good.....adrian grayish. Still not able to eat. General Appearance: cooperative Resp clear to auscultation bilaterally Effort and Inspection: able to speak in complete sentences Cardio regular rate and regular rhythm Extremity General Extremity: Negative for edema Skin Wounds: wounds noted Wound Narrative: The skin over the vargas of the LLE is very friable and superficial vessels are clearly visible due to atrophy. The later portion of the leg has healed but she still has ulcerations on the medial leg. There is no increased warmth to touch and no erythema around the wounds. No purulent DC. Wounds are very superficial and limited to the skin. The old puraply was very carefully debrided off the wound so as not to disrupt any of the fragile epithelialization that is occurring. Debridement Note Debridement Note Post-Debridement Measurements and Additional Note: Post-Debridement Measurements/Treatment JOHANNA - Nurse 1 - General Ulcer Assessment Start: 02/08/21 15:31 Freq: Status: Active Protocol: [email or web address] Activity Type Activity Date Activity User E-Sign Co-Sign Detail Recorded Client Recorded Date Recorded By Document 02/08/21 15:31 ML [id number] 02/08/21 15:38 ML Document 02/16/21 15:53 BMF Desktop 02/16/21 15:55 BMF Document 02/22/21 15:46 BMF [id number] 02/22/21 15:53 BMF Document 03/01/21 15:31 DL [id number] 03/01/21 15:48 DL 02/08/21 02/16/21 02/22/21 15:31 15:53 15:46 WC - Today's Visit Information Type of service Follow-up Visit Nurse-only Follow-up Visit (Physician/UNION CARPENTER Visit (Physician/UNION CARPENTER ) ) Arrival Mode Ambulatory Ambulatory Ambulatory Transfer Assistance None None None Accompanied by sister Patient Identification Verified (Name & No Yes Yes ) Patient Requires Transmission-Based No No No Precautions Safety Precautions NA Finger Stick Blood Sugar(mg/dl) (if 114 indicated): Blood Sugar Stated by Patient Height and Weight Body Mass Index (BMI) 25.6 25.6 25.6 BMI Classification Overweight Overweight Overweight Vital Signs Temperature (97.8 F-99.1 F) 97.7 F L 98.7 F 98.3 F Temperature Source Temporal Temporal Temporal Pulse Rate (60-100) 74 90 82 Pulse Location Monitor Monitor Monitor Respiratory Rate (12-18) 16 16 Respiratory rate source Observation Observation Oxygen Delivery Method Room Air Blood Pressure (90/60-120/80) 132/70 H 108/44 L 106/71 Blood Pressure Mean (mm Hg) 90 65 82 Source Monitor Monitor Monitor Position Sitting Sitting Sitting Blood Pressure Location Left Arm Left Arm Left Arm History Since Last Visit- (Skip if this is Patient's initial visit) Have you changed medications since your No No No last visit? Any new allergies or adverse reactions No No No Had a fall/change in ADL's that may No No No increase risk of falls Signs or symptoms of abuse and/or No No No neglect since last visit Have you been in the hospital since your No No No last visit? Has dressing in place as prescribed Yes Yes Yes Has compression in place as prescribed N/A Yes Yes Has offloadiing in place as prescribed N/A N/A N/A Experienced any changes in pain level or No No No management Left Footwear Regular Shoe Regular Shoe Regular Shoe Right Footwear Regular Shoe Regular Shoe Regular Shoe Pain Scale: 0-10 Numeric Is Patient Pain Free? Yes Yes 03/01/21 15:31 - Today's Visit Information Type of service Follow-up Visit (Physician/UNION CARPENTER ) Arrival Mode Ambulatory Transfer Assistance None Accompanied by Patient Identification Verified (Name & Yes ) Patient Requires Transmission-Based No Precautions Safety Precautions Finger Stick Blood Sugar(mg/dl) (if indicated): Blood Sugar Height and Weight Body Mass Index (BMI) 25.6 BMI Classification Overweight Vital Signs Temperature (97.8 F-99.1 F) 98.3 F Temperature Source Temporal Pulse Rate (60-100) 91 Pulse Location Monitor Respiratory Rate (12-18) 18 Respiratory rate source Oxygen Delivery Method Blood Pressure (90/60-120/80) 124/50 H Blood Pressure Mean (mm Hg) 74 Source Monitor Position Blood Pressure Location History Since Last Visit- (Skip if this is Patient's initial visit) Have you changed medications since your No last visit? Any new allergies or adverse reactions No Had a fall/change in ADL's that may No increase risk of falls Signs or symptoms of abuse and/or No neglect since last visit Have you been in the hospital since your No last visit? Has dressing in place as prescribed Yes Has compression in place as prescribed Yes Has offloadiing in place as prescribed N/A Experienced any changes in pain level or No management Left Footwear Right Footwear Pain Scale: 0-10 Numeric Is Patient Pain Free? Yes - Nurse 1 - General Ulcer Measurement Start: 02/08/21 15:31 Freq: Status: Active Protocol: Activity Type Activity Date Activity User E-Sign Co-Sign Detail Recorded Client Recorded Date Recorded By Document 02/08/21 15:31 ML [id number] 02/08/21 15:38 ML Document 02/16/21 15:53 BMF Desktop 02/16/21 15:55 BMF Document 02/22/21 15:46 BMF [id number] 02/22/21 15:53 BMF Document 03/01/21 15:31 DL [id number] 03/01/21 15:48 DL 02/08/21 02/16/21 02/22/21 15:31 15:53 15:46 Wound Center Nurse 1 #7 LEFT LATERAL LE CLUSTER -Combined with other wound No -Current Size (cm) - Length 1 0.1 -Current Size (cm) - Width 3 0.1 -Current Size (cm) - Depth 0.1 0.1 -Total Square Cm 3 0.01 -Epithelialization Large 67-100% -Exudate Amt Large -Exudate Type Serosanguineous -Wound Margin Distinct, Outline Attached -Granulation Amt Medium (34-66%) -Slough/Fibrin Yes -Necrosis Amt Medium (34-66%) -Necrotic Tissue Type Adherent Slough -Texture (Maria E-wound Skin Appearance) Assessed Assessed -Moisture (Maria E-wound Skin Appearance) Assessed Assessed -Color (Maria E-wound Skin Appearance) Assessed Assessed -Temperature (Maria E-wound Skin No Abnormality No Abnormality Appearance) (Pt Warm) (Pt Warm) -Tenderness on Palpation (Maria E-wound Yes No Skin Appearance) -Ulcer Cleansing Wound Cleanser soapy water -Foul Odor after Cleansing No No -Anesthetic Used 4% Lidocaine 4% Lidocaine Solution Solution #6 Left medial LE Inferior -Combined with other wound No -Current Size (cm) - Length 0.8 0.1 -Current Size (cm) - Width 0.3 0.1 -Current Size (cm) - Depth 0.1 0.1 -Total Square Cm 0.24 0.01 -Photo Taken -Epithelialization Large 67-100% -Tunneling No -Undermining/Tunneling No -Circular Undermining No -Exudate Amt Large -Exudate Type Serosanguineous -Wound Margin Distinct, Outline Attached -Granulation Amt -Granulation Quality -Slough/Fibrin Yes -Necrosis Amt Medium (34-66%) -Necrotic Tissue Type Adherent Slough -Structure Exposed -Texture (Maria E-wound Skin Appearance) Assessed Assessed -Moisture (Maria E-wound Skin Appearance) Assessed Assessed -Color (Maria E-wound Skin Appearance) Assessed Assessed -Temperature (Maria E-wound Skin No Abnormality No Abnormality Appearance) (Pt Warm) (Pt Warm) -Tenderness on Palpation (Maria E-wound No Skin Appearance) -Ulcer Cleansing Wound Cleanser soapy water -Foul Odor after Cleansing No No -Anesthetic Used 4% Lidocaine 4% Lidocaine Solution Solution #5 Left Medial LE superior -Combined with other wound No -Current Size (cm) - Length 1.3 0.1 -Current Size (cm) - Width 1.0 0.1 -Current Size (cm) - Depth 0.1 0.1 -Total Square Cm 1.30 0.01 -Photo Taken -Epithelialization Large 67-100% -Exudate Amt Medium -Exudate Type Serosanguineous -Wound Margin Distinct, Outline Attached -Granulation Amt Medium (34-66%) -Granulation Quality -Slough/Fibrin Yes -Necrosis Amt Medium (34-66%) -Necrotic Tissue Type Adherent Slough -Structure Exposed -Texture (Maria E-wound Skin Appearance) Assessed Assessed -Moisture (Maria E-wound Skin Appearance) Assessed Assessed -Color (Maria E-wound Skin Appearance) Assessed Assessed -Temperature (Maria E-wound Skin No Abnormality No Abnormality Appearance) (Pt Warm) (Pt Warm) -Tenderness on Palpation (Maria E-wound Yes Skin Appearance) -Ulcer Cleansing Wound Cleanser soapy water -Foul Odor after Cleansing No No -Anesthetic Used 4% Lidocaine 4% Lidocaine Solution Solution Lower Limb Edema Present Yes Yes Left Calf (cm) 25 31.6 28.9 Left Ankle (cm) 20 19.3 19.6 03/01/21 15:31 Wound Center Nurse 1 #7 LEFT LATERAL LE CLUSTER -Combined with other wound -Current Size (cm) - Length -Current Size (cm) - Width -Current Size (cm) - Depth -Total Square Cm -Epithelialization -Exudate Amt -Exudate Type -Wound Margin -Granulation Amt -Slough/Fibrin -Necrosis Amt -Necrotic Tissue Type -Texture (Maria E-wound Skin Appearance) -Moisture (Maria E-wound Skin Appearance) -Color (Maria E-wound Skin Appearance) -Temperature (Maria E-wound Skin Appearance) -Tenderness on Palpation (Maria E-wound Skin Appearance) -Ulcer Cleansing -Foul Odor after Cleansing -Anesthetic Used #6 Left medial LE Inferior -Combined with other wound -Current Size (cm) - Length 0.8 -Current Size (cm) - Width 1.1 -Current Size (cm) - Depth 0.1 -Total Square Cm 0.88 -Photo Taken No -Epithelialization -Tunneling -Undermining/Tunneling -Circular Undermining -Exudate Amt Small -Exudate Type Serosanguineous -Wound Margin Distinct, Outline Attached -Granulation Amt Medium (34-66%) -Granulation Quality Collyer -Slough/Fibrin -Necrosis Amt Medium (34-66%) -Necrotic Tissue Type Adherent Slough -Structure Exposed N/A -Texture (Maria E-wound Skin Appearance) Scarring -Moisture (Maria E-wound Skin Appearance) Dry/Scaly -Color (Maria E-wound Skin Appearance) Hemosiderin Staining -Temperature (Maria E-wound Skin Appearance) -Tenderness on Palpation (Maria E-wound No Skin Appearance) -Ulcer Cleansing Wound Cleanser -Foul Odor after Cleansing No -Anesthetic Used 4% Lidocaine Solution #5 Left Medial LE superior -Combined with other wound -Current Size (cm) - Length 5.8 -Current Size (cm) - Width 3.8 -Current Size (cm) - Depth 0 -Total Square Cm 22.04 -Photo Taken No -Epithelialization -Exudate Amt Large -Exudate Type Yellow/Green -Wound Margin Indistinct, Non -Visible -Granulation Amt Medium (34-66%) -Granulation Quality Collyer -Slough/Fibrin -Necrosis Amt Medium (34-66%) -Necrotic Tissue Type Adherent Slough -Structure Exposed N/A -Texture (Maria E-wound Skin Appearance) Scarring -Moisture (Maria E-wound Skin Appearance) No Abnormality -Color (Maria E-wound Skin Appearance) Hemosiderin Staining -Temperature (Maria E-wound Skin No Abnormality Appearance) (Pt Warm) -Tenderness on Palpation (Maria E-wound No Skin Appearance) -Ulcer Cleansing -Foul Odor after Cleansing No -Anesthetic Used 4% Lidocaine Solution,5% Lidocaine Gel Lower Limb Edema Present Left Calf (cm) 28.8 Left Ankle (cm) 19 WC - Nurse 2 - General Ulcer CM Notes Start: 02/08/21 15:31 Freq: Status: Active Protocol: Activity Type Activity Date Activity User E-Sign Co-Sign Detail Recorded Client Recorded Date Recorded By Document 02/08/21 16:11 MW [id number] 02/08/21 16:22 MW Document 02/22/21 16:03 MW [id number] 02/22/21 16:28 MW Document 03/01/21 15:55 MW [id number] 03/01/21 16:07 MW 02/08/21 02/22/21 03/01/21 16:11 16:03 15:55 Wound Center Nurse 2 #7 LEFT LATERAL LE CLUSTER -Time 16:11 16:03 15:56 -Correct Patient Yes Yes Yes -Correct Side, Site, Position Yes Yes Yes -Correct Procedure Yes Yes Yes -Procedure Performed Yes Yes No -Type of Procedure Debridement Debridement -Clinical Debridement Subcutaneous Subcutaneous -Tissue Removed Subcutaneous Subcutaneous -Post Debridement (cm) - Length 2.0 0.1 0 -Post Debridement (cm) - Width 2.0 0.1 0 -Post Debridement (cm) - Depth 0.1 0.1 0 -Total Square (Post) (cm) 4.00 0.01 0 -Area of Debridement (cm) - Length 2.0 0.1 -Area of Debridement (cm) - Width 2.0 0.1 -Total Square (Area) (cm) 4.00 0.01 -Tunneling No No -Undermining/Tunneling No -Circular Undermining No No -Wound/Ulcer Outcome Not Healed Not Healed -Ulcer Cleansing Rinsed/ Rinsed/ Irrigated with Irrigated with Saline Saline -Foul Odor after Cleansing No No -Bioengineered Tissue No No -Bleeding Controlled with Pressure Pressure -Offloading No No -Treatment Response Procedure Procedure Tolerated Well Tolerated Well -Debridement - Subq, 1st 20sq cm Yes Yes #6 Left medial LE Inferior -Time 16:12 16:12 16:02 -Correct Patient Yes Yes Yes -Correct Side, Site, Position Yes Yes Yes -Correct Procedure Yes Yes Yes -Procedure Performed Yes Yes Yes -Type of Procedure Debridement Debridement Debridement -Clinical Debridement Subcutaneous Subcutaneous Subcutaneous -Tissue Removed Subcutaneous Subcutaneous Subcutaneous -Post Debridement (cm) - Length 1.5 3.8 1.1 -Post Debridement (cm) - Width 0.5 4.0 1.1 -Post Debridement (cm) - Depth 0.1 0.1 0.1 -Total Square (Post) (cm) 0.75 15.20 1.21 -Area of Debridement (cm) - Length 1.5 3.8 1.1 -Area of Debridement (cm) - Width 0.5 4.0 1.1 -Total Square (Area) (cm) 0.75 15.20 1.21 -Tunneling No No No -Undermining/Tunneling No No No -Circular Undermining No No No -Wound/Ulcer Outcome Not Healed Not Healed Not Healed -Ulcer Cleansing Rinsed/ Rinsed/ Rinsed/ Irrigated with Irrigated with Irrigated with Saline Saline Saline -Foul Odor after Cleansing No No No -Bioengineered Tissue No No No -Bleeding Controlled with Pressure Pressure Pressure -Offloading No No No -Treatment Response Procedure Procedure Procedure Tolerated Well Tolerated Well Tolerated Well -Debridement - Subq, 1st 20sq cm No No Yes #5 Left Medial LE superior -Time 16:12 16:13 16:03 -Correct Patient Yes Yes Yes -Correct Side, Site, Position Yes Yes Yes -Correct Procedure Yes Yes Yes -Procedure Performed Yes Yes Yes -Type of Procedure Debridement Debridement Debridement -Clinical Debridement Subcutaneous Subcutaneous Subcutaneous -Tissue Removed Subcutaneous Subcutaneous Subcutaneous -Post Debridement (cm) - Length 2.5 3.0 3.0 -Post Debridement (cm) - Width 3.0 2.0 2.0 -Post Debridement (cm) - Depth 0.1 0.1 0.1 -Total Square (Post) (cm) 7.50 6.00 6.00 -Area of Debridement (cm) - Length 2.5 3.0 3.0 -Area of Debridement (cm) - Width 3.0 2.0 2.0 -Total Square (Area) (cm) 7.50 6.00 6.00 -Tunneling No No No -Undermining/Tunneling No No No -Circular Undermining No No No -Wound/Ulcer Outcome Not Healed Not Healed Not Healed -Ulcer Cleansing Rinsed/ Rinsed/ Rinsed/ Irrigated with Irrigated with Irrigated with Saline Saline Saline -Foul Odor after Cleansing No No No -Bioengineered Tissue Yes Yes Yes -Type of Bioengineered Tissue PuraPly AM PuraPly AM PuraPly AM -Expiration Date 06/01/22 10/03/21 06/07/23 -Product Lot Number [id number] -Percent Used 100 100 100 -Lot number of Saline Used [id number] -Bleeding Controlled with Pressure Pressure Pressure -Offloading No No No -Treatment Response Procedure Procedure Procedure Tolerated Well Tolerated Well Tolerated Well -Debridement - Subq, 1st 20sq cm No No No -Apply Skin Sub - 1st 25 sq cm - Legs 1 1 1 -PuraPly AM (per sq cm) 8 8 12 Pain Scale: 0-10 Numeric Is Patient Pain Free? Yes Yes Yes WC - Nurse 3 - General Ulcer D/C NN Start: 02/08/21 15:31 Freq: Status: Active Protocol: Activity Type Activity Date Activity User E-Sign Co-Sign Detail Recorded Client Recorded Date Recorded By Document 02/08/21 16:38 ML [id number] 02/08/21 16:40 ML Document 02/16/21 15:53 BMF Desktop 02/16/21 15:55 [facility] Document 02/22/21 16:35 [facility] [id number] 02/22/21 16:39 [facility] Document 03/01/21 16:08 [id number] 03/01/21 16:09 MW 02/08/21 02/16/21 02/22/21 16:38 15:53 16:35 Wound Care Nurse 3 #7 LEFT LATERAL LE CLUSTER -Other Dressing PURAPLY,ABD PURAPLY LEFT IN PURAPLY PLACE -Primary Dressing Covered/Secured with Other Other -Other Covering ABD ABD #6 Left medial LE Inferior -Ulcer Cleansing -Foul Odor after Cleansing -Negative Pressure Wound Therapy -Other Dressing PURAPLY,ABD PURAPLY LEFT IN PURAPLY PLACE -Primary Dressing Covered/Secured with Other Other -Other Covering ABD ABD #5 Left Medial LE superior -Ulcer Cleansing -Foul Odor after Cleansing -Negative Pressure Wound Therapy -Other Dressing PURIPLY,ABD PURAPLY LEFT IN PURAPLY PLACE -Primary Dressing Covered/Secured with Other Other -Other Covering ABD ABD Left -Lotion applied to leg before compression wrap -Multi-Layered Wrap Application Multi-Layer Multi-Layer Multi-Layer Comp - Left ($) Comp - Left ($) Comp - Left ($) Treatment Response Procedure Tolerated Well Vital Signs Temperature (97.8 F-99.1 F) 98.7 F Temperature Source Temporal Pulse Rate (60-100) 90 Pulse Location Monitor Respiratory Rate (12-18) 16 Respiratory rate source Observation Oxygen Delivery Method Room Air Blood Pressure (90/60-120/80) 108/44 L Blood Pressure Mean (mm Hg) 65 Source Monitor Position Sitting Blood Pressure Location Left Arm Pain Scale: 0-10 Numeric Is Patient Pain Free? Yes Teaching: Wound Center Dressing Your Wound -Person Taught -Teaching Method -Response to teaching WC - Visit Discharge Discharge Condition Stable Stable Stable Ambulatory Status Ambulatory Ambulatory Ambulatory Transportation Private Auto Private Auto Accompanied by SISTER Medication Reconcilliation completed & No provided to patient/care provider Clinical Summary of Care Provided Yes 03/01/21 16:08 Wound Care Nurse 3 #7 LEFT LATERAL LE CLUSTER -Other Dressing -Primary Dressing Covered/Secured with -Other Covering #6 Left medial LE Inferior -Ulcer Cleansing Not Cleansed -Foul Odor after Cleansing No -Negative Pressure Wound Therapy N/A -Other Dressing -Primary Dressing Covered/Secured with -Other Covering ABD PAD #5 Left Medial LE superior -Ulcer Cleansing Not Cleansed -Foul Odor after Cleansing No -Negative Pressure Wound Therapy N/A -Other Dressing -Primary Dressing Covered/Secured with -Other Covering ABD PAD Left -Lotion applied to leg before No compression wrap -Multi-Layered Wrap Application Multi-Layer Comp - Left ($) Treatment Response Procedure Tolerated Well Vital Signs Temperature (97.8 F-99.1 F) Temperature Source Pulse Rate (60-100) Pulse Location Respiratory Rate (12-18) Respiratory rate source Oxygen Delivery Method Blood Pressure (90/60-120/80) Blood Pressure Mean (mm Hg) Source Position Blood Pressure Location Pain Scale: 0-10 Numeric Is Patient Pain Free? Yes Teaching: Wound Center Dressing Your Wound -Person Taught Patient -Teaching Method Discussion, Demonstration -Response to teaching Verbalize understanding WC - Visit Discharge Discharge Condition Stable Ambulatory Status Ambulatory Transportation Private Auto Accompanied by SISTER Medication Reconcilliation completed & No provided to patient/care provider Clinical Summary of Care Provided Yes Additional Wound Wound debrided: Anterior LLE below the knee Laterality: Left Type of Debridement: Excisional debridement Anesthesia Used: 4% Lidocaine Solution Depth: Down to and including healthy tissue Percentage of wound debrided: 100 Instrument Used: Forceps Tissue Removed: biofilm and the old Puraply and skin Severity: Limited To Skin Breakdown Amount of bleeding with debridement: Mild Bleeding Controlled with: Pressure Patient tolerated procedure: Patient tolerated procedure well Operative Diagnosis: venous stasis ulcerations Assessment/Plan Assessment/Plan (1) Venous stasis ulcer: CODE(S): I83.009 - Varicose veins of unspecified lower extremity with ulcer of unspecified site; L97.909 - Non-pressure chronic ulcer of unspecified part of unspecified lower leg with unspecified severity QUALIFIERS: Venous stasis ulcer site: calf Varicose vein presence: with varicose veins Laterality: left Non-pressure ulcer stage: with fat layer exposed Qualified Code(s): I83.022 - Varicose veins of left lower extremity with ulcer of calf; L97.222 - Non-pressure chronic ulcer of left calf with fat layer exposed (2) Venous insufficiency of both lower extremities: CODE(S): I87.2 - Venous insufficiency (chronic) (peripheral) (3) Severe malnutrition: CODE(S): E43 - Unspecified severe protein-calorie malnutrition PLAN: 1. Puraply was reapplied to the ulcerations of the LLE and then gauze followed by tubogrips for mild compression 2. RTC in 1 week for a recheck.
== END 2021-03-05 23:59 ==
LOC: WC 15:30
PROVIDERS: PCP Family Medicine; Referring Provider Internal Medicine; Visit Provider Internal Medicine
DX: Z51.11 Encounter for antineoplastic chemotherapy (principal); C24.0 Malignant neoplasm of extrahepatic bile duct; L97.821 Non-pressure chronic ulcer of other part of left lower leg limited to breakdown of skin; I87.2 Venous insufficiency (chronic) (peripheral); D64.9 Anemia, unspecified; I83.022 Varicose veins of left lower extremity with ulcer of calf; L97.222 Non-pressure chronic ulcer of left calf with fat layer exposed
CPT/HCPCS: 11042; 15271; 29581; 36591; 80053; 85025; 96367; 96377; 96413; 96417; J7050; Q4196; A4216; J2405; J2505; J3490; J9201; J9264

== ENCOUNTER → 2021-03-15 13:53 | Outpatient (CLI) | payer MEDICARE, OTHER, SELFPAY ==
[2021-02-22 11:21] VITALS: BMI 24.7
[2021-03-08 13:54] VITALS: BMI 24.0
--- NOTE | 2021-03-15 13:56 | CT_ITS ---
HISTORY: Cholangiocarcinoma. TECHNIQUE: Helically acquired images were obtained of the chest, abdomen, and pelvis. A radiation dose optimization technique was used for this scan. IV Contrast: 100 mL Isovue-300. # of images incl. paperwork: [id number]. COMPARISON: 08/30/2020, 08/06/2020. FINDINGS: ----Chest: CENTRAL AIRWAYS: Patent. LUNGS: Clear. Mild emphysema. PLEURA: No pleural effusion or pneumothorax. AORTA/VESSELS: Thoracic aorta nondilated with aortic valve replacement noted. Right chest wall port with catheter tip in the junction of the superior vena cava and right atrium. No large central filling pulmonary arteries. HEART/PERICARDIUM: Heart within normal limits in size. Coronary artery disease. No significant pericardial effusion. MEDIASTINUM/CHELY: No enlarged lymph nodes. OSSEOUS STRUCTURES: Mild degenerative change without suspicious osteoblastic or osteolytic lesion. ----Abdomen/Pelvis: BOWEL: Bowel including appendix nondilated. Colonic diverticulosis without pericolonic inflammation. PERITONEUM: Trace free fluid in the pelvis. LIVER/BILIARY TRACT: Heterogeneous fatty infiltration of the liver with left intrahepatic pneumobilia. Pneumobilia also seen in the gallbladder and extrahepatic bile duct. Biliary stent in place with mild soft tissue fullness in the distal aspect of the stent extending to the region of the pancreatic head and periampullary region. 1.1 x 1.8 cm mildly enlarged portocaval lymph node. PANCREAS: Atrophic with an 8 mm dilated duct. SPLEEN: Homogeneous and nonenlarged. KIDNEYS: Small right lower pole cysts. No hydronephrosis. ADRENAL GLANDS: No nodules. AORTA: Retroperitoneal surgical clips with patent aortoiliac bypass graft. Occluded sioux aortoiliac vessels. Partial thrombus in the right external iliac artery. PELVIS: Lobulated uterus with small calcified masses and thickening of the endometrial complex. Small hyperdense cyst in the vagina again seen. BODY WALL: Small fat-containing ventral hernia. OSSEOUS STRUCTURES: Degenerative change without suspicious osteoblastic or osteolytic lesion. CT/CT Chest, Abd, Pel w/Contrast IMPRESSION: No evidence for metastatic disease or acute process in the chest. Biliary stent in place with intrahepatic and extrahepatic pneumobilia. Ill-defined soft tissue fullness in the periampullary region, distal aspect of the biliary stent, and pancreatic head, compatible with the history of cholangiocarcinoma. Pancreatic ductal dilatation. Mildly enlarged right upper quadrant lymph node, likely mary anne metastasis. Leiomyomatous uterus with thickening of the endometrial complex. Recommend ultrasound to assess for submucosal leiomyoma, hyperplasia, or other neoplasm. Individualized dose optimization techniques were used for this CT. at 1710 Reported and signed by: Cynthia Morillo MD Electronically Signed: Cynthia Morillo MD at 17:09 EDT Tel , Service support ,
[2021-03-15] MEDS: 0.9% Saline Lock 10 ML Syringe IV (14:20)
[2021-03-15] MEDS: 0.9 % NaCl (Sterile) Posiflush 10 mL IV (15:05)
== END ==
PROVIDERS: PCP Family Medicine; Referring Provider Internal Medicine Hematology & Oncology; Visit Provider Internal Medicine Hematology & Oncology
DX: C22.1 Intrahepatic bile duct carcinoma (principal); I83.028 Varicose veins of left lower extremity with ulcer other part of lower leg; L03.116 Cellulitis of left lower limb; L97.821 Non-pressure chronic ulcer of other part of left lower leg limited to breakdown of skin; I87.2 Venous insufficiency (chronic) (peripheral); E11.9 Type 2 diabetes mellitus without complications; E43 Unspecified severe protein-calorie malnutrition; Z79.4 Long term (current) use of insulin; Z79.2 Long term (current) use of antibiotics
CPT/HCPCS: 15271; 29581; 71260; 74177; Q4196; Q9967; A4216

== ENCOUNTER → 2021-03-18 10:02 | Outpatient (CLI) | payer MEDICARE, OTHER, SELFPAY ==
[2021-02-22 11:21] VITALS: BMI 24.7
[2021-03-15 14:37] VITALS: BMI 24.0
--- NOTE | 2021-03-18 10:04 | NM_ITS ---
CLINICAL: 70-year-old female with reported history of cholangiocarcinoma. WHOLE BODY 99m Tc MDP RADIONUCLIDE BONE SCINTIGRAPHY COMPARISON: CT of the chest report 03/15/2021 FINDINGS: Following the intravenous administration of approximately 25.0 mCi of 99m Tc MDP, whole body bone images reveal: 1. Increased radiopharmaceutical concentration is demonstrated in the acromioclavicular compartments of both shoulders, sternoclavicular compartment of the left shoulder, elbows bilaterally, second lumbar vertebra posteriorly on the left, the left hip involving the inferior anterior acetabulum, the patellofemoral compartments of both knees, medial tibial compartment of the right knee, lateral compartments of the bilateral ankles. 2. The remaining skeletal structures are scintigraphically unremarkable with normal-appearing renal images and urinary bladder activity identified. NM/Bone Scan Whole Body IMPRESSION: 1. The increased radiopharmaceutical distribution defined in the bilateral shoulders, right and left elbows, lumbar spine, the left hip, knee articulations bilaterally, right and left ankles is most consistent with degenerative arthritis. 2. There is no definitive typical scintigraphic evidence of diffuse axial skeletal metastatic disease on the current examination. Electronically Signed: Tony Mccormick DO at 22:53 EDT Tel , Service support ,
[2021-03-18] MEDS: 0.9% Saline Lock 10 ML Syringe IV (10:23)
== END ==
PROVIDERS: PCP Family Medicine; Referring Provider Internal Medicine Hematology & Oncology; Visit Provider Internal Medicine Hematology & Oncology
DX: C22.1 Intrahepatic bile duct carcinoma (principal)
CPT/HCPCS: 78306; A9503; A4216

== ENCOUNTER 2021-04-05 13:30 | Outpatient (RCR) | payer MEDICARE, OTHER, SELFPAY ==
[2021-03-06 00:18] VITALS: BP 124/50; PULSE 91; RESP 18; TEMP 36.8
[2021-03-08 10:34] VITALS: BMI 24.0
[2021-03-08 13:54] VITALS: TEMP 36.8; BMI 24.0
[2021-03-15 14:37] VITALS: BP 110/56; PULSE 88; TEMP 36.4; BMI 24.0
--- NOTE | 2021-03-15 17:41 | PCM.WC.PN ---
History of Present Illness Date of Service: 03/15/21 Chief Complaint: non-healing wound of the LLE History of Wound: please see the consult dictated on this pt on 09/07/20 for hx Subjective Subjective Rosario returns to wound care today for a follow up visit. We have been using Puraply to heal the venous stasis ulcers of the left leg. Healing is complicated by severe protein calorie malnutrition. She is not able to keep anything down and continues to lose weight. she had CT scan of the chest/abd and pelvis today. She has finished chemo and Sunday will have a bone scan. She will follow up with Dr. Goyal next week to see if she is a surgical candidate. She denies fevers, chills, sweats. She also tells me that this week she has had no pain in the left lower extremity. Objective Data Objective Data Vital Signs: Vital Signs Temp Pulse Resp BP 97.6 F L 88 18 110/56 L 03/15/21 14:37 03/15/21 14:37 03/06/21 00:18 03/15/21 14:37 Body Mass Index (BMI) 24.0 Charges/Coding Procedures Integumentary 111xxx-113xx: [id number] Sheryl subq tissue 20 sq cm/< Physical Exam Skin Wounds: wounds noted Wound Narrative: The wounds have been healing recently but there is still a cluster over the vargas about half way to the ankle. there is evidence of new epithelialization in the area but, the skin is very fragile. Debridement Note Debridement Note Post-Debridement Measurements and Additional Note: Post-Debridement Measurements/Treatment WC - Nurse 1 - General Ulcer Assessment Start: 03/08/21 13:54 Freq: Status: Active Protocol: [email or web address] Activity Type Activity Date Activity User E-Sign Co-Sign Detail Recorded Client Recorded Date Recorded By Document 03/08/21 13:54 AK [id number] 03/08/21 14:03 AK Document 03/15/21 14:37 KR [id number] 03/15/21 14:42 KR 03/08/21 03/15/21 13:54 14:37 - Today's Visit Information Type of service Follow-up Visit Follow-up Visit (Physician/FINAL FINISHER FORGING DIES (Physician/FINAL FINISHER FORGING DIES ) ) Arrival Mode Ambulatory Ambulatory Patient Identification Verified (Name & Yes Yes ) Height and Weight Body Mass Index (BMI) 24.0 24.0 BMI Classification Normal Normal Vital Signs Temperature (97.8 F-99.1 F) 98.2 F 97.6 F L Temperature Source Temporal Temporal Pulse Rate (60-100) 88 Pulse Location Monitor Blood Pressure (90/60-120/80) 110/56 L Blood Pressure Mean (mm Hg) 74 Source Monitor Position Semi-Fowlers Blood Pressure Location Right Arm History Since Last Visit- (Skip if this is Patient's initial visit) Have you changed medications since your No No last visit? Any new allergies or adverse reactions No No Had a fall/change in ADL's that may No No increase risk of falls Signs or symptoms of abuse and/or No No neglect since last visit Have you been in the hospital since your No No last visit? Has dressing in place as prescribed Yes Yes Has compression in place as prescribed N/A Has offloadiing in place as prescribed N/A Experienced any changes in pain level or No management Left Footwear Regular Shoe Regular Shoe Right Footwear Regular Shoe Regular Shoe Pain Scale: 0-10 Numeric Is Patient Pain Free? Yes Yes WC - Nurse 1 - General Ulcer Measurement Start: 03/08/21 13:54 Freq: Status: Active Protocol: Activity Type Activity Date Activity User E-Sign Co-Sign Detail Recorded Client Recorded Date Recorded By Document 03/08/21 13:54 AK [id number] 03/08/21 14:03 IN Document 03/15/21 14:37 KR [id number] 03/15/21 14:42 KR 03/08/21 03/15/21 13:54 14:37 Wound Center Nurse 1 #6 Left medial LE Inferior -Wound Margin Distinct, Outline Attached -Texture (Maria E-wound Skin Appearance) Callus -Moisture (Maria E-wound Skin Appearance) Assessed -Color (Maria E-wound Skin Appearance) No Abnormality, Assessed -Temperature (Maria E-wound Skin No Abnormality Appearance) (Pt Warm) -Tenderness on Palpation (Maria E-wound No Skin Appearance) -Ulcer Cleansing soap and water -Foul Odor after Cleansing No -Anesthetic Used 5% Lidocaine Gel #5 Left Medial LE superior -Current Size (cm) - Length 4.4 0.7 -Current Size (cm) - Width 2 1 -Current Size (cm) - Depth 0.1 0.1 -Total Square Cm 8.8 0.7 -Exudate Amt Medium Small -Exudate Type Serosanguineous Serosanguineous -Wound Margin Distinct, Distinct, Outline Outline Attached Attached -Granulation Amt Medium (34-66%) Small (1-33%) -Granulation Quality Red Red -Necrosis Amt Small (1-33%) Small (1-33%) -Necrotic Tissue Type Adherent Slough Adherent Slough -Texture (Maria E-wound Skin Appearance) No Abnormality, Assessed, Assessed Scarring -Moisture (Maria E-wound Skin Appearance) Assessed Assessed -Color (Maria E-wound Skin Appearance) No Abnormality, No Abnormality, Assessed Assessed -Temperature (Maria E-wound Skin No Abnormality No Abnormality Appearance) (Pt Warm) (Pt Warm) -Tenderness on Palpation (Maria E-wound No No Skin Appearance) -Ulcer Cleansing soap and water Rinsed/ Irrigated with Saline -Foul Odor after Cleansing No No -Anesthetic Used 5% Lidocaine 5% Lidocaine Gel Gel Right Calf (cm) 29 Right Ankle (cm) 19.5 WC - Nurse 2 - General Ulcer CM Notes Start: 03/08/21 13:54 Freq: Status: Active Protocol: Activity Type Activity Date Activity User E-Sign Co-Sign Detail Recorded Client Recorded Date Recorded By Document 03/08/21 14:18 AK [id number] 03/08/21 14:29 AK Document 03/15/21 15:12 MW [id number] 03/15/21 15:16 MW 03/08/21 03/15/21 14:18 15:12 Wound Center Nurse 2 #6 Left medial LE Inferior -Time 14:19 -Correct Patient Yes -Correct Side, Site, Position Yes -Correct Procedure Yes -Procedure Performed No -Post Debridement (cm) - Length 0 -Post Debridement (cm) - Width 0 -Post Debridement (cm) - Depth 0 -Total Square (Post) (cm) 0 -Tunneling No -Undermining/Tunneling No -Circular Undermining No -Wound/Ulcer Outcome Healed- Epithelialized #5 Left Medial LE superior -Time 14:19 15:12 -Correct Patient Yes Yes -Correct Side, Site, Position Yes Yes -Correct Procedure Yes Yes -Procedure Performed Yes Yes -Type of Procedure Debridement Debridement -Clinical Debridement Subcutaneous Subcutaneous -Tissue Removed Subcutaneous Subcutaneous -Post Debridement (cm) - Length 3.5 2.5 -Post Debridement (cm) - Width 2.0 1.6 -Post Debridement (cm) - Depth 0.1 0.1 -Total Square (Post) (cm) 7.00 4.00 -Area of Debridement (cm) - Length 3.5 2.5 -Area of Debridement (cm) - Width 2.0 1.6 -Total Square (Area) (cm) 7.00 4.00 -Tunneling No No -Undermining/Tunneling No No -Circular Undermining No No -Wound/Ulcer Outcome Not Healed Not Healed -Ulcer Cleansing Rinsed/ Rinsed/ Irrigated with Irrigated with Saline Saline -Foul Odor after Cleansing No No -Bioengineered Tissue Yes Yes -Type of Bioengineered Tissue PuraPly AM PuraPly AM -Expiration Date 06/07/23 06/07/23 -Product Lot Number [id number] -Percent Used 100 100 -Lot number of Saline Used [id number] -Bleeding Controlled with Pressure Pressure -Offloading No No -Treatment Response Procedure Procedure Tolerated Well Tolerated Well -Debridement - Subq, 1st 20sq cm No No -Apply Skin Sub - 1st 25 sq cm - Legs 1 1 -PuraPly AM (per sq cm) 12 12 Pain Scale: 0-10 Numeric Is Patient Pain Free? Yes Yes - Nurse 3 - General Ulcer D/C NN Start: 03/08/21 13:54 Freq: Status: Active Protocol: Activity Type Activity Date Activity User E-Sign Co-Sign Detail Recorded Client Recorded Date Recorded By Document 03/08/21 14:46 KR [id number] 03/08/21 14:47 KR Document 03/15/21 15:24 DL [id number] 03/15/21 15:25 DL 03/08/21 03/15/21 14:46 15:24 Wound Care Nurse 3 #5 Left Medial LE superior -Foul Odor after Cleansing No -Other Dressing abd -Primary Dressing Covered/Secured with Dry Gauze & Roll Gauze, Secured with Tape -Other Covering ABD for padding Right -Multi-Layered Wrap Application Multi-Layer Multi-Layer Comp - Right ($ Comp - Left ($) ) Treatment Response Procedure Tolerated Well Pain Scale: 0-10 Numeric Is Patient Pain Free? Yes Yes WC - Visit Discharge Discharge Condition Stable Stable Ambulatory Status Ambulatory Ambulatory Transportation Private Auto Private Auto Accompanied by sister Additional Wound Wound debrided: Left vargas venous stasis ulcer Laterality: Left Type of Debridement: Selective debridement Anesthesia Used: 5% Lidocaine Gel Percentage of wound debrided: 100 Tissue Removed: old Puraply and biofilm Severity: Limited To Skin Breakdown Amount of bleeding with debridement: Mild Bleeding Controlled with: Pressure Patient tolerated procedure: Patient tolerated procedure well Operative Diagnosis: venous stasis ulcer Assessment/Plan Assessment/Plan (1) Venous stasis ulcer: CODE(S): I83.009 - Varicose veins of unspecified lower extremity with ulcer of unspecified site; L97.909 - Non-pressure chronic ulcer of unspecified part of unspecified lower leg with unspecified severity QUALIFIERS: Venous stasis ulcer site: calf Varicose vein presence: with varicose veins Laterality: left Non-pressure ulcer stage: with fat layer exposed Qualified Code(s): I83.022 - Varicose veins of left lower extremity with ulcer of calf; L97.222 - Non-pressure chronic ulcer of left calf with fat layer exposed (2) Venous insufficiency of both lower extremities: CODE(S): I87.2 - Venous insufficiency (chronic) (peripheral) (3) Insulin dependent diabetes mellitus: (4) Severe malnutrition: CODE(S): E43 - Unspecified severe protein-calorie malnutrition (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 No steri strips but covered with a adaptic touch. Continue with the tubogrip. RTCF in 1 week for a recheck.
--- NOTE | 2021-03-15 21:44 | PN.PCM_ITS ---
History of Present Illness Date of Service: 03/15/21 Chief Complaint: non-healing wound of the LLE History of Wound: please see the consult dictated on this pt on 09/07/20 for hx Subjective Subjective Has had her last chemo treatment today. She is nauseated and still unable to eat. Increased hair loss and more cachetic in appearance. Denies fevers, shaking chills and night sweats. She is very fatigued. We have been using Puraply on the venous stasis ulcers. The skin is very fragile due to severe protein calorie malnutrition. Objective Data Objective Data Vital Signs: Vital Signs Temp Pulse Resp BP 97.6 F L 88 18 110/56 L 03/15/21 14:37 03/15/21 14:37 03/06/21 00:18 03/15/21 14:37 Body Mass Index (BMI) 24.0 Charges/Coding Procedures Integumentary 111xxx-113xx: 39862 Sheryl subq tissue 20 sq cm/< Physical Exam Const Constitutional Narrative: Pleasant. Making good eye contact. Looks very fatigued and has a grayish caste to her skin tone. Cardio regular rate and regular rhythm Skin Wound Narrative: The skin over the large area of the anterior Left vargas is almost translucent in places. There are only a few openings in the skin and these are all on the medial side of the distal vargas. There is no erythema and no increased warmth to touch. There is no purulent DC. No pain to palpation in the area. No calf pain and has a negative Martinez and a negative Ted's Debridement Note Debridement Note Post-Debridement Measurements and Additional Note: Post-Debridement Measurements/Treatment - Nurse 1 - General Ulcer Assessment Start: 03/08/21 13:54 Freq: Status: Active Protocol: [email or web address] Activity Type Activity Date Activity User E-Sign Co-Sign Detail Recorded Client Recorded Date Recorded By Document 03/08/21 13:54 AK [id number] 03/08/21 14:03 AK Document 03/15/21 14:37 KR [id number] 03/15/21 14:42 KR 03/08/21 03/15/21 13:54 14:37 - Today's Visit Information Type of service Follow-up Visit Follow-up Visit (Physician/RETURNED MATERIALS INSPECTOR (Physician/RETURNED MATERIALS INSPECTOR ) ) Arrival Mode Ambulatory Ambulatory Patient Identification Verified (Name & Yes Yes ) Height and Weight Body Mass Index (BMI) 24.0 24.0 BMI Classification Normal Normal Vital Signs Temperature (97.8 F-99.1 F) 98.2 F 97.6 F L Temperature Source Temporal Temporal Pulse Rate (60-100) 88 Pulse Location Monitor Blood Pressure (90/60-120/80) 110/56 L Blood Pressure Mean (mm Hg) 74 Source Monitor Position Semi-Fowlers Blood Pressure Location Right Arm History Since Last Visit- (Skip if this is Patient's initial visit) Have you changed medications since your No No last visit? Any new allergies or adverse reactions No No Had a fall/change in ADL's that may No No increase risk of falls Signs or symptoms of abuse and/or No No neglect since last visit Have you been in the hospital since your No No last visit? Has dressing in place as prescribed Yes Yes Has compression in place as prescribed N/A Has offloadiing in place as prescribed N/A Experienced any changes in pain level or No management Left Footwear Regular Shoe Regular Shoe Right Footwear Regular Shoe Regular Shoe Pain Scale: 0-10 Numeric Is Patient Pain Free? Yes Yes WC - Nurse 1 - General Ulcer Measurement Start: 03/08/21 13:54 Freq: Status: Active Protocol: Activity Type Activity Date Activity User E-Sign Co-Sign Detail Recorded Client Recorded Date Recorded By Document 03/08/21 13:54 AK [id number] 03/08/21 14:03 WA Document 03/15/21 14:37 KR [id number] 03/15/21 14:42 KR 03/08/21 03/15/21 13:54 14:37 Wound Center Nurse 1 #6 Left medial LE Inferior -Wound Margin Distinct, Outline Attached -Texture (Maria E-wound Skin Appearance) Callus -Moisture (Maria E-wound Skin Appearance) Assessed -Color (Maria E-wound Skin Appearance) No Abnormality, Assessed -Temperature (Maria E-wound Skin No Abnormality Appearance) (Pt Warm) -Tenderness on Palpation (Maria E-wound No Skin Appearance) -Ulcer Cleansing soap and water -Foul Odor after Cleansing No -Anesthetic Used 5% Lidocaine Gel #5 Left Medial LE superior -Current Size (cm) - Length 4.4 0.7 -Current Size (cm) - Width 2 1 -Current Size (cm) - Depth 0.1 0.1 -Total Square Cm 8.8 0.7 -Exudate Amt Medium Small -Exudate Type Serosanguineous Serosanguineous -Wound Margin Distinct, Distinct, Outline Outline Attached Attached -Granulation Amt Medium (34-66%) Small (1-33%) -Granulation Quality Red Red -Necrosis Amt Small (1-33%) Small (1-33%) -Necrotic Tissue Type Adherent Slough Adherent Slough -Texture (Maria E-wound Skin Appearance) No Abnormality, Assessed, Assessed Scarring -Moisture (Maria E-wound Skin Appearance) Assessed Assessed -Color (Maria E-wound Skin Appearance) No Abnormality, No Abnormality, Assessed Assessed -Temperature (Maria E-wound Skin No Abnormality No Abnormality Appearance) (Pt Warm) (Pt Warm) -Tenderness on Palpation (Maria E-wound No No Skin Appearance) -Ulcer Cleansing soap and water Rinsed/ Irrigated with Saline -Foul Odor after Cleansing No No -Anesthetic Used 5% Lidocaine 5% Lidocaine Gel Gel Right Calf (cm) 29 Right Ankle (cm) 19.5 WC - Nurse 2 - General Ulcer CM Notes Start: 03/08/21 13:54 Freq: Status: Active Protocol: Activity Type Activity Date Activity User E-Sign Co-Sign Detail Recorded Client Recorded Date Recorded By Document 03/08/21 14:18 AK [id number] 03/08/21 14:29 AK Document 03/15/21 15:12 MW [id number] 03/15/21 15:16 MW 03/08/21 03/15/21 14:18 15:12 Wound Center Nurse 2 #6 Left medial LE Inferior -Time 14:19 -Correct Patient Yes -Correct Side, Site, Position Yes -Correct Procedure Yes -Procedure Performed No -Post Debridement (cm) - Length 0 -Post Debridement (cm) - Width 0 -Post Debridement (cm) - Depth 0 -Total Square (Post) (cm) 0 -Tunneling No -Undermining/Tunneling No -Circular Undermining No -Wound/Ulcer Outcome Healed- Epithelialized #5 Left Medial LE superior -Time 14:19 15:12 -Correct Patient Yes Yes -Correct Side, Site, Position Yes Yes -Correct Procedure Yes Yes -Procedure Performed Yes Yes -Type of Procedure Debridement Debridement -Clinical Debridement Subcutaneous Subcutaneous -Tissue Removed Subcutaneous Subcutaneous -Post Debridement (cm) - Length 3.5 2.5 -Post Debridement (cm) - Width 2.0 1.6 -Post Debridement (cm) - Depth 0.1 0.1 -Total Square (Post) (cm) 7.00 4.00 -Area of Debridement (cm) - Length 3.5 2.5 -Area of Debridement (cm) - Width 2.0 1.6 -Total Square (Area) (cm) 7.00 4.00 -Tunneling No No -Undermining/Tunneling No No -Circular Undermining No No -Wound/Ulcer Outcome Not Healed Not Healed -Ulcer Cleansing Rinsed/ Rinsed/ Irrigated with Irrigated with Saline Saline -Foul Odor after Cleansing No No -Bioengineered Tissue Yes Yes -Type of Bioengineered Tissue PuraPly AM PuraPly AM -Expiration Date 06/07/23 06/07/23 -Product Lot Number [id number] -Percent Used 100 100 -Lot number of Saline Used [id number] -Bleeding Controlled with Pressure Pressure -Offloading No No -Treatment Response Procedure Procedure Tolerated Well Tolerated Well -Debridement - Subq, 1st 20sq cm No No -Apply Skin Sub - 1st 25 sq cm - Legs 1 1 -PuraPly AM (per sq cm) 12 12 Pain Scale: 0-10 Numeric Is Patient Pain Free? Yes Yes - Nurse 3 - General Ulcer D/C NN Start: 03/08/21 13:54 Freq: Status: Active Protocol: Activity Type Activity Date Activity User E-Sign Co-Sign Detail Recorded Client Recorded Date Recorded By Document 03/08/21 14:46 KR [id number] 03/08/21 14:47 KR Document 03/15/21 15:24 DL [id number] 03/15/21 15:25 DL 03/08/21 03/15/21 14:46 15:24 Wound Care Nurse 3 #5 Left Medial LE superior -Foul Odor after Cleansing No -Other Dressing abd -Primary Dressing Covered/Secured with Dry Gauze & Roll Gauze, Secured with Tape -Other Covering ABD for padding Right -Multi-Layered Wrap Application Multi-Layer Multi-Layer Comp - Right ($ Comp - Left ($) ) Treatment Response Procedure Tolerated Well Pain Scale: 0-10 Numeric Is Patient Pain Free? Yes Yes - Visit Discharge Discharge Condition Stable Stable Ambulatory Status Ambulatory Ambulatory Transportation Private Auto Private Auto Accompanied by sister Wound debrided: venous stasis ulcers Laterality: Left Type of Debridement: Selective debridement Anesthesia Used: 4% Lidocaine Solution Percentage of wound debrided: 70 Instrument Used: Forceps Tissue Removed: biofilm, dry scales and old Puraply. Severity: Limited To Skin Breakdown Amount of bleeding with debridement: None Patient tolerated procedure: Patient tolerated procedure well Debridement Free Text: I very carefully debride the wound so as not to make the opening larger or deeper. the skin is so fragile due to the malnutrition and cancer. We get it healed and then the very next week it breaks down again. the slightest bump to the leg opens a wound. Assessment/Plan Assessment/Plan (1) Venous insufficiency of both lower extremities: CODE(S): I87.2 - Venous insufficiency (chronic) (peripheral) (2) Insulin dependent diabetes mellitus: (3) Severe malnutrition: CODE(S): E43 - Unspecified severe protein-calorie malnutrition (4) Venous stasis ulcer: CODE(S): I83.009 - Varicose veins of unspecified lower extremity with ulcer of unspecified site; L97.909 - Non-pressure chronic ulcer of unspecified part of unspecified lower leg with unspecified severity QUALIFIERS: Venous stasis ulcer site: calf Varicose vein pres ence: with varicose veins Laterality: left Non-pressure ulcer stage: with fat layer exposed Qualified Code(s): I83.022 - Varicose veins of left lower extremity with ulcer of calf; L97.222 - Non-pressure chronic ulcer of left calf with fat layer exposed PLAN: Puraply was applied again to the wounds and a Tubigrip for very mild compression. RTC in 1 week. Call me if any F/C/S.
[2021-03-22 13:58] VITALS: BP 101/78; PULSE 86; TEMP 36.3; BMI 24.0
--- NOTE | 2021-03-22 17:28 | PCM.WC.PN ---
History of Present Illness Date of Service: 03/22/21 Chief Complaint: non-healing wound of the LLE History of Wound: please see the consult dictated on this pt on 09/07/20 for hx Subjective Subjective Rosario returns to the [facility] today for a follow up visit. We are treating non-healing venous stasis ulcers of the Left LE over the anterior vargas. she saw Dr. Goyal today and he reviewed the results of the recent lab and CT scans with her. She has an appt to see the surgeon at [facility] on of this week. Objective Data Objective Data Vital Signs: Vital Signs Temp Pulse Resp BP 97.3 F L 86 18 101/78 03/22/21 13:58 03/22/21 13:58 03/06/21 00:18 03/22/21 13:58 Body Mass Index (BMI) 24.0 Charges/Coding Procedures Integumentary [id number]: [id number] Sheryl subq tissue 20 sq cm/< Physical Exam Skin Wound Narrative: Multiple new openings in the skin of the left leg, primarily on the lateral side. There are small pustules also that are filled with a creamy white yellow DC. She denies fever/chills and night sweats but, the wound closest to the tibial plateau is very tender to touch today and this is new. There is no significant increased warmth to touch. Debridement Note Debridement Note Post-Debridement Measurements and Additional Note: Post-Debridement Measurements/Treatment - Nurse 1 - General Ulcer Assessment Start: 03/08/21 13:54 Freq: Status: Active Protocol: [email or web address] Activity Type Activity Date Activity User E-Sign Co-Sign Detail Recorded Client Recorded Date Recorded By Document 03/08/21 13:54 AK [id number] 03/08/21 14:03 AK Document 03/15/21 14:37 KR [id number] 03/15/21 14:42 KR Document 03/22/21 13:58 AK [id number] 03/22/21 14:03 AK 03/08/21 03/15/21 03/22/21 13:54 14:37 13:58 - Today's Visit Information Type of service Follow-up Visit Follow-up Visit Follow-up Visit (Physician/SHEET METAL HELPER (Physician/SHEET METAL HELPER (Physician/SHEET METAL HELPER ) ) ) Arrival Mode Ambulatory Ambulatory Ambulatory Patient Identification Verified (Name & Yes Yes Yes ) Height and Weight Body Mass Index (BMI) 24.0 24.0 24.0 BMI Classification Normal Normal Normal Vital Signs Temperature (97.8 F-99.1 F) 98.2 F 97.6 F L 97.3 F L Temperature Source Temporal Temporal Temporal Pulse Rate (60-100) 88 86 Pulse Location Monitor Monitor Blood Pressure (90/60-120/80) 110/56 L 101/78 Blood Pressure Mean (mm Hg) 74 85 Source Monitor Monitor Position Semi-Fowlers Semi-Fowlers Blood Pressure Location Right Arm Right Arm History Since Last Visit- (Skip if this is Patient's initial visit) Have you changed medications since your No No No last visit? Any new allergies or adverse reactions No No No Had a fall/change in ADL's that may No No No increase risk of falls Signs or symptoms of abuse and/or No No No neglect since last visit Have you been in the hospital since your No No No last visit? Has dressing in place as prescribed Yes Yes Yes Has compression in place as prescribed N/A N/A Has offloadiing in place as prescribed N/A N/A Experienced any changes in pain level or No No management Left Footwear Regular Shoe Regular Shoe Regular Shoe Right Footwear Regular Shoe Regular Shoe Regular Shoe Pain Scale: 0-10 Numeric Is Patient Pain Free? Yes Yes Yes WC - Nurse 1 - General Ulcer Measurement Start: 03/08/21 13:54 Freq: Status: Active Protocol: Activity Type Activity Date Activity User E-Sign Co-Sign Detail Recorded Client Recorded Date Recorded By Document 03/08/21 13:54 KS [id number] 03/08/21 14:03 AK Document 03/15/21 14:37 KR [id number] 03/15/21 14:42 KR Document 03/22/21 13:58 AK [id number] 03/22/21 14:03 AK 03/08/21 03/15/21 03/22/21 13:54 14:37 13:58 Wound Center Nurse 1 #8 Left Lateral Upper extremity -Current Size (cm) - Length 5 -Current Size (cm) - Width 3.5 -Current Size (cm) - Depth 0.1 -Total Square Cm 17.5 -Exudate Amt Medium -Exudate Type Serosanguineous -Wound Margin Distinct, Outline Attached -Granulation Amt Medium (34-66%) -Granulation Quality Red -Necrosis Amt Small (1-33%) -Necrotic Tissue Type Adherent Slough -Texture (Maria E-wound Skin Appearance) Assessed, Scarring -Moisture (Maria E-wound Skin Appearance) No Abnormality, Assessed -Color (Maria E-wound Skin Appearance) No Abnormality, Assessed -Temperature (Maria E-wound Skin No Abnormality Appearance) (Pt Warm) -Tenderness on Palpation (Maria E-wound No Skin Appearance) -Ulcer Cleansing Rinsed/ Irrigated with Saline -Foul Odor after Cleansing No -Anesthetic Used 4% Lidocaine Solution #6 Left medial LE Inferior -Wound Margin Distinct, Outline Attached -Texture (Maria E-wound Skin Appearance) Callus -Moisture (Maria E-wound Skin Appearance) Assessed -Color (Maria E-wound Skin Appearance) No Abnormality, Assessed -Temperature (Maria E-wound Skin No Abnormality Appearance) (Pt Warm) -Tenderness on Palpation (Maria E-wound No Skin Appearance) -Ulcer Cleansing soap and water -Foul Odor after Cleansing No -Anesthetic Used 5% Lidocaine Gel #5 Left upper leg cluster -Current Size (cm) - Length 4.4 0.7 0.1 -Current Size (cm) - Width 2 1 0.1 -Current Size (cm) - Depth 0.1 0.1 0.1 -Total Square Cm 8.8 0.7 0.01 -Exudate Amt Medium Small None Present -Exudate Type Serosanguineous Serosanguineous -Wound Margin Distinct, Distinct, Distinct, Outline Outline Outline Attached Attached Attached -Granulation Amt Medium (34-66%) Small (1-33%) -Granulation Quality Red Red -Necrosis Amt Small (1-33%) Small (1-33%) Medium (34-66%) -Necrotic Tissue Type Adherent Slough Adherent Slough -Texture (Maria E-wound Skin Appearance) No Abnormality, Assessed, Assessed, Assessed Scarring Scarring -Moisture (Maria E-wound Skin Appearance) Assessed Assessed No Abnormality, Assessed -Color (Maria E-wound Skin Appearance) No Abnormality, No Abnormality, No Abnormality, Assessed Assessed Assessed -Temperature (Maria E-wound Skin No Abnormality No Abnormality No Abnormality Appearance) (Pt Warm) (Pt Warm) (Pt Warm) -Tenderness on Palpation (Maria E-wound No No No Skin Appearance) -Ulcer Cleansing soap and water Rinsed/ Rinsed/ Irrigated with Irrigated with Saline Saline -Foul Odor after Cleansing No No No -Anesthetic Used 5% Lidocaine 5% Lidocaine 4% Lidocaine Gel Gel Solution Right Calf (cm) 29 Right Ankle (cm) 19.5 Left Calf (cm) 28 Left Foot (cm) 19 WC - Nurse 2 - General Ulcer CM Notes Start: 03/08/21 13:54 Freq: Status: Active Protocol: Activity Type Activity Date Activity User E-Sign Co-Sign Detail Recorded Client Recorded Date Recorded By Document 03/08/21 14:18 AK [id number] 03/08/21 14:29 AK Document 03/15/21 15:12 MW [id number] 03/15/21 15:16 MW Document 03/22/21 14:22 JF [id number] 03/22/21 14:44 JF 03/08/21 03/15/21 03/22/21 14:18 15:12 14:22 Wound Center Nurse 2 #8 Left Lateral Upper extremity -Time 14:23 -Correct Patient No -Correct Side, Site, Position No -Correct Procedure No -Procedure Performed No -Tunneling No -Undermining/Tunneling No -Circular Undermining No -Wound/Ulcer Outcome Converted -Ulcer Cleansing Rinsed/ Irrigated with Saline -Foul Odor after Cleansing No -Bioengineered Tissue No -Bleeding Controlled with Pressure -Offloading No -Treatment Response Procedure Tolerated Well #6 Left medial LE Inferior -Time 14:19 -Correct Patient Yes -Correct Side, Site, Position Yes -Correct Procedure Yes -Procedure Performed No -Post Debridement (cm) - Length 0 -Post Debridement (cm) - Width 0 -Post Debridement (cm) - Depth 0 -Total Square (Post) (cm) 0 -Tunneling No -Undermining/Tunneling No -Circular Undermining No -Wound/Ulcer Outcome Healed- Epithelialized #5 Left upper leg cluster -Time 14:19 15:12 14:38 -Correct Patient Yes Yes Yes -Correct Side, Site, Position Yes Yes Yes -Correct Procedure Yes Yes Yes -Procedure Performed Yes Yes Yes -Type of Procedure Debridement Debridement Debridement -Clinical Debridement Subcutaneous Subcutaneous Subcutaneous -Tissue Removed Subcutaneous Subcutaneous Subcutaneous -Post Debridement (cm) - Length 3.5 2.5 2.6 -Post Debridement (cm) - Width 2.0 1.6 3 -Post Debridement (cm) - Depth 0.1 0.1 0.1 -Total Square (Post) (cm) 7.00 4.00 7.8 -Area of Debridement (cm) - Length 3.5 2.5 2.6 -Area of Debridement (cm) - Width 2.0 1.6 3 -Total Square (Area) (cm) 7.00 4.00 7.8 -Tunneling No No No -Undermining/Tunneling No No -Circular Undermining No No Yes -Wound/Ulcer Outcome Not Healed Not Healed Not Healed -Ulcer Cleansing Rinsed/ Rinsed/ Rinsed/ Irrigated with Irrigated with Irrigated with Saline Saline Saline -Foul Odor after Cleansing No No No -Bioengineered Tissue Yes Yes Yes -Type of Bioengineered Tissue PuraPly AM PuraPly AM PuraPly AM -Expiration Date 06/07/23 06/07/23 12/17/22 -Product Lot Number [id number] -Percent Used 100 100 100 -Lot number of Saline Used [id number] -Bleeding Controlled with Pressure Pressure Pressure -Offloading No No No -Treatment Response Procedure Procedure Procedure Tolerated Well Tolerated Well Tolerated Well -Debridement - Subq, 1st 20sq cm No No No -Apply Skin Sub - 1st 25 sq cm - Legs 1 1 1 -PuraPly AM (per sq cm) 12 12 12 Pain Scale: 0-10 Numeric Is Patient Pain Free? Yes Yes Yes WC - Nurse 3 - General Ulcer D/C NN Start: 03/08/21 13:54 Freq: Status: Active Protocol: Activity Type Activity Date Activity User E-Sign Co-Sign Detail Recorded Client Recorded Date Recorded By Document 03/08/21 14:46 KR [id number] 03/08/21 14:47 KR Document 03/15/21 15:24 DL [id number] 03/15/21 15:25 DL Document 03/22/21 14:52 AK [id number] 03/22/21 14:54 AK 03/08/21 03/15/21 03/22/21 14:46 15:24 14:52 Wound Care Nurse 3 #5 Left upper leg cluster -Ulcer Cleansing Rinsed/ Irrigated with Saline -Foul Odor after Cleansing No No -Negative Pressure Wound Therapy N/A -Other Dressing abd ABD -Primary Dressing Covered/Secured with Dry Gauze & Dry Gauze Roll Gauze, Secured with Tape -Other Covering ABD for padding Right -Lotion applied to leg before No compression wrap -Multi-Layered Wrap Application Multi-Layer Multi-Layer Multi-Layer Comp - Right ($ Comp - Left ($) Comp - Left ($) ) Treatment Response Procedure Tolerated Well Pain Scale: 0-10 Numeric Is Patient Pain Free? Yes Yes WC - Visit Discharge Discharge Condition Stable Stable Stable Ambulatory Status Ambulatory Ambulatory Ambulatory Transportation Private Auto Private Auto Accompanied by sister Clinical Summary of Care Provided Yes Additional Wound Wound debrided: All wounds of the distal LLE. Laterality: Left Type of Debridement: Excisional debridement Anesthesia Used: 4% Lidocaine Solution Depth: Down to and including healthy tissue and in the subcutaneous layer Percentage of wound debrided: 100 Instrument Used: Forceps Tissue Removed: biofilm, old Puraply and several pustules were deroofed. Severity: Limited To Skin Breakdown Amount of bleeding with debridement: Mild Bleeding Controlled with: Pressure Patient tolerated procedure: Patient tolerated procedure well Operative Diagnosis: non-healing venous stasis ulcer of the LLE - suspect infected. Assessment/Plan Assessment/Plan (1) Cellulitis: CODE(S): L03.90 - Cellulitis, unspecified QUALIFIERS: Site of cellulitis: extremity Site of cellulitis of extremity: lower extremity Laterality: left Qualified Code(s): L03.116 - Cellulitis of left lower limb (2) Venous stasis ulcer: CODE(S): I83.009 - Varicose veins of unspecified lower extremity with ulcer of unspecified site; L97.909 - Non-pressure chronic ulcer of unspecified part of unspecified lower leg with unspecified severity QUALIFIERS: Laterality: left Non-pressure ulcer stage: with fat layer exposed Varicose vein presence: with varicose veins Venous stasis ulcer site: calf Qualified Code(s): I83.022 - Varicose veins of left lower extremity with ulcer of calf; L97.222 - Non-pressure chronic ulcer of left calf with fat layer exposed (3) Severe malnutrition: CODE(S): E43 - Unspecified severe protein-calorie malnutrition (4) Venous insufficiency of both lower extremities: CODE(S): I87.2 - Venous insufficiency (chronic) (peripheral) PLAN: Culture was taken of the wounds on the LLE. Rosario will bhargavi me tomorrow and will decide on which empiric antibiotic to use based on the GM stain. CBC, BMP RTC in 1 week.
--- NOTE | 2021-03-29 14:29 | PCM.PN.BLA ---
Assessment & Plan Assessment/Plan (1) Cellulitis: QUALIFIERS: Site of cellulitis: extremity Site of cellulitis of extremity: lower extremity Laterality: left Qualified Code(s): L03.116 - Cellulitis of left lower limb PLAN: 1. Levaquin 500 mg daily for 7 days 2. RTC in 1 week for a recheck
--- NOTE | 2021-03-29 17:06 | PCM.WC.PN ---
History of Present Illness Date of Service: 03/29/21 Chief Complaint: non-healing wound of the LLE History of Wound: please see the consult dictated on this pt on 09/07/20 for hx Subjective Subjective No fevers, chills, sweats. She has not called me back over the past week after 2 VM's left to get her started on an antibiotic for MRSA cellulitis of the LLE. She tells me that her appetite is improving and she has been able to eat some. She saw Dr. 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 She suggested radiation and ongoing chemo. She tells me that she felt so bad on the chemo she will not go through that again. She does not think she want radiation either. Her case is going to be discussed at Tumor board at [facility] this to see if anyone else has recommendations for treatment. Objective Data Objective Data Vital Signs: Vital Signs Temp Pulse Resp BP 97.3 F L 86 18 101/78 03/22/21 13:58 03/22/21 13:58 03/06/21 00:18 03/22/21 13:58 Body Mass Index (BMI) 24.0 Lab / Micro Data Micro: Microbiology 03/22/21 14:30 Ulcer, Decubitus - Leg, Left Gram Stain - Final 03/22/21 14:30 Ulcer, Decubitus - Leg, Left Wound Culture - Final Meth. resistant Staph. aureus 03/22/21 14:30 Ulcer, Decubitus - Leg, Left Anaerobic Culture - Final No anaerobic bacteria isolated. Charges/Coding Procedures Integumentary [id number]: [id number] Debride infected skin Physical Exam Skin Wounds: wounds noted Wound Narrative: the wounds on the lateral distal L vagras that were covered with Puraply last week are healing and there is no purulent DC. There is a large open wound proximally distal to the tibial plateau. This wound is open, erythematous, has purulent DC and the tissue is very friable. It is still very painful to the touch. No odor. No tunnelling and no undermining. The wounds are superficial. the skin over the vargas is actual looking healthier and the blood vessels are not as visible under the skin. Debridement Note Debridement Note Post-Debridement Measurements and Additional Note: Post-Debridement Measurements/Treatment WC - Nurse 1 - General Ulcer Assessment Start: 03/08/21 13:54 Freq: Status: Active Protocol: ASHTYN Activity Type Activity Date Activity User E-Sign Co-Sign Detail Recorded Client Recorded Date Recorded By Document 03/08/21 13:54 AK [id number] 03/08/21 14:03 AK Document 03/15/21 14:37 KR [id number] 03/15/21 14:42 KR Document 03/22/21 13:58 AK [id number] 03/22/21 14:03 AK 03/08/21 03/15/21 03/22/21 13:54 14:37 13:58 - Today's Visit Information Type of service Follow-up Visit Follow-up Visit Follow-up Visit (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 (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 (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 ) ) ) Arrival Mode Ambulatory Ambulatory Ambulatory Patient Identification Verified (Name & Yes Yes Yes ) Height and Weight Body Mass Index (BMI) 24.0 24.0 24.0 BMI Classification Normal Normal Normal Vital Signs Temperature (97.8 F-99.1 F) 98.2 F 97.6 F L 97.3 F L Temperature Source Temporal Temporal Temporal Pulse Rate (60-100) 88 86 Pulse Location Monitor Monitor Blood Pressure (90/60-120/80) 110/56 L 101/78 Blood Pressure Mean (mm Hg) 74 85 Source Monitor Monitor Position Semi-Fowlers Semi-Fowlers Blood Pressure Location Right Arm Right Arm History Since Last Visit- (Skip if this is Patient's initial visit) Have you changed medications since your No No No last visit? Any new allergies or adverse reactions No No No Had a fall/change in ADL's that may No No No increase risk of falls Signs or symptoms of abuse and/or No No No neglect since last visit Have you been in the hospital since your No No No last visit? Has dressing in place as prescribed Yes Yes Yes Has compression in place as prescribed N/A N/A Has offloadiing in place as prescribed N/A N/A Experienced any changes in pain level or No No management Left Footwear Regular Shoe Regular Shoe Regular Shoe Right Footwear Regular Shoe Regular Shoe Regular Shoe Pain Scale: 0-10 Numeric Is Patient Pain Free? Yes Yes Yes - Nurse 1 - General Ulcer Measurement Start: 03/08/21 13:54 Freq: Status: Active Protocol: Activity Type Activity Date Activity User E-Sign Co-Sign Detail Recorded Client Recorded Date Recorded By Document 03/08/21 13:54 AK [id number] 03/08/21 14:03 AK Document 03/15/21 14:37 KR [id number] 03/15/21 14:42 KR Document 03/22/21 13:58 AK [id number] 03/22/21 14:03 AK 03/08/21 03/15/21 03/22/21 13:54 14:37 13:58 Wound Center Nurse 1 #8 Left Lateral Upper extremity -Current Size (cm) - Length 5 -Current Size (cm) - Width 3.5 -Current Size (cm) - Depth 0.1 -Total Square Cm 17.5 -Exudate Amt Medium -Exudate Type Serosanguineous -Wound Margin Distinct, Outline Attached -Granulation Amt Medium (34-66%) -Granulation Quality Red -Necrosis Amt Small (1-33%) -Necrotic Tissue Type Adherent Slough -Texture (Maria E-wound Skin Appearance) Assessed, Scarring -Moisture (Maria E-wound Skin Appearance) No Abnormality, Assessed -Color (Maria E-wound Skin Appearance) No Abnormality, Assessed -Temperature (Maria E-wound Skin No Abnormality Appearance) (Pt Warm) -Tenderness on Palpation (Maria E-wound No Skin Appearance) -Ulcer Cleansing Rinsed/ Irrigated with Saline -Foul Odor after Cleansing No -Anesthetic Used 4% Lidocaine Solution #6 Left medial LE Inferior -Wound Margin Distinct, Outline Attached -Texture (Maria E-wound Skin Appearance) Callus -Moisture (Maria E-wound Skin Appearance) Assessed -Color (Maria E-wound Skin Appearance) No Abnormality, Assessed -Temperature (Maria E-wound Skin No Abnormality Appearance) (Pt Warm) -Tenderness on Palpation (Maria E-wound No Skin Appearance) -Ulcer Cleansing soap and water -Foul Odor after Cleansing No -Anesthetic Used 5% Lidocaine Gel #5 Left upper leg cluster -Current Size (cm) - Length 4.4 0.7 0.1 -Current Size (cm) - Width 2 1 0.1 -Current Size (cm) - Depth 0.1 0.1 0.1 -Total Square Cm 8.8 0.7 0.01 -Exudate Amt Medium Small None Present -Exudate Type Serosanguineous Serosanguineous -Wound Margin Distinct, Distinct, Distinct, Outline Outline Outline Attached Attached Attached -Granulation Amt Medium (34-66%) Small (1-33%) -Granulation Quality Red Red -Necrosis Amt Small (1-33%) Small (1-33%) Medium (34-66%) -Necrotic Tissue Type Adherent Slough Adherent Slough -Texture (Maria E-wound Skin Appearance) No Abnormality, Assessed, Assessed, Assessed Scarring Scarring -Moisture (Maria E-wound Skin Appearance) Assessed Assessed No Abnormality, Assessed -Color (Maria E-wound Skin Appearance) No Abnormality, No Abnormality, No Abnormality, Assessed Assessed Assessed -Temperature (Maria E-wound Skin No Abnormality No Abnormality No Abnormality Appearance) (Pt Warm) (Pt Warm) (Pt Warm) -Tenderness on Palpation (Maria E-wound No No No Skin Appearance) -Ulcer Cleansing soap and water Rinsed/ Rinsed/ Irrigated with Irrigated with Saline Saline -Foul Odor after Cleansing No No No -Anesthetic Used 5% Lidocaine 5% Lidocaine 4% Lidocaine Gel Gel Solution Right Calf (cm) 29 Right Ankle (cm) 19.5 Left Calf (cm) 28 Left Foot (cm) 19 - Nurse 2 - General Ulcer CM Notes Start: 03/08/21 13:54 Freq: Status: Active Protocol: Activity Type Activity Date Activity User E-Sign Co-Sign Detail Recorded Client Recorded Date Recorded By Document 03/08/21 14:18 AK [id number] 03/08/21 14:29 AK Document 03/15/21 15:12 MW [id number] 03/15/21 15:16 MW Document 03/22/21 14:22 JF [id number] 03/22/21 14:44 JF Document 03/29/21 13:45 MW [id number] 03/29/21 13:55 MW 03/08/21 03/15/21 03/22/21 14:18 15:12 14:22 Wound Center Nurse 2 #9 LEFT VARGAS CLUSTER -Time -Correct Patient -Correct Side, Site, Position -Correct Procedure -Procedure Performed -Type of Procedure -Clinical Debridement -Tissue Removed -Post Debridement (cm) - Length -Post Debridement (cm) - Width -Post Debridement (cm) - Depth -Total Square (Post) (cm) -Area of Debridement (cm) - Length -Area of Debridement (cm) - Width -Total Square (Area) (cm) -Tunneling -Undermining/Tunneling -Circular Undermining -Wound/Ulcer Outcome -Ulcer Cleansing -Foul Odor after Cleansing -Bioengineered Tissue -Bleeding Controlled with -Offloading -Treatment Response -Debridement - Subq, 1st 20sq cm -Debridement, SubQ, ea addt'l 20sq cm or part thereof #8 Left Lateral Upper extremity -Time 14:23 -Correct Patient No -Correct Side, Site, Position No -Correct Procedure No -Procedure Performed No -Tunneling No -Undermining/Tunneling No -Circular Undermining No -Wound/Ulcer Outcome Converted -Ulcer Cleansing Rinsed/ Irrigated with Saline -Foul Odor after Cleansing No -Bioengineered Tissue No -Bleeding Controlled with Pressure -Offloading No -Treatment Response Procedure Tolerated Well #6 Left medial LE Inferior -Time 14:19 -Correct Patient Yes -Correct Side, Site, Position Yes -Correct Procedure Yes -Procedure Performed No -Post Debridement (cm) - Length 0 -Post Debridement (cm) - Width 0 -Post Debridement (cm) - Depth 0 -Total Square (Post) (cm) 0 -Tunneling No -Undermining/Tunneling No -Circular Undermining No -Wound/Ulcer Outcome Healed- Epithelialized #5 Left upper leg cluster -Time 14:19 15:12 14:38 -Correct Patient Yes Yes Yes -Correct Side, Site, Position Yes Yes Yes -Correct Procedure Yes Yes Yes -Procedure Performed Yes Yes Yes -Type of Procedure Debridement Debridement Debridement -Clinical Debridement Subcutaneous Subcutaneous Subcutaneous -Tissue Removed Subcutaneous Subcutaneous Subcutaneous -Post Debridement (cm) - Length 3.5 2.5 2.6 -Post Debridement (cm) - Width 2.0 1.6 3 -Post Debridement (cm) - Depth 0.1 0.1 0.1 -Total Square (Post) (cm) 7.00 4.00 7.8 -Area of Debridement (cm) - Length 3.5 2.5 2.6 -Area of Debridement (cm) - Width 2.0 1.6 3 -Total Square (Area) (cm) 7.00 4.00 7.8 -Tunneling No No No -Undermining/Tunneling No No -Circular Undermining No No Yes -Wound/Ulcer Outcome Not Healed Not Healed Not Healed -Ulcer Cleansing Rinsed/ Rinsed/ Rinsed/ Irrigated with Irrigated with Irrigated with Saline Saline Saline -Foul Odor after Cleansing No No No -Bioengineered Tissue Yes Yes Yes -Type of Bioengineered Tissue PuraPly AM PuraPly AM PuraPly AM -Expiration Date 06/07/23 06/07/23 12/17/22 -Product Lot Number [id number] -Percent Used 100 100 100 -Lot number of Saline Used [id number] -Bleeding Controlled with Pressure Pressure Pressure -Offloading No No No -Treatment Response Procedure Procedure Procedure Tolerated Well Tolerated Well Tolerated Well -Debridement - Subq, 1st 20sq cm No No No -Apply Skin Sub - 1st 25 sq cm - Legs 1 1 1 -PuraPly AM (per sq cm) 12 12 12 Pain Scale: 0-10 Numeric Is Patient Pain Free? Yes Yes Yes 03/29/21 13:45 Wound Center Nurse 2 #9 LEFT VARGAS CLUSTER -Time 13:50 -Correct Patient Yes -Correct Side, Site, Position Yes -Correct Procedure Yes -Procedure Performed Yes -Type of Procedure Debridement -Clinical Debridement Subcutaneous -Tissue Removed Subcutaneous -Post Debridement (cm) - Length 16.0 -Post Debridement (cm) - Width 9.5 -Post Debridement (cm) - Depth 0.1 -Total Square (Post) (cm) 152.00 -Area of Debridement (cm) - Length 16.0 -Area of Debridement (cm) - Width 9.5 -Total Square (Area) (cm) 152.00 -Tunneling No -Undermining/Tunneling No -Circular Undermining No -Wound/Ulcer Outcome Not Healed -Ulcer Cleansing Rinsed/ Irrigated with Saline -Foul Odor after Cleansing No -Bioengineered Tissue No -Bleeding Controlled with Pressure -Offloading No -Treatment Response Procedure Tolerated Well -Debridement - Subq, 1st 20sq cm Yes -Debridement, SubQ, ea addt'l 20sq cm 7 or part thereof #8 Left Lateral Upper extremity -Time 13:49 -Correct Patient -Correct Side, Site, Position -Correct Procedure -Procedure Performed -Tunneling -Undermining/Tunneling -Circular Undermining -Wound/Ulcer Outcome Converted -Ulcer Cleansing -Foul Odor after Cleansing -Bioengineered Tissue -Bleeding Controlled with -Offloading -Treatment Response #6 Left medial LE Inferior -Time -Correct Patient -Correct Side, Site, Position -Correct Procedure -Procedure Performed -Post Debridement (cm) - Length -Post Debridement (cm) - Width -Post Debridement (cm) - Depth -Total Square (Post) (cm) -Tunneling -Undermining/Tunneling -Circular Undermining -Wound/Ulcer Outcome #5 Left upper leg cluster -Time 13:50 -Correct Patient -Correct Side, Site, Position -Correct Procedure -Procedure Performed -Type of Procedure -Clinical Debridement -Tissue Removed -Post Debridement (cm) - Length -Post Debridement (cm) - Width -Post Debridement (cm) - Depth -Total Square (Post) (cm) -Area of Debridement (cm) - Length -Area of Debridement (cm) - Width -Total Square (Area) (cm) -Tunneling -Undermining/Tunneling -Circular Undermining -Wound/Ulcer Outcome Converted -Ulcer Cleansing -Foul Odor after Cleansing -Bioengineered Tissue -Type of Bioengineered Tissue -Expiration Date -Product Lot Number -Percent Used -Lot number of Saline Used -Bleeding Controlled with -Offloading -Treatment Response -Debridement - Subq, 1st 20sq cm -Apply Skin Sub - 1st 25 sq cm - Legs -PuraPly AM (per sq cm) Pain Scale: 0-10 Numeric Is Patient Pain Free? Yes WC - Nurse 3 - General Ulcer D/C NN Start: 03/08/21 13:54 Freq: Status: Active Protocol: Activity Type Activity Date Activity User E-Sign Co-Sign Detail Recorded Client Recorded Date Recorded By Document 03/08/21 14:46 KR [id number] 03/08/21 14:47 KR Document 03/15/21 15:24 DL [id number] 03/15/21 15:25 DL Document 03/22/21 14:52 AK [id number] 03/22/21 14:54 AK Document 03/29/21 14:22 AK [id number] 03/29/21 14:24 AK 03/08/21 03/15/21 03/22/21 14:46 15:24 14:52 Wound Care Nurse 3 #9 LEFT VARGAS CLUSTER -Ulcer Cleansing -Foul Odor after Cleansing -Primary Dressing Applied #5 Left upper leg cluster -Ulcer Cleansing Rinsed/ Irrigated with Saline -Foul Odor after Cleansing No No -Negative Pressure Wound Therapy N/A -Other Dressing abd ABD -Primary Dressing Covered/Secured with Dry Gauze & Dry Gauze Roll Gauze, Secured with Tape -Other Covering ABD for padding Left -Lotion applied to leg before compression wrap -Multi-Layered Wrap Application Right -Lotion applied to leg before No compression wrap -Multi-Layered Wrap Application Multi-Layer Multi-Layer Multi-Layer Comp - Right ($ Comp - Left ($) Comp - Left ($) ) Treatment Response Procedure Tolerated Well Pain Scale: 0-10 Numeric Is Patient Pain Free? Yes Yes WC - Visit Discharge Discharge Condition Stable Stable Stable Ambulatory Status Ambulatory Ambulatory Ambulatory Transportation Private Auto Private Auto Accompanied by sister Clinical Summary of Care Provided Yes 03/29/21 14:22 Wound Care Nurse 3 #9 LEFT VARGAS CLUSTER -Ulcer Cleansing Rinsed/ Irrigated with Saline -Foul Odor after Cleansing No -Primary Dressing Applied C Hydrogel ($) #5 Left upper leg cluster -Ulcer Cleansing -Foul Odor after Cleansing -Negative Pressure Wound Therapy -Other Dressing -Primary Dressing Covered/Secured with -Other Covering Left -Lotion applied to leg before No compression wrap -Multi-Layered Wrap Application Multi-Layer Comp - Left ($) Right -Lotion applied to leg before compression wrap -Multi-Layered Wrap Application Treatment Response Pain Scale: 0-10 Numeric Is Patient Pain Free? WC - Visit Discharge Discharge Condition Stable Ambulatory Status Ambulatory Transportation Private Auto Accompanied by Clinical Summary of Care Provided Yes Wound debrided: mid and lower leg clusters Laterality: Left Type of Debridement: Selective debridement Anesthesia Used: 4% Lidocaine Solution Depth: Down to and including healthy tissue and in the subcutaneous layer Percentage of wound debrided: 60 Instrument Used: Forceps Tissue Removed: biofilm and hyperkeratotic scales Severity: Limited To Skin Breakdown Amount of bleeding with debridement: None Patient tolerated procedure: Patient tolerated procedure well Operative Diagnosis: infected venous stasis ulcers of the LLE Assessment/Plan Assessment/Plan (1) Venous stasis ulcer: CODE(S): I83.009 - Varicose veins of unspecified lower extremity with ulcer of unspecified site; L97.909 - Non-pressure chronic ulcer of unspecified part of unspecified lower leg with unspecified severity QUALIFIERS: Laterality: left Non-pressure ulcer stage: with fat layer exposed Varicose vein presence: with varicose veins Venous stasis ulcer site: calf Qualified Code(s): I83.022 - Varicose veins of left lower extremity with ulcer of calf; L97.222 - Non-pressure chronic ulcer of left calf with fat layer exposed (2) MRSA cellulitis: CODE(S): L03.90 - Cellulitis, unspecified; B95.62 - Methicillin resistant Staphylococcus aureus infection as the cause of diseases classified elsewhere (3) Venous insufficiency of both lower extremities: CODE(S): I87.2 - Venous insufficiency (chronic) (peripheral) (4) Insulin dependent diabetes mellitus: (5) Severe malnutrition: CODE(S): E43 - Unspecified severe protein-calorie malnutrition PLAN: Levaquin 500 mg daily X 10 days. RTC in 1 week for a recheck No Puraply until the infection has resolved
[2021-04-05 13:40] VITALS: BP 132/58; PULSE 84; RESP 18; TEMP 36.5; BMI 24.0
--- NOTE | 2021-04-05 13:58 | PN.PCM_ITS ---
History of Present Illness Date of Service: 04/05/21 Chief Complaint: non-healing wound of the LLE History of Wound: please see the consult dictated on this pt on 09/07/20 for hx Subjective Subjective Rosario presents to the [facility] for a follow up visit. She has MRSA cellulitis of the LLE distally and has been on Levaquin for the past week. We did not use Puraply last week but, will resume when the infection is adequately under control. She tells me that her appetite is better and she is starting to be hungry and eat. She has much more energy. She had a little pain/tightness in the L leg last night but, she had been up on the leg much more than she had been the past few weeks. She denies pain in the left leg today. She denies Fevers, shaking chills and night sweats. We have been using a 3 M wrap for compression. Objective Data Objective Data Vital Signs: Vital Signs Temp Pulse Resp BP 97.7 F L 84 18 132/58 H 04/05/21 13:40 04/05/21 13:40 04/05/21 13:40 04/05/21 13:40 Body Mass Index (BMI) 24.0 Lab / Micro Data Micro: Microbiology 03/22/21 14:30 Ulcer, Decubitus - Leg, Left Gram Stain - Final 03/22/21 14:30 Ulcer, Decubitus - Leg, Left Wound Culture - Final Meth. resistant Staph. aureus 03/22/21 14:30 Ulcer, Decubitus - Leg, Left Anaerobic Culture - Final No anaerobic bacteria isolated. Charges/Coding Procedures Integumentary [id number]: [id number] Sheryl subq tissue 20 sq cm/< Physical Exam Skin Wound Narrative: The vast majority of the pustules/white heads have resolved. I debrided the remaining 2. there is a large cluster at the proximal end of the vargas below the tibial plateau that is open but, there is 95% granulation tissue present. There is no tunnelling and no undermining. The leg is no longer hot to touch. Debridement Note Debridement Note Post-Debridement Measurements and Additional Note: Post-Debridement Measurements/Treatment - Nurse 1 - General Ulcer Assessment Start: 03/08/21 13:54 Freq: Status: Active Protocol: [email or web address] Activity Type Activity Date Activity User E-Sign Co-Sign Detail Recorded Client Recorded Date Recorded By Document 03/08/21 13:54 AK [id number] 03/08/21 14:03 AK Document 03/15/21 14:37 KR [id number] 03/15/21 14:42 KR Document 03/22/21 13:58 AK [id number] 03/22/21 14:03 AK Document 04/05/21 13:40 DL [id number] 04/05/21 13:50 DL 03/08/21 03/15/21 03/22/21 13:54 14:37 13:58 WC - Today's Visit Information Type of service Follow-up Visit Follow-up Visit Follow-up Visit (Physician/TERRAZZO ROLLER (Physician/TERRAZZO ROLLER (Physician/TERRAZZO ROLLER ) ) ) Arrival Mode Ambulatory Ambulatory Ambulatory Transfer Assistance Patient Identification Verified (Name & Yes Yes Yes ) Patient Requires Transmission-Based Precautions Height and Weight Body Mass Index (BMI) 24.0 24.0 24.0 BMI Classification Normal Normal Normal Vital Signs Temperature (97.8 F-99.1 F) 98.2 F 97.6 F L 97.3 F L Temperature Source Temporal Temporal Temporal Pulse Rate (60-100) 88 86 Pulse Location Monitor Monitor Respiratory Rate (12-18) Respiratory rate source Blood Pressure (90/60-120/80) 110/56 L 101/78 Blood Pressure Mean (mm Hg) 74 85 Source Monitor Monitor Position Semi-Fowlers Semi-Fowlers Blood Pressure Location Right Arm Right Arm History Since Last Visit- (Skip if this is Patient's initial visit) Have you changed medications since your No No No last visit? Any new allergies or adverse reactions No No No Had a fall/change in ADL's that may No No No increase risk of falls Signs or symptoms of abuse and/or No No No neglect since last visit Have you been in the hospital since your No No No last visit? Has dressing in place as prescribed Yes Yes Yes Has compression in place as prescribed N/A N/A Has offloadiing in place as prescribed N/A N/A Experienced any changes in pain level or No No management Left Footwear Regular Shoe Regular Shoe Regular Shoe Right Footwear Regular Shoe Regular Shoe Regular Shoe Pain Scale: 0-10 Numeric Is Patient Pain Free? Yes Yes Yes 04/05/21 13:40 WC - Today's Visit Information Type of service Follow-up Visit (Physician/TERRAZZO ROLLER ) Arrival Mode Ambulatory Transfer Assistance None Patient Identification Verified (Name & Yes ) Patient Requires Transmission-Based No Precautions Height and Weight Body Mass Index (BMI) 24.0 BMI Classification Normal Vital Signs Temperature (97.8 F-99.1 F) 97.7 F L Temperature Source Temporal Pulse Rate (60-100) 84 Pulse Location Monitor Respiratory Rate (12-18) 18 Respiratory rate source Observation Blood Pressure (90/60-120/80) 132/58 H Blood Pressure Mean (mm Hg) 82 Source Monitor Position Blood Pressure Location History Since Last Visit- (Skip if this is Patient's initial visit) Have you changed medications since your No last visit? Any new allergies or adverse reactions No Had a fall/change in ADL's that may No increase risk of falls Signs or symptoms of abuse and/or No neglect since last visit Have you been in the hospital since your No last visit? Has dressing in place as prescribed Yes Has compression in place as prescribed Yes Has offloadiing in place as prescribed N/A Experienced any changes in pain level or No management Left Footwear Right Footwear Pain Scale: 0-10 Numeric Is Patient Pain Free? Yes WC - Nurse 1 - General Ulcer Measurement Start: 03/08/21 13:54 Freq: Status: Active Protocol: Activity Type Activity Date Activity User E-Sign Co-Sign Detail Recorded Client Recorded Date Recorded By Document 03/08/21 13:54 AK [id number] 03/08/21 14:03 AK Document 03/15/21 14:37 KR [id number] 03/15/21 14:42 KR Document 03/22/21 13:58 AK [id number] 03/22/21 14:03 AK Document 04/05/21 13:40 DL [id number] 04/05/21 13:50 DL 03/08/21 03/15/21 03/22/21 13:54 14:37 13:58 Wound Center Nurse 1 #9 LEFT VARGAS CLUSTER -Current Size (cm) - Length -Current Size (cm) - Width -Current Size (cm) - Depth -Total Square Cm -Photo Taken -Exudate Amt -Exudate Type -Wound Margin -Granulation Amt -Granulation Quality -Necrotic Tissue Type -Structure Exposed -Texture (Maria E-wound Skin Appearance) -Moisture (Maria E-wound Skin Appearance) -Color (Maria E-wound Skin Appearance) -Temperature (Maria E-wound Skin Appearance) -Tenderness on Palpation (Maria E-wound Skin Appearance) -Ulcer Cleansing -Foul Odor after Cleansing -Anesthetic Used #8 Left Lateral Upper extremity -Current Size (cm) - Length 5 -Current Size (cm) - Width 3.5 -Current Size (cm) - Depth 0.1 -Total Square Cm 17.5 -Exudate Amt Medium -Exudate Type Serosanguineous -Wound Margin Distinct, Outline Attached -Granulation Amt Medium (34-66%) -Granulation Quality Red -Necrosis Amt Small (1-33%) -Necrotic Tissue Type Adherent Slough -Texture (Maria E-wound Skin Appearance) Assessed, Scarring -Moisture (Maria E-wound Skin Appearance) No Abnormality, Assessed -Color (Maria E-wound Skin Appearance) No Abnormality, Assessed -Temperature (Maria E-wound Skin No Abnormality Appearance) (Pt Warm) -Tenderness on Palpation (Maria E-wound No Skin Appearance) -Ulcer Cleansing Rinsed/ Irrigated with Saline -Foul Odor after Cleansing No -Anesthetic Used 4% Lidocaine Solution #6 Left medial LE Inferior -Wound Margin Distinct, Outline Attached -Texture (Maria E-wound Skin Appearance) Callus -Moisture (Maria E-wound Skin Appearance) Assessed -Color (Maria E-wound Skin Appearance) No Abnormality, Assessed -Temperature (Maria E-wound Skin No Abnormality Appearance) (Pt Warm) -Tenderness on Palpation (Maria E-wound No Skin Appearance) -Ulcer Cleansing soap and water -Foul Odor after Cleansing No -Anesthetic Used 5% Lidocaine Gel #5 Left upper leg cluster -Current Size (cm) - Length 4.4 0.7 0.1 -Current Size (cm) - Width 2 1 0.1 -Current Size (cm) - Depth 0.1 0.1 0.1 -Total Square Cm 8.8 0.7 0.01 -Exudate Amt Medium Small None Present -Exudate Type Serosanguineous Serosanguineous -Wound Margin Distinct, Distinct, Distinct, Outline Outline Outline Attached Attached Attached -Granulation Amt Medium (34-66%) Small (1-33%) -Granulation Quality Red Red -Necrosis Amt Small (1-33%) Small (1-33%) Medium (34-66%) -Necrotic Tissue Type Adherent Slough Adherent Slough -Texture (Maria E-wound Skin Appearance) No Abnormality, Assessed, Assessed, Assessed Scarring Scarring -Moisture (Maria E-wound Skin Appearance) Assessed Assessed No Abnormality, Assessed -Color (Maria E-wound Skin Appearance) No Abnormality, No Abnormality, No Abnormality, Assessed Assessed Assessed -Temperature (Maria E-wound Skin No Abnormality No Abnormality No Abnormality Appearance) (Pt Warm) (Pt Warm) (Pt Warm) -Tenderness on Palpation (Maria E-wound No No No Skin Appearance) -Ulcer Cleansing soap and water Rinsed/ Rinsed/ Irrigated with Irrigated with Saline Saline -Foul Odor after Cleansing No No No -Anesthetic Used 5% Lidocaine 5% Lidocaine 4% Lidocaine Gel Gel Solution Right Calf (cm) 29 Right Ankle (cm) 19.5 Left Calf (cm) 28 Left Ankle (cm) Left Foot (cm) 19 04/05/21 13:40 Wound Center Nurse 1 #9 LEFT VARGAS CLUSTER -Current Size (cm) - Length 6.4 -Current Size (cm) - Width 7 -Current Size (cm) - Depth 0.1 -Total Square Cm 44.8 -Photo Taken No -Exudate Amt Medium -Exudate Type Serosanguineous -Wound Margin Indistinct, Non -Visible -Granulation Amt Large (67-100%) -Granulation Quality Star -Necrotic Tissue Type Adherent Slough -Structure Exposed N/A -Texture (Maria E-wound Skin Appearance) Scarring -Moisture (Maria E-wound Skin Appearance) No Abnormality -Color (Maria E-wound Skin Appearance) Hemosiderin Staining -Temperature (Maria E-wound Skin No Abnormality Appearance) (Pt Warm) -Tenderness on Palpation (Maria E-wound No Skin Appearance) -Ulcer Cleansing Wound Cleanser -Foul Odor after Cleansing No -Anesthetic Used 4% Lidocaine Solution #8 Left Lateral Upper extremity -Current Size (cm) - Length -Current Size (cm) - Width -Current Size (cm) - Depth -Total Square Cm -Exudate Amt -Exudate Type -Wound Margin -Granulation Amt -Granulation Quality -Necrosis Amt -Necrotic Tissue Type -Texture (Maria E-wound Skin Appearance) -Moisture (Maria E-wound Skin Appearance) -Color (Maria E-wound Skin Appearance) -Temperature (Maria E-wound Skin Appearance) -Tenderness on Palpation (Maria E-wound Skin Appearance) -Ulcer Cleansing -Foul Odor after Cleansing -Anesthetic Used #6 Left medial LE Inferior -Wound Margin -Texture (Maria E-wound Skin Appearance) -Moisture (Maria E-wound Skin Appearance) -Color (Maria E-wound Skin Appearance) -Temperature (Maria E-wound Skin Appearance) -Tenderness on Palpation (Maria E-wound Skin Appearance) -Ulcer Cleansing -Foul Odor after Cleansing -Anesthetic Used #5 Left upper leg cluster -Current Size (cm) - Length -Current Size (cm) - Width -Current Size (cm) - Depth -Total Square Cm -Exudate Amt -Exudate Type -Wound Margin -Granulation Amt -Granulation Quality -Necrosis Amt -Necrotic Tissue Type -Texture (Maria E-wound Skin Appearance) -Moisture (Maria E-wound Skin Appearance) -Color (Maria E-wound Skin Appearance) -Temperature (Maria E-wound Skin Appearance) -Tenderness on Palpation (Maria E-wound Skin Appearance) -Ulcer Cleansing -Foul Odor after Cleansing -Anesthetic Used Right Calf (cm) Right Ankle (cm) Left Calf (cm) 26.5 Left Ankle (cm) 18.5 Left Foot (cm) WC - Nurse 2 - General Ulcer CM Notes Start: 03/08/21 13:54 Freq: Status: Active Protocol: Activity Type Activity Date Activity User E-Sign Co-Sign Detail Recorded Client Recorded Date Recorded By Document 03/08/21 14:18 AK [id number] 03/08/21 14:29 AK Document 03/15/21 15:12 MW [id number] 03/15/21 15:16 MW Document 03/22/21 14:22 [id number] 03/22/21 14:44 JF Document 03/29/21 13:45 MW [id number] 03/29/21 13:55 MW 03/08/21 03/15/21 03/22/21 14:18 15:12 14:22 Wound Center Nurse 2 #9 LEFT VARGAS CLUSTER -Time -Correct Patient -Correct Side, Site, Position -Correct Procedure -Procedure Performed -Type of Procedure -Clinical Debridement -Tissue Removed -Post Debridement (cm) - Length -Post Debridement (cm) - Width -Post Debridement (cm) - Depth -Total Square (Post) (cm) -Area of Debridement (cm) - Length -Area of Debridement (cm) - Width -Total Square (Area) (cm) -Tunneling -Undermining/Tunneling -Circular Undermining -Wound/Ulcer Outcome -Ulcer Cleansing -Foul Odor after Cleansing -Bioengineered Tissue -Bleeding Controlled with -Offloading -Treatment Response -Debridement - Subq, 1st 20sq cm -Debridement, SubQ, ea addt'l 20sq cm or part thereof #8 Left Lateral Upper extremity -Time 14:23 -Correct Patient No -Correct Side, Site, Position No -Correct Procedure No -Procedure Performed No -Tunneling No -Undermining/Tunneling No -Circular Undermining No -Wound/Ulcer Outcome Converted -Ulcer Cleansing Rinsed/ Irrigated with Saline -Foul Odor after Cleansing No -Bioengineered Tissue No -Bleeding Controlled with Pressure -Offloading No -Treatment Response Procedure Tolerated Well #6 Left medial LE Inferior -Time 14:19 -Correct Patient Yes -Correct Side, Site, Position Yes -Correct Procedure Yes -Procedure Performed No -Post Debridement (cm) - Length 0 -Post Debridement (cm) - Width 0 -Post Debridement (cm) - Depth 0 -Total Square (Post) (cm) 0 -Tunneling No -Undermining/Tunneling No -Circular Undermining No -Wound/Ulcer Outcome Healed- Epithelialized #5 Left upper leg cluster -Time 14:19 15:12 14:38 -Correct Patient Yes Yes Yes -Correct Side, Site, Position Yes Yes Yes -Correct Procedure Yes Yes Yes -Procedure Performed Yes Yes Yes -Type of Procedure Debridement Debridement Debridement -Clinical Debridement Subcutaneous Subcutaneous Subcutaneous -Tissue Removed Subcutaneous Subcutaneous Subcutaneous -Post Debridement (cm) - Length 3.5 2.5 2.6 -Post Debridement (cm) - Width 2.0 1.6 3 -Post Debridement (cm) - Depth 0.1 0.1 0.1 -Total Square (Post) (cm) 7.00 4.00 7.8 -Area of Debridement (cm) - Length 3.5 2.5 2.6 -Area of Debridement (cm) - Width 2.0 1.6 3 -Total Square (Area) (cm) 7.00 4.00 7.8 -Tunneling No No No -Undermining/Tunneling No No -Circular Undermining No No Yes -Wound/Ulcer Outcome Not Healed Not Healed Not Healed -Ulcer Cleansing Rinsed/ Rinsed/ Rinsed/ Irrigated with Irrigated with Irrigated with Saline Saline Saline -Foul Odor after Cleansing No No No -Bioengineered Tissue Yes Yes Yes -Type of Bioengineered Tissue PuraPly AM PuraPly AM PuraPly AM -Expiration Date 06/07/23 06/07/23 12/17/22 -Product Lot Number [id number] -Percent Used 100 100 100 -Lot number of Saline Used [id number] -Bleeding Controlled with Pressure Pressure Pressure -Offloading No No No -Treatment Response Procedure Procedure Procedure Tolerated Well Tolerated Well Tolerated Well -Debridement - Subq, 1st 20sq cm No No No -Apply Skin Sub - 1st 25 sq cm - Legs 1 1 1 -PuraPly AM (per sq cm) 12 12 12 Pain Scale: 0-10 Numeric Is Patient Pain Free? Yes Yes Yes 03/29/21 13:45 Wound Center Nurse 2 #9 LEFT VARGAS CLUSTER -Time 13:50 -Correct Patient Yes -Correct Side, Site, Position Yes -Correct Procedure Yes -Procedure Performed Yes -Type of Procedure Debridement -Clinical Debridement Subcutaneous -Tissue Removed Subcutaneous -Post Debridement (cm) - Length 16.0 -Post Debridement (cm) - Width 9.5 -Post Debridement (cm) - Depth 0.1 -Total Square (Post) (cm) 152.00 -Area of Debridement (cm) - Length 16.0 -Area of Debridement (cm) - Width 9.5 -Total Square (Area) (cm) 152.00 -Tunneling No -Undermining/Tunneling No -Circular Undermining No -Wound/Ulcer Outcome Not Healed -Ulcer Cleansing Rinsed/ Irrigated with Saline -Foul Odor after Cleansing No -Bioengineered Tissue No -Bleeding Controlled with Pressure -Offloading No -Treatment Response Procedure Tolerated Well -Debridement - Subq, 1st 20sq cm Yes -Debridement, SubQ, ea addt'l 20sq cm 7 or part thereof #8 Left Lateral Upper extremity -Time 13:49 -Correct Patient -Correct Side, Site, Position -Correct Procedure -Procedure Performed -Tunneling -Undermining/Tunneling -Circular Undermining -Wound/Ulcer Outcome Converted -Ulcer Cleansing -Foul Odor after Cleansing -Bioengineered Tissue -Bleeding Controlled with -Offloading -Treatment Response #6 Left medial LE Inferior -Time -Correct Patient -Correct Side, Site, Position -Correct Procedure -Procedure Performed -Post Debridement (cm) - Length -Post Debridement (cm) - Width -Post Debridement (cm) - Depth -Total Square (Post) (cm) -Tunneling -Undermining/Tunneling -Circular Undermining -Wound/Ulcer Outcome #5 Left upper leg cluster -Time 13:50 -Correct Patient -Correct Side, Site, Position -Correct Procedure -Procedure Performed -Type of Procedure -Clinical Debridement -Tissue Removed -Post Debridement (cm) - Length -Post Debridement (cm) - Width -Post Debridement (cm) - Depth -Total Square (Post) (cm) -Area of Debridement (cm) - Length -Area of Debridement (cm) - Width -Total Square (Area) (cm) -Tunneling -Undermining/Tunneling -Circular Undermining -Wound/Ulcer Outcome Converted -Ulcer Cleansing -Foul Odor after Cleansing -Bioengineered Tissue -Type of Bioengineered Tissue -Expiration Date -Product Lot Number -Percent Used -Lot number of Saline Used -Bleeding Controlled with -Offloading -Treatment Response -Debridement - Subq, 1st 20sq cm -Apply Skin Sub - 1st 25 sq cm - Legs -PuraPly AM (per sq cm) Pain Scale: 0-10 Numeric Is Patient Pain Free? Yes WC - Nurse 3 - General Ulcer D/C NN Start: 03/08/21 13:54 Freq: Status: Active Protocol: Activity Type Activity Date Activity User E-Sign Co-Sign Detail Recorded Client Recorded Date Recorded By Document 03/08/21 14:46 KR [id number] 03/08/21 14:47 KR Document 03/15/21 15:24 DL [id number] 03/15/21 15:25 DL Document 03/22/21 14:52 AK [id number] 03/22/21 14:54 AK Document 03/29/21 14:22 AK [id number] 03/29/21 14:24 AK 03/08/21 03/15/21 03/22/21 14:46 15:24 14:52 Wound Care Nurse 3 #9 LEFT VARGAS CLUSTER -Ulcer Cleansing -Foul Odor after Cleansing -Primary Dressing Applied #5 Left upper leg cluster -Ulcer Cleansing Rinsed/ Irrigated with Saline -Foul Odor after Cleansing No No -Negative Pressure Wound Therapy N/A -Other Dressing abd ABD -Primary Dressing Covered/Secured with Dry Gauze & Dry Gauze Roll Gauze, Secured with Tape -Other Covering ABD for padding Left -Lotion applied to leg before compression wrap -Multi-Layered Wrap Application Right -Lotion applied to leg before No compression wrap -Multi-Layered Wrap Application Multi-Layer Multi-Layer Multi-Layer Comp - Right ($ Comp - Left ($) Comp - Left ($) ) Treatment Response Procedure Tolerated Well Pain Scale: 0-10 Numeric Is Patient Pain Free? Yes Yes WC - Visit Discharge Discharge Condition Stable Stable Stable Ambulatory Status Ambulatory Ambulatory Ambulatory Transportation Private Auto Private Auto Accompanied by sister Clinical Summary of Care Provided Yes 03/29/21 14:22 Wound Care Nurse 3 #9 LEFT VARGAS CLUSTER -Ulcer Cleansing Rinsed/ Irrigated with Saline -Foul Odor after Cleansing No -Primary Dressing Applied C Hydrogel ($) #5 Left upper leg cluster -Ulcer Cleansing -Foul Odor after Cleansing -Negative Pressure Wound Therapy -Other Dressing -Primary Dressing Covered/Secured with -Other Covering Left -Lotion applied to leg before No compression wrap -Multi-Layered Wrap Application Multi-Layer Comp - Left ($) Right -Lotion applied to leg before compression wrap -Multi-Layered Wrap Application Treatment Response Pain Scale: 0-10 Numeric Is Patient Pain Free? WC - Visit Discharge Discharge Condition Stable Ambulatory Status Ambulatory Transportation Private Auto Accompanied by Clinical Summary of Care Provided Yes Wound debrided: several areas were carefully debrided with forceps. Laterality: Left Type of Debridement: Excisional debridement Anesthesia Used: 4% Lidocaine Solution Depth: Down to and including healthy tissue Percentage of wound debrided: 70 Instrument Used: Forceps Tissue Removed: unroofed pustules and picked off /dried old skin. Severity: Limited To Skin Breakdown Amount of bleeding with debridement: Mild Bleeding Controlled with: Pressure Patient tolerated procedure: Patient tolerated procedure well Operative Diagnosis: non-healing venous stasis ulcerations over the anterior left vargas Assessment/Plan Assessment/Plan (1) MRSA cellulitis: CODE(S): L03.90 - Cellulitis, unspecified; B95.62 - Methicillin resistant Staphylococcus aureus infection as the cause of diseases classified elsewhere (2) Venous insufficiency of both lower extremities: CODE(S): I87.2 - Venous insufficiency (chronic) (peripheral) (3) Insulin dependent diabetes mellitus: (4) Severe malnutrition: CODE(S): E43 - Unspecified severe protein-calorie malnutrition (5) Venous stasis ulcer: CODE(S): I83.009 - Varicose veins of unspecified lower extremity with ulcer of unspecified site; L97.909 - Non-pressure chronic ulcer of unspecified part of unspecified lower leg with unspecified severity QUALIFIERS: Venous stasis ulcer site: calf Varicose vein presence: with varicose veins Laterality: left Non-pressure ulcer stage: with fat layer exposed Qualified Code(s): 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 Fibraco, then cover with dry dressing and then 3 M RTC in 1 week Apply for Theraskin I think that now that she is eating again and is off chemo she will be better able to heal. I think if we get approved to use Theraskin to cover the large cluster of stasis ulcers near the tibial plateau it will heal. Uriel was working but, then it got infected and decompensated again.
== END 2021-04-05 23:59 ==
LOC: WC 13:30
PROVIDERS: PCP Family Medicine; Referring Provider Internal Medicine; Visit Provider Internal Medicine
DX: I83.028 Varicose veins of left lower extremity with ulcer other part of lower leg (principal); L97.821 Non-pressure chronic ulcer of other part of left lower leg limited to breakdown of skin; L03.116 Cellulitis of left lower limb; I87.2 Venous insufficiency (chronic) (peripheral); E11.9 Type 2 diabetes mellitus without complications; E43 Unspecified severe protein-calorie malnutrition; Z79.4 Long term (current) use of insulin; Z79.2 Long term (current) use of antibiotics
CPT/HCPCS: 11042; 11045; 15271; 29581; 87070; 87075; 87077; 87186; 87205; Q4196

== ENCOUNTER 2021-05-04 15:00 | Outpatient (RCR) | payer MEDICARE, OTHER, SELFPAY ==
[2021-04-06 00:23] VITALS: BP 132/58; PULSE 84; RESP 18; TEMP 36.5; BMI 24.0
[2021-04-19 13:50] VITALS: BP 137/51; PULSE 70; TEMP 36.2; BMI 24.0
--- NOTE | 2021-04-19 14:23 | PN.PCM_ITS ---
History of Present Illness Date of Service: 04/19/21 Chief Complaint: non-healing wound of the LLE History of Wound: please see the consult dictated on this pt on 09/07/20 for hx Subjective Subjective Rosario returns to the wound care center today for a follow-up visit. She missed her last appointment because she was too fatigued to come to the wound care center. Her dressing has been on for 2 weeks now. She denies fever, shaking chills and sweats. Her appetite is good and she has been able to eat more. She has been very active and her energy level is much better. Objective Data Objective Data Vital Signs: Vital Signs Temp Pulse Resp BP 97.2 F L 70 18 137/51 H 04/19/21 13:50 04/19/21 13:50 04/06/21 00:23 04/19/21 13:50 Body Mass Index (BMI) 24.0 Charges/Coding Procedures Integumentary 111xxx-113xx: [id number] Sheryl subq tissue 20 sq cm/< Physical Exam Skin Wound Narrative: the more proximal wound has 100% granulation tissue and no slough. There is no purulent DC. No odor. No erythema and no increased warmth to touch. The skin has better integrity and is much less friable today. the more distal wound is superficial and has good evidence of new epithelialization around the open area. No tunnelling and no undermining. Both wounds are superficial. There is dry skin present. Debridement Note Debridement Note Wound debrided: wounds on the LLE distal to the knee Laterality: Left Type of Debridement: Excisional debridement Anesthesia Used: 5% Lidocaine Gel Depth: Down to and including healthy tissue and in the subcutaneous layer Percentage of wound debrided: 100 Instrument Used: Forceps Tissue Removed: Biofilm and old dry skin around the wounds Severity: Limited To Skin Breakdown Amount of bleeding with debridement: None Patient tolerated procedure: Patient tolerated procedure well Operative Diagnosis: non-healing venous stasis ulcers of the LLE Post-Debridement Measurements and Additional Note: Post-Debridement Measurements/Treatment WC - Nurse 1 - General Ulcer Assessment Start: 04/19/21 13:50 Freq: Status: Active Protocol: ASHTYN Activity Type Activity Date Activity User E-Sign Co-Sign Detail Recorded Client Recorded Date Recorded By Document 04/19/21 13:50 FORREST [id number] 04/19/21 13:54 FORREST 04/19/21 13:50 - Today's Visit Information Type of service 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 Any new allergies or adverse reactions No Had a fall/change in ADL's that may No increase risk of falls Signs or symptoms of abuse and/or No neglect since last visit Have you been in the hospital since your No last visit? Has dressing in place as prescribed Yes Has compression in place as prescribed N/A Has offloadiing in place as prescribed N/A Experienced any changes in pain level or No management Left Footwear Regular Shoe Right Footwear Regular Shoe - Nurse 1 - General Ulcer Measurement Start: 04/19/21 13:50 Freq: Status: Active Protocol: Activity Type Activity Date Activity User E-Sign Co-Sign Detail Recorded Client Recorded Date Recorded By Document 04/19/21 13:50 FORREST [id number] 04/19/21 13:54 FORREST 04/19/21 13:50 Wound Center Nurse 1 #9 LEFT TEJADA CLUSTER -Current Size (cm) - Length 11 -Current Size (cm) - Width 7 -Current Size (cm) - Depth 0.1 -Total Square Cm 77 -Photo Taken No -Tunneling No -Undermining/Tunneling No -Circular Undermining No -Exudate Amt Medium -Exudate Type Serosanguineous -Wound Margin Distinct, Outline Attached -Granulation Amt Medium (34-66%) -Granulation Quality N/A -Slough/Fibrin No -Necrosis Amt None Present (0 %) -Necrotic Tissue Type Adherent Slough -Structure Exposed N/A -Texture (Maria E-wound Skin Appearance) No Abnormality, Excoriation -Moisture (Maria E-wound Skin Appearance) No Abnormality, Assessed -Color (Maria E-wound Skin Appearance) No Abnormality, Assessed -Temperature (Maria E-wound Skin No Abnormality Appearance) (Pt Warm) -Tenderness on Palpation (Maria E-wound No Skin Appearance) -Ulcer Cleansing Rinsed/ Irrigated with Saline -Anesthetic Used 5% Lidocaine Gel Left Calf (cm) 28 Left Ankle (cm) 20 WC - Nurse 2 - General Ulcer CM Notes Start: 04/19/21 13:50 Freq: Status: Active Protocol: Activity Type Activity Date Activity User E-Sign Co-Sign Detail Recorded Client Recorded Date Recorded By Document 04/19/21 14:06 MW [id number] 04/19/21 14:13 MW 04/19/21 14:06 Wound Center Nurse 2 #9 LEFT TEJADA CLUSTER -Time 14:06 -Correct Patient Yes -Correct Side, Site, Position Yes -Correct Procedure Yes -Procedure Performed Yes -Type of Procedure Debridement -Clinical Debridement Subcutaneous -Tissue Removed Subcutaneous -Post Debridement (cm) - Length 8.5 -Post Debridement (cm) - Width 7.0 -Post Debridement (cm) - Depth 0.1 -Total Square (Post) (cm) 59.50 -Area of Debridement (cm) - Length 8.5 -Area of Debridement (cm) - Width 7.0 -Total Square (Area) (cm) 59.50 -Tunneling No -Undermining/Tunneling No -Circular Undermining No -Wound/Ulcer Outcome Not Healed -Ulcer Cleansing Rinsed/ Irrigated with Saline -Foul Odor after Cleansing No -Bioengineered Tissue No -Bleeding Controlled with Pressure -Offloading No -Treatment Response Procedure Tolerated Well -Debridement - Subq, 1st 20sq cm Yes -Debridement, SubQ, ea addt'l 20sq cm 2 or part thereof Pain Scale: 0-10 Numeric Is Patient Pain Free? Yes Assessment/Plan Assessment/Plan (1) Venous insufficiency of both lower extremities: CODE(S): I87.2 - Venous insufficiency (chronic) (peripheral) (2) Insulin dependent diabetes mellitus: (3) Severe malnutrition: CODE(S): E43 - Unspecified severe protein-calorie malnutrition (4) Venous stasis ulcer: CODE(S): I83.009 - Varicose veins of unspecified lower extremity with ulcer of unspecified site; L97.909 - Non-pressure chronic ulcer of unspecified part of unspecified lower leg with unspecified severity QUALIFIERS: Laterality: left Non-pressure ulcer stage: with fat layer exposed Varicose vein presence: with varicose veins Venous stasis ulcer site: calf Qualified Code(s): I83.022 - Varicose veins of left lower extremity with ulcer of calf; L97.222 - Non-pressure chronic ulcer of left calf with fat layer exposed PLAN: 1. continue with fibracol, dry dressing a a 3M layer 2. Follow up visit in 1 week. I told her if every she unable to make it on Sunday she can have a nurse visit to change the dressing on a different day. The dressing is really not supposed to stay on longer than 1 week.
[2021-04-26 13:51] VITALS: BP 140/69; PULSE 89; TEMP 35.9; BMI 24.0
--- NOTE | 2021-04-26 14:24 | PN.PCM_ITS ---
History of Present Illness Date of Service: 04/26/21 Chief Complaint: non-healing wound of the LLE History of Wound: please see the consult dictated on this pt on 09/07/20 for hx Subjective Subjective Rosario denies fevers/shaking chills/night sweats. She has minimal pain in the left lower extremity. she has an appt with Dr. Goyal coming up the . She has more energy now that she is no longer on chemo and her appetite is improvin g. She is having some abd pain - mostly when she tries to eat. Objective Data Objective Data Vital Signs: Vital Signs Temp Pulse Resp BP 96.7 F L 89 18 140/69 H 04/26/21 13:51 04/26/21 13:51 04/06/21 00:23 04/26/21 13:51 Body Mass Index (BMI) 24.0 Charges/Coding Procedures Integumentary 111xxx-113xx: [id number] Sheryl subq tissue 20 sq cm/< Physical Exam Skin Wound Narrative: There are multiple small openings in the skin extending from the tibial plateau to the ankle on the left leg. The openings are superficial. the tissue itself is less friable than it was when she was on chemo. There is no purulent DC. There is beefy red granulation tissue in the base of several of the wounds and and the wounds are malik. There is mild serosanguineous DC. No undermining and no tunnelling of any of the wounds. Debridement Note Debridement Note Wound debrided: cluster of wounds over the anterior tibia on the distal L leg Laterality: Left Type of Debridement: Selective debridement Anesthesia Used: 5% Lidocaine Gel Depth: in the subcutaneous layer Percentage of wound debrided: 50 Instrument Used: Forceps Tissue Removed: dried slough and biofilm Severity: Limited To Skin Breakdown Amount of bleeding with debridement: None Patient tolerated procedure: Patient tolerated procedure well Operative Diagnosis: non-healing venous stasis ulcerations of the LLE Post-Debridement Measurements and Additional Note: Post-Debridement Measurements/Treatment WC - Nurse 1 - General Ulcer Assessment Start: 04/19/21 13:50 Freq: Status: Active Protocol: ASHTYN Activity Type Activity Date Activity User E-Sign Co-Sign Detail Recorded Client Recorded Date Recorded By Document 04/19/21 13:50 FORREST [id number] 04/19/21 13:54 AK Document 04/26/21 13:51 DAKOTA [id number] 04/26/21 14:03 KR 04/19/21 04/26/21 13:50 13:51 - Today's Visit Information Type of service Follow-up Visit 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 ) ) Arrival Mode Ambulatory Ambulatory Patient Identification Verified (Name & Yes Yes ) Patient Requires Transmission-Based No Precautions Safety Precautions NA Height and Weight Body Mass Index (BMI) 24.0 24.0 BMI Classification Normal Normal Vital Signs Temperature (97.8 F-99.1 F) 97.2 F L 96.7 F L Temperature Source Temporal Temporal Pulse Rate (60-100) 70 89 Pulse Location Monitor Monitor Blood Pressure (90/60-120/80) 137/51 H 140/69 H Blood Pressure Mean (mm Hg) 79 92 Source Monitor Monitor Position Semi-Fowlers Blood Pressure Location Right Arm History Since Last Visit- (Skip if this is Patient's initial visit) Have you changed medications since your No last visit? Any new allergies or adverse reactions No No Had a fall/change in ADL's that may No No increase risk of falls Signs or symptoms of abuse and/or No No neglect since last visit Have you been in the hospital since your No No last visit? Has dressing in place as prescribed Yes Yes Has compression in place as prescribed N/A Yes Has offloadiing in place as prescribed N/A N/A Experienced any changes in pain level or No No management Left Footwear Regular Shoe Regular Shoe Right Footwear Regular Shoe Regular Shoe Pain Scale: 0-10 Numeric Is Patient Pain Free? Yes - Nurse 1 - General Ulcer Measurement Start: 04/19/21 13:50 Freq: Status: Active Protocol: Activity Type Activity Date Activity User E-Sign Co-Sign Detail Recorded Client Recorded Date Recorded By Document 04/19/21 13:50 FORREST [id number] 04/19/21 13:54 AK Document 04/26/21 13:51 DAKOTA [id number] 04/26/21 14:03 DAKOTA 04/19/21 04/26/21 13:50 13:51 Wound Center Nurse 1 #9 LEFT TEJADA CLUSTER -Current Size (cm) - Length 11 8.3 -Current Size (cm) - Width 7 6.8 -Current Size (cm) - Depth 0.1 0.1 -Total Square Cm 77 56.44 -Photo Taken No -Tunneling No -Undermining/Tunneling No -Circular Undermining No -Exudate Amt Medium Medium -Exudate Type Serosanguineous Serosanguineous -Wound Margin Distinct, Distinct, Outline Outline Attached Attached -Granulation Amt Medium (34-66%) Medium (34-66%) -Granulation Quality N/A Red -Slough/Fibrin No -Necrosis Amt None Present (0 Small (1-33%) %) -Necrotic Tissue Type Adherent Slough Adherent Slough -Structure Exposed N/A -Texture (Maria E-wound Skin Appearance) No Abnormality, Assessed, Excoriation Scarring -Moisture (Maria E-wound Skin Appearance) No Abnormality, Assessed,Dry/ Assessed Scaly -Color (Maria E-wound Skin Appearance) No Abnormality, No Abnormality, Assessed Assessed -Temperature (Maria E-wound Skin No Abnormality No Abnormality Appearance) (Pt Warm) (Pt Warm) -Tenderness on Palpation (Maria E-wound No No Skin Appearance) -Ulcer Cleansing Rinsed/ Soap and Water Irrigated with Saline -Foul Odor after Cleansing No -Anesthetic Used 5% Lidocaine 4% Lidocaine Gel Solution,5% Lidocaine Gel Left Calf (cm) 28 Left Ankle (cm) 20 29.5 Left Foot (cm) 21.5 WC - Nurse 2 - General Ulcer CM Notes Start: 04/19/21 13:50 Freq: Status: Active Protocol: Activity Type Activity Date Activity User E-Sign Co-Sign Detail Recorded Client Recorded Date Recorded By Document 04/19/21 14:06 [id number] 04/19/21 14:13 Document 04/26/21 14:06 [id number] 04/26/21 14:15 04/19/21 04/26/21 14:06 14:06 Wound Center Nurse 2 #9 LEFT TEJADA CLUSTER -Time 14:06 14:06 -Correct Patient Yes Yes -Correct Side, Site, Position Yes Yes -Correct Procedure Yes Yes -Procedure Performed Yes Yes -Type of Procedure Debridement Debridement -Clinical Debridement Subcutaneous Subcutaneous -Tissue Removed Subcutaneous Subcutaneous -Post Debridement (cm) - Length 8.5 10 -Post Debridement (cm) - Width 7.0 2 -Post Debridement (cm) - Depth 0.1 0.1 -Total Square (Post) (cm) 59.50 20 -Area of Debridement (cm) - Length 8.5 10 -Area of Debridement (cm) - Width 7.0 2 -Total Square (Area) (cm) 59.50 20 -Tunneling No No -Undermining/Tunneling No No -Circular Undermining No No -Wound/Ulcer Outcome Not Healed Not Healed -Ulcer Cleansing Rinsed/ Rinsed/ Irrigated with Irrigated with Saline Saline -Foul Odor after Cleansing No No -Bioengineered Tissue No No -Bleeding Controlled with Pressure Pressure -Offloading No -Type of Offloading Total Contact Cast (TCC) - Left ($) -Treatment Response Procedure Procedure Tolerated Well Tolerated Well -Debridement - Subq, 1st 20sq cm Yes Yes -Debridement, SubQ, ea addt'l 20sq cm 2 or part thereof Pain Scale: 0-10 Numeric Is Patient Pain Free? Yes Yes - Nurse 3 - General Ulcer D/C NN Start: 04/19/21 13:50 Freq: Status: Active Protocol: Activity Type Activity Date Activity User E-Sign Co-Sign Detail Recorded Client Recorded Date Recorded By Document 04/19/21 14:28 DL [id number] 04/19/21 14:30 DL 04/19/21 14:28 Wound Care Nurse 3 #9 LEFT TEJADA CLUSTER -Ulcer Cleansing Rinsed/ Irrigated with Saline -Foul Odor after Cleansing No -Primary Dressing Applied Fibracol Plus 4x4,NonAdherent Contact Layer -Other Covering ABD -Fibracol Plus 4x4 1 Left -Lotion applied to leg before Yes compression wrap -Multi-Layered Wrap Application Multi-Layer Comp - Left ($) Treatment Response Procedure Tolerated Well Pain Scale: 0-10 Numeric Is Patient Pain Free? Yes - Visit Discharge Discharge Condition Stable Ambulatory Status Ambulatory Transportation Private Auto Assessment/Plan Assessment/Plan (1) Venous insufficiency of both lower extremities: CODE(S): I87.2 - Venous insufficiency (chronic) (peripheral) (2) Venous stasis ulcer: CODE(S): I83.009 - Varicose veins of unspecified lower extremity with ulcer of unspecified site; L97.909 - Non-pressure chronic ulcer of unspecified part of unspecified lower leg with unspecified severity QUALIFIERS: Laterality: left Non-pressure ulcer stage: with fat layer exposed Varicose vein presence: with varicose veins Venous stasis ulcer site: calf Qualified Code(s): I83.022 - Varicose veins of left lower extremity with ulcer of calf; L97.222 - Non-pressure chronic ulcer of left calf with fat layer exposed PLAN: 1. 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 RTC in 2 weeks. 3. a RX was given for Vicodin 5/325 mg #30 and she will take 1 every 4H as needed for pain
[2021-05-04 15:06] VITALS: BP 140/64; PULSE 84; RESP 18; TEMP 36.6; BMI 24.0
== END 2021-05-05 23:59 ==
LOC: WC 15:00
PROVIDERS: PCP Family Medicine; Referring Provider Internal Medicine; Visit Provider Internal Medicine
DX: I87.2 Venous insufficiency (chronic) (peripheral) (principal); I83.022 Varicose veins of left lower extremity with ulcer of calf; L97.222 Non-pressure chronic ulcer of left calf with fat layer exposed; E43 Unspecified severe protein-calorie malnutrition; I87.8 Other specified disorders of veins
CPT/HCPCS: 11042; 11045; 29445; 29581

== ENCOUNTER 2021-05-10 13:00 | Outpatient (RCR) | payer MEDICARE, OTHER, SELFPAY ==
[2021-05-06 00:17] VITALS: BP 140/64; PULSE 84; RESP 18; TEMP 36.6; BMI 24.0
[2021-05-10 13:05] VITALS: BP 106/53; PULSE 82; RESP 16; TEMP 36.2; BMI 24.0
--- NOTE | 2021-05-10 16:03 | PN.PCM_ITS ---
History of Present Illness Date of Service: 05/10/21 Chief Complaint: non-healing wound of the LLE History of Wound: please see the consult dictated on this pt on 09/07/20 for hx Subjective Subjective Rosario did not rise fevers/night sweats/shaking chills. She has been having increasing abdominal pain. She has been taking Vicodin 5/301 tablet 1-3 times a day for pain. She has an appointment to meet with hospice this coming . She denies pain in her left leg. The multiple small venous stasis ulcers distal to the knee on the left lower extremity are currently being dressed with Fibracol plus covered with a non it and a double Tubigrip for compression. She saw Dr. Goyal on the 04 of May and he made a referral to hospice. Rosario is here today with her sister Clau. Objective Data Objective Data Vital Signs: Vital Signs Temp Pulse Resp BP 97.2 F L 82 16 106/53 L 05/10/21 13:05 05/10/21 13:05 05/10/21 13:05 05/10/21 13:05 Oxygen Delivery Method Room Air Body Mass Index (BMI) 24.0 Charges/Coding Procedures Integumentary [id number]: [id number] Sheryl subq tissue 20 sq cm/< Physical Exam Skin Wound Narrative: She has multiple superficial venous stasis ulcers over the L leg anteriorly distal to the knee. They involve skin breakdown only. There was purulent DC from 2 of the small wounds when I removed the dried slough over the top. The DC was creamy and white yellow in color. There was no odor. A culture was taken after the area was cleansed with NS. It will be sent to the lab today. The left leg has no edema and it appears to be atrophied when compared to the RLE. She has a +2 Dorsalis Pedis pulse on the left and the foot is not cold. There is intact sensation and there is no cyanosis. Debridement Note Debridement Note Wound debrided: multiple venous stasis ulcers on the distal anterior LE Laterality: Left Type of Debridement: Selective debridement Anesthesia Used: 5% Lidocaine Gel Depth: Down to and including healthy tissue Percentage of wound debrided: 60 Instrument Used: Forceps Tissue Removed: dried slough and biofilm Severity: Limited To Skin Breakdown Amount of bleeding with debridement: Mild Bleeding Controlled with: Pressure Operative Diagnosis: multiple non-healing venous stasis ulcers Post-Debridement Measurements and Additional Note: Post-Debridement Measurements/Treatment - Nurse 1 - General Ulcer Assessment Start: 05/10/21 13:05 Freq: Status: Active Protocol: ASHTYN Activity Type Activity Date Activity User E-Sign Co-Sign Detail Recorded Client Recorded Date Recorded By Document 05/10/21 13:05 [facility] [id number] 05/10/21 13:09 [facility] 05/10/21 13:05 WC - Today's Visit Information Type of service Follow-up Visit (Physician/TURF GROWER ) Arrival Mode Ambulatory Transfer Assistance None Accompanied by friend Patient Identification Verified (Name & Yes ) Patient Requires Transmission-Based No Precautions Height and Weight Body Mass Index (BMI) 24.0 BMI Classification Normal Vital Signs Temperature (97.8 F-99.1 F) 97.2 F L Temperature Source Temporal Pulse Rate (60-100) 82 Pulse Location Monitor Respiratory Rate (12-18) 16 Respiratory rate source Observation Oxygen Delivery Method Room Air Blood Pressure (90/60-120/80) 106/53 L Blood Pressure Mean (mm Hg) 70 Source Monitor Position Sitting Blood Pressure Location Left Arm History Since Last Visit- (Skip if this is Patient's initial visit) Have you changed medications since your No last visit? Any new allergies or adverse reactions No Had a fall/change in ADL's that may No increase risk of falls Signs or symptoms of abuse and/or No neglect since last visit Have you been in the hospital since your No last visit? Has dressing in place as prescribed Yes Has compression in place as prescribed Yes Has offloadiing in place as prescribed N/A Experienced any changes in pain level or No management Left Footwear Regular Shoe Right Footwear Regular Shoe Pain Scale: 0-10 Numeric Is Patient Pain Free? Yes - Nurse 1 - General Ulcer Measurement Start: 05/10/21 13:05 Freq: Status: Active Protocol: Activity Type Activity Date Activity User E-Sign Co-Sign Detail Recorded Client Recorded Date Recorded By Document 05/10/21 13:05 [facility] [id number] 05/10/21 13:09 [facility] 05/10/21 13:05 Wound Center Nurse 1 #9 LEFT TEJADA CLUSTER -Combined with other wound No -Current Size (cm) - Length 12 -Current Size (cm) - Width 6.8 -Current Size (cm) - Depth 0.1 -Total Square Cm 81.6 -Photo Taken No -Epithelialization Small 1-33% -Tunneling No -Undermining/Tunneling No -Circular Undermining No -Exudate Amt Medium -Exudate Type Serosanguineous -Wound Margin Flat & Intact -Granulation Amt Medium (34-66%) -Granulation Quality Red -Slough/Fibrin Yes -Necrosis Amt Medium (34-66%) -Necrotic Tissue Type Adherent Slough -Texture (Maria E-wound Skin Appearance) Assessed, Scarring -Moisture (Maria E-wound Skin Appearance) Assessed,Dry/ Scaly -Color (Maria E-wound Skin Appearance) Assessed -Temperature (Maria E-wound Skin No Abnormality Appearance) (Pt Warm) -Tenderness on Palpation (Maria E-wound Yes Skin Appearance) -Ulcer Cleansing Soap and Water -Foul Odor after Cleansing No -Anesthetic Used 4% Lidocaine Solution Lower Limb Edema Present Yes Left Calf (cm) 26.5 Left Ankle (cm) 18.7 WC - Nurse 2 - General Ulcer CM Notes Start: 05/10/21 13:05 Freq: Status: Active Protocol: Activity Type Activity Date Activity User E-Sign Co-Sign Detail Recorded Client Recorded Date Recorded By Document 05/10/21 13:19 MW [id number] 05/10/21 13:30 MW 05/10/21 13:19 Wound Center Nurse 2 #9 LEFT TEJADA CLUSTER -Time 13:19 -Correct Patient Yes -Correct Side, Site, Position Yes -Correct Procedure Yes -Procedure Performed Yes -Type of Procedure Debridement -Clinical Debridement Subcutaneous -Tissue Removed Subcutaneous -Post Debridement (cm) - Length 18.0 -Post Debridement (cm) - Width 8.0 -Post Debridement (cm) - Depth 0.1 -Total Square (Post) (cm) 144.00 -Area of Debridement (cm) - Length 18.0 -Area of Debridement (cm) - Width 8.0 -Total Square (Area) (cm) 144.00 -Tunneling No -Undermining/Tunneling No -Circular Undermining No -Wound/Ulcer Outcome Not Healed -Ulcer Cleansing Rinsed/ Irrigated with Saline -Foul Odor after Cleansing No -Bioengineered Tissue No -Bleeding Controlled with Pressure -Offloading No -Treatment Response Procedure Tolerated Well -Debridement - Subq, 1st 20sq cm Yes -Debridement, SubQ, ea addt'l 20sq cm 7 or part thereof Pain Scale: 0-10 Numeric Is Patient Pain Free? Yes WC - Nurse 3 - General Ulcer D/C NN Start: 05/10/21 13:05 Freq: Status: Active Protocol: Activity Type Activity Date Activity User E-Sign Co-Sign Detail Recorded Client Recorded Date Recorded By Document 05/10/21 13:49 DL [id number] 05/10/21 13:51 DL 05/10/21 13:49 Wound Care Nurse 3 #9 LEFT TEJADA CLUSTER -Ulcer Cleansing Rinsed/ Irrigated with Saline -Primary Dressing Applied Fibracol Plus 4x4 -Primary Dressing Covered/Secured with Dry Gauze & Roll Gauze, Secured with Tape -Other Covering abd -Fibracol Plus 4x4 1 Left -Multi-Layered Wrap Application Unna Boot - Left ($) Treatment Response Procedure Tolerated Well Pain Scale: 0-10 Numeric Is Patient Pain Free? Yes WC - Visit Discharge Discharge Condition Stable Ambulatory Status Ambulatory Transportation Private Auto Assessment/Plan Assessment/Plan (1) Venous stasis ulcer: CODE(S): I83.009 - Varicose veins of unspecified lower extremity with ulcer of unspecified site; L97.909 - Non-pressure chronic ulcer of unspecified part of unspecified lower leg with unspecified severity QUALIFIERS: Venous stasis ulcer site: calf Varicose vein presence: with varicose veins Laterality: left Non-pressure ulcer stage: with fat layer exposed Qualified Code(s): I83.022 - Varicose veins of left lower extremity with ulcer of calf; L97.222 - Non-pressure chronic ulcer of left calf with fat layer exposed (2) Cellulitis and abscess of left leg: CODE(S): L03.116 - Cellulitis of left lower limb; L02.416 - Cutaneous abscess of left lower limb (3) Venous insufficiency of both lower extremities: CODE(S): I87.2 - Venous insufficiency (chronic) (peripheral) (4) Severe malnutrition: CODE(S): E43 - Unspecified severe protein-calorie malnutrition (5) Diabetes mellitus type 2 in nonobese: CODE(S): E11.9 - Type 2 diabetes mellitus without complications PLAN: 1. 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 The DC was purulent. She has grown MRSA and Pseudomonas aeruginosa in the past. The discharge does not look like Pseudomonas and it has no odor so will treat for possible MRSA. She has not tolerated doxycycline in the past secondary to increased abdominal discomfort but she has been able to tolerate 7 days of Levaquin. The MRSA is sensitive to Levaquin in the past. She was given a prescription for 5 days of Levaquin 500 mg daily. Will await the results of the culture taken today. 2. She is having increasing abdominal pain and has been using the Vicodin I gave her at her last visit for pain relief. She only has a few left and she is not meeting with hospice until and that is only a meeting to see if she wants to sign up with hospice. I prescribed Vicodin 5/300 mg, #40. She will take 1 tablet every 4 hours as needed for pain 4-10. I encouraged her to take the medication when her pain has reached a 4 and not wait until the pain is an 8-10 before taking medication. She is going to continue the pancreatic enzymes with eating which helps some with the pain. 3. I will no longer be seeing patients in the wound care center and I am referring Rosario to Dr. Wyman for ongoing care. I will call Rosario when the results of the culture are available. She will follow up with Dr. Wyman in 2 weeks.
[2021-05-11 17:44] LABS: M R Staph aureus DNA By PCR POSITIVE (Negative); Probe Check PASS; Staph aureus DNA By PCR POSITIVE (Negative)
== END 2021-06-05 23:59 ==
LOC: WC 13:00
PROVIDERS: PCP Family Medicine; Referring Provider Internal Medicine; Visit Provider Family Medicine
DX: E11.621 Type 2 diabetes mellitus with foot ulcer (principal); I83.022 Varicose veins of left lower extremity with ulcer of calf; L97.222 Non-pressure chronic ulcer of left calf with fat layer exposed; A49.02 Methicillin resistant Staphylococcus aureus infection, unspecified site; L03.116 Cellulitis of left lower limb; I87.2 Venous insufficiency (chronic) (peripheral); E43 Unspecified severe protein-calorie malnutrition
CPT/HCPCS: 11042; 11045; 29580; 87070; 87077; 87186; 87205; 87640